=== PATIENT | male | born 1970 | race Caucasian/White ===

== ENCOUNTER 2016-08-31 10:37 | Inpatient (IN) | payer SELFPAY ==
[~2016-08-31] VITALS: Ht 174 cm; Wt 117.6 kg
[2016-08-31] VITALS (7 sets, daily range): BP systolic 111–120; BP diastolic 53–84; PULSE 84–90; RESP 18–30; TEMP 96.3–97.2; O2SAT 2–95
--- NOTE | 2016-08-31 11:09 | PD ---
HPI Chief Complaint: Wound/Suture/Staple Re-Check Time Seen by Provider: 10:46 Travel History International Travel<30 days: No Contact w/Intl Traveler<30days: No Traveled to known affect area: No History of Present Illness HPI 46-year-old male complains of shortness of breath, abdominal distention, lower extremity swelling. Patient has history of chronic pain and on methadone. Patient has history of hepatitis C and borderline diabetes. Patient states that he started having progressive lower extremity swelling for the past few months. Patient states that the swelling got worse for the past week. Patient started having redness lower extremity for the past week. Patient states the redness extends from the legs into the groin and to the lower abdomen area. Patient denies any fever chills. Patient denies any chest pain. Patient states that he has shortness of breath. Patient denies abdominal pain. Patient denies any nausea vomiting diarrhea. Patient denies any fever chills. Patient denies history of DVT or PE. Patient denies any history of alcohol abuse. PFSH Past Medical History Asthma: No Bipolar Disorder: Yes Anxiety: Yes Depression: No Cancer: No Cardiovascular Problems: Yes (hx of htn takes no meds at this time) Cerebrovascular Accident: No Diminished Hearing: No Endocrine: No Gastrointestinal Disorders: No Genitourinary: No Headaches: No Immune Disorder: No Implanted Vascular Access Dvce: Yes Musculoskeletal: Yes Neurologic: No Psychiatric: Yes Reproductive: No Respiratory: Yes Immunizations Current: Yes Migraines: No Seizures: No Sleep Apnea: No Past Surgical History AICD: No Arteriovenous Shunt: No Body Medical Devices: metal eusebia right leg Insulin Pump: No Joint Replacement: No Pacemaker: No Social History Alcohol Use: Yes (HX ETOH ABUSE, ABOUT A LITER A DAY) Tobacco Use: Yes (1 PPD) Substance Use: No (HX IV DILAUDID) Allergies-Medications (Allergen,Severity, Reaction): Coded Allergies: Geodon (Verified Allergy, Severe, Anaphylaxis, 08/31/16) Risperdal (Verified Allergy, Severe, Anaphylaxis, 08/31/16) Reported Meds & Prescriptions Reported Meds & Active Scripts Active Reported Methadone (Methadone HCl) 40 Mg Tab 40 Mg PO DAILY Review of Systems General / Constitutional: No: Fever Eyes: No: Visual changes HENT: No: Headaches Cardiovascular: No: Chest Pain or Discomfort Respiratory: Positive: Shortness of Breath Gastrointestinal: No: Abdominal Pain Genitourinary: No: Dysuria Musculoskeletal: Positive: Edema, No: Pain Skin: No Rash Neurologic: No: Weakness Psychiatric: No: Depression Endocrine: No: Polydipsia Hematologic/Lymphatic: No: Easy Bruising Physical Exam Narrative GENERAL: Well-nourished, well-developed patient. SKIN: Focused skin assessment warm/dry. Patient has redness extending from the toes to lower extremity to the groin to the lower abdomen. HEAD: Normocephalic. EYES: Bilateral scleral icterus. No injection or drainage. NECK: Supple, trachea midline. No JVD or lymphadenopathy. CARDIOVASCULAR: Regular rate and rhythm without murmurs, gallops, or rubs. RESPIRATORY: Breath sounds equal bilaterally. No accessory muscle use. GASTROINTESTINAL: Abdomen distended. Nontender on palpation. MUSCULOSKELETAL: Patient had +2 to +3 pitting edema lower extremity. Mild redness associated with lower extremity. No tenderness on palpation. Multiple ulcers lesions on the lower extremity. BACK: Nontender without obvious deformity. No CVA tenderness. Neurologic exam normal. Data Data Last Documented VS Vital Signs Date Time Temp Pulse Resp B/P Pulse Ox O2 Delivery O2 Flow Rate FiO2 08/31/16 10:50 27 93 Nasal Cannula 4 08/31/16 10:41 97.2 90 120/61 Orders Electrocardiogram (08/31/16 10:55) Complete Blood Count With Diff (08/31/16 10:55) Comprehensive Metabolic Panel (08/31/16 10:55) B-Type Natriuretic Peptide (08/31/16 10:55) Prothrombin Time / Inr (Pt) (08/31/16 10:55) Act Partial Throm Time (Ptt) (08/31/16 10:55) Lipase (08/31/16 10:55) Urinalysis - C+S If Indicated (08/31/16 10:55) Magnesium (Mg) (08/31/16 10:55) Ammonia (08/31/16 10:55) Thyroid Stimulating Hormone (08/31/16 10:55) Phosphorus (Po4) (08/31/16 10:55) Chest, Single Ap (08/31/16 10:55) Ct Abd/Pel W Iv Contrast(Rout) (08/31/16 10:55) Iv Access Insert/Monitor (08/31/16 10:55) Ecg Monitoring (08/31/16 10:55) Oximetry (08/31/16 10:55) Us Leg Venous Doppler Bilat (08/31/16 10:55) Urinary Catheter Insert/Apply (08/31/16 11:23) Iohexol 350 Inj (Omnipaque 350 Inj) (08/31/16 12:31) Labs Laboratory Tests Test 08/31/16 11:02 White Blood Count 9.9 TH/MM3 Red Blood Count 4.24 MIL/MM3 Hemoglobin 13.9 GM/DL Hematocrit 41.9 % Mean Corpuscular Volume 98.7 FL Mean Corpuscular Hemoglobin 32.9 PG Mean Corpuscular Hemoglobin 33.3 % Concent Red Cell Distribution Width 16.7 % Platelet Count 130 TH/MM3 Mean Platelet Volume 7.4 FL Neutrophils (%) (Auto) 73.7 % Lymphocytes (%) (Auto) 9.6 % Monocytes (%) (Auto) 15.2 % Eosinophils (%) (Auto) 1.1 % Basophils (%) (Auto) 0.4 % Neutrophils # (Auto) 7.3 TH/MM3 Lymphocytes # (Auto) 1.0 TH/MM3 Monocytes # (Auto) 1.5 TH/MM3 Eosinophils # (Auto) 0.1 TH/MM3 Basophils # (Auto) 0.0 TH/MM3 CBC Comment DIFF FINAL Differential Comment Prothrombin Time 17.6 SEC Prothromb Time International 1.6 RATIO Ratio Activated Partial 32.3 SEC Thromboplast Time Sodium Level 136 MEQ/L Potassium Level 4.7 MEQ/L Chloride Level 97 MEQ/L Carbon Dioxide Level 30.2 MEQ/L Anion Gap 9 MEQ/L Blood Urea Nitrogen 6 MG/DL Creatinine 0.93 MG/DL Estimat Glomerular Filtration 88 ML/MIN Rate Random Glucose 56 MG/DL Calcium Level 8.2 MG/DL Phosphorus Level 2.6 MG/DL Magnesium Level 2.1 MG/DL Total Bilirubin 6.1 MG/DL Aspartate Amino Transf 187 U/L (AST/SGOT) Alanine Aminotransferase 78 U/L (ALT/SGPT) Alkaline Phosphatase 174 U/L Ammonia 63 MCMOL/L B-Type Natriuretic Peptide 103 PG/ML Total Protein 7.8 GM/DL Albumin 2.2 GM/DL Lipase 179 U/L Thyroid Stimulating Hormone 4.970 uIU/ML 3rd Gen [facility] Medical Decision Making Medical Screen Exam Complete: Yes Emergency Medical Condition: Yes Interpretation(s) Last Impressions Lower Extremity Ultrasound 08/31/16 1055 Signed Impressions: Service Date/Time: Wednesday, August 31, 2016 11:21 - CONCLUSION: 1. Limited examination due to patient's body habitus and lower extremity edema. 2. No definitive sonographic evidence for lower extremity DVT. Jorge A Collazo MD Chest X-Ray 08/31/161054 Signed Impressions: Service Date/Time: Wednesday, August 31, 2016 11:05 - CONCLUSION: 1. Mild cardiomegaly with positive fluid balance. 2. Bilateral upper lobe patchy airspace disease, more confluent on the right. Differential considerations include developing pulmonary edema versus infection in the appropriate setting. Followup to resolution is recommended. Jorge A Collazo MD Abdomen/Pelvis CT 08/31/165 Signed Impressions: Service Date/Time: Wednesday, August 31, 2016 12:29 - CONCLUSION: Cirrhosis, slight splenomegaly and mild anasarca. Ashish Wood MD 1327 PM. CBC within normal limit. Calcium 8.2. Total bili 6.1. AST 187. Alkaline phosphatase 174. Ammonia 63. BNP 103. TSH 4.97. INR 1.6. Differential Diagnosis Differential diagnosis including liver cirrhosis, anasarca, dependent edema, ascites, cellulitis, DVT, CHF. Narrative Course 46-year-old male with shortness of breath, abdominal distention, lower extremity edema. History of hepatitis C. Patient is jaundiced. Diagnosis Primary Impression: Liver cirrhosis Qualified Code: K74.60 - Cirrhosis of liver without ascites, unspecified hepatic cirrhosis type Additional Impressions: Anasarca Cellulitis Qualified Code: L03.119 - Cellulitis of lower extremity, unspecified laterality Koko Simon MD Aug 31, 2016 11:09
[2016-08-31] MEDS ORDERED: METH40TA PO (11:15)
[2016-08-31 11:21] LABS: AUTOMATED NEUTROPHIL # 7.3 TH/MM3 (1.8-7.7); BASOPHIL % 0.4 % (0.0-2.0); EOSINOPHIL # 0.1 TH/MM3 (0-0.4); EOSINOPHIL % 1.1 % (0.0-4.0); HEMATOCRIT 41.9 % (39.0-51.0); HEMO FLAGS DIFF FINAL; LYMPH % 9.6 % (9.0-44.0); MEAN CELL VOLUME 98.7 FL (80.0-100.0); MEAN CORPUSCULAR HEMOGLOBIN 32.9 PG (27.0-34.0); MEAN CORPUSCULAR HGB CONC 33.3 % (32.0-36.0); MONO % 15.2 % (0.0-8.0); NEUT % 73.7 % (16.0-70.0); PLATELET COUNT 130 TH/MM3 (150-450); RED BLOOD COUNT 4.24 MIL/MM3 (4.50-5.90); RED CELL DISTRIBUTION WIDTH 16.7 % (11.6-17.2); WHITE BLOOD COUNT 9.9 TH/MM3 (4.0-11.0)
[2016-08-31 11:30] LABS: APTT (PATIENT) 32.3 SEC (24.3-30.1); INTERNATIONAL NORMALIZED RATIO 1.6 RATIO; PROTHROMBIN TIME - PATIENT 17.6 SEC (9.8-11.6)
--- NOTE | 2016-08-31 11:31 | RADRPT ---
EXAM DATE/TIME: 08/31/2016 11:05 [facility] COMPARISON: CHEST SINGLE AP, October 30, 2015, 15:06. INDICATIONS : Shortness of breath. MEDICAL HISTORY : Smoker. SURGICAL HISTORY : None. ENCOUNTER: Initial ACUITY: 3 days PAIN SCORE: 0/10 LOCATION: Bilateral chest FINDINGS: Cardiac silhouette is mildly enlarged. There are bilateral upper lobe patchy airspace disease which a ppears more confluent on the right. Pulmonary vascularity is slightly indistinct. Bony thorax is inta ct. CONCLUSION: 1. Mild cardiomegaly with positive fluid balance. 2. Bilateral upper lobe patchy airspace disease, more confluent on the right. Differential considerat ions include developing pulmonary edema versus infection in the appropriate setting. Followup to reso lution is recommended. Jorge A Collazo MD on August 31, 2016 at 11:27 Board Certified Radiologist. This report was verified electronically.
[2016-08-31 11:53] LABS: ALKALINE PHOSPHATASE 174 U/L (45-117); TOTAL BILIRUBIN ADULT 6.1 MG/DL (0.2-1.0)
[2016-08-31 12:02] LABS: ALT (GPT) 78 U/L (12-78); ANION GAP 9 MEQ/L (5-15); AST (GOT) 187 U/L (15-37); BICARBONATE 30.2 MEQ/L (21.0-32.0); BLOOD UREA NITROGEN 6 MG/DL (7-18); CHLORIDE 97 MEQ/L (98-107); GLOMERULAR FILTRATION RATE 88 ML/MIN (>89); MAGNESIUM 2.1 MG/DL (1.5-2.5); POTASSIUM 4.7 MEQ/L (3.5-5.1); SODIUM (NA) 136 MEQ/L (136-145)
--- NOTE | 2016-08-31 12:18 | RADRPT ---
EXAM DATE/TIME: 08/31/2016 11:21 [facility] COMPARISON: No previous studies available for comparison. INDICATIONS : Bilateral leg swelling. MEDICAL HISTORY : Hypertension. Bipolar disorder. Anxiety. SURGICAL HISTORY : Right femur fracture with eusebia. Fracture tail bone. ENCOUNTER: Initial ACUITY: 2 months PAIN SCORE: 5/10 LOCATION: Bilateral leg. TECHNIQUE: Venous ultrasound of the left and right leg was performed from the inguinal ligament to the proximal calf. Real-time, color Doppler and spectral tracing, compression and augmentation techniques were us ed. FINDINGS: Examination is limited due to patient's body habitus and lower extremity edema. RIGHT LEG: There is normal compressibility of the deep venous system from the inguinal region to the proximal ca lf. No significant echogenic clot is seen in the lumen of the common femoral, femoral, popliteal, an d posterior tibial veins. There is a normal response of the venous system to proximal and distal aug mentation and respiration. LEFT LEG: There is normal compressibility of the deep venous system from the inguinal region to the proximal ca lf. No significant echogenic clot is seen in the lumen of the common femoral, femoral, popliteal, an d posterior tibial veins. There is a normal response of the venous system to proximal and distal aug mentation and respiration. CONCLUSION: 1. Limited examination due to patient's body habitus and lower extremity edema. 2. No definitive sonographic evidence for lower extremity DVT. Jorge A Collazo MD on August 31, 2016 at 12:14 Board Certified Radiologist. This report was verified electronically.
[2016-08-31] MEDS ORDERED: IOHEXOL 350 MG/ML 10 ML VIAL (for RAD DIAG) IV ONE (12:31)
--- NOTE | 2016-08-31 13:01 | RADRPT ---
EXAM DATE/TIME: 08/31/2016 12:29 [facility] COMPARISON: No previous studies available for comparison. INDICATIONS : Jaundice, shortness of breath. IV CONTRAST: 100 cc Omnipaque 350 (iohexol) IV ORAL CONTRAST: No oral contrast ingested. RADIATION DOSE: 16.94 CTDIvol (mGy) MEDICAL HISTORY : Cardiovascular disease. Hepatitis C. SURGICAL HISTORY : None. ENCOUNTER: Initial ACUITY: 3 days PAIN SCALE: 0/10 LOCATION: Bilateral upper quadrant TECHNIQUE: Volumetric scanning of the abdomen and pelvis was performed. Using automated exposure control and ad justment of the mA and/or kV according to patient size, radiation dose was kept as low as reasonably achievable to obtain optimal diagnostic quality images. DICOM format image data is available electro nically for review and comparison. FINDINGS: CT Abdomen: The liver is fatty and cirrhotic and spleen measures 17 cm in craniocaudal dimension with out focal lesions. Recannalized paraumbilical vein is present with slight varices. The pancreas, kidn eys, adrenals are unremarkable. There is no evidence for any appreciable pathological adenopathy, luisa e fluid, or bowel obstruction. There is mild anasarca. CT pelvis: There is no evidence for mass, abscess formation, or any significant adenopathy within the pelvis. CONCLUSION: Cirrhosis, slight splenomegaly and mild anasarca. Ashish Wood MD on August 31, 2016 at 12:51 Board Certified Radiologist. This report was verified electronically.
[2016-08-31] MEDS ORDERED: VANCOMYCIN INJ 1,000 MG in SODIUM CHLOR 0.9% 250 ML INJ 250 ML IV ONE (13:45)
[2016-08-31] MEDS ORDERED: LIDOCAINE 2% JELLY 30 ML TUBE TOPICAL ONE (13:45)
[2016-08-31] MEDS ORDERED: FUROSEMIDE 40 MG/4 ML VIAL IV PUSH ONE (13:45)
[2016-08-31] MEDS ORDERED: NALOXONE HCL 0.4 MG/ML AMP IV PRN (14:15)
[2016-08-31] MEDS ORDERED: SODIUM CHLORIDE 0.9% FLUSH 10 ML FLUSH IV FLUSH PRN (14:15)
--- NOTE | 2016-08-31 14:16 | HHI.HP ---
[facility] Primary Care Physician Admission Diagnosis Anasarca Diagnoses: Travel History International Travel<30 Days: No Contact w/Intl Traveler <30 Da: No Traveled to Known Affected Are: No History of Present Illness 46yo male with med hx significant for hep C presents for worsening LE swelling. Patient states for months he has had worsening LE edema. Over the past month it has significantly worsened to the point were he has difficulty walking. Edema has progressed to include his entire LE, abdomen, arms, and face. He states he has noticed wounds develop in his LE because of the swelling. He also feels SOB. He has not seen a doctor in some time. Due to the increasing swelling, he has gained over 100lbs in a year. He has Hep C from IV drug abuse. He is unclear of any other medical problems. He states he no longer drinks alcohol, last drink 1 week ago. He was previously drinking 3 pints a day. This high consumption of alcohol has been over the past year. He states he was also abusing PO dilaudid he was getting from a pain clinic. He has been going to the methadone clinic. Review of Systems Constitutional: COMPLAINS OF: Fever, Weight gain, Chills Eyes: DENIES: Blurred vision, Diplopia Ears, nose, mouth, throat: COMPLAINS OF: Tinnitus, DENIES: Hearing loss Respiratory: COMPLAINS OF: Apneas, Cough, Snoring, Shortness of breath Cardiovascular: COMPLAINS OF: Dyspnea on Exertion, Lower Extremity Edema, DENIES: Chest pain, Palpitations Gastrointestinal: COMPLAINS OF: Abdominal pain, Constipation, Diarrhea, Vomiting, DENIES: Nausea Musculoskeletal: COMPLAINS OF: Joint pain, Muscle aches, Back pain Integumentary: COMPLAINS OF: Rash Hematologic/lymphatic: COMPLAINS OF: Bruising Neurologic: COMPLAINS OF: Abnormal gait, DENIES: Seizures Psychiatric: COMPLAINS OF: Anxiety, Depression, DENIES: Hallucinations Past Family Social History Past Medical History Hepatits C Borderline DM Past Surgical History Right femur surgery 1991 Reported Medications Methadone (Methadone HCl) 40 Mg Tab 40 Mg PO DAILY Allergies: Coded Allergies: Geodon (Verified Allergy, Severe, Anaphylaxis, 08/31/16) Risperdal (Verified Allergy, Severe, Anaphylaxis, 08/31/16) Family History adopted Social History lives with father currently dose not work alcohol abuse methadone use denies any other ilicit substances Physical Exam Vital Signs Vital Signs Date Time Temp Pulse Resp B/P Pulse Ox O2 Delivery O2 Flow Rate FiO2 08/31/16 10:50 27 93 Nasal Cannula 4 08/31/16 10:41 97.2 90 30 120/61 85 Physical Exam GENERAL: This is a morbidly obese male appears uncomfortable SKIN: Diffuse jaundice, diffuse edema from feet to mid chest, although face also appears swollen. HEAD: Atraumatic. Normocephalic. No temporal or scalp tenderness. EYES: Pupils equal round and reactive. Extraocular motions intact. + scleral icterus. No injection or drainage. ENT: Nose without bleeding, purulent drainage or septal hematoma. Throat without erythema, tonsillar hypertrophy or exudate. Uvula midline. Airway patent. NECK: Trachea midline. No JVD or lymphadenopathy. Supple, nontender, no meningeal signs. CARDIOVASCULAR: Distant heart sounds, S1 and S2 appreciated without significant murmur. RESPIRATORY: Lateral breath sounds are clear to auscultation. No wheezes, rales , or rhonchi. GASTROINTESTINAL: Abdomen is distended and is diffusely tender to palpation. : significant scrotal swelling, leos in place MUSCULOSKELETAL:+++LE swelling, pitting edema, multiple ulcerations of shins are present bilaterally from significant stress/stretching of the skin. Scant drainage is present. There is surrounding erythema. Local cellulitis is present. NEUROLOGICAL: Awake and alert. Cranial nerves II through XII intact. Motor and sensory grossly within normal limits. Five out of 5 muscle strength in all muscle groups. Normal speech. Mobility is limited due to habitus. Laboratory Laboratory Tests Test 08/31/16 11:02 White Blood Count 9.9 Red Blood Count 4.24 Hemoglobin 13.9 Hematocrit 41.9 Mean Corpuscular Volume 98.7 Mean Corpuscular Hemoglobin 32.9 Mean Corpuscular Hemoglobin 33.3 Concent Red Cell Distribution Width 16.7 Platelet Count 130 Mean Platelet Volume 7.4 Neutrophils (%) (Auto) 73.7 Lymphocytes (%) (Auto) 9.6 Monocytes (%) (Auto) 15.2 Eosinophils (%) (Auto) 1.1 Basophils (%) (Auto) 0.4 Neutrophils # (Auto) 7.3 Lymphocytes # (Auto) 1.0 Monocytes # (Auto) 1.5 Eosinophils # (Auto) 0.1 Basophils # (Auto) 0.0 CBC Comment DIFF FINAL Differential Comment Prothrombin Time 17.6 Prothromb Time International 1.6 Ratio Activated Partial 32.3 Thromboplast Time Sodium Level 136 Potassium Level 4.7 Chloride Level 97 Carbon Dioxide Level 30.2 Anion Gap 9 Blood Urea Nitrogen 6 Creatinine 0.93 Estimat Glomerular Filtration 88 Rate Random Glucose 56 Calcium Level 8.2 Phosphorus Level 2.6 Magnesium Level 2.1 Total Bilirubin 6.1 Aspartate Amino Transf 187 (AST/SGOT) Alanine Aminotransferase 78 (ALT/SGPT) Alkaline Phosphatase 174 Ammonia 63 B-Type Natriuretic Peptide 103 Total Protein 7.8 Albumin 2.2 Lipase 179 Thyroid Stimulating Hormone 4.970 3rd Gen Result Diagram: 08/31/16 1102 08/31/16 1102 Imaging Last Impressions Lower Extremity Ultrasound 08/31/161054 Signed Impressions: Service Date/Time: Wednesday, August 31, 2016 11:21 - CONCLUSION: 1. Limited examination due to patient's body habitus and lower extremity edema. 2. No definitive sonographic evidence for lower extremity DVT. Jorge A Collazo MD Chest X-Ray 08/31/161054 Signed Impressions: Service Date/Time: Wednesday, August 31, 2016 11:05 - CONCLUSION: 1. Mild cardiomegaly with positive fluid balance. 2. Bilateral upper lobe patchy airspace disease, more confluent on the right. Differential considerations include developing pulmonary edema versus infection in the appropriate setting. Followup to resolution is recommended. Jorge A Collazo MD Abdomen/Pelvis CT 08/31/161054 Signed Impressions: Service Date/Time: Wednesday, August 31, 2016 12:29 - CONCLUSION: Cirrhosis, slight splenomegaly and mild anasarca. Ashish Wood MD Assessment and Plan Problem List: (1) Hepatitis C ICD Code: B19.20 Status: Acute (2) HX IVDU Status: Acute (3) Anasarca ICD Code: R60.1 Status: Acute (4) Cellulitis ICD Code: L03.90 Status: Acute (5) Elevated TSH ICD Code: R94.6 Status: Acute (6) Hyperammonemia ICD Code: E72.20 Status: Acute Assessment and Plan 46 yo male with hx hepatitis and methadone use presents with diffuse edema Anasarca - likely related to liver disease; AST/ALT 187/78, alk phos 174, ammonia 63, albumin 2.2, PT and APTT elevated, he is diffusely jaundice and has urobilinogen. - discussed at length with patient his alcohol abuse and negative sequela - will check a hep pannel and also obtain an ECHO to evaluate for any heart failure - he received lasix 40 mg IV x1 in ED, will continue 40 mg IV BID and also add spironolactone 50 mg daily - strict I & Os, fluid and sodium restrict Cellulitis - superficial cellulitis is present on both extremities due to ulceration from significant LE swelling - currently ulcerations are dressed and LE in RICHARD bandage - s/p 1 dose of Vanc in the ED, he can be continued on IV abx while in hospital for max benefit and transition to PO Elevated TSH - add T4 to blood in lab and treat as indicated Hyperammonia - likely related to liver disease - lactulose 30 ml x1, repeat tomorrow Hx IVDU, on methadone - will continue patients home methadone DVT prophy - given immobility significant DVT risk, lovenox 40 meq daily case discussed with nurse and with ED doc Code Status Full Physician Certification 2 Midnight Certification Type: Admission for Inpatient Services Order for Inpatient Services The services are ordered in accordance with Medicare regulations or non- Medicare payer requirements, as applicable. In the case of services not specified as inpatient-only, they are appropriately provided as inpatient services in accordance with the 2-midnight benchmark. Estimated LOS (days): 3 days is the estimated time the patient will need to remain in the hospital, assuming treatment plan goals are met and no additional complications. Post-Hospital Plan: Not yet determined Problem Qualifiers (1) Cellulitis: Qualified Code: L03.119 - Cellulitis of lower extremity, unspecified laterality Ju Porras MD Aug 31, 2016 14:16
[2016-08-31 14:30] LABS: BLOOD, URINE NEG (NEG); GLUCOSE,URINE NEG (NEG); KETONE, URINE NEG (NEG); NITRITE,URINE NEG (NEG); PH, URINE 6.5 (5.0-8.5); SQUAMOUS EPITHELIAL CELL URINE 2 /hpf (0-5); URINE COLOR DARK-YELLOW (YELLW/STRAW)
[2016-08-31 14:35] LABS: COMMENT (UR) CULT NOT INDICATED; CULTURE IF INDICATED CULT NOT INDICATED
[2016-08-31] MEDS ORDERED: LACTULOSE SYRUP 20 GM/30 ML CUP PO ONE (17:00)
[2016-08-31] MEDS: ENOXAPARIN SODIUM 40 MG/0.4 ML SYRINGE SQ SCH (18:21)
[2016-08-31] MEDS: FUROSEMIDE 40 MG/4 ML VIAL IV PUSH SCH (18:21)
[2016-08-31] MEDS: DOCUSATE SODIUM 50 MG/SENNA 8.6 MG TAB PO SCH (21:00)
[2016-08-31] MEDS: SODIUM CHLORIDE 0.9% FLUSH 10 ML FLUSH IV FLUSH SCH (21:00)
[2016-09-01] VITALS (8 sets, daily range): BP systolic 105–129; BP diastolic 56–76; PULSE 78–92; RESP 18–20; TEMP 96.7–97.8; O2SAT 88–96
[2016-09-01] MEDS ORDERED: MORPHINE SULFATE 4 MG/ML INJ IV PUSH ONE (03:00)
[2016-09-01 06:42] LABS: AUTOMATED NEUTROPHIL # 6.3 TH/MM3 (1.8-7.7); BASOPHIL # 0.1 TH/MM3 (0-0.2); BASOPHIL % 0.8 % (0.0-2.0); EOSINOPHIL # 0.2 TH/MM3 (0-0.4); EOSINOPHIL % 2.1 % (0.0-4.0); HEMATOCRIT 41.6 % (39.0-51.0); HEMO FLAGS DIFF FINAL; LYMPH % 11.5 % (9.0-44.0); LYMPHOCYTE # 1.1 TH/MM3 (1.0-4.8); MEAN CELL VOLUME 99.8 FL (80.0-100.0); MEAN CORPUSCULAR HEMOGLOBIN 33.4 PG (27.0-34.0); MEAN CORPUSCULAR HGB CONC 33.5 % (32.0-36.0); MONO % 17.1 % (0.0-8.0); NEUT % 68.5 % (16.0-70.0); PLATELET COUNT 122 TH/MM3 (150-450); RED BLOOD COUNT 4.17 MIL/MM3 (4.50-5.90); RED CELL DISTRIBUTION WIDTH 16.6 % (11.6-17.2); WHITE BLOOD COUNT 9.2 TH/MM3 (4.0-11.0)
[2016-09-01 06:53] LABS: BICARBONATE 37.8 MEQ/L (21.0-32.0); POTASSIUM 3.2 MEQ/L (3.5-5.1)
--- NOTE | 2016-09-01 07:37 | HHI.PR ---
Subjective Remarks Patient seen and examined this am. States his legs feel smaller, but still feels like he has "too much fluid". Nurse verified methadone at his clinic. CIWA protocol initated, was at about a level 5. Otherwise he feels well and is without complaints. Would like to sit in a chair today. Objective Vital Signs Date Time Temp Pulse Resp B/P Pulse Ox O2 Delivery O2 Flow Rate FiO2 09/01/16 04:00 97.3 84 19 129/69 94 09/01/16 00:00 96.7 88 18 120/76 96 08/31/16 20:05 93 Nasal Cannula 4.00 08/31/16 20:00 96.3 86 19 116/68 95 08/31/16 16:40 96.7 85 18 113/56 92 08/31/16 15:36 90 28 120/84 92 Nasal Cannula 4 08/31/16 14:14 84 28 111/53 92 Nasal Cannula 4 08/31/16 10:50 27 93 Nasal Cannula 4 08/31/16 10:41 97.2 90 30 120/61 85 I/O 08/31/16 08/31/16 08/31/16 09/01/16 09/01/16 09/01/16 06:59 14:59 22:59 06:59 14:59 22:59 Intake Total 200 ml 300 ml 480 ml Output Total 3700 ml 2700 ml Balance 200 ml -3400 ml -2220 ml Intake Oral 200 ml 300 ml 480 ml Output Urine Total 3700 ml 2700 ml # Voids 0 # Bowel Movements 0 0 Result Diagram: 09/01/16 0602 09/01/16 0602 Imaging Last Impressions Lower Extremity Ultrasound 08/31/16 1055 Signed Impressions: Service Date/Time: Wednesday, August 31, 2016 11:21 - CONCLUSION: 1. Limited examination due to patient's body habitus and lower extremity edema. 2. No definitive sonographic evidence for lower extremity DVT. Jorge A Collazo MD Chest X-Ray 08/31/16 1055 Signed Impressions: Service Date/Time: Wednesday, August 31, 2016 11:05 - CONCLUSION: 1. Mild cardiomegaly with positive fluid balance. 2. Bilateral upper lobe patchy airspace disease, more confluent on the right. Differential considerations include developing pulmonary edema versus infection in the appropriate setting. Followup to resolution is recommended. Jorge A Collazo MD Abdomen/Pelvis CT 08/31/16 1055 Signed Impressions: Service Date/Time: Wednesday, August 31, 2016 12:29 - CONCLUSION: Cirrhosis, slight splenomegaly and mild anasarca. Ashish Wood MD Objective Remarks GENERAL: This is a morbidly obese male appears comfortable sitting up in bed. SKIN: Diffuse jaundice, diffuse edema from feet to mid chest, although face also appears swollen. HEAD: Atraumatic. Normocephalic. No temporal or scalp tenderness. EYES: Pupils equal round and reactive. Extraocular motions intact. + scleral icterus. No injection or drainage. ENT: Nose without bleeding, purulent drainage or septal hematoma. Throat without erythema, tonsillar hypertrophy or exudate. Uvula midline. Airway patent. NECK: Trachea midline. No JVD or lymphadenopathy. Supple, nontender, no meningeal signs. CARDIOVASCULAR: Distant heart sounds, S1 and S2 appreciated without significant murmur. RESPIRATORY: Lateral breath sounds are clear to auscultation. No wheezes, rales , or rhonchi. GASTROINTESTINAL: Abdomen is distended and is diffusely tender to palpation. : significant scrotal swelling, leos in place MUSCULOSKELETAL:+++LE swelling, pitting edema, multiple ulcerations of shins are present bilaterally from significant stress/stretching of the skin. Scant drainage is present. There is surrounding erythema. Local cellulitis is present. NEUROLOGICAL: Awake and alert. Cranial nerves II through XII intact. Motor and sensory grossly within normal limits. Five out of 5 muscle strength in all muscle groups. Normal speech. Mobility is limited due to habitus. A/P Problem List: (1) Liver cirrhosis ICD Code: K74.60 (2) Cellulitis ICD Code: L03.90 (3) Anasarca ICD Code: R60.1 (4) Hyperammonemia ICD Code: E72.20 (5) Elevated TSH ICD Code: R94.6 Assessment and Plan 46 yo male with hx hepatitis and methadone use presents with diffuse edema Anasarca - likely related to liver disease; AST/ALT 187/78, alk phos 174, ammonia 63, albumin 2.2, PT and APTT elevated, he is diffusely jaundice and has urobilinogen. - discussed at length with patient his alcohol abuse and negative sequela - hep panel pending - ECHO pending - Lasix 40 mg IV BID, spironolactone 50 mg daily, KCL 20 meq BID - strict I & Os, fluid and sodium restrict--> diuresing well Cellulitis - superficial cellulitis is present on both extremities due to ulceration from significant LE swelling - currently ulcerations are dressed and LE in RICHARD bandage - s/p 1 dose of Vanc in the ED, he can be continued on IV abx while in hospital for max benefit and transition to PO Elevated TSH - free T4 wnl - repeat as an outpatient Hyperammonia - likely related to liver disease - worse this am - lactulose 30 meq daily Hx IVDU, on methadone - will continue patients home methadone DVT prophy - given immobility significant DVT risk, lovenox 40 meq daily case discussed with nurse Discharge Planning D/C pending ECHO and further workup Likely 1-2 days Discussed case with nurse Problem Qualifiers (1) Liver cirrhosis: Qualified Code: K74.60 - Cirrhosis of liver without ascites, unspecified hepatic cirrhosis type (2) Cellulitis: Qualified Code: L03.119 - Cellulitis of lower extremity, unspecified laterality Ju Porras MD Sep 01, 2016 07:36
[2016-09-01] MEDS ORDERED: POTASSIUM CHLORIDE 10 MEQ CONTROLLED RELEASE TAB PO ONE (07:45)
[2016-09-01] MEDS ORDERED: METH10CO3 PO (07:54)
[2016-09-01] MEDS: LACTULOSE SYRUP 20 GM/30 ML CUP PO SCH (09:48)
[2016-09-01] MEDS: SODIUM CHLORIDE 0.9% FLUSH 10 ML FLUSH IV FLUSH SCH ×2 (09:49→21:20)
[2016-09-01] MEDS: DOCUSATE SODIUM 50 MG/SENNA 8.6 MG TAB PO SCH ×2 (09:49→21:19)
[2016-09-01] MEDS: POTASSIUM CHLORIDE 20 MEQ CONTROLLED RELEASE TAB PO SCH ×2 (09:49→21:19)
[2016-09-01] MEDS: FUROSEMIDE 40 MG/4 ML VIAL IV PUSH SCH ×2 (09:49→16:55)
[2016-09-01] MEDS: SPIRONOLACTONE 50 MG TAB PO SCH (09:49)
[2016-09-01] MEDS ORDERED: METHADONE HCL 10 MG/10 ML ORAL SOLUTION PO SCH (12:45)
[2016-09-01] MEDS: METHADONE HCL 10 MG TAB PO SCH (14:15)
[2016-09-01] MEDS ORDERED: FLUMAZENIL 0.5 MG/5 ML VIAL IV PUSH PRN (15:30)
[2016-09-01] MEDS ORDERED: LORazepam 2 MG/ML VIAL IV PUSH PRN ×4 (15:30)
[2016-09-01] MEDS ORDERED: LORazepam 2 MG TAB PO PRN (15:30)
[2016-09-01] MEDS: ENOXAPARIN SODIUM 40 MG/0.4 ML SYRINGE SQ SCH (15:46)
--- NOTE | 2016-09-01 16:48 | ECHRPT ---
Indication: SHORTNESS OF BREATH CONCLUSIONS very technically limited study, best estimate of lv ef @ 50-55%; av not imaged but mean gradient by Doppler is 13 mm hg suggestive of mild stenosis BP: 108 / 52 HR: 111 Rhythm: Sinus MEASUREMENTS (Male / Female) Normal Values Technical Quality:Very technically difficult study 2D ECHO LVOT Diameter 2.3 cm Aortic Root Diameter 3.0 cm DOPPLER LVOT Peak Velocity 277.0 cm/s LVOT Peak Gradient 30.7 mmHg LVOT Velocity Time Integral 42.6 cm LVOT Cardiac Index 7400.2 cm/minm MV Peak Velocity 84.1 cm/s MV Peak Gradient 2.8 mmHg MV Mean Velocity 58.3 cm/s MV Mean Gradient 2.0 mmHg PV Peak Velocity 49.6 cm/s PV Peak Gradient 1.0 mmHg Kenyon Brewer MD, FACC, [facility] (Electronically Signed) Final Date:01 September 2016 16:47
--- NOTE | 2016-09-01 18:30 | EKG ---
Date Performed: 08/31/2016 Time Performed: 11:11:49 PTAGE: 46 years EKG: Sinus rhythm LOW QRS VOLTAGE IN PRECORDIAL LEADS MODERATE INTRAVENTRICULAR CONDUCTION DELAY BORDERLINE ECG PREVIOUS TRACING 10/30/2015 @ 15.34.08 Compared to prior tracing no significant change DOCTOR: Kenyon Brewer Interpretating Date/Time 09/01/2016 18:28:51
[2016-09-02] VITALS (9 sets, daily range): BP systolic 105–136; BP diastolic 58–79; PULSE 80–97; RESP 18–22; TEMP 96.6–99; O2SAT 91–95
[2016-09-02] MEDS: LORazepam 1 MG TAB PO PRN (04:44)
--- NOTE | 2016-09-02 07:26 | HHI.PR ---
Subjective Remarks Patient seen and examined this am. Yesterday nurse reports he was visually hallucinating and had tremors. CIWA score of 14, medication protocol was initiated. Sat up in chair. Reports he feels okay. He is alert and orientated but is not as sharp a previously. Objective Vital Signs Date Time Temp Pulse Resp B/P Pulse Ox O2 Delivery O2 Flow Rate FiO2 09/02/16 04:00 97.1 92 18 120/63 93 09/02/16 00:00 98.7 93 18 127/73 93 09/01/16 20:00 97.8 92 18 127/76 94 09/01/16 17:20 95 Nasal Cannula 4.00 09/01/16 16:00 97.7 81 20 105/76 95 09/01/16 12:00 96.9 86 18 110/68 88 09/01/16 10:24 95 Nasal Cannula 4.00 09/01/16 08:00 96.7 78 18 111/56 94 I/O 09/01/16 09/01/16 09/01/16 09/02/16 09/02/16 09/02/16 07:00 15:00 23:00 07:00 15:00 23:00 Intake Total 480 ml 960 ml 360 ml 270 ml Output Total 1000 ml 1900 ml 1750 ml 400 ml Balance -520 ml -940 ml -1390 ml -130 ml Intake Oral 480 ml 960 ml 360 ml 270 ml Output Urine Total 1000 ml 1900 ml 1750 ml 400 ml # Bowel Movements 0 0 0 Result Diagram: 09/01/16 0602 09/01/16 0602 Imaging Last Impressions Lower Extremity Ultrasound 08/31/16 1055 Signed Impressions: Service Date/Time: Wednesday, August 31, 2016 11:21 - CONCLUSION: 1. Limited examination due to patient's body habitus and lower extremity edema. 2. No definitive sonographic evidence for lower extremity DVT. Jorge A Collazo MD Chest X-Ray 08/31/16 1055 Signed Impressions: Service Date/Time: Wednesday, August 31, 2016 11:05 - CONCLUSION: 1. Mild cardiomegaly with positive fluid balance. 2. Bilateral upper lobe patchy airspace disease, more confluent on the right. Differential considerations include developing pulmonary edema versus infection in the appropriate setting. Followup to resolution is recommended. Jorge A Collazo MD Abdomen/Pelvis CT 08/31/16 1055 Signed Impressions: Service Date/Time: Wednesday, August 31, 2016 12:29 - CONCLUSION: Cirrhosis, slight splenomegaly and mild anasarca. Ashish Wood MD Objective Remarks GENERAL: This is a morbidly obese male appears comfortable sitting up in bed. SKIN: Diffuse jaundice, diffuse edema from feet to mid chest that has improved from admission. HEAD: Atraumatic. Normocephalic. No temporal or scalp tenderness. EYES: Pupils equal round and reactive. Extraocular motions intact. + scleral icterus. No injection or drainage. ENT: Nose without bleeding, purulent drainage or septal hematoma. Throat without erythema, tonsillar hypertrophy or exudate. Uvula midline. Airway patent. NECK: Trachea midline. No JVD or lymphadenopathy. Supple, nontender, no meningeal signs. CARDIOVASCULAR: Distant heart sounds, S1 and S2 appreciated without significant murmur. RESPIRATORY: Lateral breath sounds are clear to auscultation. No wheezes, rales , or rhonchi. GASTROINTESTINAL: Abdomen is distended and is diffusely tender to palpation. : significant scrotal swelling, leos in place MUSCULOSKELETAL:+LE swelling, significant improved from previous, multiple ulcerations of shins are present bilaterally from significant stress/stretching of the skin, there is scant drainage is present. The skin is very dry. NEUROLOGICAL: Awake and alert. Cranial nerves II through XII intact. Motor and sensory grossly within normal limits. Speech. Mobility is limited due to habitus. A/P Problem List: (1) Liver cirrhosis ICD Code: K74.60 (2) Cellulitis ICD Code: L03.90 (3) Anasarca ICD Code: R60.1 (4) Hyperammonemia ICD Code: E72.20 (5) Elevated TSH ICD Code: R94.6 Assessment and Plan 46 yo male with hx hepatitis and methadone use presents with diffuse edema Anasarca - likely related to liver disease; AST/ALT 187/78, alk phos 174, ammonia 63, albumin 2.2, PT and APTT elevated, he is diffusely jaundice and has urobilinogen. - discussed at length with patient his alcohol abuse and negative sequela - hep panel pending - ECHO pending - Lasix 20 mg IV BID, spironolactone 50 mg daily, KCL 20 meq BID - strict I & Os, fluid and sodium restrict--> diuresing well Cellulitis - superficial cellulitis is present on both extremities due to ulceration from significant LE swelling - currently ulcerations are dressed and LE in RICHARD bandage - culture obtained and pending - currently on vancomycin 08/31-09/02 can de-escalate to PO keflex - wound care consulted for assistance, also with superficial wound on buttocks that patient was unaware of Elevated TSH - free T4 wnl - repeat as an outpatient Hyperammonia - likely related to liver disease - worse this am - lactulose 30 meq daily ETOH - rally pack - CIWA protocol Hx IVDU, on methadone - will continue patients home methadone DVT prophy - given immobility significant DVT risk, lovenox 40 meq daily case discussed with nurse Discharge Planning D/C pending stabilization of mental status. Discussed case with nurse Problem Qualifiers (1) Liver cirrhosis: Qualified Code: K74.60 - Cirrhosis of liver without ascites, unspecified hepatic cirrhosis type (2) Cellulitis: Qualified Code: L03.119 - Cellulitis of lower extremity, unspecified laterality Ju Porras MD Sep 02, 2016 07:25 Ju Porras MD Sep 02, 2016 07:25
[2016-09-02 08:27] LABS: BICARBONATE 40.2 MEQ/L (21.0-32.0); POTASSIUM 3.5 MEQ/L (3.5-5.1)
[2016-09-02] MEDS: LACTULOSE SYRUP 20 GM/30 ML CUP PO SCH (10:55)
[2016-09-02] MEDS: METHADONE HCL 10 MG TAB PO SCH (10:56)
[2016-09-02] MEDS: THIAMINE HCL 100 MG TAB PO SCH (10:56)
[2016-09-02] MEDS: SPIRONOLACTONE 50 MG TAB PO SCH (10:56)
[2016-09-02] MEDS: FOLIC ACID 1 MG TAB PO SCH (10:57)
[2016-09-02] MEDS: MULTIVITAMINS/MINERALS THERAPEUTIC TAB PO SCH (10:57)
[2016-09-02] MEDS: POTASSIUM CHLORIDE 20 MEQ CONTROLLED RELEASE TAB PO SCH ×2 (11:00→21:44)
[2016-09-02] MEDS: DOCUSATE SODIUM 50 MG/SENNA 8.6 MG TAB PO SCH ×2 (11:04→21:44)
[2016-09-02] MEDS: FUROSEMIDE 20 MG/2 ML VIAL IV PUSH SCH ×2 (11:08→17:38)
--- NOTE | 2016-09-02 12:09 | PD.CONS ---
HPI History of Present Illness This is a 46 year old med hx significant for hep C, alcohol abuse, IVDA ( Dilaudid) presents for generalized weakness, swelling in bilateral LE, but worse on the left. Reports, the swelling on going for the past 2 years but worsening in severity, with wounds in the LE, not able to walk and progressed to abd, arms and face. He has gained over a 100 ibs over the past year. He used to drink 3 pints a day for over a year, but last drink was a week ago. He reports a couple of bouts of rectal bleeding. Reports intermittent N/V aggravated by anxiety. Reports diffused abd pain. Reports shortness of breath. Denies GERD, hematemesis, or melena. He is adopted and not aware of family hx. Ct on August 31, 2016 Cirrhosis, slight splenomegaly and mild anasarca. Labs revealed AST 187, ALT 78, ALP 174, bili 6.1, albumin 2.2, ammonia 63, plt of 130. He hasn't been seen by a health provider for years. Denies previous hx of liver cirrhosis. He is some what poor historian, not able to stay awake during the interview. He had Echocardiogram and that revealed EF of 50-55% (Kaia Rodríguez) PFSH Past Medical History Hepatits C Borderline DM Past Surgical History Right femur surgery 1991 (Kaia Rodríguez) Coded Allergies: Geodon (Verified Allergy, Severe, Anaphylaxis, 08/31/16) Risperdal (Verified Allergy, Severe, Anaphylaxis, 08/31/16) Medications Current Medications Medications (Trade) Dose Ordered Sig/Mercy Route Start Time Stop Time Status Last Admin (NS Flush) 2 ml UNSCH PRN IV FLUSH 08/31/16 14:15 (NS Flush) 2 ml BID IV FLUSH 08/31/16 21:00 09/01/16 21:20 (Tylenol) 650 mg Q4H PRN PO 08/31/16 14:15 (Narcan Inj) 0.4 mg UNSCH PRN IV 08/31/16 14:15 (Dixie-Colace) 1 tab BID PO 08/31/16 21:00 09/02/16 11:04 (Aldactone) 50 mg DAILY PO 09/01/16 09:00 09/02/16 10:56 (Lovenox Inj) 40 mg Q24H SQ 08/31/16 17:00 09/01/16 15:46 (KCl) 20 meq Q12HR PO 09/01/16 09:00 09/02/16 11:00 (Lactulose Liq) 30 ml DAILY PO 09/01/16 09:00 09/02/16 10:55 (Dolophine) 140 mg DAILY PO 09/01/16 13:15 09/02/16 10:56 (Romazicon Inj) 0.2 mg Q1M PRN IV PUSH 09/01/16 15:30 (Ativan) 1 mg Q4H PRN PO 09/01/16 15:30 09/02/16 04:44 (Ativan Inj) 1 mg Q4H PRN IV PUSH 09/01/16 15:30 (Ativan) 2 mg Q2H PRN PO 09/01/16 15:30 09/01/16 15:46 (Ativan Inj) 2 mg Q2H PRN IV PUSH 09/01/16 15:30 (Ativan Inj) 2 mg Q1H PRN IV PUSH 09/01/16 15:30 (Ativan Inj) 2 mg Q15M PRN IV PUSH 09/01/16 15:30 (Folate) 1 mg DAILY PO 09/02/16 09:00 09/07/16 08:59 09/02/16 10:57 (Vitamin B1) 100 mg DAILY PO 09/02/16 09:00 09/02/16 10:56 (Theragran M Tab) 1 tab DAILY PO 09/02/16 09:00 09/07/16 08:59 09/02/16 10:57 (Lasix Inj) 20 mg BID@,18 IV PUSH 09/02/16 09:00 09/02/16 11:08 (Keflex) 500 mg Q8HR PO 09/02/16 14:00 Family History adopted Social History alcohol abuse, 3 pints daily for over a year, last drink was a week ago methadone use IVDA ( Dilaudid) (Kaia Rodríguez) Review of Systems Constitutional: COMPLAINS OF: Fatigue, Weight gain Endocrine: DENIES: Polyuria Eyes: DENIES: Double Vision Ears, nose, mouth, throat: DENIES: Hoarseness Respiratory: COMPLAINS OF: Shortness of breath Cardiovascular: COMPLAINS OF: Lower Extremity Edema Gastrointestinal: COMPLAINS OF: Abdominal pain, Bloody stools, Nausea, Vomiting , Swelling of Abdomen, DENIES: Black stools, Constipation, Diarrhea, Difficulty Swallowing, Anorexia, Odynophagia, Heartburn, Hematemesis Genitourinary: DENIES: Hematuria Musculoskeletal: COMPLAINS OF: Back pain Integumentary: COMPLAINS OF: Jaundice Hematologic/lymphatic: COMPLAINS OF: Bruising Neurologic: COMPLAINS OF: Abnormal gait Psychiatric: COMPLAINS OF: Anxiety (MarcosKaia CANE FEEDER) GI Exam Vitals I&O Vital Signs Date Time Temp Pulse Resp B/P Pulse Ox O2 Delivery O2 Flow Rate FiO2 09/02/16 08:00 97.3 88 20 119/79 92 09/02/16 04:00 97.1 92 18 120/63 93 09/02/16 00:00 98.7 93 18 127/73 93 09/01/16 20:00 97.8 92 18 127/76 94 09/01/16 17:20 95 Nasal Cannula 4.00 09/01/16 16:00 97.7 81 20 105/76 95 09/01/16 12:00 96.9 86 18 110/68 88 I/O 09/01/16 09/01/16 09/01/16 09/02/16 09/02/16 09/02/16 06:59 14:59 22:59 06:59 14:59 22:59 Intake Total 480 ml 960 ml 360 ml 270 ml Output Total 2700 ml 1900 ml 1750 ml 400 ml Balance -2220 ml -940 ml -1390 ml -130 ml Intake Oral 480 ml 960 ml 360 ml 270 ml Output Urine Total 2700 ml 1900 ml 1750 ml 400 ml # Bowel Movements 0 0 0 Imaging Last Impressions Lower Extremity Ultrasound 08/31/16 1055 Signed Impressions: Service Date/Time: Wednesday, August 31, 2016 11:21 - CONCLUSION: 1. Limited examination due to patient's body habitus and lower extremity edema. 2. No definitive sonographic evidence for lower extremity DVT. Jorge A Collazo MD Chest X-Ray 08/31/16 1055 Signed Impressions: Service Date/Time: Wednesday, August 31, 2016 11:05 - CONCLUSION: 1. Mild cardiomegaly with positive fluid balance. 2. Bilateral upper lobe patchy airspace disease, more confluent on the right. Differential considerations include developing pulmonary edema versus infection in the appropriate setting. Followup to resolution is recommended. Jorge A Collazo MD Abdomen/Pelvis CT 08/31/16 1055 Signed Impressions: Service Date/Time: Wednesday, August 31, 2016 12:29 - CONCLUSION: Cirrhosis, slight splenomegaly and mild anasarca. Ashish Wood MD Laboratory Test 09/02/16 07:18 Sodium Level 140 MEQ/L Potassium Level 3.5 MEQ/L Chloride Level 95 MEQ/L Carbon Dioxide Level 40.2 MEQ/L Anion Gap 5 MEQ/L Blood Urea Nitrogen 7 MG/DL Creatinine 0.81 MG/DL Estimat Glomerular Filtration 103 ML/MIN Rate Random Glucose 80 MG/DL Calcium Level 8.3 MG/DL Date/Time Procedure Status Source Growth 09/01/16 17:00 Gram Stain - Final Resulted Wound Leg 09/01/16 17:00 Wound Culture Resulted Wound Leg Pending Physical Examination HEENT: normocephalic; atraumatic; + jaundice. NECK: Neck is supple, no JVD, no lymphadenopathy. CHEST: Chest is clear to auscultation and percussion. CARDIAC: Regular rate and rhythm with no murmur gallop or rubs. ABDOMEN: Firm, nondistended,tender; hepatosplenomegaly; bowel sounds are present in all four quadrants. EXTREMITIES: 3+ edema in BLE SKIN: wounds covered by gauze on the left, redness to lower abd and BLE HALL SUPERVISOR: Lethargy (Amawi,Khawla CANE FEEDER) Assessment and Plan Plan - Cirrhosis- likely secondary to Etoh- ( new diagnosis) MELD score 18 This is a 46 year old med hx significant for hep C, alcohol abuse, IVDA ( Dilaudid) presents for generalized weakness, swelling in bilateral LE, but worse on the left. Reports, the swelling on going for the past 2 years but worsening in severity, with wounds in the LE, not able to walk and progressed to abd, arms and face. He has gained over a 100 ibs over the past year. He used to drink 3 pints a day for over a year, but last drink was a week ago. He reports a couple of bouts of rectal bleeding. Reports intermittent N/V aggravated by anxiety. Reports diffused abd pain. Reports shortness of breath. Denies GERD, hematemesis, or melena. He is adopted and not aware of family hx. Ct on August 31, 2016 Cirrhosis, slight splenomegaly and mild anasarca. Labs revealed AST 187, ALT 78, ALP 174, bili 6.1, albumin 2.2, ammonia 63, plt of 130. He hasn't been seen by a health provider for years. Denies previous hx of liver cirrhosis. He is some what poor historian, not able to stay awake during the interview. - Acute liver failure, Etoh induced, DF (32)- low plt, low albumin, coagulopathy, high bili - Jaundice- high bili gonsales of 6.1, likely hepatic dysfunction - Hepatic encephalopathy- high ammonia, on lactulose - Alcohol abuse- used to drink 3 pints daily for over a year, last time it was a week ago. - Anasarca- He had Echocardiogram and that revealed EF of 50-55%, weeping wounds , cx pending - IVDA- Dilaudid, counselled on cessation Plan: - Low salt diet - fluid restriction - SAHIL, AMA, ASMA, AFP, ceruloplasmin, celiac, iron and ferritin studies, alpha antitrypsin deficiency, - Hep-c PCR - Await hepatitis panel - Start Pentoxifylline - DTs precautions - Alcohol cessation - Monitor labs - Cont. lactulose - Supportive care - Patient seen and examined by Dr. Nunes and myself and this note is written on his behalf. (Kaia Rodríguez) Physician Comments Patient seen and examined Agree with above Continue with current supportive care Monitor labs Patient with acute alcoholic hepatitis Patient needs to stop alcohol The discriminant function here is over 32 we'll start on pentoxifylline and we' ll consider prednisolone (Miko Nunes MD) Kaia Rodríguez Sep 02, 2016 12:09 Miko Nunes MD Sep 02, 2016 22:59
[2016-09-02] MEDS ORDERED: CEPHALEXIN MONOHYDRATE 500 MG CAP PO SCH (14:00)
--- NOTE | 2016-09-02 14:21 | PD.WCN.NOT ---
Wound Consult Description: Wound management of BLE and buttock Communicated with: HEMANTH Dorman and Doctor Vern Recommendation: Please cleanse wound to L posterior leg with normal saline or wound cleanser and apply optifoam AG non adhesive dressing secured with rolled gauze and tape. Please change dressing every 3 days or PRN if saturated or dislodged. Please cleansed wounds to R lateral leg and R medial leg with normal saline or wound cleanser and apply Optilock dressings. Secure dressings with rolled gauze and tape. Change dressing every 3 days or PRN if saturated or dislodged. Cleanse buttock area gently with soap and water and pat dry. Apply Calazime barrier cream BID and PRN. Leave open to air Please elevate BLE Additional Information: Patient seen on for evaluation of bilateral lower extremity and buttock wounds. Removed rolled gauze dressing in place to L lower extremity to reveal open wound to L posterior lower leg with scant active sero-sanguinous drainage that has foul odor. Wound measures 4.2 cm x 2 cm x ~<0.1. Wound margins are irregular. Periwound is noted with dry scaly skin but otherwise unremarkable.Tissue in wound bed is clean and red non granulation tissue.Wound culture is positive for few gram positive cocci in pairs. Cleansed wound with normal saline and applied Optifoam AG non adhesive dressing over wound bed and secured with rolled gauze and tape. Removed rolled gauze and optilock dressings in place to R lower extremity to reveal Wound to R anterior lateral leg and R lower medial posterior leg. Wound to R anterior lateral leg measures 2 cm x 2.2 cm x~0.1 cm Wound has a round shape and is shallow with clean red non granulation tissue that is vascular with moderate active sanguinous drainage that is without odor. Wound to R posterior medial lower leg measures 10 cm x 5 cm x~<0.1 cm. Tissue in wound bed is clean and red non granulated. Wound margins are irregular. Periwound of both wounds are noted with dry scaly skin but otherwise unremarkable. Active drainage from wound bed is minimal and sero-sanguinous, without odor. Cleansed both wounds with normal saline and applied Optilock dressings over wounds. Secured dressings with rolled gauze and tape. Patient positioned to R side for wound assessment of buttock area with assistance of advertising copywriter to reveal small area of partial thickness skin loss to R perianal area with surrounding blanchable erythema. Applied thick layer of Calazime barrier cream to buttock area and left open to air. Helene Disla [facility] Sep 02, 2016 14:21
[2016-09-02] MEDS ORDERED: Vancomycin Consult Pharmacy 1 EA OTHER SCH (15:15)
[2016-09-02] MEDS ORDERED: VANCOMYCIN INJ 1,000 MG in SODIUM CHLOR 0.9% 250 ML INJ 250 ML IV SCH (15:15)
--- NOTE | 2016-09-02 15:16 | HHI.FPPN ---
Addendum to progress note ADDENDUM Reason for addendum: Additonal documentation Additional information One wound culture resulted growing stap aureus and gram neg eusebia. The other wound culture is pending. Will resume Vancomycin, follow cultures and sensitivity, and adjust abx accordingly. Ju Porras MD Sep 02, 2016 15:16
[2016-09-02] MEDS: ENOXAPARIN SODIUM 40 MG/0.4 ML SYRINGE SQ SCH (17:38)
[2016-09-02] MEDS: VANCOMYCIN INJ 2,000 MG in SODIUM CHLORID 0.9% 500 ML INJ 500 ML IV SCH (17:39)
[2016-09-02] MEDS: SODIUM CHLORIDE 0.9% FLUSH 10 ML FLUSH IV FLUSH SCH (21:00)
--- NOTE | 2016-09-02 21:29 | RADRPT ---
EXAM DATE/TIME: 09/02/2016 21:13 [place] COMPARISON: No previous studies available for comparison. INDICATIONS : Fell hitting right side of head. RADIATION DOSE: 53.21 CTDIvol (mGy) MEDICAL HISTORY : Cardiovascular disease. Hypertension. Cirrhosis.Hep C SURGICAL HISTORY : None. ENCOUNTER: Initial ACUITY: 1 day PAIN SCALE: 0/10 LOCATION: cranial TECHNIQUE: Multiple contiguous axial images were obtained of the head. Using automated exposure control and adj ustment of the mA and/or kV according to patient size, radiation dose was kept as low as reasonably a chievable to obtain optimal diagnostic quality images. DICOM format image data is available electro nically for review and comparison. FINDINGS: CEREBRUM: The ventricles are normal for age. No evidence of midline shift, mass lesion, hemorrhage or acute in farction. No extra-axial fluid collections are seen. POSTERIOR FOSSA: The cerebellum and brainstem are intact. The 4th ventricle is midline. The cerebellopontine angle i s unremarkable. EXTRACRANIAL: The visualized portion of the orbits is intact. SKULL: The calvaria is intact. No evidence of skull fracture. CONCLUSION: No acute disease. Omar Contreras MD on September 02, 2016 at 21:27 Board Certified Radiologist. This report was verified electronically.
[2016-09-03] VITALS (9 sets, daily range): BP systolic 105–129; BP diastolic 56–77; PULSE 76–117; RESP 17–24; TEMP 96.1–98.5; O2SAT 91–99
[2016-09-03] MEDS: PENTOXIFYLLINE 400 MG CONTROLLED RELEASE TAB PO SCH ×4 (07:13→23:02)
[2016-09-03] MEDS: VANCOMYCIN INJ 2,000 MG in SODIUM CHLORID 0.9% 500 ML INJ 500 ML IV SCH ×2 (07:13→18:48)
--- NOTE | 2016-09-03 08:28 | HHI.PR ---
Subjective Remarks Patient seen and examined this am. Vitals are stable and he is without fever. Saturating 99% on 3 L NC. Slept well. Per nurse, patient got up to use the bathroom and lost his balance is fell. Urinating on his own now. Denies CP. States he feels" yucky." Objective Vital Signs Date Time Temp Pulse Resp B/P Pulse Ox O2 Delivery O2 Flow Rate FiO2 09/03/16 04:00 97.9 76 18 107/69 99 09/03/16 00:00 97.3 84 17 129/69 92 09/02/16 21:30 97.4 81 18 136/64 93 09/02/16 20:15 97.0 97 22 136/66 95 09/02/16 20:00 99.0 82 20 105/58 91 09/02/16 19:43 93 Nasal Cannula 3.00 09/02/16 16:00 97.1 80 20 114/72 92 09/02/16 14:54 Nasal Cannula 3.00 09/02/16 14:00 96.6 83 20 112/74 92 I/O 09/02/16 09/02/16 09/02/16 09/03/16 09/03/16 09/03/16 07:00 15:00 23:00 07:00 15:00 23:00 Intake Total 270 ml 690 ml Output Total 400 ml 650 ml 300 ml Balance -130 ml 40 ml -300 ml Intake Oral 270 ml 690 ml Output Urine Total 400 ml 650 ml 300 ml # Voids 1 # Bowel Movements 0 Result Diagram: 09/01/16 0602 09/02/16 0718 Imaging Last Impressions Head CT 09/02/16 0000 Signed Impressions: Service Date/Time: Friday, September 02, 2016 21:13 - CONCLUSION: No acute disease. Omar Contreras MD Lower Extremity Ultrasound 08/31/16 1055 Signed Impressions: Service Date/Time: Wednesday, August 31, 2016 11:21 - CONCLUSION: 1. Limited examination due to patient's body habitus and lower extremity edema. 2. No definitive sonographic evidence for lower extremity DVT. Jorge A Collazo MD Chest X-Ray 08/31/16 1055 Signed Impressions: Service Date/Time: Wednesday, August 31, 2016 11:05 - CONCLUSION: 1. Mild cardiomegaly with positive fluid balance. 2. Bilateral upper lobe patchy airspace disease, more confluent on the right. Differential considerations include developing pulmonary edema versus infection in the appropriate setting. Followup to resolution is recommended. Jorge A Collazo MD Abdomen/Pelvis CT 08/31/16 1055 Signed Impressions: Service Date/Time: Friday, August 31, 2016 12:29 - CONCLUSION: Cirrhosis, slight splenomegaly and mild anasarca. Ashish Wood MD Objective Remarks GENERAL: This is a morbidly obese male appears comfortable sitting up in bed. SKIN: Diffuse jaundice, diffuse edema from feet to mid chest that has improved from admission. HEAD: Atraumatic. Normocephalic. No temporal or scalp tenderness. EYES: Pupils equal round and reactive. Extraocular motions intact. + scleral icterus. No injection or drainage. CARDIOVASCULAR: Distant heart sounds, S1 and S2 appreciated without significant murmur. RESPIRATORY: Lateral breath sounds are clear to auscultation. No wheezes, rales , or rhonchi. GASTROINTESTINAL: Abdomen is distended and is diffusely tender to palpation. : significant scrotal swelling, leos in place MUSCULOSKELETAL:+LE swelling, significant improved from previous, multiple ulcerations of shins are present bilaterally from significant stress/stretching of the skin, there is scant drainage is present. The skin is very dry. NEUROLOGICAL: Awake and alert. Cranial nerves II through XII intact. Motor and sensory grossly within normal limits. Speech. Mobility is limited due to habitus. A/P Problem List: (1) Liver cirrhosis ICD Code: K74.60 (2) Cellulitis ICD Code: L03.90 (3) Anasarca ICD Code: R60.1 (4) Hyperammonemia ICD Code: E72.20 (5) Elevated TSH ICD Code: R94.6 Assessment and Plan 46 yo male with hx hepatitis and methadone use presents with diffuse edema/ ansarca with alcoholic hepatitis. Patient has been aggressively diuresed. GI consulted for his liver disease. He has wounds on both LE, cultures obtained. Sensitivities pending. CIWA protocol initated on the second day of admission when patient was showing signs of withdrawal. Anasarca - likely related to liver disease. - discussed at length with patient his alcohol abuse and negative sequela - hep panel significant for reactive hep C abt - ECHO normal EF - Lasix 20 mg IV BID, spironolactone 50 mg daily, KCL 20 meq BID - strict I & Os, fluid and sodium restrict--> diuresing well Cellulitis - superficial cellulitis is present on both extremities due to ulceration from significant LE swelling - currently ulcerations are dressed and LE in RICHARD bandage - culture obtained and are growing: staph aureus, proteus, gram neg eusebia, will follow cultures - currently on vancomycin 08/31 - wound care consulted and have made their reccs Elevated TSH - free T4 wnl - repeat as an outpatient Alcoholic hepatitis - consulted GI reccs: low salt diet, fluid restrict, SAHIL, AMA, ASMA, AFP, ceruloplasm, celiac, iron, ferritin, alpha antitryipsin, hep C PCR, cont lactulose, started pentoxifylline - worse this am - lactulose 30 meq daily ETOH - rally pack - CIWA protocol - has not required ativan in 24 hrs Hx IVDU, on methadone - will continue patients home methadone DVT prophy - given immobility significant DVT risk, lovenox 40 meq daily case discussed with nurse Discharge Planning D/C pending: GI work up (can likely be continued as an outpatient) and culture sensitivities so we know what abx to send him home on. Discussed case with nurse Problem Qualifiers (1) Liver cirrhosis: Qualified Code: K74.60 - Cirrhosis of liver without ascites, unspecified hepatic cirrhosis type (2) Cellulitis: Qualified Code: L03.119 - Cellulitis of lower extremity, unspecified laterality Ju Porras MD Sep 03, 2016 08:28
[2016-09-03] MEDS: FUROSEMIDE 20 MG/2 ML VIAL IV PUSH SCH ×3 (09:00→18:48)
[2016-09-03] MEDS: SPIRONOLACTONE 50 MG TAB PO SCH (09:00)
[2016-09-03] MEDS: MULTIVITAMINS/MINERALS THERAPEUTIC TAB PO SCH (09:09)
[2016-09-03] MEDS: FOLIC ACID 1 MG TAB PO SCH (09:09)
[2016-09-03] MEDS: SODIUM CHLORIDE 0.9% FLUSH 10 ML FLUSH IV FLUSH SCH ×2 (09:09→21:00)
[2016-09-03] MEDS: POTASSIUM CHLORIDE 20 MEQ CONTROLLED RELEASE TAB PO SCH ×2 (09:09→23:02)
[2016-09-03] MEDS: LACTULOSE SYRUP 20 GM/30 ML CUP PO SCH (09:09)
[2016-09-03] MEDS: THIAMINE HCL 100 MG TAB PO SCH (09:09)
[2016-09-03] MEDS: METHADONE HCL 10 MG TAB PO SCH (09:09)
[2016-09-03] MEDS: DOCUSATE SODIUM 50 MG/SENNA 8.6 MG TAB PO SCH ×2 (09:09→23:02)
[2016-09-03 10:45] LABS: POTASSIUM 3.6 MEQ/L (3.5-5.1)
[2016-09-03 10:52] LABS: FERRITIN 96 NG/ML (26-388); TRANSFERRIN IRON PROFILE 136 MG/DL (200-360)
[2016-09-03 10:56] LABS: INDIRECT BILIRUBIN 1.4 MG/DL (0.0-0.8); TOTAL BILIRUBIN ADULT 4.1 MG/DL (0.2-1.0)
--- NOTE | 2016-09-03 13:05 | HHI.GIFU ---
Subjective Remarks Patient is resting in bed, states he has N/V this morning, still with mild abd pain. (Kaia Rodríguez VOCATIONAL REHABILITATION TECHNICIAN) Objective Vitals I&O Vital Signs Date Time Temp Pulse Resp B/P Pulse Ox O2 Delivery O2 Flow Rate FiO2 09/03/16 11:49 98.0 87 20 118/56 93 09/03/16 09:15 80 105/58 09/03/16 07:50 96.1 84 20 121/59 91 09/03/16 04:00 97.9 76 18 107/69 99 09/03/16 00:00 97.3 84 17 129/69 92 09/02/16 21:30 97.4 81 18 136/64 93 09/02/16 20:15 97.0 97 22 136/66 95 09/02/16 20:00 99.0 82 20 105/58 91 09/02/16 19:43 93 Nasal Cannula 3.00 09/02/16 16:00 97.1 80 20 114/72 92 09/02/16 14:54 Nasal Cannula 3.00 09/02/16 14:00 96.6 83 20 112/74 92 I/O 09/02/16 09/02/16 09/02/16 09/03/16 09/03/16 09/03/16 06:59 14:59 22:59 06:59 14:59 22:59 Intake Total 270 ml 690 ml 150 ml Output Total 400 ml 650 ml 300 ml Balance -130 ml 40 ml -300 ml 150 ml Intake Oral 270 ml 690 ml 150 ml Output Urine Total 400 ml 650 ml 300 ml # Voids 1 # Bowel Movements 0 Laboratory Laboratory Tests Test 09/03/16 09/03/16 06:16 09:16 Ammonia 82 Sodium Level 140 Potassium Level 3.6 Chloride Level 96 Carbon Dioxide Level 39.0 Anion Gap 5 Blood Urea Nitrogen 6 Creatinine 0.64 Estimat Glomerular Filtration 135 Rate Random Glucose 64 Calcium Level 8.2 Iron Level 52 Total Iron Binding Capacity 190 Percent Iron Saturation 27.3 Ferritin 96 Total Bilirubin 4.1 Direct Bilirubin 2.7 Indirect Bilirubin 1.4 Aspartate Amino Transf 137 (AST/SGOT) Alanine Aminotransferase 58 (ALT/SGPT) Alkaline Phosphatase 144 Total Protein 7.3 Albumin 2.0 Tumor Marker Alpha Fetoprotein 2.8 Date/Time Procedure Status Source Growth 09/01/16 17:00 Gram Stain - Final Resulted Wound Leg 09/01/16 17:00 Wound Culture - Preliminary Resulted Staphylococcus Aureus Pseudomonas Aeruginosa Gram Negative Darek Physical Exam HEENT: normocephalic; atraumatic; + jaundice. NECK: Neck is supple, no JVD, no lymphadenopathy. CHEST: Chest is clear to auscultation and percussion. CARDIAC: Regular rate and rhythm with no murmur gallop or rubs. ABDOMEN: Firm, obese, nondistended, tender; hepatosplenomegaly; bowel sounds are present in all four quadrants. EXTREMITIES: 3+ edema in BLE SKIN: wounds covered by gauze on the left, redness to lower abd and BLE COMMUNITY ORGANIZER: No focal deficits; alert and oriented times three. (Kaia Rodríguez) Assessment and Plan Plan - Cirrhosis- likely secondary to Etoh- ( new diagnosis) MELD score 18 with hx of alcohol abuse, LFTs trending down Hepatitis panel came back (+) for hep C, AFP 2.8 ,ferritin 96 iron % 27 hep-c PCR, SAHIL, AMA, ASMA, ceruloplasmin, celiac, and studies, and alpha antitrypsin deficiency pending - Acute alcoholic hepatitis- DF (32)- on Pentoxifylline - ?liver failure- low plt, low albumin, coagulopathy, high bili - Jaundice- high bili gonsales of 6.1, this is trending down, today is 4.1, likely hepatic dysfunction - Hepatic encephalopathy- high ammonia, worsening today, on lactulose, will increase dose to BID and add Xifaxan - Alcohol abuse- used to drink 3 pints daily for over a year, last time it was a week ago. - Anasarca- Lasix 20 mg IV BID, spironolactone 50 mg daily, He had Echocardiogram and that revealed EF of 50-55%, - Legs ulcers, weeping wounds, cx pending - IVDA- Dilaudid, counselled on cessation Plan: - Low salt diet - fluid restriction - Await SAHIL, AMA, ASMA, ceruloplasmin, celiac, alpha antitrypsin deficiency, - Await Hep-c PCR - Lactulose BID - Cont. Pentoxifylline - Add Xifaxan - cont. Lasix - Cont. Aldactone - DTs precautions - Alcohol cessation - LFTs, ammonia in am - Supportive care - Patient seen and examined by Dr. Nunes and myself and this note is written on his behalf. (Kaia Rodríguez) Physician Comments Patient seen and examined Agree with above Continue with current supportive care Monitor labs (Miko Nunes MD) Kaia Rodríguez Sep 03, 2016 13:05 Miko Nunes MD Sep 03, 2016 23:04
[2016-09-03] MEDS: RIFAXIMIN 200 MG TAB PO SCH ×2 (15:57→23:02)
[2016-09-03] MEDS: ENOXAPARIN SODIUM 40 MG/0.4 ML SYRINGE SQ SCH (18:47)
[2016-09-03] MEDS ORDERED: LACTULOSE SYRUP 20 GM/30 ML CUP PO SCH (21:00)
[2016-09-04] VITALS (12 sets, daily range): BP systolic 98–156; BP diastolic 52–96; PULSE 85–112; RESP 12–22; TEMP 97.3–99; O2SAT 88–97
[2016-09-04] MEDS: LORazepam 1 MG TAB PO PRN (04:20)
[2016-09-04] MEDS ORDERED: PHARMACY ORDERED LAB ONE (05:45)
[2016-09-04] MEDS: RIFAXIMIN 200 MG TAB PO SCH ×3 (06:23→22:00)
[2016-09-04] MEDS: PENTOXIFYLLINE 400 MG CONTROLLED RELEASE TAB PO SCH ×3 (06:23→22:00)
[2016-09-04] MEDS: VANCOMYCIN INJ 2,000 MG in SODIUM CHLORID 0.9% 500 ML INJ 500 ML IV SCH (07:11)
[2016-09-04 07:53] LABS: BICARBONATE 35.5 MEQ/L (21.0-32.0)
[2016-09-04 07:55] LABS: INDIRECT BILIRUBIN 1.4 MG/DL (0.0-0.8); TOTAL BILIRUBIN ADULT 4.4 MG/DL (0.2-1.0); VANCOMYCIN TROUGH 15.9 MCG/ML (5.0-10.0)
--- NOTE | 2016-09-04 08:30 | HHI.PR ---
Subjective Remarks Dessating at 87 % while on 2L NC. Patient is in visible distress with sob. Patient is also noted altered mental status. He is also sob. He did receive lorazepam 2 MG bobcat operator at 4AM. Patient is however noted with labor breathing, using his accessory muscle. Patient is with sob, he denies chest pain. He follows some commands, however he becomes lethargic and agitated at times. He did fell on 09/02, he had a normal head CT scan at that time. He did receive Lasix. Objective Vitals Vital Signs Date Time Temp Pulse Resp B/P Pulse Ox O2 Delivery O2 Flow Rate FiO2 09/04/16 04:00 97.8 85 20 156/92 92 09/04/16 00:00 97.6 93 20 120/75 94 09/03/16 20:00 98.5 117 24 117/77 98 09/03/16 18:45 82 20 110/56 94 09/03/16 17:31 93 Nasal Cannula 3.00 09/03/16 15:50 98.5 96 20 117/68 93 09/03/16 11:49 98.0 87 20 118/56 93 09/03/16 09:15 80 105/58 I/O 09/03/16 09/03/16 09/03/16 09/04/16 09/04/16 09/04/16 07:00 15:00 23:00 07:00 15:00 23:00 Intake Total 371 ml 250 ml 120 ml Output Total 300 ml 600 ml Balance -300 ml 371 ml -350 ml 120 ml Intake Oral 371 ml 250 ml 120 ml Output Urine Total 300 ml 600 ml # Voids 5 1 1 # Bowel Movements 0 2 0 Result Diagram: 09/01/16 0602 09/04/16 0657 Imaging Last Impressions Head CT 09/02/16 0000 Signed Impressions: Service Date/Time: Friday, September 02, 2016 21:13 - CONCLUSION: No acute disease. Omar Contreras MD Lower Extremity Ultrasound 08/31/16 1050 Signed Impressions: Service Date/Time: Wednesday, August 31, 2016 11:21 - CONCLUSION: 1. Limited examination due to patient's body habitus and lower extremity edema. 2. No definitive sonographic evidence for lower extremity DVT. Jorge A Collazo MD Chest X-Ray 08/31/16 1055 Signed Impressions: Service Date/Time: Wednesday, August 31, 2016 11:05 - CONCLUSION: 1. Mild cardiomegaly with positive fluid balance. 2. Bilateral upper lobe patchy airspace disease, more confluent on the right. Differential considerations include developing pulmonary edema versus infection in the appropriate setting. Followup to resolution is recommended. Jorge A Collazo MD Abdomen/Pelvis CT 08/31/16 1055 Signed Impressions: Service Date/Time: Wednesday, August 31, 2016 12:29 - CONCLUSION: Cirrhosis, slight splenomegaly and mild anasarca. Ashish Wodo MD Objective Remarks GENERAL: This is a morbidly obese male in bed, he appears in acute distress 2/2 sob. He is also disoriented. SKIN: Anasarca. Diffuse jaundice, LE edema from feet to mid chest, more scrotal edema noted. CARDIOVASCULAR: Distant heart sounds, S1 and S2 appreciated without significant murmur. RESPIRATORY: Lateral breath with rales and crackles. + faint diffuse wheezing. Decreased breath sounds bilaterally. Accessory muscle use. GASTROINTESTINAL: Abdomen is distended and is diffusely tender to palpation. : Significant scrotal swelling. MUSCULOSKELETAL:+LE swelling, multiple ulcerations of shins are present bilaterally from significant stress/stretching of the skin, there is scant drainage is present. The skin is very dry. NEUROLOGICAL: Awake however disoriented, agitated at times, lethargic at times. He is also crying at times. able to follow some commands. Moving arms and legs. A/P Problem List: (1) Hepatitis C ICD Code: B19.20 Status: Acute (2) HX IVDU Status: Acute (3) Anasarca ICD Code: R60.1 Status: Acute (4) Cellulitis ICD Code: L03.90 Status: Acute (5) Elevated TSH ICD Code: R94.6 Status: Acute (6) Hyperammonemia ICD Code: E72.20 Status: Acute Assessment and Plan 46 yo male with hx hepatitis and methadone use presents with diffuse edema/ ansarca with alcoholic hepatitis. Patient has been aggressively diuresed. GI consulted for his liver disease. He has wounds on both LE, cultures obtained. Sensitivities pending. CIWA protocol initated on the second day of admission when patient was showing signs of withdrawal. Acute respiratory failure dessating on 2 L NC, he is also with labored breathing likely 2/2 fluid overload 2/2 liver disease, patient with anasarca. Acute encephalopathy. Patient mary received lorazepam 2 mg at 4 am today. He also had a fall on 09/[address] at that time normal .Will repeat CT head stat Patient received lasix in the morning. Order chest x-ray stents reviewed appears patient is with fluid overload. Also ordered CBC, CMP, lactic acid, lactulose stat. ABG ordered stat, reviewed, also discussed with the belt builder Dr Connors findings. patient is with labored breathing using accessory muscle and decompensating. Received 1 dose of Solu-Medrol 125 mg IV, additional 40 mg IV of Lasix and DuoNeb treatments. Patient is still desaturating. patient is transferred to ICU, consult belt builder as patient is worsening. Place leos, continue to monitor UOP closely Place soft restraints as noted agitated on/off . Anasarca likely related to liver disease. discussed at length with patient his alcohol abuse and negative sequela hep panel significant for reactive hep C abt ECHO normal EF Lasix 20 mg IV BID, spironolactone 50 mg daily, KCL 20 meq BID. Give additional 40 MG IVP strict I & Os, fluid and sodium restrict--> diuresing well . Monitor UOP Cellulitis superficial cellulitis is present on both extremities due to ulceration from significant LE swelling currently ulcerations are dressed and LE in RICHARD bandage culture obtained and are growing: staph aureus, proteus, gram neg eusebia, will follow cultures currently on vancomycin 08/31 wound care consulted and have made their reccs Elevated TSH free T4 wnl repeat as an outpatient Alcoholic hepatitis consulted GI reccs: low salt diet, fluid restrict, SAHIL, AMA, ASMA, AFP, ceruloplasm, celiac, iron, ferritin, alpha antitryipsin, hep C PCR, cont lactulose, started pentoxifylline worse this am lactulose 30 meq daily ETOH - rally pack - CIWA protocol - has not required ativan in 24 hrs Hx IVDU, on methadone - will continue patients home methadone DVT prophy - given immobility significant DVT risk, lovenox 40 meq daily case discussed with nurse Discharge Planning D/C pending: GI work up (can likely be continued as an outpatient) and will DC him on Levaquin at [place]. However patient with acute respiratory failure noted on 09/04/16, transferred to ICU, belt builder [id number]. Will discharge when improved. Note: discussed code status with father.patient: FULL CODE Discussed case with the patient, nurse, Dr Connors belt builder, patient's father. Critical time spent 45 minutes. Problem Qualifiers (1) Cellulitis: Qualified Code: L03.119 - Cellulitis of lower extremity, unspecified laterality Cynthia Biggs MD Sep 04, 2016 08:30
[2016-09-04] MEDS ORDERED: LEVA750T9 PO (08:40)
[2016-09-04] MEDS ORDERED: GNP100TA3 PO (08:40)
[2016-09-04] MEDS ORDERED: FURO20TA PO (08:40)
[2016-09-04] MEDS ORDERED: XIFA200T4 PO (08:40)
[2016-09-04] MEDS ORDERED: SENN1TAB PO (08:40)
[2016-09-04] MEDS ORDERED: ALDA50TA2 PO (08:40)
[2016-09-04] MEDS ORDERED: PENT400T PO (08:40)
[2016-09-04] MEDS ORDERED: FOLI1TAB6 PO (08:40)
--- NOTE | 2016-09-04 08:40 | HHI.DS ---
Discharge Summary Admission Date Aug 31, 2016 at 14:11 Admitting Diagnosis Anasarca (1) Hepatitis C ICD Code: B19.20 (2) HX IVDU (3) Anasarca ICD Code: R60.1 (4) Cellulitis ICD Code: L03.90 (5) Elevated TSH ICD Code: R94.6 (6) Hyperammonemia ICD Code: E72.20 Brief History - From Admission 46yo male with med hx significant for hep C presents for worsening LE swelling. Patient states for months he has had worsening LE edema. Over the past month it has significantly worsened to the point were he has difficulty walking. Edema has progressed to include his entire LE, abdomen, arms, and face. He states he has noticed wounds develop in his LE because of the swelling. He also feels SOB. He has not seen a doctor in some time. Due to the increasing swelling, he has gained over 100lbs in a year. He has Hep C from IV drug abuse. He is unclear of any other medical problems. He states he no longer drinks alcohol, last drink 1 week ago. He was previously drinking 3 pints a day. This high consumption of alcohol has been over the past year. He states he was also abusing PO dilaudid he was getting from a pain clinic. He has been going to the methadone clinic. CBC/BMP: 09/01/16 0602 09/04/16 0657 Significant Findings Laboratory Tests Test 09/02/16 09/03/16 09/03/16 09/04/16 07:18 06:16 09:16 06:50 Chloride Level 95 MEQ/L 96 MEQ/L (98-107) (98-107) Carbon Dioxide Level 40.2 MEQ/L 39.0 MEQ/L (21.0-32.0) (21.0-32.0) Calcium Level 8.3 MG/DL 8.2 MG/DL (8.5-10.1) (8.5-10.1) Ammonia 82 MCMOL/L 49 MCMOL/L (11-32) (11-32) Blood Urea Nitrogen 6 MG/DL (7-18) Random Glucose 64 MG/DL (74-106) Iron Level 52 MCG/DL (65-175) Total Iron Binding Capacity 190 MCG/DL (250-450) Total Bilirubin 4.1 MG/DL (0.2-1.0) Direct Bilirubin 2.7 MG/DL (0.0-0.2) Indirect Bilirubin 1.4 MG/DL (0.0-0.8) Aspartate Amino Transf 137 U/L (15-37) (AST/SGOT) Alkaline Phosphatase 144 U/L (45-117) Albumin 2.0 GM/DL (3.4-5.0) Test 09/04/16 06:57 Carbon Dioxide Level 35.5 MEQ/L (21.0-32.0) Blood Urea Nitrogen 6 MG/DL (7-18) Random Glucose 62 MG/DL (74-106) Total Bilirubin 4.4 MG/DL (0.2-1.0) Direct Bilirubin 3.0 MG/DL (0.0-0.2) Indirect Bilirubin 1.4 MG/DL (0.0-0.8) Aspartate Amino Transf 140 U/L (15-37) (AST/SGOT) Alkaline Phosphatase 153 U/L (45-117) Albumin 2.2 GM/DL (3.4-5.0) Vancomycin Level Trough 15.9 MCG/ML (5.0-10.0) PE at Discharge GENERAL: This is a morbidly obese male appears comfortable sitting up in bed. SKIN: Diffuse jaundice, diffuse edema from feet to mid chest that has improved from admission. CARDIOVASCULAR: Distant heart sounds, S1 and S2 appreciated without significant murmur. RESPIRATORY: Lateral breath sounds are clear to auscultation. No wheezes, rales , or rhonchi. GASTROINTESTINAL: Abdomen is distended and is diffusely tender to palpation. : significant scrotal swelling, leos in place MUSCULOSKELETAL:+LE swelling, significant improved from previous, multiple ulcerations of shins are present bilaterally from significant stress/stretching of the skin, there is scant drainage is present. The skin is very dry. NEUROLOGICAL: Awake and alert. Cranial nerves II through XII intact. Motor and sensory grossly within normal limits. Speech. Mobility is limited due to habitus. Cynthia Biggs MD Sep 04, 2016 08:40
[2016-09-04] MEDS: FOLIC ACID 1 MG TAB PO SCH (09:00)
[2016-09-04] MEDS: POTASSIUM CHLORIDE 20 MEQ CONTROLLED RELEASE TAB PO SCH ×2 (09:00→21:00)
[2016-09-04] MEDS: SPIRONOLACTONE 50 MG TAB PO SCH (09:00)
[2016-09-04] MEDS: THIAMINE HCL 100 MG TAB PO SCH (09:00)
[2016-09-04] MEDS: DOCUSATE SODIUM 50 MG/SENNA 8.6 MG TAB PO SCH ×2 (09:00→21:00)
[2016-09-04] MEDS: MULTIVITAMINS/MINERALS THERAPEUTIC TAB PO SCH (09:00)
[2016-09-04] MEDS: SODIUM CHLORIDE 0.9% FLUSH 10 ML FLUSH IV FLUSH SCH ×2 (10:30→23:52)
[2016-09-04] MEDS ORDERED: LORA-373 PO (10:44)
[2016-09-04] MEDS: FUROSEMIDE 20 MG/2 ML VIAL IV PUSH SCH ×2 (11:01→18:48)
[2016-09-04 11:27] LABS: BLOOD GAS BASE EXCESS 9.4 mmol/L (-2-2); BLOOD GAS CARBOXYHEMOGLOBIN 2.4 % (0-4); BLOOD GAS HCO3 35 mmol/L (22-26); BLOOD GAS METHEMOGLOBIN 0.9 % (0-2); BLOOD GAS O2 HGB SATURATION 94 % (90-100); BLOOD GAS OXYGEN CONTENT 18.9 Vol % (12.0-20.0); BLOOD GAS PCO2 65 mmHg (38-42); BLOOD GAS PO2 94 mmHg (61-120); BLOOD GAS TOTAL HGB 14.3 G/DL (12.0-16.0); TEMP CORR TO 98.6
[2016-09-04 11:28] LABS: CRITICAL VALUE YES; DRAW SITE RT RADIAL; NUMBER OF ARTERIAL PUNCTURES 1; OXYGEN DEVICE MASK; STAT YES; ULNAR PULSE PRESENT
[2016-09-04] MEDS ORDERED: POTASSIUM CHLOR 40 MEQ PREMIX 100 ML IV PRN ×2 (11:45)
[2016-09-04] MEDS ORDERED: MAGNESIUM SULFATE INJ 4 GM in SODIUM CHLORIDE 0.9% INJ 92 ML IV PRN (11:45)
[2016-09-04] MEDS ORDERED: POTASSIUM CHLOR 20 MEQ PREMIX 100 ML IV PRN ×2 (11:45)
[2016-09-04] MEDS ORDERED: MAGNESIUM OXIDE 400 MG TAB PO PRN (11:45)
[2016-09-04] MEDS ORDERED: MAGNESIUM SULFATE INJ 2 GM in SODIUM CHLORIDE 0.9% INJ 96 ML IV PRN (11:45)
[2016-09-04] MEDS ORDERED: POTASSIUM PHOSPHATE MONOBASIC 500 MG TAB PO/TUBE PRN (11:45)
[2016-09-04] MEDS ORDERED: POTASSIUM PHOSPHATE MONOBASIC 500 MG TAB PO PRN (11:45)
[2016-09-04] MEDS ORDERED: POTASSIUM PHOSPHATE INJ 30 MMOL in SODIUM CHLOR 0.9% 250 ML INJ 250 ML IV PRN (11:45)
[2016-09-04] MEDS ORDERED: POTASSIUM CHLORIDE 25 MEQ EFFERVESCENT TAB PO PRN (11:45)
[2016-09-04] MEDS ORDERED: SODIUM PHOSPHATE INJ 30 MMOL in SODIUM CHLOR 0.9% 250 ML INJ 240 ML IV PRN (11:45)
[2016-09-04] MEDS ORDERED: methylPREDNISolone SOD SUCC 125 MG/2 ML VIAL IV PUSH ONE (12:00)
[2016-09-04] MEDS ORDERED: RESP: ALBUTEROL 2.5 MG/IPRATROPIUM 0.5 MG NEB (PRN) NEB (12:00)
[2016-09-04] MEDS ORDERED: FUROSEMIDE 40 MG/4 ML VIAL IV PUSH ONE (12:00)
--- NOTE | 2016-09-04 12:11 | PD.CONS ---
[facility] Critical Care Medicine Consult Requested By Dr. Biggs Reason for Consult hypoxia, altered mental status Primary Care Physician No Primary Care Physician History of Present Illness This is a 46yM with ESLD who presented on 08/31 with LE cellulitis and treated with abx. he also is going through alcohol withdraw delirium on CIWA. He presents today with worsening altered mental status, somnolence, and hypoxia, requiring rapidly increasing o2 by face mask. On my evaluation, the patient is tachypneic, on 6L face mask, spo2 96%, altered, RASS -2, CAM+, only oriented to person. unable to provide any additional history at all due to his condition. Review of Systems ROS Limitations: Clinical Condition, Altered Mental Status Past Family Social History Allergies: Coded Allergies: Geodon (Verified Allergy, Severe, Anaphylaxis, 08/31/16) Risperdal (Verified Allergy, Severe, Anaphylaxis, 08/31/16) Past Medical History Hepatits C Borderline DM Past Surgical History Right femur surgery 1991 Reported Medications Methadone (Methadone HCl) 40 Mg Tab 40 Mg PO DAILY Active Ordered Medications See MAR Family History unobtainable secondary to the clinical condition of the patient Social History lives with father currently dose not work alcohol abuse methadone use denies any other ilicit substances Physical Exam Vital Signs Vital Signs Date Time Temp Pulse Resp B/P Pulse Ox O2 Delivery O2 Flow Rate FiO2 09/04/16 11:19 97 Simple Mask 6.00 09/04/16 11:16 97.3 97 22 131/85 97 09/04/16 09:13 94 Nasal Cannula 2.00 09/04/16 07:50 98.0 90 20 140/96 92 09/04/16 04:00 97.8 85 20 156/92 92 09/04/16 00:00 97.6 93 20 120/75 94 09/03/16 20:00 98.5 117 24 117/77 98 09/03/16 18:45 82 20 110/56 94 09/03/16 17:31 93 Nasal Cannula 3.00 09/03/16 15:50 98.5 96 20 117/68 93 Physical Exam gen: morbidly obese middle aged male, in distress, critically ill, somnolent, arousable, delirious heent: perrl. mucous membranes moist. normocephalic. atraumatic. neck: jvd unable to discern secondary to large neck circumference. face mask in place. trachea midline. chest: tachypneic. decreased bs bilaterally. 6L face mask. spo2 96%. using accessory muscles. cv: tachycardic rate, regular rhythm. abd: obese, soft, nontender, nondistended. no guarding. extr: 1+ peripheral edema. distal pulses 2+ neuro: RASS -2. CAM +. oriented to person only. no gross focal deficits. Laboratory Laboratory Tests Test 09/04/16 09/04/16 09/04/16 06:50 06:57 11:20 Ammonia 49 Sodium Level 140 Potassium Level 4.0 Chloride Level 99 Carbon Dioxide Level 35.5 Anion Gap 6 Blood Urea Nitrogen 6 Creatinine 0.71 Estimat Glomerular Filtration 120 Rate Random Glucose 62 Calcium Level 8.6 Total Bilirubin 4.4 Direct Bilirubin 3.0 Indirect Bilirubin 1.4 Aspartate Amino Transf 140 (AST/SGOT) Alanine Aminotransferase 57 (ALT/SGPT) Alkaline Phosphatase 153 Total Protein 8.0 Albumin 2.2 Vancomycin Level Trough 15.9 Blood Gas Puncture Site RT RADIAL Blood Gas Patient Temperature 98.6 Blood Gas HCO3 35 Blood Gas Base Excess 9.4 Blood Gas Oxygen Saturation 94 Arterial Blood pH 7.35 Arterial Blood Partial 65 Pressure CO2 Arterial Blood Partial 94 Pressure O2 Arterial Blood Oxygen Content 18.9 Arterial Blood 2.4 Carboxyhemoglobin Arterial Blood Methemoglobin 0.9 Blood Gas Hemoglobin 14.3 Oxygen Delivery Device MASK Date/Time Procedure Status Source Growth 09/01/16 17:00 Gram Stain - Final Complete Wound Leg 09/01/16 17:00 Wound Culture - Final Complete Staphylococcus Aureus Pseudomonas Aeruginosa Escherichia Coli Result Diagram: 09/01/16 0602 09/04/16 0657 Imaging CXR today pending. Last Impressions Head CT 09/02/16 0000 Signed Impressions: Service Date/Time: Friday, September 02, 2016 21:13 - CONCLUSION: No acute disease. Omar Contreras MD Lower Extremity Ultrasound 08/31/16 1055 Signed Impressions: Service Date/Time: Wednesday, August 31, 2016 11:21 - CONCLUSION: 1. Limited examination due to patient's body habitus and lower extremity edema. 2. No definitive sonographic evidence for lower extremity DVT. Jorge A Collazo MD Chest X-Ray 08/31/16 1059 Signed Impressions: Service Date/Time: Wednesday, August 31, 2016 11:05 - CONCLUSION: 1. Mild cardiomegaly with positive fluid balance. 2. Bilateral upper lobe patchy airspace disease, more confluent on the right. Differential considerations include developing pulmonary edema versus infection in the appropriate setting. Followup to resolution is recommended. Jorge A Collazo MD Abdomen/Pelvis CT 08/31/16 1055 Signed Impressions: Service Date/Time: Wednesday, August 31, 2016 12:29 - CONCLUSION: Cirrhosis, slight splenomegaly and mild anasarca. KFernando Wood MD Assessment and Plan Assessment and Plan Assessment: 46yM with ESLD with cellulitis, etoh withdraw, and now acute hypoxic respiratory failure and acute encephalopathy likely hepatic encephalopathy with possible superimposed metabolic encephalopathy. critically ill with decompensating clinical course rapidly on rapidly escalating o2 requirement. Will admit to ICU. may require intubation. Active Problems: Acute delirium Hepatic Encephalopathy Possible superimposed metabolic encephalopathy Acute dysphagia Possible Aspiration Acute hypoxic and hypercarbic respiratory failure Cellulitis Plan: -- admit to ICU -- CXR -- CBC, CMP -- lasix 40mg iv x 1. -- NPO -- place DHT -- swallow eval. for withdraw: -- clonidine 0.3 mg TID -- stop CIWA -- start valium 10mg po q8h prn for encephalopathy: -- increase lactulose to QID -- continue Rifaximin -- daily ammonia levels will wean fio2 for spo2 > 90%. may require intubation could consider NIPPV, but only if patient can reliably take mask off. Critical care time: 40 minutes, exclusive of separately billable procedures. Aarno Haynes MD Sep 04, 2016 12:10
--- NOTE | 2016-09-04 12:12 | RADRPT ---
EXAM DATE/TIME: 09/04/2016 11:14 [facility] COMPARISON: CHEST SINGLE AP, August 31, 2016, 11:05. INDICATIONS : Patient is short of breath since this morning. MEDICAL HISTORY : Cardiovascular disease. Hepatitis C. SURGICAL HISTORY : None. ENCOUNTER: Subsequent ACUITY: 4 - 6 days PAIN SCORE: Non-responsive. LOCATION: Bilateral chest FINDINGS: Cardiac silhouette is markedly enlarged with diffuse patchy bilateral upper lobe predominant airspace disease and interstitial prominence. No significant pleural effusion. Remainder of the exam is uncha nged. CONCLUSION: 1. Cardiomegaly with pulmonary edema pattern. Jorge A Collazo MD on September 04, 2016 at 12:09 Board Certified Radiologist. This report was verified electronically.
--- NOTE | 2016-09-04 12:22 | HHI.GIFU ---
Subjective Remarks There is a decline in patient status, patient is desating while on 2L of NC, decline in mental status with diaphoresis. Currently NGT tube is being inserted , he is on c-pap. He will be transferred to the unit. Blood gas revealed Pco2 of 65, PH 7.35, HCo3 35. CT of the brain, and chest x-ray ordered but pending. Ammonia levels today with improvement 49, slight elevation in LFTs. (Kaia Rodríguez) Objective Vitals I&O Vital Signs Date Time Temp Pulse Resp B/P Pulse Ox O2 Delivery O2 Flow Rate FiO2 09/04/16 11:19 97 Simple Mask 6.00 09/04/16 11:16 97.3 97 22 131/85 97 09/04/16 09:13 94 Nasal Cannula 2.00 09/04/16 07:50 98.0 90 20 140/96 92 09/04/16 04:00 97.8 85 20 156/92 92 09/04/16 00:00 97.6 93 20 120/75 94 09/03/16 20:00 98.5 117 24 117/77 98 09/03/16 18:45 82 20 110/56 94 09/03/16 17:31 93 Nasal Cannula 3.00 09/03/16 15:50 98.5 96 20 117/68 93 I/O 09/03/16 09/03/16 09/03/16 09/04/16 09/04/16 09/04/16 07:00 15:00 23:00 07:00 15:00 23:00 Intake Total 371 ml 250 ml 120 ml Output Total 300 ml 600 ml Balance -300 ml 371 ml -350 ml 120 ml Intake Oral 371 ml 250 ml 120 ml Output Urine Total 300 ml 600 ml # Voids 5 1 1 # Bowel Movements 0 2 0 Laboratory Laboratory Tests Test 09/04/16 09/04/16 09/04/16 06:50 06:57 11:20 Ammonia 49 Sodium Level 140 Potassium Level 4.0 Chloride Level 99 Carbon Dioxide Level 35.5 Anion Gap 6 Blood Urea Nitrogen 6 Creatinine 0.71 Estimat Glomerular Filtration 120 Rate Random Glucose 62 Calcium Level 8.6 Total Bilirubin 4.4 Direct Bilirubin 3.0 Indirect Bilirubin 1.4 Aspartate Amino Transf 140 (AST/SGOT) Alanine Aminotransferase 57 (ALT/SGPT) Alkaline Phosphatase 153 Total Protein 8.0 Albumin 2.2 Vancomycin Level Trough 15.9 Blood Gas Puncture Site RT RADIAL Blood Gas Patient Temperature 98.6 Blood Gas HCO3 35 Blood Gas Base Excess 9.4 Blood Gas Oxygen Saturation 94 Arterial Blood pH 7.35 Arterial Blood Partial 65 Pressure CO2 Arterial Blood Partial 94 Pressure O2 Arterial Blood Oxygen Content 18.9 Arterial Blood 2.4 Carboxyhemoglobin Arterial Blood Methemoglobin 0.9 Blood Gas Hemoglobin 14.3 Oxygen Delivery Device MASK Date/Time Procedure Status Source Growth 09/01/16 17:00 Gram Stain - Final Complete Wound Leg 09/01/16 17:00 Wound Culture - Final Complete Staphylococcus Aureus Pseudomonas Aeruginosa Escherichia Coli Imaging Last Impressions Head CT 09/02/16 0000 Signed Impressions: Service Date/Time: Friday, September 02, 2016 21:13 - CONCLUSION: No acute disease. Omar Contreras MD Lower Extremity Ultrasound 08/31/16 1055 Signed Impressions: Service Date/Time: Wednesday, August 31, 2016 11:21 - CONCLUSION: 1. Limited examination due to patient's body habitus and lower extremity edema. 2. No definitive sonographic evidence for lower extremity DVT. Jorge A Collazo MD Chest X-Ray 08/31/16 105 Signed Impressions: Service Date/Time: Wednesday, August 31, 2016 11:05 - CONCLUSION: 1. Mild cardiomegaly with positive fluid balance. 2. Bilateral upper lobe patchy airspace disease, more confluent on the right. Differential considerations include developing pulmonary edema versus infection in the appropriate setting. Followup to resolution is recommended. Jorge A Collazo MD Abdomen/Pelvis CT 08/31/16 1055 Signed Impressions: Service Date/Time: Wednesday, August 31, 2016 12:29 - CONCLUSION: Cirrhosis, slight splenomegaly and mild anasarca. Ashish Wood MD Physical Exam HEENT: normocephalic; atraumatic; + jaundice. NECK: Neck is supple, no JVD, no lymphadenopathy. CHEST: Chest is clear to auscultation and percussion. CARDIAC: Regular rate and rhythm with no murmur gallop or rubs. ABDOMEN: Firm, obese, nondistended, tender; hepatosplenomegaly; bowel sounds are present in all four quadrants. EXTREMITIES: 3+ edema in BLE SKIN: wounds covered by gauze on the left, redness to lower abd and BLE WAX BLENDER: Lethargic, agitated (Kaia Rodríguez) Assessment and Plan Plan - Cirrhosis- likely secondary to Etoh- ( new diagnosis) MELD score 18 with hx of alcohol abuse, LFTs trending down Hepatitis panel came back (+) for hep C, AFP 2.8 ,ferritin 96 iron % 27 hep-c PCR, SAHIL, AMA, ASMA, ceruloplasmin, celiac, and studies, and alpha antitrypsin deficiency pending - Acute alcoholic hepatitis- DF (32)- on Pentoxifylline - ?liver failure- low plt, low albumin, coagulopathy, high bili - Jaundice- high bili gonsales of 6.1, this is trending down, today is 4.1, likely hepatic dysfunction - Hepatic encephalopathy- improving today 49 , on lactulose, BID, Xifaxan - Alcohol abuse- used to drink 3 pints daily for over a year, last time it was a week ago. - Anasarca- Lasix 20 mg IV BID, spironolactone 50 mg daily, He had Echocardiogram and that revealed EF of 50-55%, - Legs ulcers, weeping wounds, cx pending - IVDA- Dilaudid, counselled on cessation - Decline in status- AMS, lethargy, acute respiratory failure while on 2L NC, requiring C-pap, abnormal blood gases, he will be transferred to the unit Plan: - NPO for now, diet per CCM - fluid restriction - Await SAHIL, AMA, ASMA, ceruloplasmin, celiac, alpha antitrypsin deficiency, - Await Hep-c PCR - Lactulose BID - Cont. Pentoxifylline - Cont. Xifaxan - cont. Lasix - Cont. Aldactone - DTs precautions - Alcohol cessation - Monitor labs - Await CT of the brain - Supportive care - Patient seen and examined by Dr. Nunes and myself and this note is written on his behalf. (Kaia Rodríguez) Physician Comments Patient seen and examined Agree with above Continue with current supportive care Monitor labs (Miko Nunes MD) Kaia Rodríguez Sep 04, 2016 12:22 Miko Nunes MD Sep 04, 2016 21:30
[2016-09-04 12:48] LABS: AUTOMATED NEUTROPHIL # 6.7 TH/MM3 (1.8-7.7); BASOPHIL # 0.1 TH/MM3 (0-0.2); BASOPHIL % 0.9 % (0.0-2.0); EOSINOPHIL # 0.1 TH/MM3 (0-0.4); EOSINOPHIL % 0.8 % (0.0-4.0); HEMATOCRIT 44.9 % (39.0-51.0); HEMO FLAGS DIFF FINAL; LYMPH % 11.4 % (9.0-44.0); MEAN CELL VOLUME 99.2 FL (80.0-100.0); MEAN CORPUSCULAR HGB CONC 33.2 % (32.0-36.0); MONO % 11.3 % (0.0-8.0); NEUT % 75.6 % (16.0-70.0); PLATELET COUNT 127 TH/MM3 (150-450); RED BLOOD COUNT 4.53 MIL/MM3 (4.50-5.90); RED CELL DISTRIBUTION WIDTH 16.1 % (11.6-17.2); WHITE BLOOD COUNT 8.9 TH/MM3 (4.0-11.0)
[2016-09-04 13:06] LABS: ALT (GPT) 63 U/L (12-78); ANION GAP 6 MEQ/L (5-15); AST (GOT) 147 U/L (15-37); BICARBONATE 33.7 MEQ/L (21.0-32.0); BLOOD UREA NITROGEN 6 MG/DL (7-18); CHLORIDE 100 MEQ/L (98-107); GLOMERULAR FILTRATION RATE 108 ML/MIN (>89); POTASSIUM 4.2 MEQ/L (3.5-5.1); SODIUM (NA) 140 MEQ/L (136-145)
[2016-09-04 13:08] LABS: ALKALINE PHOSPHATASE 163 U/L (45-117); TOTAL BILIRUBIN ADULT 4.5 MG/DL (0.2-1.0)
[2016-09-04] MEDS: LACTULOSE SYRUP 20 GM/30 ML CUP PO SCH ×3 (13:22→21:00)
[2016-09-04] MEDS ORDERED: DIAZEPAM 5 MG TAB PO PRN (14:00)
[2016-09-04] MEDS: cloNIDine HCL 0.3 MG TAB PO SCH ×2 (15:21→22:00)
[2016-09-04] MEDS ORDERED: BISACODYL 10 MG SUPP RECTAL ONE (15:45)
[2016-09-04] MEDS ORDERED: MAGNESIUM CITRATE SOLN 300 ML BTL PO ONE (15:45)
[2016-09-04 15:50] LABS: BLOOD, URINE NEG (NEG); GLUCOSE,URINE NEG (NEG); KETONE, URINE NEG (NEG); MUCUS URINE FEW /lpf (OCC); NITRITE,URINE NEG (NEG); URINE COLOR LIGHT-YELLOW (YELLW/STRAW)
[2016-09-04] MEDS: ENOXAPARIN SODIUM 40 MG/0.4 ML SYRINGE SQ SCH (15:50)
[2016-09-04 15:55] LABS: COMMENT (UR) CATH-CULT NOT IND; CULTURE IF INDICATED CATH CULTURE NOT IND
--- NOTE | 2016-09-04 18:10 | RADRPT ---
EXAM DATE/TIME: 09/04/2016 17:16 [facility] COMPARISON: CT ABDOMEN & PELVIS W CONTRAST, August 31, 2016, 12:29. INDICATIONS : Distention. MEDICAL HISTORY : Cardiovascular disease. Hepatitis C. SURGICAL HISTORY : None. ENCOUNTER: Initial ACUITY: 1 day PAIN SCORE: Non-responsive. LOCATION: all quadrants. FINDINGS: Examination is limited due to patient's body habitus. There is an NGT in the stomach. Air is seen in the colon. Note definite dilated loop of small bowel is demonstrated. Visualized lung apices are christine sly clear. Cardiac silhouette is enlarged. Soft tissues are grossly unremarkable. Redemonstration of right femoral fixation hardware. CONCLUSION: 1. Very limited examination due to the patient's body habitus. 2. NGT in the stomach without evidence for significantly dilated loops of small bowel. Bowel air note d on the current exam appear to be colonic. Consider CT examination if there is continued clinical co ncern. Jorge A Collazo MD on September 04, 2016 at 18:05 Board Certified Radiologist. This report was verified electronically.
[2016-09-04] MEDS: LEVOFLOXACIN 750 MG PREMIX INJ 150 ML IV SCH (18:49)
[2016-09-04] MEDS ORDERED: CHLORHEXIDINE GLUCONATE 2 % 1 PACK (2 CLOTHS)(extra cloths) TOPICAL PRN (19:15)
[2016-09-04] MEDS: VANCOMYCIN INJ 1,750 MG in SODIUM CHLORID 0.9% 500 ML INJ 500 ML IV SCH (19:32)
[2016-09-04] MEDS: CHLORHEXIDINE GLUCONATE 2 % 1 PACK (2 CLOTHS)(taper/protocol) TOPICAL SCH (23:53)
[2016-09-05] VITALS (15 sets, daily range): BP systolic 95–115; BP diastolic 50–63; PULSE 74–86; RESP 8–17; TEMP 97.4–98.4; O2SAT 89–97
[2016-09-05 05:19] LABS: AUTOMATED NEUTROPHIL # 7.7 TH/MM3 (1.8-7.7); BASOPHIL % 0.1 % (0.0-2.0); HEMATOCRIT 40.9 % (39.0-51.0); HEMO FLAGS DIFF FINAL; LYMPH % 6.3 % (9.0-44.0); LYMPHOCYTE # 0.6 TH/MM3 (1.0-4.8); MEAN CELL VOLUME 101.6 FL (80.0-100.0); MEAN CORPUSCULAR HGB CONC 32.5 % (32.0-36.0); MONO % 8.6 % (0.0-8.0); PLATELET COUNT 108 TH/MM3 (150-450); RED BLOOD COUNT 4.03 MIL/MM3 (4.50-5.90); RED CELL DISTRIBUTION WIDTH 16.7 % (11.6-17.2); WHITE BLOOD COUNT 9.1 TH/MM3 (4.0-11.0)
[2016-09-05 05:39] LABS: BICARBONATE 40.8 MEQ/L (21.0-32.0); MAGNESIUM 2.7 MG/DL (1.5-2.5); POTASSIUM 4.2 MEQ/L (3.5-5.1)
[2016-09-05] MEDS: PENTOXIFYLLINE 400 MG CONTROLLED RELEASE TAB PO SCH ×3 (06:00→22:47)
[2016-09-05] MEDS: cloNIDine HCL 0.3 MG TAB PO SCH ×3 (07:44→22:47)
[2016-09-05] MEDS: RIFAXIMIN 200 MG TAB PO SCH ×3 (07:44→22:47)
[2016-09-05] MEDS: VANCOMYCIN INJ 1,750 MG in SODIUM CHLORID 0.9% 500 ML INJ 500 ML IV SCH ×2 (07:44→17:49)
[2016-09-05] MEDS: SODIUM CHLORIDE 0.9% FLUSH 10 ML FLUSH IV FLUSH SCH ×2 (07:52→21:00)
[2016-09-05] MEDS: LACTULOSE SYRUP 20 GM/30 ML CUP PO SCH ×4 (07:53→22:47)
[2016-09-05] MEDS: FUROSEMIDE 20 MG/2 ML VIAL IV PUSH SCH ×2 (07:53→17:51)
[2016-09-05] MEDS: DOCUSATE SODIUM 50 MG/SENNA 8.6 MG TAB PO SCH ×2 (07:54→21:00)
[2016-09-05] MEDS: METHADONE HCL 10 MG TAB PO SCH (07:54)
[2016-09-05] MEDS: POTASSIUM CHLORIDE 20 MEQ CONTROLLED RELEASE TAB PO SCH ×2 (07:54→22:47)
[2016-09-05] MEDS: MULTIVITAMINS/MINERALS THERAPEUTIC TAB PO SCH (07:54)
[2016-09-05] MEDS: FOLIC ACID 1 MG TAB PO SCH (07:54)
[2016-09-05] MEDS: THIAMINE HCL 100 MG TAB PO SCH (07:54)
[2016-09-05] MEDS: SPIRONOLACTONE 50 MG TAB PO SCH (07:55)
[2016-09-05 11:53] LABS: HCV RNA PCR IU/ML LESS THAN 15 IU/mL (()); HCV RNA PCR LOGIU/ML LESS THAN 1.18 (())
[2016-09-05] MEDS: LEVOFLOXACIN 750 MG PREMIX INJ 150 ML IV SCH (14:54)
--- NOTE | 2016-09-05 15:46 | HHI.GIFU ---
Subjective Remarks Patient is resting in bed doing better today, he is on Bi-pap. He is with complaints of legs and back pain. (Kaia Rodríguez) Objective Vitals I&O Vital Signs Date Time Temp Pulse Resp B/P Pulse Ox O2 Delivery O2 Flow Rate FiO2 09/05/16 14:09 97 65 09/05/16 09:09 96 70 09/05/16 09:09 96 BiPAP 70 09/05/16 04:47 94 70 09/05/16 04:00 98.0 76 16 95/50 93 09/05/16 02:25 96 80 09/05/16 00:00 98.1 82 8 110/63 94 09/04/16 23:52 96 80 09/04/16 20:32 97 100 09/04/16 20:00 98.3 99 12 98/52 95 09/04/16 19:00 Bi-Pap 100 09/04/16 18:00 112 09/04/16 17:50 96 Bi-Pap 100 09/04/16 17:00 97 100 09/04/16 16:00 93 09/04/16 16:00 99.0 93 21 154/89 88 I/O 09/04/16 09/04/16 09/04/16 09/05/16 09/05/16 09/05/16 07:00 15:00 23:00 07:00 15:00 23:00 Intake Total 120 ml 968 ml Output Total 1126 ml 1500 ml Balance 120 ml -1126 ml -532 ml Intake Oral 120 ml IV Total 698 ml Other 270 ml Output Urine Total 1126 ml 1500 ml # Voids 1 # Bowel Movements 0 4 Laboratory Laboratory Tests Test 09/05/16 04:48 White Blood Count 9.1 Red Blood Count 4.03 Hemoglobin 13.3 Hematocrit 40.9 Mean Corpuscular Volume 101.6 Mean Corpuscular Hemoglobin 33.0 Mean Corpuscular Hemoglobin 32.5 Concent Red Cell Distribution Width 16.7 Platelet Count 108 Mean Platelet Volume 7.7 Neutrophils (%) (Auto) 85.0 Lymphocytes (%) (Auto) 6.3 Monocytes (%) (Auto) 8.6 Eosinophils (%) (Auto) 0.0 Basophils (%) (Auto) 0.1 Neutrophils # (Auto) 7.7 Lymphocytes # (Auto) 0.6 Monocytes # (Auto) 0.8 Eosinophils # (Auto) 0.0 Basophils # (Auto) 0.0 CBC Comment DIFF FINAL Differential Comment Sodium Level 141 Potassium Level 4.2 Chloride Level 100 Carbon Dioxide Level 40.8 Anion Gap 0 Blood Urea Nitrogen 13 Creatinine 0.75 Estimat Glomerular Filtration 113 Rate Random Glucose 104 Calcium Level 7.9 Magnesium Level 2.7 Ammonia 51 Date/Time Procedure Status Source Growth 09/04/16 12:47 Aerobic Blood Culture - Preliminary Resulted Blood Peripheral NO GROWTH IN 1 DAY 09/04/16 12:47 Anaerobic Blood Culture - Preliminary Resulted Blood Peripheral NO GROWTH IN 1 DAY 09/01/16 17:00 Gram Stain - Final Complete Wound Leg 09/01/16 17:00 Wound Culture - Final Complete Staphylococcus Aureus Pseudomonas Aeruginosa Escherichia Coli Imaging Last Impressions Chest X-Ray 09/04/16 0000 Signed Impressions: Service Date/Time: Sunday, September 04, 2016 11:14 - CONCLUSION: 1. Cardiomegaly with pulmonary edema pattern. Jorge A Collazo MD Abdomen X-Ray 09/04/16 0000 Signed Impressions: Service Date/Time: Sunday, September 04, 2016 17:16 - CONCLUSION: 1. Very limited examination due to the patient's body habitus. 2. NGT in the stomach without evidence for significantly dilated loops of small bowel. Bowel air noted on the current exam appear to be colonic. Consider CT examination if there is continued clinical concern. Jorge A Collazo MD Head CT 09/02/16 0000 Signed Impressions: Service Date/Time: Friday, September 02, 2016 21:13 - CONCLUSION: No acute disease. Omar Contreras MD Lower Extremity Ultrasound 08/31/16 1055 Signed Impressions: Service Date/Time: Wednesday, August 31, 2016 11:21 - CONCLUSION: 1. Limited examination due to patient's body habitus and lower extremity edema. 2. No definitive sonographic evidence for lower extremity DVT. Jorge A Collazo MD Abdomen/Pelvis CT 08/31/16 1055 Signed Impressions: Service Date/Time: Wednesday, August 31, 2016 12:29 - CONCLUSION: Cirrhosis, slight splenomegaly and mild anasarca. Ashish Wood MD Physical Exam HEENT: normocephalic; atraumatic; + jaundice. NECK: Neck is supple, no JVD, no lymphadenopathy. CHEST: Chest is clear to auscultation and percussion. CARDIAC: Regular rate and rhythm with no murmur gallop or rubs. ABDOMEN: Firm, obese, nondistended, tender; hepatosplenomegaly; bowel sounds are present in all four quadrants. EXTREMITIES: 3+ edema in BLE SKIN: wounds covered by gauze on the left, redness to lower abd and BLE STUDIO ARTIST: Lethargic, agitated (Kaia Rodríguez) Assessment and Plan Plan - Cirrhosis- likely secondary to Etoh- ( new diagnosis) MELD score 18 with hx of alcohol abuse, LFTs trending down Hepatitis panel came back (+) for hep C, AFP 2.8 ,ferritin 96 iron % 27 hep-c PCR, SAHIL (-), AMA P, ASMA P, ceruloplasmin P, celiac (-) , and studies, and alpha antitrypsin 215 - Acute alcoholic hepatitis- DF (32)- on Pentoxifylline - ?liver failure- low plt, low albumin, coagulopathy, high bili - Jaundice- high bili gonsales of 6.1, this is trending down, today is 4.1, likely hepatic dysfunction - Hepatic encephalopathy- improving today 51, on lactulose, BID, Xifaxan - Alcohol abuse- used to drink 3 pints daily for over a year, last time it was a week ago. - Anasarca- Lasix 20 mg IV BID, spironolactone 50 mg daily, He had Echocardiogram and that revealed EF of 50-55%, - Legs ulcers, weeping wounds, cx pending - IVDA- Dilaudid, counselled on cessation - Hx of Hep-C- Viral load <15, GT pending, likely patient is negative for hep-C - AMS, lethargy- likely superimposed haptic on metabolic encephalopathy, better today on Bipap, CT of brain negative Plan: - NPO for now, diet per [facility] - fluid restriction - Await AMA, ASMA, ceruloplasmin, - Await Hep-c PCR - Lactulose QID - Cont. Pentoxifylline - Cont. Xifaxan - cont. Lasix - Cont. Aldactone - DTs precautions - Alcohol cessation - Monitor labs - LFTs, ammonia in the am - Supportive care - Patient seen and examined by Dr. Nunes and myself and this note is written on his behalf. (Kaia Rodríguez) Physician Comments Patient seen and examined Agree with above Continue with current supportive care Monitor labs (Miko Nunes MD) Kaia Rodríguez Sep 05, 2016 15:46 Miko Nunes MD Sep 05, 2016 19:25
[2016-09-05] MEDS: ENOXAPARIN SODIUM 40 MG/0.4 ML SYRINGE SQ SCH (17:49)
[2016-09-05 18:27] LABS: BLOOD GAS BASE EXCESS 12.7 mmol/L (-2-2); BLOOD GAS CARBOXYHEMOGLOBIN 1.6 % (0-4); BLOOD GAS HCO3 39 mmol/L (22-26); BLOOD GAS O2 HGB SATURATION 88 % (90-100); BLOOD GAS OXYGEN CONTENT 16.7 Vol % (12.0-20.0); BLOOD GAS PCO2 70 mmHg (38-42); BLOOD GAS PO2 60 mmHg (61-120); BLOOD GAS TOTAL HGB 13.5 G/DL (12.0-16.0); CRITICAL VALUE YES; DRAW SITE RT RADIAL; LITER FLOW 6 L/M; NUMBER OF ARTERIAL PUNCTURES 2; OXYGEN DEVICE NASAL CANNULA; STAT YES; TEMP CORR TO 98.6; ULNAR PULSE PRESENT
--- NOTE | 2016-09-05 19:52 | HHI.CCPN ---
Subjective Remarks/Hospital Course Hospital Course: This is a 46yM with ESLD who presented on 08/31 with LE cellulitis and treated with abx. he also is going through alcohol withdraw delirium on CIWA. He presents today with worsening altered mental status, somnolence, and hypoxia, requiring rapidly increasing o2 by face mask. On my evaluation, the patient is tachypneic, on 6L face mask, spo2 96%, altered, RASS -2, CAM+, only oriented to person. unable to provide any additional history at all due to his condition. Subjective: 09/05: improving clinically. mental status improved. multiple bowel movements overnight. hypoxia improving, BiPAP weaned down to 35% fio2. Objective Vital Signs Date Time Temp Pulse Resp B/P Pulse Ox O2 Delivery O2 Flow Rate FiO2 09/05/16 18:00 84 09/05/16 16:00 98.4 13 103/55 94 09/05/16 14:09 65 09/05/16 09:09 BiPAP 09/04/16 15:00 6.00 Intake and Output 09/04/16 09/04/16 09/04/16 07:59 15:59 23:59 Intake Total 120 ml Output Total 1126 ml Balance 120 ml -1126 ml Result Diagram: 09/05/16 0448 09/05/16 0448 Other Results Laboratory Tests Test 09/05/16 18:15 Blood Gas Puncture Site RT RADIAL Blood Gas Patient Temperature 98.6 Blood Gas HCO3 39 mmol/L (22-26) Blood Gas Base Excess 12.7 mmol/L (-2-2) Blood Gas Oxygen Saturation 88 % (90-100) Arterial Blood pH 7.36 (7.380-7.420) Arterial Blood Partial 70 mmHg (38-42) Pressure CO2 Arterial Blood Partial 60 mmHg Pressure O2 (61-120) Arterial Blood Oxygen Content 16.7 Vol % (12.0-20.0) Arterial Blood 1.6 % (0-4) Carboxyhemoglobin Arterial Blood Methemoglobin 1.0 % (0-2) Blood Gas Hemoglobin 13.5 G/DL (12.0-16.0) Oxygen Delivery Device NASAL CANNULA Blood Gas Liter Flow 6 L/M Imaging CXR today pending. Last Impressions Head CT 09/02/16 0000 Signed Impressions: Service Date/Time: Friday, September 02, 2016 21:13 - CONCLUSION: No acute disease. Omar F. Tocci, MD Lower Extremity Ultrasound [id number]/31/[id number] Signed Impressions: Service Date/Time: Wednesday, August 31, 2016 11:21 - CONCLUSION: 1. Limited examination due to patient's body habitus and lower extremity edema. 2. No definitive sonographic evidence for lower extremity DVT. Jorge A Collazo MD Chest X-Ray [id number]/31/[id number] Signed Impressions: Service Date/Time: Wednesday, August 31, 2016 11:05 - CONCLUSION: 1. Mild cardiomegaly with positive fluid balance. 2. Bilateral upper lobe patchy airspace disease, more confluent on the right. Differential considerations include developing pulmonary edema versus infection in the appropriate setting. Followup to resolution is recommended. Jorge A Collazo MD Abdomen/Pelvis CT [id number]/31/[id number] Signed Impressions: Service Date/Time: Wednesday, August 31, 2016 12:29 - CONCLUSION: Cirrhosis, slight splenomegaly and mild anasarca. K. Sunil Wood MD Objective Remarks gen: morbidly obese middle aged male, much more arousable today. no acute distress. heent: perrl. mucous membranes moist. normocephalic. atraumatic. neck: jvd unable to discern secondary to large neck circumference. face mask in place. trachea midline. chest: unlabored. decreased bs bilaterally. BiPAP 10/5/35%, spo2 91%. cv: tachycardic rate, regular rhythm. abd: obese, soft, nontender, nondistended. no guarding. extr: 1+ peripheral edema. distal pulses 2+ neuro: RASS -1. CAM -. oriented x 3 today. fc x 4. A/P Assessment and Plan Assessment: 46yM with ESLD with cellulitis, etoh withdraw, and now acute hypoxic respiratory failure and acute encephalopathy likely hepatic encephalopathy with possible superimposed metabolic encephalopathy. Encephalopathy and hypoxemia improving. Will continue current medical management. if he continues to improve, could transfer out of ICU tomorrow. Acute delirium Hepatic Encephalopathy Possible superimposed metabolic encephalopathy -- continue lactulose and rifaximin -- avoid long-acting sedating meds. -- daily ammonia levels Acute dysphagia -- swallow eval Acute hypoxic and hypercarbic respiratory failure -- wean bipap as needed. could transition to NC later -- diamox 500mg iv q8h for compensatory metabolic alkalosis. Cellulitis -- continue Levaquin and Vanc Alcohol withdraw clonidine 0.3 mg TID stop CIWA valium 10mg po q8h prn consult hospitalist group for ongoing medical management. Aaron Haynes MD Sep 05, 2016 19:51
[2016-09-06] VITALS (24 sets, daily range): BP systolic 81–108; BP diastolic 58–71; PULSE 62–86; RESP 12–24; TEMP 97.7–98.4; O2SAT 92–96
[2016-09-06] MEDS: CHLORHEXIDINE GLUCONATE 2 % 1 PACK (2 CLOTHS)(taper/protocol) TOPICAL SCH (04:00)
[2016-09-06] MEDS: cloNIDine HCL 0.3 MG TAB PO SCH ×3 (05:39→21:45)
[2016-09-06] MEDS: RIFAXIMIN 200 MG TAB PO SCH ×3 (05:40→21:42)
[2016-09-06] MEDS: PENTOXIFYLLINE 400 MG CONTROLLED RELEASE TAB PO SCH ×3 (05:40→21:42)
[2016-09-06] MEDS ORDERED: PHARMACY ORDERED LAB ONE (05:45)
[2016-09-06] MEDS: VANCOMYCIN INJ 1,750 MG in SODIUM CHLORID 0.9% 500 ML INJ 500 ML IV SCH (06:00)
[2016-09-06 06:11] LABS: HEMATOCRIT 40.8 % (39.0-51.0); MEAN CELL VOLUME 102.5 FL (80.0-100.0); MEAN CORPUSCULAR HEMOGLOBIN 33.6 PG (27.0-34.0); MEAN CORPUSCULAR HGB CONC 32.8 % (32.0-36.0); PLATELET COUNT 114 TH/MM3 (150-450); RED BLOOD COUNT 3.98 MIL/MM3 (4.50-5.90); RED CELL DISTRIBUTION WIDTH 16.9 % (11.6-17.2); REVIEW FLAG FINAL; WHITE BLOOD COUNT 10.4 TH/MM3 (4.0-11.0)
[2016-09-06 06:38] LABS: BICARBONATE 36.2 MEQ/L (21.0-32.0)
[2016-09-06] MEDS: MULTIVITAMINS/MINERALS THERAPEUTIC TAB PO SCH (09:08)
[2016-09-06] MEDS: THIAMINE HCL 100 MG TAB PO SCH (09:08)
[2016-09-06] MEDS: POTASSIUM CHLORIDE 20 MEQ CONTROLLED RELEASE TAB PO SCH ×2 (09:08→21:43)
[2016-09-06] MEDS: SODIUM CHLORIDE 0.9% FLUSH 10 ML FLUSH IV FLUSH SCH ×2 (09:08→21:44)
[2016-09-06] MEDS: FUROSEMIDE 20 MG/2 ML VIAL IV PUSH SCH ×2 (09:08→18:08)
[2016-09-06] MEDS: LACTULOSE SYRUP 20 GM/30 ML CUP PO SCH ×4 (09:08→21:43)
[2016-09-06] MEDS: DOCUSATE SODIUM 50 MG/SENNA 8.6 MG TAB PO SCH ×2 (09:09→21:00)
[2016-09-06] MEDS: SPIRONOLACTONE 50 MG TAB PO SCH (09:09)
[2016-09-06] MEDS: FOLIC ACID 1 MG TAB PO SCH (09:09)
[2016-09-06] MEDS: METHADONE HCL 10 MG TAB PO SCH (09:10)
--- NOTE | 2016-09-06 11:11 | HHI.PR ---
Subjective Remarks Follow-up hepatic encephalopathy, respiratory failure. Patient states that he feels a little better today. He is being transferred to [facility]. On nasal cannula currently. Denies chest pain. NG tube removed this morning. Objective Vitals Vital Signs Date Time Temp Pulse Resp B/P Pulse Ox O2 Delivery O2 Flow Rate FiO2 09/06/16 10:00 72 09/06/16 08:44 95 Simple Mask 8.00 09/06/16 08:00 81 09/06/16 08:00 98.1 81 12 106/60 94 09/06/16 07:00 96 Simple Mask 8.00 09/06/16 06:00 84 09/06/16 05:50 96 Simple Mask 8.00 09/06/16 04:00 80 09/06/16 04:00 98.0 80 14 105/61 93 09/06/16 03:56 95 40 09/06/16 02:00 82 09/06/16 00:16 95 40 09/06/16 00:00 98.4 86 24 81/60 93 09/06/16 00:00 86 09/05/16 22:00 85 09/05/16 21:50 95 Simple Mask 10.00 09/05/16 20:00 98.1 86 17 115/58 90 09/05/16 20:00 86 09/05/16 19:00 Partial Non-Rebreather 15.00 09/05/16 18:00 84 09/05/16 16:00 98.4 78 13 103/55 94 09/05/16 16:00 78 09/05/16 14:09 97 65 09/05/16 14:00 81 09/05/16 12:00 98.3 76 12 101/61 89 09/05/16 12:00 76 I/O 09/05/16 09/05/16 09/05/16 09/06/16 09/06/16 09/06/16 07:00 15:00 23:00 07:00 15:00 23:00 Intake Total 968 ml 200 ml 1668 ml 480 ml Output Total 1500 ml 450 ml 325 ml 75 ml Balance -532 ml -250 ml 1343 ml 405 ml Intake Oral 50 ml 1080 ml 480 ml IV Total 698 ml 150 ml 588 ml 0 ml Other 270 ml Output Urine Total 1500 ml 450 ml 325 ml 75 ml # Bowel Movements 4 0 1 Result Diagram: 7/28/17 0556 09/06/16 0556 Imaging Last Impressions Chest X-Ray 09/04/16 0000 Signed Impressions: Service Date/Time: Sunday, September 04, 2016 11:14 - CONCLUSION: 1. Cardiomegaly with pulmonary edema pattern. Jorge A Collazo MD Abdomen X-Ray 09/04/16 0000 Signed Impressions: Service Date/Time: Sunday, September 04, 2016 17:16 - CONCLUSION: 1. Very limited examination due to the patient's body habitus. 2. NGT in the stomach without evidence for significantly dilated loops of small bowel. Bowel air noted on the current exam appear to be colonic. Consider CT examination if there is continued clinical concern. Jorge A Collazo MD Head CT 09/02/16 0000 Signed Impressions: Service Date/Time: Friday, September 02, 2016 21:13 - CONCLUSION: No acute disease. Omar Contreras MD Lower Extremity Ultrasound 08/31/16 1055 Signed Impressions: Service Date/Time: Wednesday, August 31, 2016 11:21 - CONCLUSION: 1. Limited examination due to patient's body habitus and lower extremity edema. 2. No definitive sonographic evidence for lower extremity DVT. Jorge A Collazo MD Abdomen/Pelvis CT 08/31/16 1055 Signed Impressions: Service Date/Time: Wednesday, August 31, 2016 12:29 - CONCLUSION: Cirrhosis, slight splenomegaly and mild anasarca. Ashish Wood MD Objective Remarks General: Obese male in no acute distress. Heart: Regular rate and rhythm. No murmur. Lungs: Clear to auscultation bilaterally. No wheezes, rales, or rhonchi. Breathing is nonlabored. Abdomen: Soft, nontender, nondistended. Extremities: 1+ bilateral lower extremity edema. Lower extremity wounds are bandaged. Psych: Alert and oriented. Procedures None Urinary Catheter: Yes Assessment to: Continue Locke insert reason: Measure Accurate Output Vascular Central Line Catheter: No A/P Problem List: (1) Hepatitis C ICD Code: B19.20 Status: Chronic (2) HX IVDU Status: Chronic (3) Anasarca ICD Code: R60.1 Status: Acute (4) Cellulitis ICD Code: L03.90 Status: Acute (5) Elevated TSH ICD Code: R94.6 Status: Acute (6) Hyperammonemia ICD Code: E72.20 Status: Acute (7) Acute respiratory failure with hypoxia and hypercarbia ICD Code: J96.01 Status: Acute Assessment and Plan 1. Acute delirium secondary to hepatic encephalopathy: Possible superimposed metabolic encephalopathy. Continue lactulose, rifaximin. Monitor serum ammonia level. Continue Lasix, Aldactone. 2. Acute dysphagia: Improved. Appreciate speech therapy recommendations. 3. Acute hypoxic and hypercarbic respiratory failure: Continue supplemental oxygen, bronchodilators. BiPAP as needed. Currently on nasal cannula. Consult pulmonology. 4. Lower extremity cellulitis: Continue antibiotics (Levaquin, vancomycin). 5. Alcohol withdrawal: CIWA protocol discontinued. Symptoms are minimal. Valium available as needed. Stop clonidine. 6. History of IV drug abuse: Continue methadone. 7. Cirrhosis of the liver, acute alcoholic hepatitis: Appreciate GI recommendations. 8. DVT prophylaxis: Lovenox. Problem Qualifiers (1) Cellulitis: Qualified Code: L03.119 - Cellulitis of lower extremity, unspecified laterality Ken Foreman MD Sep 06, 2016 11:11
--- NOTE | 2016-09-06 14:08 | HHI.GIFU ---
Subjective Remarks Patient is sleeping when I walked in the room, awakes to me calling his name. Father by bed side. Patient is doing better today, reports improvement in abd pain, not having nausea or vomiting. (Kaia Rodríguez) Objective Vitals I&O Vital Signs Date Time Temp Pulse Resp B/P Pulse Ox O2 Delivery O2 Flow Rate FiO2 09/06/16 13:01 68 09/06/16 12:01 98.2 75 24 108/71 96 09/06/16 12:00 70 09/06/16 11:00 76 09/06/16 10:00 72 09/06/16 08:44 95 Simple Mask 8.00 09/06/16 08:00 81 09/06/16 08:00 98.1 81 12 106/60 94 09/06/16 07:00 96 Simple Mask 8.00 09/06/16 06:00 84 09/06/16 05:50 96 Simple Mask 8.00 09/06/16 04:00 80 09/06/16 04:00 98.0 80 14 105/61 93 09/06/16 03:56 95 40 09/06/16 02:00 82 09/06/16 00:16 95 40 09/06/16 00:00 98.4 86 24 81/60 93 09/06/16 00:00 86 09/05/16 22:00 85 09/05/16 21:50 95 Simple Mask 10.00 09/05/16 20:00 98.1 86 17 115/58 90 09/05/16 20:00 86 09/05/16 19:00 Partial Non-Rebreather 15.00 09/05/16 18:00 84 09/05/16 16:00 98.4 78 13 103/55 94 09/05/16 16:00 78 09/05/16 14:09 97 65 I/O 09/05/16 09/05/16 09/05/16 09/06/16 09/06/16 09/06/16 07:00 15:00 23:00 07:00 15:00 23:00 Intake Total 968 ml 200 ml 1668 ml 480 ml Output Total 1500 ml 450 ml 325 ml 75 ml Balance -532 ml -250 ml 1343 ml 405 ml Intake Oral 50 ml 1080 ml 480 ml IV Total 698 ml 150 ml 588 ml 0 ml Other 270 ml Output Urine Total 1500 ml 450 ml 325 ml 75 ml # Bowel Movements 4 0 1 Laboratory Laboratory Tests Test 09/05/16 09/06/16 18:15 05:56 Blood Gas Puncture Site RT RADIAL Blood Gas Patient Temperature 98.6 Blood Gas HCO3 39 Blood Gas Base Excess 12.7 Blood Gas Oxygen Saturation 88 Arterial Blood pH 7.36 Arterial Blood Partial 70 Pressure CO2 Arterial Blood Partial 60 Pressure O2 Arterial Blood Oxygen Content 16.7 Arterial Blood 1.6 Carboxyhemoglobin Arterial Blood Methemoglobin 1.0 Blood Gas Hemoglobin 13.5 Oxygen Delivery Device NASAL CANNULA Blood Gas Liter Flow 6 White Blood Count 10.4 Red Blood Count 3.98 Hemoglobin 13.4 Hematocrit 40.8 Mean Corpuscular Volume 102.5 Mean Corpuscular Hemoglobin 33.6 Mean Corpuscular Hemoglobin 32.8 Concent Red Cell Distribution Width 16.9 Platelet Count 114 Mean Platelet Volume 8.2 Sodium Level 139 Potassium Level 4.0 Chloride Level 99 Carbon Dioxide Level 36.2 Anion Gap 4 Blood Urea Nitrogen 21 Creatinine 1.09 Estimat Glomerular Filtration 73 Rate Random Glucose 93 Calcium Level 8.2 Ammonia 55 Vancomycin Level Trough 31.5 Date/Time Procedure Status Source Growth 09/04/16 12:47 Aerobic Blood Culture - Preliminary Resulted Blood Peripheral NO GROWTH IN 2 DAYS 09/04/16 12:47 Anaerobic Blood Culture - Preliminary Resulted Blood Peripheral NO GROWTH IN 2 DAYS 09/01/16 17:00 Gram Stain - Final Complete Wound Leg 09/01/16 17:00 Wound Culture - Final Complete Staphylococcus Aureus Pseudomonas Aeruginosa Escherichia Coli Imaging Last Impressions Chest X-Ray 09/04/16 0000 Signed Impressions: Service Date/Time: Sunday, September 04, 2016 11:14 - CONCLUSION: 1. Cardiomegaly with pulmonary edema pattern. Jorge A Collazo MD Abdomen X-Ray 09/04/16 0000 Signed Impressions: Service Date/Time: Sunday, September 04, 2016 17:16 - CONCLUSION: 1. Very limited examination due to the patient's body habitus. 2. NGT in the stomach without evidence for significantly dilated loops of small bowel. Bowel air noted on the current exam appear to be colonic. Consider CT examination if there is continued clinical concern. Jorge A Collazo MD Head CT 09/02/16 0000 Signed Impressions: Service Date/Time: Friday, September 02, 2016 21:13 - CONCLUSION: No acute disease. Omar Contreras MD Lower Extremity Ultrasound 08/31/16 1055 Signed Impressions: Service Date/Time: Wednesday, August 31, 2016 11:21 - CONCLUSION: 1. Limited examination due to patient's body habitus and lower extremity edema. 2. No definitive sonographic evidence for lower extremity DVT. Jorge A Collazo MD Abdomen/Pelvis CT 08/31/16 1055 Signed Impressions: Service Date/Time: Wednesday, August 31, 2016 12:29 - CONCLUSION: Cirrhosis, slight splenomegaly and mild anasarca. Ashish Wood MD Physical Exam HEENT: normocephalic; atraumatic; + jaundice. NECK: Neck is supple, no JVD, no lymphadenopathy. CHEST: Chest is clear to auscultation and percussion. CARDIAC: Regular rate and rhythm with no murmur gallop or rubs. ABDOMEN: Firm, obese, nondistended, tender; hepatosplenomegaly; bowel sounds are present in all four quadrants. EXTREMITIES: 3+ edema in BLE SKIN: wounds covered by gauze on the left, redness to lower abd and BLE HARBOR MASTER: Alert and oriented (Kaia Rodríguez) Assessment and Plan Plan - Cirrhosis- likely secondary to Etoh- ( new diagnosis) MELD score 18 with hx of alcohol abuse, LFTs trending down Hepatitis panel came back (+) for hep C, AFP 2.8 ,ferritin 96, iron % 27 hep- c PCR, SAHIL (-), AMA P, ASMA (-), ceruloplasmin 30, celiac (-) , and alpha antitrypsin 215 - Acute alcoholic hepatitis- DF (32)- on Pentoxifylline - ?liver failure- low plt, low albumin, coagulopathy, high bili - Jaundice- high bili gonsales trending down, no labs today likely hepatic dysfunction - Hepatic encephalopathy- slight elevation today 55, on lactulose, BID, Xifaxan - Alcohol abuse- used to drink 3 pints daily for over a year, last time it was a week ago. - Anasarca- Lasix 20 mg IV BID, spironolactone 50 mg daily, He had Echocardiogram and that revealed EF of 50-55%, - Legs ulcers, weeping wounds, cx pending - IVDA- Dilaudid, counselled on cessation - Hx of Hep-C- Viral load <15, GT pending, likely patient is negative for hep-C - AMS, lethargy- likely superimposed haptic on metabolic encephalopathy, better today on Bipap, CT of brain negative Plan: - low sodium diet - fluid restriction - Await AMA, - Await Hep-c PCR - Lactulose QID - Cont. Pentoxifylline - Cont. Xifaxan - cont. Lasix - Cont. Aldactone - DTs precautions - Alcohol cessation - Monitor labs - LFTs, ammonia in the am - Supportive care - Patient seen and examined by Dr. Nunes and myself and this note is written on his behalf. (Kaia Rodríguez) Physician Comments Patient seen and examined Agree with above Continue with current supportive care Monitor labs Alcohol cessation Not much to add from a GI perspective we will sign off at this point please reconsult as needed (Miko Nunes MD) Kaia Rodríguez Sep 06, 2016 14:08 Miko Nunes MD Sep 06, 2016 19:44
[2016-09-06] MEDS: LEVOFLOXACIN 750 MG PREMIX INJ 150 ML IV SCH (18:08)
[2016-09-06] MEDS: ENOXAPARIN SODIUM 40 MG/0.4 ML SYRINGE SQ SCH (18:08)
--- NOTE | 2016-09-06 18:35 | MB ---
cc: JULIANNA STROUD DATE OF CONSULTATION 09/06/[address] Ken Foreman. REASON FOR CONSULTATION Shortness of breath HISTORY OF PRESENT ILLNESS Ms. Wheeler is a 46-year-old male who has history of heavy alcohol use, history of heavy IV drug use in the past and hepatitis C. The patient has not seen any physician in a long period of time, other than he goes to the methadone clinic to get his methadone. He came to the hospital with at least one week history of worsening of his edema and ulceration on his legs. He has gained a lot of weight. He has mild shortness of breath, no fever or chills. No night sweats. No chest pain. Because of worsening of symptoms, he came to the hospital. He had a workup done. His WBC count is 10.4, hemoglobin 13.4, hematocrit 40.8, MCV 102, platelet count 114, sodium 136, potassium 4.7, chloride 97, CO2 13, BUN six, creatinine 0.93, BNP 103, AST 187, ALT 78. Blood gas - pH 7.36, pCO2 70, pO2 60. Wound culture shows staphylococcus aureus. PAST MEDICAL HISTORY 1. History of hepatitis C 2. IV drug abuse, 3. Hypertension 4. Anasarca. MEDICATIONS Currently taking 1. Methadone 100 mg a day. 2. Levaquin 750 mg a day, 3. Lactulose 30 mg subcu q.i.d. 4. Diazepam 5 mg p.r.n. 5. Albuterol/Atrovent nebulizer treatment. 6. Rifaxime 4 mg q. 8 hours 7. Pentoxyfylline 400 mg q.8 h. 8. Folic acid 1 mg a day 9. Thiamine 100 mg a day 10. Theragran-M 1 tablet daily 11. Lasix 20 mg twice a day. 12. Potassium 20 mEq twice a day. 13. Lovenox 40 mg a day. 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 A long history of smoking, continues to smoke one pack of cigarettes a day and drinks two pints of liquor every day. History of IVDA in the past. FAMILY HISTORY He is . He has one daughter who is in the army. Mother . REVIEW OF SYSTEMS He has gained a lot of weight because of the fluid retention. No seizure, stroke or epilepsy. No DVT or pulmonary embolus. PHYSICAL EXAMINATION GENERAL: Well-built, well-nourished obese male mildly short of breath not in acute distress. VITAL SIGNS: Blood pressure 108/71, heart 75, respirations 18 temperature 98.2 HEENT: Pupils are equal and reactive to light. Oral mucosa and nasal mucosa normal. JVP not raised. Chest: She has scattered rales. CARDIOVASCULAR: S1, S2 normal. ABDOMEN: Nontender. Bowel sounds are present. EXTREMITIES: 2-3+ edema with skin breakdown IMPRESSION 1. Shortness of breath with partially compressive respiratory acidosis. Likely patient has obesity hypoventilation syndrome. 2. Fluid overload 3. Anasarca 4. Hepatitis C. 5. Alcohol use and nicotine use. PLAN The patient is being diuresed. Monitor his electrolytes, supplement his oxygen. Keep saturations greater than 92%. He feels much better now. If he gets short of breath, will use CPAP. Further treatment will depend on the course in the hospital. Thank you, Dr. Foreman, for this consultation. MD PINO Flores/ /6:02 PM /6:12 PM MTDD
[2016-09-07] VITALS (27 sets, daily range): BP systolic 88–106; BP diastolic 54–80; PULSE 58–86; RESP 17–18; TEMP 97.6–98.5; O2SAT 92–96
[2016-09-07] MEDS: CHLORHEXIDINE GLUCONATE 2 % 1 PACK (2 CLOTHS)(taper/protocol) TOPICAL SCH (03:29)
[2016-09-07] MEDS: RIFAXIMIN 200 MG TAB PO SCH ×3 (05:24→22:29)
[2016-09-07] MEDS: cloNIDine HCL 0.3 MG TAB PO SCH (05:24)
[2016-09-07] MEDS: PENTOXIFYLLINE 400 MG CONTROLLED RELEASE TAB PO SCH ×3 (05:24→22:29)
[2016-09-07 07:32] LABS: AUTOMATED NEUTROPHIL # 5.6 TH/MM3 (1.8-7.7); BASOPHIL % 0.6 % (0.0-2.0); EOSINOPHIL # 0.1 TH/MM3 (0-0.4); HEMATOCRIT 38.3 % (39.0-51.0); LYMPH % 11.8 % (9.0-44.0); LYMPHOCYTE # 0.9 TH/MM3 (1.0-4.8); MEAN CELL VOLUME 98.9 FL (80.0-100.0); MEAN CORPUSCULAR HEMOGLOBIN 33.5 PG (27.0-34.0); MEAN CORPUSCULAR HGB CONC 33.8 % (32.0-36.0); MONO % 10.3 % (0.0-8.0); NEUT % 75.3 % (16.0-70.0); PLATELET COUNT 92 TH/MM3 (150-450); RED BLOOD COUNT 3.87 MIL/MM3 (4.50-5.90); RED CELL DISTRIBUTION WIDTH 15.9 % (11.6-17.2); WHITE BLOOD COUNT 7.4 TH/MM3 (4.0-11.0)
[2016-09-07 07:39] LABS: HEMO FLAGS AUTO DIFF
[2016-09-07 07:55] LABS: ANION GAP 5 MEQ/L (5-15); AST (GOT) 130 U/L (15-37); BICARBONATE 34.3 MEQ/L (21.0-32.0); BLOOD UREA NITROGEN 18 MG/DL (7-18); CHLORIDE 98 MEQ/L (98-107); GLOMERULAR FILTRATION RATE 84 ML/MIN (>89); POTASSIUM 3.5 MEQ/L (3.5-5.1); SODIUM (NA) 137 MEQ/L (136-145)
[2016-09-07 07:57] LABS: ALT (GPT) 50 U/L (12-78)
[2016-09-07 07:59] LABS: ALKALINE PHOSPHATASE 135 U/L (45-117)
[2016-09-07] MEDS: DOCUSATE SODIUM 50 MG/SENNA 8.6 MG TAB PO SCH ×2 (09:00→21:00)
[2016-09-07] MEDS: POTASSIUM CHLORIDE 20 MEQ CONTROLLED RELEASE TAB PO SCH ×2 (09:02→22:30)
[2016-09-07] MEDS: LACTULOSE SYRUP 20 GM/30 ML CUP PO SCH ×4 (09:02→22:29)
[2016-09-07] MEDS: THIAMINE HCL 100 MG TAB PO SCH (09:02)
[2016-09-07] MEDS: FUROSEMIDE 20 MG/2 ML VIAL IV PUSH SCH ×2 (09:03→17:08)
[2016-09-07] MEDS: SODIUM CHLORIDE 0.9% FLUSH 10 ML FLUSH IV FLUSH SCH ×2 (09:03→22:29)
[2016-09-07] MEDS: SPIRONOLACTONE 50 MG TAB PO SCH (09:03)
[2016-09-07] MEDS: METHADONE HCL 10 MG TAB PO SCH (09:04)
--- NOTE | 2016-09-07 09:17 | HHI.PR ---
Subjective Remarks Follow up edema, liver failure. Patient states "I'm very emotional today". Pain is well controlled at this time. Denies chest pain, dyspnea. Objective Vitals Vital Signs Date Time Temp Pulse Resp B/P Pulse Ox O2 Delivery O2 Flow Rate FiO2 09/07/16 08:12 95 Nasal Cannula 3.00 09/07/16 08:12 97.6 61 17 93/59 96 09/07/16 07:00 59 09/07/16 06:00 60 09/07/16 05:00 60 09/07/16 04:00 64 09/07/16 04:00 97.7 66 18 100/60 94 09/07/16 03:00 60 09/07/16 02:00 62 09/07/16 01:00 64 09/07/16 00:00 98.1 65 18 106/80 94 09/07/16 00:00 60 09/06/16 23:00 62 09/06/16 22:00 68 09/06/16 21:00 68 09/06/16 20:57 92 Nasal Cannula 3.00 09/06/16 20:00 67 09/06/16 20:00 98.2 67 18 93/58 94 09/06/16 20:00 94 Nasal Cannula 3.00 09/06/16 19:00 68 09/06/16 18:00 62 09/06/16 15:45 97.7 69 18 100/63 95 09/06/16 15:00 67 09/06/16 14:00 68 09/06/16 13:01 68 09/06/16 12:01 98.2 75 24 108/71 96 09/06/16 12:00 70 09/06/16 11:00 76 09/06/16 10:00 72 I/O 09/06/16 09/06/16 09/06/16 09/07/16 09/07/16 09/07/16 07:00 15:00 23:00 07:00 15:00 23:00 Intake Total 480 ml 720 ml 1880 ml Output Total 75 ml 1050 ml 925 ml Balance 405 ml -330 ml 955 ml Intake Oral 480 ml 720 ml IV Total 0 ml 1880 ml Output Urine Total 75 ml 1050 ml 925 ml # Bowel Movements 1 1 1 Result Diagram: 09/07/1670909/07/16 07 Imaging Last Impressions Chest X-Ray 09/04/16 0000 Signed Impressions: Service Date/Time: Sunday, September 04, 2016 11:14 - CONCLUSION: 1. Cardiomegaly with pulmonary edema pattern. Jorge A Collazo MD Abdomen X-Ray 09/04/16 0000 Signed Impressions: Service Date/Time: Sunday, September 04, 2016 17:16 - CONCLUSION: 1. Very limited examination due to the patient's body habitus. 2. NGT in the stomach without evidence for significantly dilated loops of small bowel. Bowel air noted on the current exam appear to be colonic. Consider CT examination if there is continued clinical concern. Jorge A Collazo MD Head CT 09/02/16 0000 Signed Impressions: Service Date/Time: Friday, September 02, 2016 21:13 - CONCLUSION: No acute disease. Omar Contreras MD Lower Extremity Ultrasound 08/31/16 1055 Signed Impressions: Service Date/Time: Wednesday, August 31, 2016 11:21 - CONCLUSION: 1. Limited examination due to patient's body habitus and lower extremity edema. 2. No definitive sonographic evidence for lower extremity DVT. Jorge A Collazo MD Abdomen/Pelvis CT 08/31/16 1055 Signed Impressions: Service Date/Time: Wednesday, August 31, 2016 12:29 - CONCLUSION: Cirrhosis, slight splenomegaly and mild anasarca. Ashish Wood MD Objective Remarks General: Obese male in no acute distress. Heart: Regular rate and rhythm. No murmur. Lungs: Clear to auscultation bilaterally. No wheezes, rales, or rhonchi. Breathing is nonlabored. Abdomen: Soft, nontender, nondistended. Extremities: 1+ bilateral lower extremity edema. Venous stasis changes bilaterally. Skin: Wounds examined on both lower legs. Left posterior leg wound improving. Right posterior leg wound still with drainage. Left buttock with small area of erythema, no apparent skin breakdown at this time. : Significant scrotal/penile edema. Psych: Alert and oriented. Procedures None Urinary Catheter: Yes Assessment to: Continue Locke insert reason: Measure Accurate Output Vascular Central Line Catheter: No A/P Problem List: (1) Hepatitis C ICD Code: B19.20 Status: Chronic (2) HX IVDU Status: Chronic (3) Anasarca ICD Code: R60.1 Status: Acute (4) Cellulitis ICD Code: L03.90 Status: Acute (5) Elevated TSH ICD Code: R94.6 Status: Acute (6) Hyperammonemia ICD Code: E72.20 Status: Acute (7) Acute respiratory failure with hypoxia and hypercarbia ICD Code: J96.01 Status: Acute Assessment and Plan 1. Acute delirium secondary to hepatic encephalopathy: Possible superimposed metabolic encephalopathy. Mental status improving. Continue lactulose, rifaximin. Monitor serum ammonia level. Continue Lasix, Aldactone. 2. Acute dysphagia: Improved. Appreciate speech therapy recommendations. 3. Acute hypoxic and hypercarbic respiratory failure: Continue supplemental oxygen, bronchodilators. BiPAP as needed. Currently on nasal cannula. Consult pulmonology. 4. Lower extremity cellulitis, wounds: Continue antibiotics (Levaquin, vancomycin). Continue wound care. 5. Alcohol withdrawal: CIWA protocol discontinued. Symptoms are minimal. Valium available as needed. Stop clonidine. 6. History of IV drug abuse: Continue methadone. 7. Cirrhosis of the liver, acute alcoholic hepatitis: Appreciate GI recommendations. 8. Anasarca: Continue diuresis. 9. DVT prophylaxis: Lovenox. Problem Qualifiers (1) Cellulitis: Qualified Code: L03.119 - Cellulitis of lower extremity, unspecified laterality Ken Foreman MD Sep 07, 2016 09:17
[2016-09-07 09:59] LABS: PLATELET ESTIMATE SMEAR LOW (NORMAL); PLATELET MORPHOLOGY NORMAL (NORMAL); SCAN/DIFF AUTO DIFF CONFIRMED
[2016-09-07] MEDS: VANCOMYCIN 1,500 MG/NS 500 ML IV SCH ×4 (12:03→22:30)
[2016-09-07 13:53] LABS: HEPATITIS C RNA GENOTYPE NOT DETECTED (())
--- NOTE | 2016-09-07 14:39 | HHI.PR ---
Subjective Remarks 46 YO morbidly obese male, Hep C Breathing better Denies sob On NC Objective Vital Signs Vital Signs Date Time Temp Pulse Resp B/P Pulse Ox O2 Delivery O2 Flow Rate FiO2 09/07/16 14:29 86 09/07/16 14:26 Nasal Cannula 3.00 09/07/16 13:07 65 09/07/16 12:56 61 09/07/16 11:08 98.5 62 17 88/55 95 09/07/16 11:02 61 09/07/16 10:22 61 09/07/16 09:24 62 09/07/16 08:12 95 Nasal Cannula 3.00 09/07/16 08:12 97.6 61 17 93/59 96 09/07/16 08:00 60 09/07/16 07:00 59 09/07/16 06:00 60 09/07/16 05:00 60 09/07/16 04:00 64 09/07/16 04:00 97.7 66 18 100/60 94 09/07/16 03:00 60 09/07/16 02:00 62 09/07/16 01:00 64 09/07/16 00:00 98.1 65 18 106/80 94 09/07/16 00:00 60 09/06/16 23:00 62 09/06/16 22:00 68 09/06/16 21:00 68 09/06/16 20:57 92 Nasal Cannula 3.00 09/06/16 20:00 67 09/06/16 20:00 98.2 67 18 93/58 94 09/06/16 20:00 94 Nasal Cannula 3.00 09/06/16 19:00 68 09/06/16 18:00 62 09/06/16 15:45 97.7 69 18 100/63 95 09/06/16 15:00 67 I/O 09/06/16 09/06/16 09/06/16 09/07/16 09/07/16 09/07/16 07:00 15:00 23:00 07:00 15:00 23:00 Intake Total 480 ml 720 ml 1880 ml Output Total 75 ml 1050 ml 925 ml Balance 405 ml -330 ml 955 ml Intake Oral 480 ml 720 ml IV Total 0 ml 1880 ml Output Urine Total 75 ml 1050 ml 925 ml # Bowel Movements 1 1 1 Result Diagram: 09/07/16 0710 09/07/16 0710 Objective Remarks GENERAL: Obese WM, NAD SKIN: Warm and dry. HEAD: Normocephalic. EYES: No scleral icterus. No injection or drainage. NECK: Supple, trachea midline. No JVD or lymphadenopathy. CARDIOVASCULAR: Regular rate and rhythm without murmurs, gallops, or rubs. RESPIRATORY: Breath sounds equal bilaterally. No accessory muscle use. GASTROINTESTINAL: Abdomen soft, non-tender, nondistended. MUSCULOSKELETAL: No cyanosis, ++ edema. BACK: Nontender without obvious deformity. No CVA tenderness. A/P Assessment and Plan Compensated Resp acidosis Obesity hypoventilation synd Fluid overload, anasarca Hepatitis C PLAN: Supplement 02 Keep sat >90% Aerosol nebs monitor Lytes cont Carlos Eduardo Rodriguez MD Sep 07, 2016 14:39
[2016-09-07] MEDS: LEVOFLOXACIN 750 MG PREMIX INJ 150 ML IV SCH (15:21)
[2016-09-07] MEDS: ENOXAPARIN SODIUM 40 MG/0.4 ML SYRINGE SQ SCH (15:22)
[2016-09-07 23:53] LABS: MITOCHONDRIAL ABS LESS THAN 20.0 U (())
[2016-09-08] VITALS (25 sets, daily range): BP systolic 96–112; BP diastolic 58–70; PULSE 62–76; RESP 18–20; TEMP 98–99; O2SAT 94–99
[2016-09-08] MEDS: CHLORHEXIDINE GLUCONATE 2 % 1 PACK (2 CLOTHS)(taper/protocol) TOPICAL SCH (04:00)
[2016-09-08] MEDS: PENTOXIFYLLINE 400 MG CONTROLLED RELEASE TAB PO SCH ×3 (06:34→22:23)
[2016-09-08] MEDS: RIFAXIMIN 200 MG TAB PO SCH ×3 (06:34→22:23)
[2016-09-08] MEDS: SPIRONOLACTONE 50 MG TAB PO SCH (08:05)
[2016-09-08] MEDS: THIAMINE HCL 100 MG TAB PO SCH (08:05)
[2016-09-08] MEDS: METHADONE HCL 10 MG TAB PO SCH (08:05)
[2016-09-08] MEDS: FUROSEMIDE 20 MG/2 ML VIAL IV PUSH SCH ×2 (08:06→17:36)
[2016-09-08] MEDS: SODIUM CHLORIDE 0.9% FLUSH 10 ML FLUSH IV FLUSH SCH ×2 (08:06→22:22)
[2016-09-08] MEDS: POTASSIUM CHLORIDE 20 MEQ CONTROLLED RELEASE TAB PO SCH ×2 (08:06→22:23)
[2016-09-08] MEDS: DOCUSATE SODIUM 50 MG/SENNA 8.6 MG TAB PO SCH ×2 (08:06→21:00)
[2016-09-08] MEDS: LACTULOSE SYRUP 20 GM/30 ML CUP PO SCH ×4 (08:06→22:22)
--- NOTE | 2016-09-08 09:56 | HHI.PR ---
Subjective Remarks Follow-up anasarca, liver failure. Patient reports feeling very anxious and depressed. The source of his depression is his deteriorating physical status and multiple medical problems. He states that he has been to [facility] in the past. Feels that his swelling is slightly better today. No chest pain or dyspnea at this time. Objective Vitals Vital Signs Date Time Temp Pulse Resp B/P Pulse Ox O2 Delivery O2 Flow Rate FiO2 09/08/16 07:00 98.0 69 18 111/62 96 09/08/16 07:00 96 Nasal Cannula 2.00 09/08/16 06:00 66 09/08/16 05:00 68 09/08/16 04:00 66 09/08/16 03:00 98.0 68 18 105/67 97 09/08/16 03:00 66 09/08/16 03:00 97 Nasal Cannula 2.00 09/08/16 02:00 66 09/08/16 01:00 62 09/08/16 00:00 62 09/07/16 23:00 98.0 62 18 93/68 96 09/07/16 23:00 70 09/07/16 23:00 96 Room Air 09/07/16 22:00 58 09/07/16 21:00 62 09/07/16 20:00 64 09/07/16 19:00 98.2 65 18 101/60 95 09/07/16 19:00 95 Nasal Cannula 2.00 09/07/16 19:00 68 09/07/16 18:20 64 09/07/16 17:09 60 09/07/16 16:35 60 09/07/16 15:29 97.9 65 18 89/54 92 09/07/16 15:05 61 09/07/16 14:29 86 09/07/16 14:26 Nasal Cannula 3.00 09/07/16 13:07 65 09/07/16 12:56 61 09/07/16 11:08 98.5 62 17 88/55 95 09/07/16 11:02 61 09/07/16 10:22 61 I/O 09/07/16 09/07/16 09/07/16 09/08/16 09/08/16 09/08/16 06:59 14:59 22:59 06:59 14:59 22:59 Intake Total 1880 ml 1220 ml 680 ml Output Total 925 ml 500 ml 850 ml Balance 955 ml 720 ml -170 ml Intake Oral 720 ml 480 ml IV Total 1880 ml 500 ml 200 ml Output Urine Total 925 ml 500 ml 850 ml # Bowel Movements 1 1 1 Result Diagram: 09/07/16 0710 09/07/16 0710 Imaging Last Impressions Chest X-Ray 09/04/16 0000 Signed Impressions: Service Date/Time: Sunday, September 04, 2016 11:14 - CONCLUSION: 1. Cardiomegaly with pulmonary edema pattern. Jorge A Collazo MD Abdomen X-Ray 09/04/16 0000 Signed Impressions: Service Date/Time: Sunday, September 04, 2016 17:16 - CONCLUSION: 1. Very limited examination due to the patient's body habitus. 2. NGT in the stomach without evidence for significantly dilated loops of small bowel. Bowel air noted on the current exam appear to be colonic. Consider CT examination if there is continued clinical concern. Jorge A Collazo MD Head CT 09/02/16 0000 Signed Impressions: Service Date/Time: Friday, September 02, 2016 21:13 - CONCLUSION: No acute disease. Omar Contreras MD Lower Extremity Ultrasound 08/31/16 1055 Signed Impressions: Service Date/Time: Wednesday, August 31, 2016 11:21 - CONCLUSION: 1. Limited examination due to patient's body habitus and lower extremity edema. 2. No definitive sonographic evidence for lower extremity DVT. Jorge A Collazo MD Abdomen/Pelvis CT 08/31/16 1055 Signed Impressions: Service Date/Time: Wednesday, August 31, 2016 12:29 - CONCLUSION: Cirrhosis, slight splenomegaly and mild anasarca. Ashish Wood MD Objective Remarks General: Obese male in no acute distress. Heart: Regular rate and rhythm. No murmur. Lungs: Clear to auscultation bilaterally. No wheezes, rales, or rhonchi. Breathing is nonlabored. Abdomen: Soft, nontender, nondistended. Extremities: 1+ bilateral lower extremity edema. Venous stasis changes bilaterally. Wounds bandaged. : Significant scrotal/penile edema. Psych: Alert and oriented. Depressed mood. Procedures None Urinary Catheter: Yes Assessment to: Continue Locke insert reason: Obstruction/Retention Vascular Central Line Catheter: No A/P Problem List: (1) Hepatitis C ICD Code: B19.20 Status: Chronic (2) HX IVDU Status: Chronic (3) Anasarca ICD Code: R60.1 Status: Acute (4) Cellulitis ICD Code: L03.90 Status: Acute (5) Elevated TSH ICD Code: R94.6 Status: Acute (6) Hyperammonemia ICD Code: E72.20 Status: Acute (7) Acute respiratory failure with hypoxia and hypercarbia ICD Code: J96.01 Status: Acute Assessment and Plan 1. Acute delirium secondary to hepatic encephalopathy: Possible superimposed metabolic encephalopathy. Mental status improving. Continue lactulose, rifaximin. Monitor serum ammonia level, which is trending down. Continue Lasix, Aldactone. 2. Acute dysphagia: Improved. Appreciate speech therapy recommendations. 3. Acute hypoxic and hypercarbic respiratory failure: Continue supplemental oxygen, bronchodilators. BiPAP as needed. Currently on nasal cannula. Consult pulmonology. 4. Lower extremity cellulitis, wounds: Continue antibiotics (Levaquin, vancomycin). Continue wound care. 5. Alcohol withdrawal: CIWA protocol discontinued. Symptoms resolved. 6. History of IV drug abuse: Continue methadone. 7. Cirrhosis of the liver, acute alcoholic hepatitis: Appreciate GI recommendations. 8. Anasarca: Continue diuresis. 9. Anxiety/depression: Patient having depressive symptoms secondary to medical illness. He is requesting psychiatric evaluation. Also requesting lorazepam for anxiety symptoms. We'll add lorazepam as needed. 10. DVT prophylaxis: Lovenox. Problem Qualifiers (1) Cellulitis: Qualified Code: L03.119 - Cellulitis of lower extremity, unspecified laterality Ken Foreman MD Sep 08, 2016 09:56
[2016-09-08] MEDS ORDERED: LORazepam 0.5 MG TAB PO PRN (10:00)
[2016-09-08] MEDS: VANCOMYCIN 1,500 MG/NS 500 ML IV SCH ×2 (11:15)
[2016-09-08] MEDS ORDERED: PILL SPLITTER OTHER PRN (13:15)
--- NOTE | 2016-09-08 13:24 | PD.PSY.CON ---
Provisional Diagnosis Admission Date Aug 31, 2016 at 14:11 [place]. Adjustment disorder with mixed anxiety and depression of 43.23 History of Present Illness Service Psychiatry Consult Requested By Attending MRoss. Reason for Consult Assessment Primary Care Physician No Primary Care Physician HPI Patient is a 46-year-old white male admitted to the medical service for multiple medical issues. Asked to see because of sad mood. Patient seen by me with RN present throughout session patient is a moderately obese white male laying calmly in his room of some mild shortness of breath. He is calm cooperative with fair eye contact. Stating he has understanding of his problems on his cooperating with his treatment team. Though the acknowledges a sad mood with this, he denies suicidality homicidality voices or visions. He does acknowledge past multiple drug abuse including alcohol benzodiazepines and opiates. 3 states his last drink was greater than a week prior to admission. Of interest patient was seen in psychiatric consultation by Dr. Acevedo 2015 that time for follow-up of his alcohol and substance use. Patient states he still has some depressive signs when reminiscing over next girlfriend of his was . In any event at the present time patient does show dysphoria and a sad mood. I feel he would benefit from an antidepressant. We'll recommend Zoloft 25 mg daily (patient states his biological mother was on that medication and did well ) with his past history of substance abuse or be cautious of the use of benzodiazepines and opiates. Thanks for the consult will be available when necessary, during the week please consult Dr. Mckay Review of Systems Constitutional: DENIES: Diaphoretic episodes, Fatigue, Fever, Weight gain, Weight loss, Chills, Dizziness, Change in appetite, Night Sweats Endocrine: DENIES: Heat/cold intolerance, Polydipsia, Polyuria, Polyphagia Eyes: DENIES: Blurred vision, Diplopia, Eye inflammation, Eye pain, Vision loss , Photosensitivity, Double Vision Ears, nose, mouth, throat: DENIES: Tinnitus, Hearing loss, Vertigo, Nasal discharge, Oral lesions, Throat pain, Hoarseness, Ear Pain, Running Nose, Epistaxis, Sinus Pain, Toothache, Odynophagia Respiratory: DENIES: Apneas, Cough, Snoring, Wheezing, Hemoptysis, Sputum production, Shortness of breath Cardiovascular: DENIES: Chest pain, Palpitations, Syncope, Dyspnea on Exertion , PND, Lower Extremity Edema, Orthopnea, Claudication Gastrointestinal: DENIES: Abdominal pain, Black stools, Bloody stools, Constipation, Diarrhea, Nausea, Vomiting, Difficulty Swallowing, Anorexia Genitourinary: DENIES: Sexual dysfunction, Urinary frequency, Urinary incontinence, Urgency, Hematuria, Dysuria, Nocturia, Penile Discharge, Testicular Pain, Testicular Swelling Musculoskeletal: DENIES: Joint pain, Muscle aches, Stiffness, Joint Swelling, Back pain, Neck pain Integumentary: DENIES: Abnormal pigmentation, Nail changes, Pruritus, Rash Hematologic/lymphatic: DENIES: Bruising, Lymphadenopathy Immunologic/allergic: DENIES: Eczema, Urticaria Neurologic: DENIES: Abnormal gait, Headache, Localized weakness, Paresthesias, Seizures, Speech Problems, Tremor, Poor Balance Psychiatric: COMPLAINS OF: Anxiety (mild), Depression (mild to moderate), Suicidal Ideation (denies) Past Family Social History Coded Allergies: Geodon (Verified Allergy, Severe, Anaphylaxis, 08/31/16) Risperdal (Verified Allergy, Severe, Anaphylaxis, 08/31/16) Past Medical History See med surge assessments Active Scripts Lorazepam 0.5 Mg Tab0.5 Mg PO Q8H PRN (ANXIETY) #10 TAB Ref 0 Prov:Cynthia Biggs MD 09/04/16 Furosemide 20 Mg Tab20 Mg PO BID #60 TAB Ref 0 Prov:Cynthia Biggs MD 09/04/16 Spironolactone (Aldactone)50 Mg Tab50 Mg PO DAILY #30 TAB Prov:Cynthia Biggs MD 09/04/16 Thiamine HCl (Gnp Vitamin B-1)100 Mg Wtk193 Mg PO DAILY #30 TAB Prov:Cynthia Biggs MD 09/04/16 Sennosides-Docusate Sodium (Senna Plus 8.6-50 mg)1 Tab Tab1 Tab PO BID #30 TAB Prov:Cynthia Biggs MD 09/04/16 Rifaximin (Xifaxan)200 Mg Exo547 Mg PO Q8HR #90 TAB Prov:Cynthia Biggs MD 09/04/16 Pentoxifylline ER 400 Mg Kdp315 Mg PO Q8HR #90 TAB Prov:Cynthia Biggs MD 09/04/16 Folic Acid 1 Mg Tablet1 Mg PO DAILY 30 Days Prov:Cynthia Biggs MD 09/04/16 Levofloxacin (Levaquin)750 Mg Pvtlcs384 Mg PO DAILY #10 TAB Prov:Cynthia Biggs MD 09/04/16 Reported Medications Methadone Intensol Liq 10 Mg/Ml Unmn348 Mg PO DAILY #30 ML Ref 0 09/01/16 Discontinued Reported Medications Methadone 40 Mg Tab40 Mg PO DAILY Ref 0 08/31/16 Current Medications Medications (Trade) Dose Ordered Sig/[facility] Route Start Time Stop Time Status Last Admin (NS Flush) 2 ml UNSCH PRN IV FLUSH 08/31/16 14:15 (NS Flush) 2 ml BID IV FLUSH 08/31/16 21:00 09/08/16 08:06 (Tylenol) 650 mg Q4H PRN PO 08/31/16 14:15 (Narcan Inj) 0.4 mg UNSCH PRN IV 08/31/16 14:15 (Dixie-Colace) 1 tab BID PO 08/31/16 21:00 09/06/16 09:09 (Aldactone) 50 mg DAILY PO 09/01/16 09:00 09/08/16 08:05 (Lovenox Inj) 40 mg Q24H SQ 08/31/16 17:00 09/07/16 15:22 (KCl) 20 meq Q12HR PO 09/01/16 09:00 09/08/16 08:06 (Romazicon Inj) 0.2 mg Q1M PRN IV PUSH 09/01/16 15:30 (Vitamin B1) 100 mg DAILY PO 09/02/16 09:00 09/08/16 08:05 Furosemide 20 mg 20 mg BID@09,18 IV PUSH 09/02/16 09:00 09/08/16 08:06 (Vancomycin Consult Pharmacy) 0 ml @ 0 mls/hr UNSCH OTHER 09/02/16 15:15 (TRENtal SR) 400 mg Q8HR PO 09/02/16 23:00 09/08/16 06:34 (Xifaxan) 400 mg Q8HR PO 09/03/16 14:00 09/08/16 06:34 (Lactulose Liq) 30 ml QID PO 09/04/16 14:00 09/08/16 08:06 Methadone HCl 100 mg 100 mg DAILY PO 09/05/16 09:00 09/08/16 08:05 (Levaquin 750 Mg Premix Inj) 150 ml @ 100 mls/hr Q24H IV 09/04/16 16:00 09/07/16 15:21 Miscellaneous Information Patient in critical care unit? Ass... Q361D .XX 09/04/16 19:15 (Chlorhexidine 2% Cloth) 3 pack DAILY@04 TOPICAL 09/05/16 04:00 09/09/16 04:01 09/07/16 03:29 Chlorhexidine Gluconate 3 pack 3 pack UNSCH PRN TOPICAL 09/04/16 19:15 09/09/16 19:01 (Vancomycin Inj/ NS 500 ml Inj) 515 ml @ 257.5 mls/ hr Q12H IV 09/07/16 10:00 09/08/16 11:15 Miscellaneous Information SPECIFIC LAB TO BE SAPNA... ONCE ONCE .XX 09/08/16 21:45 09/08/16 21:46 (Ativan) 0.5 mg Q6H PRN PO 09/08/16 10:00 09/08/16 11:14 Family History Patient states by left mother has history of depression as does his adoptive mother Social History Patient lives with family history of alcohol or drug abuse Patient's Strengths (min. 2) Patient verbal irritable [facility] is cooperative Physical Exam Please see med [facility] assessments Vital Signs Vital Signs Date Time Temp Pulse Resp B/P Pulse Ox O2 Delivery O2 Flow Rate FiO2 09/08/16 12:34 67 09/08/16 11:43 98.7 18 109/70 94 09/08/16 11:00 Nasal Cannula 2.00 09/06/16 03:56 40 I/O 09/07/16 09/07/16 09/08/16 08:00 16:00 00:00 Intake Total 1880 ml 1220 ml Output Total 925 ml 500 ml Balance 955 ml 720 ml Mental Status Examination Alert oriented obese white male laying calmly in his bed is cooperative is somewhat guarded with fair eye contact Appearance Clean the Speech: Unremarkable, Hesitant (mildly) Orientation: x3 Memory: Unremarkable Thought Process: Logical Thought Content: Unremarkable Language Poor to fair Fund of Knowledge Poor to fair Hallucination Type: None (denies) Attention and Concentration: Other (fair) Suicidal Ideation: No (denies) Previous Suicide Attempts: No Homicidal Ideation: No (denies) Previous Homicide Attempts: No Insight: Fair Judgment: WNL (there) Affect: Other (decreased range and intensity) Mood: Euthymic (to moderately dysphoric) Motor Activity: Abnormal gait-specify (patient in bed available to assess) Assessment & Plan Problem List: (1) Adjustment disorder with mixed anxiety and depressed mood ICD Code: F43.23 Assessment & Plan Estimated LOS: days patient remains somewhat depressed will offer Zoloft 25 mg daily, considering his addictive history would be quite judicious with any benzodiazepines or opiates. Patient does not meet criteria for inpatient psychiatric care It is okay by psych for discharge of an appropriate placement can be found Discharge Planning See above Request HC Surrog/Guard Advoc?: No Jose David MD Sep 08, 2016 13:24
[2016-09-08] MEDS: LEVOFLOXACIN 750 MG PREMIX INJ 150 ML IV SCH (14:34)
[2016-09-08] MEDS: SERTRALINE HCL 50 MG TAB PO SCH (14:34)
--- NOTE | 2016-09-08 15:14 | HHI.PR ---
Subjective Remarks 46 YO morbidly obese male, Hep C Breathing better Denies sob On NC No new complaint Objective Vital Signs Vital Signs Date Time Temp Pulse Resp B/P Pulse Ox O2 Delivery O2 Flow Rate FiO2 09/08/16 13:24 68 09/08/16 12:34 67 09/08/16 11:44 66 09/08/16 11:43 98.7 68 18 109/70 94 09/08/16 11:00 94 Nasal Cannula 2.00 09/08/16 10:01 Nasal Cannula 2.00 09/08/16 10:00 70 09/08/16 09:00 68 09/08/16 08:00 76 09/08/16 07:00 98.0 69 18 111/62 96 09/08/16 07:00 66 09/08/16 07:00 96 Nasal Cannula 2.00 09/08/16 06:00 66 09/08/16 05:00 68 09/08/16 04:00 66 09/08/16 03:00 98.0 68 18 105/67 97 09/08/16 03:00 66 09/08/16 03:00 97 Nasal Cannula 2.00 09/08/16 02:00 66 09/08/16 01:00 62 09/08/16 00:00 62 09/07/16 23:00 98.0 62 18 93/68 96 09/07/16 23:00 70 09/07/16 23:00 96 Room Air 09/07/16 22:00 58 09/07/16 21:00 62 09/07/16 20:00 64 09/07/16 19:00 98.2 65 18 101/60 95 09/07/16 19:00 95 Nasal Cannula 2.00 09/07/16 19:00 68 09/07/16 18:20 64 09/07/16 17:09 60 09/07/16 16:35 60 09/07/16 15:29 97.9 65 18 89/54 92 I/O 09/07/16 09/07/16 09/07/16 09/08/16 09/08/16 09/08/16 07:00 15:00 23:00 07:00 15:00 23:00 Intake Total 1880 ml 1220 ml 680 ml Output Total 925 ml 500 ml 850 ml Balance 955 ml 720 ml -170 ml Intake Oral 720 ml 480 ml IV Total 1880 ml 500 ml 200 ml Output Urine Total 925 ml 500 ml 850 ml # Bowel Movements 1 1 1 Result Diagram: 09/07/16 0710 09/07/16 07 Objective Remarks GENERAL: Obese WM, NAD SKIN: Warm and dry. HEAD: Normocephalic. EYES: No scleral icterus. No injection or drainage. NECK: Supple, trachea midline. No JVD or lymphadenopathy. CARDIOVASCULAR: Regular rate and rhythm without murmurs, gallops, or rubs. RESPIRATORY: Breath sounds equal bilaterally. No accessory muscle use. GASTROINTESTINAL: Abdomen soft, non-tender, nondistended. MUSCULOSKELETAL: No cyanosis, ++ edema. BACK: Nontender without obvious deformity. No CVA tenderness. A/P Assessment and Plan Compensated Resp acidosis Obesity hypoventilation synd Fluid overload, anasarca Hepatitis C PLAN: Supplement 02 Keep sat >90% Aerosol nebs monitor Lytes cont Abx. PFT in AM Carlos Eduardo Mckinnon MD Sep 08, 2016 15:14
[2016-09-08] MEDS: ENOXAPARIN SODIUM 40 MG/0.4 ML SYRINGE SQ SCH (17:37)
[2016-09-08] MEDS ORDERED: PHARMACY ORDERED LAB ONE (21:45)
[2016-09-08] MEDS: ACETAMINOPHEN 325 MG TAB PO PRN (22:23)
[2016-09-09] VITALS (24 sets, daily range): BP systolic 97–116; BP diastolic 59–72; PULSE 62–84; RESP 16–18; TEMP 97.5–98.8; O2SAT 94–96
[2016-09-09] MEDS: VANCOMYCIN 1,500 MG/NS 500 ML IV SCH ×2 (00:02)
[2016-09-09] MEDS: CHLORHEXIDINE GLUCONATE 2 % 1 PACK (2 CLOTHS)(taper/protocol) TOPICAL SCH (04:00)
[2016-09-09 05:34] LABS: AUTOMATED NEUTROPHIL # 5.2 TH/MM3 (1.8-7.7); BASOPHIL # 0.1 TH/MM3 (0-0.2); BASOPHIL % 0.9 % (0.0-2.0); EOSINOPHIL # 0.2 TH/MM3 (0-0.4); EOSINOPHIL % 2.6 % (0.0-4.0); HEMATOCRIT 42.1 % (39.0-51.0); HEMO FLAGS DIFF FINAL; LYMPH % 14.5 % (9.0-44.0); MEAN CELL VOLUME 99.4 FL (80.0-100.0); MEAN CORPUSCULAR HGB CONC 33.2 % (32.0-36.0); MONO % 8.2 % (0.0-8.0); NEUT % 73.8 % (16.0-70.0); PLATELET COUNT 109 TH/MM3 (150-450); RED BLOOD COUNT 4.24 MIL/MM3 (4.50-5.90); RED CELL DISTRIBUTION WIDTH 15.8 % (11.6-17.2)
[2016-09-09 06:00] LABS: ANION GAP 8 MEQ/L (5-15); AST (GOT) 162 U/L (15-37); BICARBONATE 30.2 MEQ/L (21.0-32.0); BLOOD UREA NITROGEN 11 MG/DL (7-18); CHLORIDE 102 MEQ/L (98-107); GLOMERULAR FILTRATION RATE 100 ML/MIN (>89); MAGNESIUM 2.2 MG/DL (1.5-2.5); POTASSIUM 3.9 MEQ/L (3.5-5.1); SODIUM (NA) 140 MEQ/L (136-145)
[2016-09-09 06:02] LABS: ALT (GPT) 66 U/L (12-78)
[2016-09-09 06:03] LABS: ALKALINE PHOSPHATASE 170 U/L (45-117); TOTAL BILIRUBIN ADULT 3.5 MG/DL (0.2-1.0)
[2016-09-09] MEDS: ACETAMINOPHEN 325 MG TAB PO PRN (06:08)
[2016-09-09] MEDS: PENTOXIFYLLINE 400 MG CONTROLLED RELEASE TAB PO SCH ×3 (06:08→21:29)
[2016-09-09] MEDS: RIFAXIMIN 200 MG TAB PO SCH ×3 (06:08→22:00)
[2016-09-09] MEDS: LACTULOSE SYRUP 20 GM/30 ML CUP PO SCH ×4 (08:56→21:28)
[2016-09-09] MEDS: THIAMINE HCL 100 MG TAB PO SCH (08:57)
[2016-09-09] MEDS: SERTRALINE HCL 50 MG TAB PO SCH (08:57)
[2016-09-09] MEDS: POTASSIUM CHLORIDE 20 MEQ CONTROLLED RELEASE TAB PO SCH ×2 (08:57→21:28)
[2016-09-09] MEDS: SPIRONOLACTONE 50 MG TAB PO SCH (08:57)
[2016-09-09] MEDS: METHADONE HCL 10 MG TAB PO SCH (08:58)
[2016-09-09] MEDS: SODIUM CHLORIDE 0.9% FLUSH 10 ML FLUSH IV FLUSH SCH ×2 (08:59→21:29)
[2016-09-09] MEDS: FUROSEMIDE 20 MG/2 ML VIAL IV PUSH SCH ×2 (08:59→17:18)
[2016-09-09] MEDS: DOCUSATE SODIUM 50 MG/SENNA 8.6 MG TAB PO SCH ×2 (08:59→21:00)
--- NOTE | 2016-09-09 10:52 | HHI.PR ---
Subjective Remarks Follow up anasarca, anxiety. Patient states that he is feeling better today. Ambulated with PT. Denies chest pain, dyspnea. Still with swelling of the abdomen, upper legs, and scrotum. Objective Vitals Vital Signs Date Time Temp Pulse Resp B/P Pulse Ox O2 Delivery O2 Flow Rate FiO2 09/09/16 06:00 64 09/09/16 05:00 66 09/09/16 04:00 66 09/09/16 03:00 94 Room Air 09/09/16 03:00 97.5 68 18 97/65 94 09/09/16 03:00 70 09/09/16 02:00 62 09/09/16 01:00 66 09/09/16 00:01 20 09/09/16 00:00 66 09/08/16 23:00 72 09/08/16 23:00 98.3 66 20 96/58 97 09/08/16 23:00 Room Air 09/08/16 22:00 64 09/08/16 21:00 68 09/08/16 20:00 70 09/08/16 19:00 98.0 72 18 112/64 99 09/08/16 19:00 68 09/08/16 19:00 99 Nasal Cannula 2.00 09/08/16 18:16 70 09/08/16 17:20 72 09/08/16 16:00 64 09/08/16 15:22 99.0 65 18 103/62 98 09/08/16 15:22 65 09/08/16 15:21 96 Nasal Cannula 2.00 09/08/16 14:00 63 09/08/16 13:24 68 09/08/16 12:34 67 09/08/16 11:44 66 09/08/16 11:43 98.7 68 18 109/70 94 09/08/16 11:00 94 Nasal Cannula 2.00 I/O 09/08/16 09/08/16 09/08/16 09/09/16 09/09/16 09/09/16 07:00 15:00 23:00 07:00 15:00 23:00 Intake Total 680 ml 1120 ml 860 ml Output Total 850 ml 2200 ml 550 ml Balance -170 ml -1080 ml 310 ml Intake Oral 480 ml 720 ml 360 ml IV Total 200 ml 400 ml 500 ml Output Urine Total 850 ml 2200 ml 550 ml # Bowel Movements 1 1 Result Diagram: 09/09/16 0522 09/09/16 0521 Imaging Last Impressions Chest X-Ray 09/04/16 0000 Signed Impressions: Service Date/Time: Sunday, September 04, 2016 11:14 - CONCLUSION: 1. Cardiomegaly with pulmonary edema pattern. Jorge A Collazo MD Abdomen X-Ray 09/04/16 0000 Signed Impressions: Service Date/Time: Sunday, September 04, 2016 17:16 - CONCLUSION: 1. Very limited examination due to the patient's body habitus. 2. NGT in the stomach without evidence for significantly dilated loops of small bowel. Bowel air noted on the current exam appear to be colonic. Consider CT examination if there is continued clinical concern. Jorge A Collazo MD Head CT 09/02/16 0000 Signed Impressions: Service Date/Time: Friday, September 02, 2016 21:13 - CONCLUSION: No acute disease. Omar Contreras MD Lower Extremity Ultrasound 08/31/16 1055 Signed Impressions: Service Date/Time: Wednesday, August 31, 2016 11:21 - CONCLUSION: 1. Limited examination due to patient's body habitus and lower extremity edema. 2. No definitive sonographic evidence for lower extremity DVT. Jorge A Collazo MD Abdomen/Pelvis CT 08/31/16 1055 Signed Impressions: Service Date/Time: Wednesday, August 31, 2016 12:29 - CONCLUSION: Cirrhosis, slight splenomegaly and mild anasarca. Ashish Wood MD Objective Remarks General: Obese male in no acute distress. Heart: Regular rate and rhythm. No murmur. Lungs: Clear to auscultation bilaterally. No wheezes, rales, or rhonchi. Breathing is nonlabored. Abdomen: Soft, nontender, nondistended. Anasarca noted. Extremities: 1+ bilateral lower extremity edema. Venous stasis changes bilaterally. Wounds bandaged. : Significant scrotal/penile edema. Locke catheter in place. Psych: Alert and oriented. Depressed mood. Procedures None Urinary Catheter: Yes Assessment to: Continue Locke insert reason: Measure Accurate Output Vascular Central Line Catheter: No A/P Problem List: (1) Hepatitis C ICD Code: B19.20 Status: Chronic (2) HX IVDU Status: Chronic (3) Anasarca ICD Code: R60.1 Status: Acute (4) Cellulitis ICD Code: L03.90 Status: Acute (5) Elevated TSH ICD Code: R94.6 Status: Acute (6) Hyperammonemia ICD Code: E72.20 Status: Acute (7) Acute respiratory failure with hypoxia and hypercarbia ICD Code: J96.01 Status: Acute Assessment and Plan 1. Acute delirium secondary to hepatic encephalopathy: Possible superimposed metabolic encephalopathy. Mental status improving. Continue lactulose, rifaximin. Monitor serum ammonia level, which is trending down. Continue Lasix, Aldactone. 2. Acute dysphagia: Improved. Appreciate speech therapy recommendations. 3. Acute hypoxic and hypercarbic respiratory failure: Continue supplemental oxygen, bronchodilators. BiPAP as needed. Currently on nasal cannula. Consult pulmonology. 4. Lower extremity cellulitis, wounds: Continue antibiotics (Levaquin, vancomycin). Continue wound care. 5. Alcohol withdrawal: CIWA protocol discontinued. Symptoms resolved. 6. History of IV drug abuse: Continue methadone. 7. Cirrhosis of the liver, acute alcoholic hepatitis: Appreciate GI recommendations. 8. Anasarca: Continue diuresis. Leg edema has improved. 9. Anxiety/depression: Patient having depressive symptoms secondary to medical illness. Appreciate psychiatry recommendations. Caution with benzodiazepines. Ativan is helping. 10. DVT prophylaxis: Lovenox. Problem Qualifiers (1) Cellulitis: Qualified Code: L03.119 - Cellulitis of lower extremity, unspecified laterality Ken Foreman MD Sep 09, 2016 10:52
[2016-09-09] MEDS: VANCOMYCIN INJ 1,250 MG in SODIUM CHLOR 0.9% 250 ML INJ 250 ML IV SCH (12:13)
[2016-09-09] MEDS: LEVOFLOXACIN 750 MG TAB PO SCH (15:13)
--- NOTE | 2016-09-09 17:11 | HHI.PR ---
Subjective Remarks 46 YO morbidly obese male, Hep C Breathing better Denies sob No new complaint Alert, awake follows commands PFT restrictive lung disease Objective Vital Signs Vital Signs Date Time Temp Pulse Resp B/P Pulse Ox O2 Delivery O2 Flow Rate FiO2 09/09/16 06:00 64 09/09/16 05:00 66 09/09/16 04:00 66 09/09/16 03:00 94 Room Air 09/09/16 03:00 97.5 68 18 97/65 94 09/09/16 03:00 70 09/09/16 02:00 62 09/09/16 01:00 66 09/09/16 00:01 20 09/09/16 00:00 66 09/08/16 23:00 72 09/08/16 23:00 98.3 66 20 96/58 97 09/08/16 23:00 Room Air 09/08/16 22:00 64 09/08/16 21:00 68 09/08/16 20:00 70 09/08/16 19:00 98.0 72 18 112/64 99 09/08/16 19:00 68 09/08/16 19:00 99 Nasal Cannula 2.00 09/08/16 18:16 70 09/08/16 17:20 72 I/O 09/08/16 09/08/16 09/08/16 09/09/16 09/09/16 09/09/16 07:00 15:00 23:00 07:00 15:00 23:00 Intake Total 680 ml 1120 ml 860 ml Output Total 850 ml 2200 ml 550 ml Balance -170 ml -1080 ml 310 ml Intake Oral 480 ml 720 ml 360 ml IV Total 200 ml 400 ml 500 ml Output Urine Total 850 ml 2200 ml 550 ml # Bowel Movements 1 1 Result Diagram: 09/09/1652109/09/16 0521 Objective Remarks GENERAL: Obese WM, NAD SKIN: Warm and dry. HEAD: Normocephalic. EYES: No scleral icterus. No injection or drainage. NECK: Supple, trachea midline. No JVD or lymphadenopathy. CARDIOVASCULAR: Regular rate and rhythm without murmurs, gallops, or rubs. RESPIRATORY: Breath sounds equal bilaterally. No accessory muscle use. GASTROINTESTINAL: Abdomen soft, non-tender, nondistended. MUSCULOSKELETAL: No cyanosis, ++ edema. BACK: Nontender without obvious deformity. No CVA tenderness. A/P Assessment and Plan Compensated Resp acidosis Obesity hypoventilation synd Fluid overload, anasarca Hepatitis C PLAN: Wean 02 Keep sat >90% Aerosol nebs monitor Lytes cont Abx. Carlos Eduardo Mckinnon MD Sep 09, 2016 17:11
[2016-09-09] MEDS: ENOXAPARIN SODIUM 40 MG/0.4 ML SYRINGE SQ SCH (17:18)
[2016-09-09] MEDS: LORazepam 0.5 MG TAB PO PRN (21:28)
[2016-09-10] VITALS (21 sets, daily range): BP systolic 90–107; BP diastolic 54–93; PULSE 66–88; RESP 16–20; TEMP 97.8–98.5; O2SAT 93–95
[2016-09-10] MEDS: VANCOMYCIN INJ 1,250 MG in SODIUM CHLOR 0.9% 250 ML INJ 250 ML IV SCH ×2 (01:25→12:40)
[2016-09-10] MEDS: METHADONE HCL 10 MG TAB PO SCH (08:02)
[2016-09-10] MEDS: FUROSEMIDE 20 MG/2 ML VIAL IV PUSH SCH ×2 (08:03→17:30)
[2016-09-10] MEDS: PENTOXIFYLLINE 400 MG CONTROLLED RELEASE TAB PO SCH ×3 (08:04→22:01)
[2016-09-10] MEDS: LACTULOSE SYRUP 20 GM/30 ML CUP PO SCH ×4 (08:04→20:36)
[2016-09-10] MEDS: POTASSIUM CHLORIDE 20 MEQ CONTROLLED RELEASE TAB PO SCH ×2 (08:04→20:36)
[2016-09-10] MEDS: SPIRONOLACTONE 50 MG TAB PO SCH (08:04)
[2016-09-10] MEDS: SERTRALINE HCL 50 MG TAB PO SCH (08:04)
[2016-09-10] MEDS: DOCUSATE SODIUM 50 MG/SENNA 8.6 MG TAB PO SCH ×2 (08:05→20:35)
[2016-09-10] MEDS: THIAMINE HCL 100 MG TAB PO SCH (08:05)
[2016-09-10] MEDS: SODIUM CHLORIDE 0.9% FLUSH 10 ML FLUSH IV FLUSH SCH ×2 (08:05→20:36)
[2016-09-10] MEDS: RIFAXIMIN 200 MG TAB PO SCH ×3 (09:39→22:02)
--- NOTE | 2016-09-10 09:57 | HHI.PR ---
Subjective Remarks Follow up anasarca, weakness. Patient states that he is feeling a little better this morning. Denies chest pain, dyspnea. Swelling in abdomen has decreased. He continues to report anxiety. Objective Vitals Vital Signs Date Time Temp Pulse Resp B/P Pulse Ox O2 Delivery O2 Flow Rate FiO2 09/10/16 07:40 97.8 74 16 104/65 95 09/10/16 04:02 94 Room Air 09/10/16 04:00 98.1 73 16 90/54 94 09/10/16 02:00 68 09/10/16 01:00 70 09/10/16 00:00 97.9 69 16 90/57 94 09/10/16 00:00 68 09/09/16 23:00 68 09/09/16 20:48 95 09/09/16 20:00 95 Room Air 09/09/16 20:00 98.7 77 18 113/71 95 09/09/16 18:00 70 09/09/16 17:00 72 09/09/16 16:00 66 09/09/16 15:05 98.8 75 16 101/72 95 09/09/16 15:05 95 Room Air 09/09/16 15:00 71 09/09/16 14:00 70 09/09/16 13:00 64 09/09/16 12:00 72 09/09/16 11:10 95 Room Air 09/09/16 11:10 98.6 84 16 116/59 95 09/09/16 11:00 73 09/09/16 10:00 74 I/O 09/09/16 09/09/16 09/09/16 09/10/16 09/10/16 09/10/16 07:00 15:00 23:00 07:00 15:00 23:00 Intake Total 860 ml 960 ml 490 ml Output Total 550 ml 4200 ml 2300 ml Balance 310 ml -3240 ml -1810 ml Intake Oral 360 ml 960 ml 240 ml IV Total 500 ml 250 ml Output Urine Total 550 ml 4200 ml 2300 ml # Bowel Movements 0 0 Result Diagram: 09/09/16 0522 09/09/16 0521 Imaging Last Impressions Chest X-Ray 09/04/16 0000 Signed Impressions: Service Date/Time: Sunday, September 04, 2016 11:14 - CONCLUSION: 1. Cardiomegaly with pulmonary edema pattern. Jorge A Collazo MD Abdomen X-Ray 09/04/16 0000 Signed Impressions: Service Date/Time: Sunday, September 04, 2016 17:16 - CONCLUSION: 1. Very limited examination due to the patient's body habitus. 2. NGT in the stomach without evidence for significantly dilated loops of small bowel. Bowel air noted on the current exam appear to be colonic. Consider CT examination if there is continued clinical concern. Jorge A Collazo MD Head CT 09/02/16 0000 Signed Impressions: Service Date/Time: Friday, September 02, 2016 21:13 - CONCLUSION: No acute disease. Omar Contreras MD Lower Extremity Ultrasound 08/31/16 1055 Signed Impressions: Service Date/Time: Wednesday, August 31, 2016 11:21 - CONCLUSION: 1. Limited examination due to patient's body habitus and lower extremity edema. 2. No definitive sonographic evidence for lower extremity DVT. Jorge A Collazo MD Abdomen/Pelvis CT 08/31/16 1055 Signed Impressions: Service Date/Time: Wednesday, August 31, 2016 12:29 - CONCLUSION: Cirrhosis, slight splenomegaly and mild anasarca. Ashish Wood MD Objective Remarks General: Obese male in no acute distress. Heart: Regular rate and rhythm. No murmur. Lungs: Clear to auscultation bilaterally. No wheezes, rales, or rhonchi. Breathing is nonlabored. Abdomen: Soft, nontender, nondistended. Decreased abdominal swelling. Extremities: 1+ bilateral lower extremity edema. Venous stasis changes bilaterally. Wounds bandaged. : Still with scrotal/penile edema, but improving. Locke catheter in place. Psych: Alert and oriented. Procedures None Urinary Catheter: Yes Assessment to: Remove Vascular Central Line Catheter: No A/P Problem List: (1) Hepatitis C ICD Code: B19.20 Status: Chronic (2) HX IVDU Status: Chronic (3) Anasarca ICD Code: R60.1 Status: Acute (4) Cellulitis ICD Code: L03.90 Status: Acute (5) Elevated TSH ICD Code: R94.6 Status: Acute (6) Hyperammonemia ICD Code: E72.20 Status: Acute (7) Acute respiratory failure with hypoxia and hypercarbia ICD Code: J96.01 Status: Acute Assessment and Plan 1. Acute delirium secondary to hepatic encephalopathy: Possible superimposed metabolic encephalopathy. Mental status improving. Continue lactulose, rifaximin. Serum ammonia level is now WNL. Continue Lasix, Aldactone. 2. Acute dysphagia: Improved. Appreciate speech therapy recommendations. 3. Acute hypoxic and hypercarbic respiratory failure: Continue supplemental oxygen, bronchodilators. BiPAP as needed. Currently on room air. Appreciate pulmonology recommendations. 4. Lower extremity cellulitis, wounds: Continue antibiotics (Levaquin, vancomycin). Continue wound care. 5. Alcohol withdrawal: CIWA protocol discontinued. Symptoms resolved. 6. History of IV drug abuse: Continue methadone. 7. Cirrhosis of the liver, acute alcoholic hepatitis: Appreciate GI recommendations. 8. Anasarca: Improving. Continue diuresis. Leg edema has improved. 9. Anxiety/depression: Patient having depressive symptoms secondary to medical illness. Appreciate psychiatry recommendations. Caution with benzodiazepines. Continue sertraline. Ativan is helping. 10. DVT prophylaxis: Lovenox. Discharge Planning Transfer to med/surg floor with telemetry. Possible discharge home tomorrow. Problem Qualifiers (1) Cellulitis: Qualified Code: L03.119 - Cellulitis of lower extremity, unspecified laterality Ken Foreman MD Sep 10, 2016 09:57
[2016-09-10] MEDS: LORazepam 0.5 MG TAB PO PRN (12:39)
[2016-09-10] MEDS: LEVOFLOXACIN 750 MG TAB PO SCH (14:28)
[2016-09-10] MEDS: ENOXAPARIN SODIUM 40 MG/0.4 ML SYRINGE SQ SCH (17:30)
[2016-09-10] MEDS: ACETAMINOPHEN 325 MG TAB PO PRN (17:45)
--- NOTE | 2016-09-10 19:40 | HHI.PR ---
Subjective Remarks 46 YO morbidly obese male, Hep C Denies sob No new complaint Alert, awake follows commands PFT restrictive lung disease Up in chair, ambulates Objective Vital Signs Vital Signs Date Time Temp Pulse Resp B/P Pulse Ox O2 Delivery O2 Flow Rate FiO2 09/10/16 17:34 98.2 75 20 101/55 95 09/10/16 16:56 95 09/10/16 16:05 88 09/10/16 15:00 94 Room Air 09/10/16 15:00 74 09/10/16 15:00 97.9 73 16 107/65 94 09/10/16 14:00 68 09/10/16 13:00 84 09/10/16 12:00 74 09/10/16 11:41 95 Room Air 09/10/16 11:00 66 09/10/16 11:00 97.8 76 16 100/63 95 09/10/16 10:00 68 09/10/16 09:00 70 09/10/16 08:00 74 09/10/16 07:40 97.8 74 16 104/65 95 09/10/16 07:35 95 Room Air 09/10/16 07:15 73 09/10/16 04:02 94 Room Air 09/10/16 04:00 98.1 73 16 90/54 94 09/10/16 02:00 68 09/10/16 01:00 70 09/10/16 00:00 97.9 69 16 90/57 94 09/10/16 00:00 68 09/09/16 23:00 68 09/09/16 20:48 95 09/09/16 20:00 95 Room Air 09/09/16 20:00 98.7 77 18 113/71 95 I/O 09/09/16 09/09/16 09/09/16 09/10/16 09/10/16 09/10/16 07:00 15:00 23:00 07:00 15:00 23:00 Intake Total 860 ml 960 ml 490 ml 970 ml Output Total 550 ml 4200 ml 2300 ml 2125 ml Balance 310 ml -3240 ml -1810 ml -1155 ml Intake Oral 360 ml 960 ml 240 ml 720 ml IV Total 500 ml 250 ml 250 ml Output Urine Total 550 ml 4200 ml 2300 ml 2125 ml # Bowel Movements 0 0 1 Result Diagram: 09/09/16 0522 09/09/16 0521 Objective Remarks GENERAL: Obese WM, NAD SKIN: Warm and dry. HEAD: Normocephalic. EYES: No scleral icterus. No injection or drainage. NECK: Supple, trachea midline. No JVD or lymphadenopathy. CARDIOVASCULAR: Regular rate and rhythm without murmurs, gallops, or rubs. RESPIRATORY: Breath sounds equal bilaterally. No accessory muscle use. GASTROINTESTINAL: Abdomen soft, non-tender, nondistended. MUSCULOSKELETAL: No cyanosis, ++ edema. BACK: Nontender without obvious deformity. No CVA tenderness. A/P Assessment and Plan Compensated Resp acidosis Obesity hypoventilation synd Fluid overload, anasarca Hepatitis C PLAN: Wean 02 Keep sat >90% Aerosol nebs monitor Lytes cont Abx. DC plans underway Carlos Eduardo Mckinnon MD Sep 10, 2016 19:40
[2016-09-10] MEDS ORDERED: PHARMACY ORDERED LAB ONE (23:45)
[2016-09-11] MEDS: VANCOMYCIN INJ 1,250 MG in SODIUM CHLOR 0.9% 250 ML INJ 250 ML IV SCH (00:07)
[2016-09-11 04:43] VITALS: BP 114/57; PULSE 62; RESP 18; TEMP 98.3; O2SAT 92
[2016-09-11] MEDS: RIFAXIMIN 200 MG TAB PO SCH (05:15)
[2016-09-11] MEDS: PENTOXIFYLLINE 400 MG CONTROLLED RELEASE TAB PO SCH (05:15)
[2016-09-11 08:06] VITALS: BP 115/53; PULSE 74; RESP 18; TEMP 97.1; O2SAT 93
[2016-09-11] MEDS: METHADONE HCL 10 MG TAB PO SCH (08:12)
[2016-09-11] MEDS: THIAMINE HCL 100 MG TAB PO SCH (08:12)
[2016-09-11] MEDS: POTASSIUM CHLORIDE 20 MEQ CONTROLLED RELEASE TAB PO SCH (08:12)
[2016-09-11] MEDS: SPIRONOLACTONE 50 MG TAB PO SCH (08:12)
[2016-09-11] MEDS: SERTRALINE HCL 50 MG TAB PO SCH (08:12)
[2016-09-11] MEDS: LACTULOSE SYRUP 20 GM/30 ML CUP PO SCH (08:14)
[2016-09-11] MEDS: SODIUM CHLORIDE 0.9% FLUSH 10 ML FLUSH IV FLUSH SCH (08:15)
[2016-09-11] MEDS: DOCUSATE SODIUM 50 MG/SENNA 8.6 MG TAB PO SCH (08:17)
[2016-09-11] MEDS: FUROSEMIDE 20 MG/2 ML VIAL IV PUSH SCH (08:22)
[2016-09-11] MEDS ORDERED: ZOLO50TA PO (11:49)
[2016-09-11] MEDS ORDERED: POTA20TA5 PO (11:49)
--- NOTE | 2016-09-11 11:50 | HHI.DCPOC ---
Discharge Care Plan Diagnosis: (1) Adjustment disorder with mixed anxiety and depressed mood (2) Acute respiratory failure with hypoxia and hypercarbia (3) Hepatitis C (4) Cellulitis (5) Anasarca (6) Transaminasemia (7) Polysubstance abuse (8) Liver cirrhosis (9) Elevated TSH (10) Hyperammonemia Goals to Promote Your Health * To prevent worsening of your condition and complications * To maintain your health at the optimal level Directions to Meet Your Goals Take your medications as prescribed Follow your dietary instruction Follow activity as directed Keep your appointments as scheduled Take your immunizations and boosters as scheduled If your symptoms worsen call your PCP, if no PCP go to Urgent Care Center or Emergency Room Smoking is Dangerous to Your Health. Avoid second hand smoke Call the 24-hour hour crisis hotline for domestic abuse at Ken Foreman MD Sep 11, 2016 11:50
--- NOTE | 2016-09-11 11:53 | HHI.DS ---
Discharge Summary Admission Date Aug 31, 2016 at 14:11 Discharge Date: Sep 11, 2016 Admitting Diagnosis Anasarca (1) Hepatitis C ICD Code: B19.20 (2) HX IVDU (3) Anasarca ICD Code: R60.1 (4) Cellulitis ICD Code: L03.90 (5) Elevated TSH ICD Code: R94.6 (6) Hyperammonemia ICD Code: E72.20 (7) Acute respiratory failure with hypoxia and hypercarbia ICD Code: J96.01 Procedures None Brief History - From Admission 46yo male with med hx significant for hep C presents for worsening LE swelling. Patient states for months he has had worsening LE edema. Over the past month it has significantly worsened to the point were he has difficulty walking. Edema has progressed to include his entire LE, abdomen, arms, and face. He states he has noticed wounds develop in his LE because of the swelling. He also feels SOB. He has not seen a doctor in some time. Due to the increasing swelling, he has gained over 100lbs in a year. He has Hep C from IV drug abuse. He is unclear of any other medical problems. He states he no longer drinks alcohol, last drink 1 week ago. He was previously drinking 3 pints a day. This high consumption of alcohol has been over the past year. He states he was also abusing PO dilaudid he was getting from a pain clinic. He has been going to the methadone clinic. CBC/BMP: 09/09/16 0522 09/11/16 0801 Significant Findings Laboratory Tests Test 09/08/16 09/09/16 09/09/16 09/10/16 23:28 05:21 05:22 23:40 Vancomycin Level Trough 18.6 MCG/ML 16.8 MCG/ML (5.0-10.0) (5.0-10.0) Random Glucose 71 MG/DL (74-106) Total Bilirubin 3.5 MG/DL (0.2-1.0) Aspartate Amino Transf 162 U/L (15-37) (AST/SGOT) Alkaline Phosphatase 170 U/L (45-117) Albumin 1.9 GM/DL (3.4-5.0) Red Blood Count 4.24 MIL/MM3 (4.50-5.90) Platelet Count 109 TH/MM3 (150-450) Neutrophils (%) (Auto) 73.8 % (16.0-70.0) Monocytes (%) (Auto) 8.2 % (0.0-8.0) Imaging Last Impressions Chest X-Ray 09/04/16 0000 Signed Impressions: Service Date/Time: Sunday, September 04, 2016 11:14 - CONCLUSION: 1. Cardiomegaly with pulmonary edema pattern. Jorge A Collazo MD Abdomen X-Ray 09/04/16 0000 Signed Impressions: Service Date/Time: Sunday, September 04, 2016 17:16 - CONCLUSION: 1. Very limited examination due to the patient's body habitus. 2. NGT in the stomach without evidence for significantly dilated loops of small bowel. Bowel air noted on the current exam appear to be colonic. Consider CT examination if there is continued clinical concern. Jorge A Collazo MD Head CT 09/02/16 Signed Impressions: Service Date/Time: Friday, September 02, 2016 21:13 - CONCLUSION: No acute disease. Omar Contreras MD Lower Extremity Ultrasound 08/31/16 1055 Signed Impressions: Service Date/Time: Wednesday, August 31, 2016 11:21 - CONCLUSION: 1. Limited examination due to patient's body habitus and lower extremity edema. 2. No definitive sonographic evidence for lower extremity DVT. Jorge A Collazo MD Abdomen/Pelvis CT 08/31/16 1055 Signed Impressions: Service Date/Time: Wednesday, August 31, 2016 12:29 - CONCLUSION: Cirrhosis, slight splenomegaly and mild anasarca. Ashish Wood MD PE at Discharge General: Obese male in no acute distress. Heart: Regular rate and rhythm. No murmur. Lungs: Clear to auscultation bilaterally. No wheezes, rales, or rhonchi. Breathing is nonlabored. Abdomen: Soft, nontender, nondistended. Decreased abdominal swelling. Extremities: 1+ bilateral lower extremity edema. Venous stasis changes bilaterally. Wounds bandaged. : Scrotal/penile edema much improved. Psych: Alert and oriented. Pt update on day of discharge The patient states that he feels much better and wants to go home. Swelling has decreased. Denies chest pain, dyspnea. Has been ambulating on his own. States that he will be staying with his father, who is present at bedside. Hospital Course The patient was admitted for management of anasarca, cellulitis. He was counseled extensively regarding alcohol abuse. He was started on diuretics. Gastroenterology was consulted regarding chronic liver disease, cirrhosis, hepatitis. He was treated with antibiotics for cellulitis. Wound care was consulted regarding his lower extremity wounds. He developed alcohol withdrawal symptoms and was started on CIWA protocol. He had worsening altered mental status and hypoxia. He was transferred to the intensive care unit and critical care medicine was consulted. He improved clinically and was transferred back to the hospitalist service. As he continued to show improvement in his mental status and oxygen requirements, he was transferred out of the intensive care unit. Pulmonology was consulted and felt that the patient's respiratory symptoms were secondary to obesity hypoventilation syndrome. He was continued on diuretics and showed significant improvement in anasarca. He was weaned off oxygen. He was felt to be stable for discharge home. Pt Condition on Discharge: Stable Discharge Disposition: Discharge Home Discharge Time: > 30 minutes Discharge Instructions DIET: Follow Instructions for: Diabetic Diet Activities you can perform: Regular-No Restrictions Follow up Referrals: Gastroenterology - 1 Week with Miko Nunes MD PCP Follow-up - 3-5 Days with [facility] New Medications: Furosemide (Furosemide) 20 Mg Tab 20 MG PO BID ascites #60 Ref 0 TAB Lorazepam (Lorazepam) 0.5 Mg Tab 0.5 MG PO Q8H PRN ANXIETY #10 Ref 0 TAB Folic Acid (Folic Acid) 1 Mg Tablet 1 MG PO DAILY mvt Days 30 TAB Pentoxifylline ER (Pentoxifylline ER) 400 Mg Tab 400 MG PO Q8HR Shortness of Breath #90 TAB Potassium Chloride Microencaps (Potassium Chloride Microencaps) 20 Meq Tab 20 MEQ PO DAILY Nutritional Supplement #30 Ref 0 TAB Rifaximin (Xifaxan) 200 Mg Tab 400 MG PO Q8HR etoh #90 TAB Sennosides-Docusate Sodium (Senna Plus 8.6-50 mg) 1 Tab Tab 1 TAB PO BID Constipation #30 TAB Sertraline (Zoloft) 50 Mg Tab 25 MG PO DAILY Anxiety #30 Ref 0 TAB Spironolactone (Aldactone) 50 Mg Tab 50 MG PO DAILY ascites #30 TAB Thiamine HCl (Gnp Vitamin B-1) 100 Mg Tab 100 MG PO DAILY mvt #30 TAB Continued Medications: Methadone Intensol Liq (Methadone Intensol Liq) 10 Mg/Ml Conc 140 MG PO DAILY #30 Ref 0 ML Ken Foreman MD Sep 11, 2016 11:53
[2016-09-11] MEDS ORDERED: VANCOMYCIN 1,000 MG/NS 250 ML IV SCH ×2 (12:00)
[2016-09-11 12:06] VITALS: BP 114/52; PULSE 72; RESP 18; TEMP 97.2; O2SAT 94
[2016-09-11] MEDS ORDERED: WALKER WHEELS/F1 MIS (13:08)
[2016-09-13] MEDS ORDERED: PHARMACY ORDERED LAB ONE (11:45)
== END 2016-09-11 14:05 | disposition home or self-care (01) | DRG 432 ==
LOC: NEPE 10:37 → NEDA 14:11 → HOCB 16:22 → HIMN 09-04 14:30 → HCIS 09-06 10:39 → N04A 09-10 17:15
PROVIDERS: ADMIT Family Medicine; ATTEND Family Medicine
PROC: 5A09357 Assistance with Respiratory Ventilation, Less than 24 Consecutive Hours, Continuous Positive Airway Pressure (ICD-10-PCS; principal; 2016-08-31)
DX: K70.10 Alcoholic hepatitis without ascites (principal); K72.00 Acute and subacute hepatic failure without coma; K70.30 Alcoholic cirrhosis of liver without ascites; J96.01 Acute respiratory failure with hypoxia; G93.41 Metabolic encephalopathy; J96.02 Acute respiratory failure with hypercapnia; F10.231 Alcohol dependence with withdrawal delirium; R13.10 Dysphagia, unspecified; L03.115 Cellulitis of right lower limb; E66.2 Morbid (severe) obesity with alveolar hypoventilation; L03.116 Cellulitis of left lower limb; L97.819 Non-pressure chronic ulcer of other part of right lower leg with unspecified severity; L97.829 Non-pressure chronic ulcer of other part of left lower leg with unspecified severity; D68.4 Acquired coagulation factor deficiency; E87.2 Acidosis; R16.1 Splenomegaly, not elsewhere classified; I10 Essential (primary) hypertension; B19.20 Unspecified viral hepatitis C without hepatic coma; F17.210 Nicotine dependence, cigarettes, uncomplicated; F31.9 Bipolar disorder, unspecified; F10.10 Alcohol abuse, uncomplicated; R73.03 Prediabetes; F11.90 Opioid use, unspecified, uncomplicated; M54.9 Dorsalgia, unspecified; E87.70 Fluid overload, unspecified; W01.0XXA Fall on same level from slipping, tripping and stumbling without subsequent striking against object, initial encounter; F43.23 Adjustment disorder with mixed anxiety and depressed mood; Z79.891 Long term (current) use of opiate analgesic
CPT/HCPCS: 36600; 70450; 71010; 74000; 74177; 80048; 80053; 80074; 80076; 80202; 81001; 82103; 82105; 82140; 82390; 82565; 82728; 82805; 83516; 83520; 83540; 83550; 83605; 83690; 83735; 83880; 84100; 84439; 84443; 85025; 85027; 85610; 85730; 86038; 86255; 86403; 87040; 87070; 87077; 87147; 87186; 87205; 87522; 87641; 87902; 93005; 93306; 93970; 94002; 94003; 94060; J1120; J1650; J1940; J1956; J2060; J2270; J2930; J3370; J7040; J7050; Q9967

== ENCOUNTER 2017-01-06 14:11 | Inpatient (IN) | payer SELFPAY ==
[~2017-01-06] VITALS: Ht 172.7 cm; Wt 124.3 kg
[~2017-01-06 14:11] MED LIST: ALDA50TA2 PO; FOLI1TAB6 PO; FURO20TA PO; LORA0.5T PO; METH10CO3 PO; PENT400T PO; POTA20TA5 PO; SENN1TAB PO; THIA100 PO; WALKER WHEELS/F1 MIS; XIFA200T4 PO; ZOLO50TA PO
[2017-01-06 14:15] VITALS: BP 110/58; PULSE 122; RESP 24; TEMP 98.1; O2SAT 90
[2017-01-06 14:47] LABS: AUTOMATED NEUTROPHIL # 4.5 TH/MM3 (1.8-7.7); BASOPHIL # 0.1 TH/MM3 (0-0.2); BASOPHIL % 1.2 % (0.0-2.0); EOSINOPHIL % 0.6 % (0.0-4.0); HEMATOCRIT 37.8 % (39.0-51.0); HEMO FLAGS DIFF FINAL; LYMPH % 17.2 % (9.0-44.0); LYMPHOCYTE # 1.1 TH/MM3 (1.0-4.8); MEAN CELL VOLUME 97.7 FL (80.0-100.0); MEAN CORPUSCULAR HEMOGLOBIN 32.7 PG (27.0-34.0); MEAN CORPUSCULAR HGB CONC 33.5 % (32.0-36.0); MONO % 12.3 % (0.0-8.0); NEUT % 68.7 % (16.0-70.0); PLATELET COUNT 128 TH/MM3 (150-450); RED BLOOD COUNT 3.87 MIL/MM3 (4.50-5.90); RED CELL DISTRIBUTION WIDTH 14.9 % (11.6-17.2); WHITE BLOOD COUNT 6.5 TH/MM3 (4.0-11.0)
[2017-01-06 15:07] LABS: BICARBONATE 28.4 MEQ/L (21.0-32.0); MAGNESIUM 2.1 MG/DL (1.5-2.5); TOTAL BILIRUBIN ADULT 2.1 MG/DL (0.2-1.0)
[2017-01-06 15:10] VITALS: BP 132/79; PULSE 108; RESP 20; O2SAT 95
[2017-01-06 15:10] LABS: CALCIUM-PROTEIN CORRECTED 7.1 MG/DL (8.5-10.1)
--- NOTE | 2017-01-06 15:11 | RADRPT ---
EXAM DATE/TIME: 01/06/2017 14:34 [facility] COMPARISON: CHEST PA & LAT, April 19, 2014, 0:19. INDICATIONS : Chest pain since yesterday. MEDICAL HISTORY : Cardiovascular disease. Hepatitis C. SURGICAL HISTORY : None. ENCOUNTER: Initial ACUITY: 1 day PAIN SCORE: 10/10 LOCATION: Bilateral chest FINDINGS: PA and lateral views of the chest show a top normal heart size. Pulmonary vascular engorgement noted. No infiltrate or effusion. Bony structures are unremarkable. CONCLUSION: Cardiomegaly with pulmonary vascular engorgement. No infiltrate or effusion. Rosendo Connors Jr., MD on January 06, 2017 at 15:08 Board Certified Radiologist. This report was verified electronically.
[2017-01-06 15:12] LABS: APTT (PATIENT) 30.6 SEC (24.3-30.1); INTERNATIONAL NORMALIZED RATIO 1.3 RATIO; PROTHROMBIN TIME - PATIENT 14.3 SEC (9.8-11.6)
[2017-01-06] MEDS ORDERED: SODIUM CHLORIDE 0.9% FLUSH 10 ML FLUSH IVF PRN (15:15)
[2017-01-06 15:25] LABS: CKMB 2.6 NG/ML (0.5-3.6)
[2017-01-06] MEDS: NITROGLYCERIN 0.4 MG SL 25 TABS/BTL SL SCH ×3 (15:44→15:56)
[2017-01-06] MEDS ORDERED: FUROSEMIDE 40 MG/4 ML VIAL IV PUSH ONE (15:45)
[2017-01-06] MEDS ORDERED: ASPIRIN 81 MG CHEW TAB CHEW ONE (15:45)
--- NOTE | 2017-01-06 16:05 | PD ---
HPI Chief Complaint: Edema Time Seen by Provider: 14:56 Travel History International Travel<30 days: No Contact w/Intl Traveler<30days: No Traveled to known affect area: No History of Present Illness HPI Patient is a 46-year-old male presenting to the emergency department for evaluation of edema, shortness of breath, chest pain. Patient states she started swelling in his lower extremities and testicles 2 weeks ago, since gotten progressively worse to the point where he can't ambulate or urinate without difficulty. Patient states the pain is a 10 out of 10, he reports that the chest pain started today. He states it's substernal, denies any radiation. Patient admits to drinking alcohol on a daily basis, he states he drinks at least a 1/5th of vodka daily. Father is present and states he was out of town for a few days and when he returned there were numerous empty liquor bottles around the house. Patient states that he feels like he may be in withdrawal because he has been unable to go to the methadone clinic for 3 days because of all the swelling in his legs and testicles. He denies any nausea, vomiting, fever, chills. He denies any illicit drug use, he continues to smoke cigarettes. He is on methadone due to a previous opiate addiction. Additionally patient states that he would've come to the hospital if it weren't for his father coming back from vacation. He states he is depressed and feels suicidal. PFSH Past Medical History Bipolar Disorder: Yes Anxiety: Yes Hypertension: Yes Musculoskeletal: Yes Psychiatric: Yes Respiratory: Yes Immunizations Current: Yes Past Surgical History Body Medical Devices: metal eusebia right leg Social History Alcohol Use: Yes (HX ETOH ABUSE, ABOUT A LITER A DAY) Tobacco Use: Yes (1 PPD) Substance Use: No (HX IV/PO DILAUDID) Allergies-Medications (Allergen,Severity, Reaction): Coded Allergies: risperidone (Unverified Allergy, Severe, Anaphylaxis, 09/24/16) ziprasidone (Unverified Allergy, Severe, Anaphylaxis, 09/24/16) Reported Meds & Prescriptions Reported Meds & Active Scripts Active Zoloft (Sertraline HCl) 50 Mg Tab 25 Mg PO DAILY Potassium Chloride Microencaps 20 Meq Tab 20 Meq PO DAILY Furosemide 20 Mg Tab 20 Mg PO BID Aldactone (Spironolactone) 50 Mg Tab 50 Mg PO DAILY Gnp Vitamin B-1 (Thiamine HCl) 100 Mg Tab 100 Mg PO DAILY Folic Acid 1 Mg Tablet 1 Mg PO DAILY Walker with Front Wheels (Device) 1 Mis Mis 1 Ea .ROUTE DIRECTED Lorazepam 0.5 Mg Tab 0.5 Mg PO Q8H PRN Senna Plus 8.6-50 mg (Sennosides-Docusate Sodium) 1 Tab Tab 1 Tab PO BID Xifaxan (Rifaximin) 200 Mg Tab 400 Mg PO Q8HR Pentoxifylline ER (Pentoxifylline) 400 Mg Tab 400 Mg PO Q8HR Reported Methadone Intensol Liq (Methadone HCl) 10 Mg/Ml Conc 140 Mg PO DAILY Review of Systems Except as stated in HPI: all other systems reviewed are Neg Cardiovascular: Positive: Chest Pain or Discomfort, Dyspnea on exertion, Edema Respiratory: Positive: Shortness of Breath Gastrointestinal: Positive: Abdominal Pain, No: Nausea, Vomiting Genitourinary: Positive: Hesitancy Musculoskeletal: Positive: Edema Skin: Positive Dryness, Positive Change in Pigmentation, Positive Lesions Neurologic: No: Focal Abnormalities Physical Exam Narrative GENERAL: Obese, alert male. Resting in no acute distress. SKIN: Warm and dry. Dry, cracked skin to bilateral lower extremities, weeping wounds to bilateral calves. HEAD: Atraumatic. Normocephalic. EYES: Pupils equal and round. No scleral icterus. No injection or drainage. ENT: No nasal bleeding or discharge. Mucous membranes pink and moist. NECK: Trachea midline. No JVD. CARDIOVASCULAR: Regular rate and rhythm. RESPIRATORY: No accessory muscle use. Diminished in bases GASTROINTESTINAL: Abdomen obese, distended, non-tender. Hepatic and splenic margins not palpable. Positive bowel sounds, no rebound, no guarding MUSCULOSKELETAL: Extremities without clubbing, cyanosis. No obvious deformities. 2+ edema to bilateral lower extremities. 2+ dorsalis pedal pulses bilaterally. GENITOURINARY: Penis and testicles are markedly edematous. NEUROLOGICAL: Awake and alert. No obvious cranial nerve deficits. Motor grossly within normal limits. Five out of 5 muscle strength in the arms and legs. Normal speech. PSYCHIATRIC: Appropriate mood and affect; insight and judgment normal. Data Data Last Documented VS Vital Signs Date Time Temp Pulse Resp B/P (MAP) Pulse Ox O2 Delivery O2 Flow Rate FiO2 01/06/17 15:40 Nasal Cannula 2.00 01/06/17 15:10 108 20 132/79 (96) 95 01/06/17 14:15 98.1 Orders Orders Electrocardiogram (01/06/17 14:17) B-Type Natriuretic Peptide (01/06/17 14:17) Ckmb (Isoenzyme) Profile (01/06/17 14:17) Complete Blood Count With Diff (01/06/17 14:17) Comprehensive Metabolic Panel (01/06/17 14:17) Magnesium (Mg) (01/06/17 14:17) Prothrombin Time / Inr (Pt) (01/06/17 14:17) Act Partial Throm Time (Ptt) (01/06/17 14:17) Troponin I (01/06/17 14:17) Chest, Pa & Lat (01/06/17 14:17) Ammonia (01/06/17 15:00) CKMB (01/06/17 14:26) CKMB% (01/06/17 14:26) Ecg Monitoring (01/06/17 15:14) Iv Access Insert/Monitor (01/06/17 15:14) Oximetry (01/06/17 15:14) Oxygen Administration (01/06/17 15:14) Sodium Chloride 0.9% Flush (Ns Flush) (01/06/17 15:15) Nitroglycerin Sl (Nitrostat Sl) (01/06/17 15:15) Aspirin Chew (Aspirin Chew) (01/06/17 15:45) Furosemide Inj (Lasix Inj) (01/06/17 15:45) Consult Cardiology (01/06/17 ) Admit Order (Ed Use Only) (01/06/17 15:48) Wound Culture And Gram Stain (01/06/17 15:48) Labs Laboratory Tests Test 01/06/17 14:26 01/06/17 15:20 White Blood Count 6.5 TH/MM3 Red Blood Count 3.87 MIL/MM3 Hemoglobin 12.7 GM/DL Hematocrit 37.8 % Mean Corpuscular Volume 97.7 FL Mean Corpuscular Hemoglobin 32.7 PG Mean Corpuscular Hemoglobin Concent 33.5 % Red Cell Distribution Width 14.9 % Platelet Count 128 TH/MM3 Mean Platelet Volume 6.5 FL Neutrophils (%) (Auto) 68.7 % Lymphocytes (%) (Auto) 17.2 % Monocytes (%) (Auto) 12.3 % Eosinophils (%) (Auto) 0.6 % Basophils (%) (Auto) 1.2 % Neutrophils # (Auto) 4.5 TH/MM3 Lymphocytes # (Auto) 1.1 TH/MM3 Monocytes # (Auto) 0.8 TH/MM3 Eosinophils # (Auto) 0.0 TH/MM3 Basophils # (Auto) 0.1 TH/MM3 CBC Comment DIFF FINAL Differential Comment Prothrombin Time 14.3 SEC Prothromb Time International Ratio 1.3 RATIO Activated Partial Thromboplast Time 30.6 SEC Blood Urea Nitrogen 8 MG/DL Creatinine 0.79 MG/DL Random Glucose 111 MG/DL Total Protein 7.9 GM/DL Albumin 2.6 GM/DL Calcium Level 7.4 MG/DL Magnesium Level 2.1 MG/DL Alkaline Phosphatase 200 U/L Aspartate Amino Transf (AST/SGOT) 589 U/L Alanine Aminotransferase (ALT/SGPT) 161 U/L Total Bilirubin 2.1 MG/DL Sodium Level 138 MEQ/L Potassium Level 4.0 MEQ/L Chloride Level 102 MEQ/L Carbon Dioxide Level 28.4 MEQ/L Anion Gap 8 MEQ/L Estimat Glomerular Filtration Rate 106 ML/MIN Protein Corrected Calcium 7.1 MG/DL Total Creatine Kinase 405 U/L Creatine Kinase MB 2.6 NG/ML Creatine Kinase MB % 0.6 % Troponin I 0.27 NG/ML B-Type Natriuretic Peptide 181 PG/ML Ammonia 58 MCMOL/L [facility] Medical Decision Making Medical Screen Exam Complete: Yes Emergency Medical Condition: Yes Medical Record Reviewed: Yes Interpretation(s) Laboratory Tests Test 01/06/17 14:26 01/06/17 15:20 White Blood Count 6.5 TH/MM3 Red Blood Count 3.87 MIL/MM3 Hemoglobin 12.7 GM/DL Hematocrit 37.8 % Mean Corpuscular Volume 97.7 FL Mean Corpuscular Hemoglobin 32.7 PG Mean Corpuscular Hemoglobin Concent 33.5 % Red Cell Distribution Width 14.9 % Platelet Count 128 TH/MM3 Mean Platelet Volume 6.5 FL Neutrophils (%) (Auto) 68.7 % Lymphocytes (%) (Auto) 17.2 % Monocytes (%) (Auto) 12.3 % Eosinophils (%) (Auto) 0.6 % Basophils (%) (Auto) 1.2 % Neutrophils # (Auto) 4.5 TH/MM3 Lymphocytes # (Auto) 1.1 TH/MM3 Monocytes # (Auto) 0.8 TH/MM3 Eosinophils # (Auto) 0.0 TH/MM3 Basophils # (Auto) 0.1 TH/MM3 CBC Comment DIFF FINAL Differential Comment Prothrombin Time 14.3 SEC Prothromb Time International Ratio 1.3 RATIO Activated Partial Thromboplast Time 30.6 SEC Blood Urea Nitrogen 8 MG/DL Creatinine 0.79 MG/DL Random Glucose 111 MG/DL Total Protein 7.9 GM/DL Albumin 2.6 GM/DL Calcium Level 7.4 MG/DL Magnesium Level 2.1 MG/DL Alkaline Phosphatase 200 U/L Aspartate Amino Transf (AST/SGOT) 589 U/L Alanine Aminotransferase (ALT/SGPT) 161 U/L Total Bilirubin 2.1 MG/DL Sodium Level 138 MEQ/L Potassium Level 4.0 MEQ/L Chloride Level 102 MEQ/L Carbon Dioxide Level 28.4 MEQ/L Anion Gap 8 MEQ/L Estimat Glomerular Filtration Rate 106 ML/MIN Protein Corrected Calcium 7.1 MG/DL Total Creatine Kinase 405 U/L Creatine Kinase MB 2.6 NG/ML Creatine Kinase MB % 0.6 % Troponin I 0.27 NG/ML B-Type Natriuretic Peptide 181 PG/ML Ammonia 58 MCMOL/L Vital Signs Date Time Temp Pulse Resp B/P (MAP) Pulse Ox O2 Delivery O2 Flow Rate FiO2 01/06/17 15:40 Nasal Cannula 2.00 01/06/17 15:10 108 20 132/79 (96) 95 Room Air 01/06/17 14:15 98.1 122 24 110/58 (75) 90 Differential Diagnosis Cirrhosis versus anasarca versus cellulitis versus ACS versus nstemi versus metabolic abnormality versus other Narrative Course Patient is a 46-year-old male that presented to the emergency department for evaluation of 2 weeks of bilateral lower extremity swelling. He has a history of cirrhosis, he reports drinking excessively on a daily basis because he is anxious and that's how he is treating it. Patient was protocoled while waiting in triage. EKG shows sinus tachycardia with a rate of 105. This was reviewed by my attending physician. CBC with no acute abnormality Patient is a positive troponin at 0.27. Nitroglycerin ordered. Chemistry with a potassium of 7.1, AST 589, ALT 161, ammonia 58, BNP 181 Lasix 40 mg IV 1 dose ordered. Chest x-ray shows cardiomegaly with pulmonary vascular engorgement. No infiltrate or effusion. This was read by the radiologist. Findings were discussed with my attending physician. Patient will be admitted, discussed findings with Dr. Clark who accepted admission. Admit orders placed. He requested cardiology be consulted, and patient be given aspirin, order placed. Psych screening placed due to patient's statement of suicidal ideations. Patient's vital signs are stable. We'll continue to monitor. Diagnosis Primary Impression: Anasarca Additional Impressions: Transaminitis Hypocalcemia NSTEMI (non-ST elevated myocardial infarction) Hyperammonemia Admitting Information Admitting Physician Requests: Admit Condition: Stable Ana Woodruff Jan 06, 2017 16:04
--- NOTE | 2017-01-06 16:41 | HHI.HP ---
HPI Service [facility] Primary Care Physician No Primary Care Physician Admission Diagnosis EDEMA, transaminitis, elevated troponin Diagnoses: Chief Complaint: EDEMA Travel History International Travel<30 Days: No Contact w/Intl Traveler <30 Da: No Traveled to Known Affected Are: No History of Present Illness This is a pleasant 46 y/o male who came to ER for evaluation of Edema, Shortness of breath, Chest pain, who started with swelling in his lower extremities and testicles 2 weeks before coming to ER, progressively worsening to the point where he cant ambulate or urinate without difficulty, pain is 10/10 in intensity, Chest pain started yesterday as a substernal pain, Patient admits to drinking alcohol on a daily basis, he states he drinks at least a 1/5th of vodka daily. Father is present and states he was out of town for a few days and when he returned there were numerous empty liquor bottles around the house. Patient states that he feels like he may be in withdrawal because he has been unable to go to the methadone clinic for 3 days because of all the swelling in his legs and testicles. He denies any nausea, vomiting, fever, chills. He denies any illicit drug use, he continues to smoke cigarettes. He is on methadone due to a previous opiate addiction. Additionally patient states that he would've come to the hospital if it weren't for his father coming back from vacation. He states he is depressed and feels suicidal. As we know he has also Hepatitis C, complaint of not been able to leave his home due to that is not able to walk and could not go to the Methadone clinic and did not receive Methadone for the last three days, He continue drinking Vodka on daily basis for the last one month and a half, Review of Systems Constitutional: DENIES: Fever, Chills, Change in appetite Endocrine: DENIES: Heat/cold intolerance Eyes: DENIES: Blurred vision, Eye pain Except as stated in HPI: all other systems reviewed are Neg Past Family Social History Past Medical History Bipolar disorder Anxiety Disorder Hypertension Past Surgical History metal eusebia in right leg Reported Medications Reported Meds & Active Scripts Active Zoloft (Sertraline HCl) 50 Mg Tab 25 Mg PO DAILY Potassium Chloride Microencaps 20 Meq Tab 20 Meq PO DAILY Furosemide 20 Mg Tab 20 Mg PO BID Aldactone (Spironolactone) 50 Mg Tab 50 Mg PO DAILY Gnp Vitamin B-1 (Thiamine HCl) 100 Mg Tab 100 Mg PO DAILY Folic Acid 1 Mg Tablet 1 Mg PO DAILY Walker with Front Wheels (Device) 1 Mis Mis 1 Ea .ROUTE DIRECTED Lorazepam 0.5 Mg Tab 0.5 Mg PO Q8H PRN Senna Plus 8.6-50 mg (Sennosides-Docusate Sodium) 1 Tab Tab 1 Tab PO BID Xifaxan (Rifaximin) 200 Mg Tab 400 Mg PO Q8HR Pentoxifylline ER (Pentoxifylline) 400 Mg Tab 400 Mg PO Q8HR Reported Methadone Intensol Liq (Methadone HCl) 10 Mg/Ml Conc 140 Mg PO DAILY Allergies: Coded Allergies: risperidone (Unverified Allergy, Severe, Anaphylaxis, 09/24/16) ziprasidone (Unverified Allergy, Severe, Anaphylaxis, 09/24/16) Family History Adopted Social History alcohol abuse about one liter daily states uses Vodka tobacco dependence 1 PPD History IDU and by mouth Dilaudid Physical Exam Vital Signs Vital Signs Date Time Temp Pulse Resp B/P (MAP) Pulse Ox O2 Delivery O2 Flow Rate FiO2 01/06/17 15:40 Nasal Cannula 2.00 01/06/17 15:10 108 20 132/79 (96) 95 Room Air 01/06/17 14:15 98.1 122 24 110/58 (75) 90 Physical Exam GENERAL: Obese, alert male. Resting in no acute distress. SKIN: Warm and dry. Dry, cracked skin to bilateral lower extremities, weeping wounds to bilateral calves. HEAD: Atraumatic. Normocephalic. EYES: Pupils equal and round. No scleral icterus. No injection or drainage. ENT: No nasal bleeding or discharge. Mucous membranes pink and moist. NECK: Trachea midline. No JVD. CARDIOVASCULAR: Regular rate and rhythm. RESPIRATORY: No accessory muscle use. Diminished in bases GASTROINTESTINAL: Abdomen obese, distended, non-tender. Hepatic and splenic margins not palpable. Positive bowel sounds, no rebound, no guarding MUSCULOSKELETAL: Extremities without clubbing, cyanosis. No obvious deformities. 2+ edema to bilateral lower extremities. 2+ dorsalis pedal pulses bilaterally. GENITOURINARY: Penis and testicles are markedly edematous. NEUROLOGICAL: Awake and alert. No obvious cranial nerve deficits. Motor grossly within normal limits. Five out of 5 muscle strength in the arms and legs. Normal speech. PSYCHIATRIC: Appropriate mood and affect; insight and judgment normal. Laboratory Laboratory Tests Test 01/06/17 14:26 01/06/17 15:20 White Blood Count 6.5 Red Blood Count 3.87 Hemoglobin 12.7 Hematocrit 37.8 Mean Corpuscular Volume 97.7 Mean Corpuscular Hemoglobin 32.7 Mean Corpuscular Hemoglobin Concent 33.5 Red Cell Distribution Width 14.9 Platelet Count 128 Mean Platelet Volume 6.5 Neutrophils (%) (Auto) 68.7 Lymphocytes (%) (Auto) 17.2 Monocytes (%) (Auto) 12.3 Eosinophils (%) (Auto) 0.6 Basophils (%) (Auto) 1.2 Neutrophils # (Auto) 4.5 Lymphocytes # (Auto) 1.1 Monocytes # (Auto) 0.8 Eosinophils # (Auto) 0.0 Basophils # (Auto) 0.1 CBC Comment DIFF FINAL Differential Comment Prothrombin Time 14.3 Prothromb Time International Ratio 1.3 Activated Partial Thromboplast Time 30.6 Blood Urea Nitrogen 8 Creatinine 0.79 Random Glucose 111 Total Protein 7.9 Albumin 2.6 Calcium Level 7.4 Magnesium Level 2.1 Alkaline Phosphatase 200 Aspartate Amino Transf (AST/SGOT) 589 Alanine Aminotransferase (ALT/SGPT) 161 Total Bilirubin 2.1 Sodium Level 138 Potassium Level 4.0 Chloride Level 102 Carbon Dioxide Level 28.4 Anion Gap 8 Estimat Glomerular Filtration Rate 106 Protein Corrected Calcium 7.1 Total Creatine Kinase 405 Creatine Kinase MB 2.6 Creatine Kinase MB % 0.6 Troponin I 0.27 B-Type Natriuretic Peptide 181 Ammonia 58 Date/Time Source Procedure Growth Status 01/06/17 15:53 Wound Leg Gram Stain Pending Received 01/06/17 15:53 Wound Leg Wound Culture Pending Received Result Diagram: 01/06/17 1426 01/06/171425 Caprini VTE Risk Assessment Caprini VTE Risk Assessment: Mod/High Risk (score >= 2) Caprini Risk Assessment Model Point Value = 1 Point Value = 2 Point Value = 3 Point Value = 5 Age 41-60 Minor surgery BMI > 25 kg/m2 Swollen legs Varicose veins or History of unexplained or recurrent spontaneous Oral contraceptives or hormone replacement Sepsis (< 1 month) Serious lung disease, including pneumonia (< 1 month) Abnormal pulmonary function Acute myocardial infarction Congestive heart failure (< 1 month) History of inflammatory bowel disease Medical patient at bed rest Age 61-74 Arthroscopic surgery Major open surgery (> 45 min) Laparoscopic surgery (> 45 min) Malignancy Confined to bed (> 72 hours) Immobilizing plaster cast Central venous access Age >= 75 History of VTE Family history of VTE Factor V Leiden Prothrombin 44027L Lupus anticoagulant Anticardiolipin antibodies Elevated serum homocysteine Heparin-induced thrombocytopenia Other congenital or acquired thrombophilia Stroke (< 1 month) Elective arthroplasty Hip, pelvis, or leg fracture Acute spinal cord injury (< 1 month) Prophylaxis Regimen Total Risk Factor Score Risk Level Prophylaxis Regimen 0-1 Low Early ambulation 2 Moderate Order ONE of the following: *Sequential Compression Device (SCD) *Heparin 5000 units SQ BID 3-4 Higher Order ONE of the following medications: *Heparin 5000 units SQ TID *Enoxaparin/Lovenox 40 mg SQ daily (WT < 150 kg, CrCl > 30 mL/min) *Enoxaparin/Lovenox 30 mg SQ daily (WT < 150 kg, CrCl > 10-29 mL/min) *Enoxaparin/Lovenox 30 mg SQ BID (WT < 150 kg, CrCl > 30 mL/min) AND/OR *Sequential Compression Device (SCD) 5 or more Highest Order ONE of the following medications: *Heparin 5000 units SQ TID (Preferred with Epidurals) *Enoxaparin/Lovenox 40 mg SQ daily (WT < 150 kg, CrCl > 30 mL/min) *Enoxaparin/Lovenox 30 mg SQ daily (WT < 150 kg, CrCl > 10-29 mL/min) *Enoxaparin/Lovenox 30 mg SQ BID (WT < 150 kg, CrCl > 30 mL/min) AND *Sequential Compression Device (SCD) Assessment and Plan Assessment and Plan 1. Cirrhosis/Anasarca probable related to his alcoholism Alcoholic Hepatitis, started on Lasix and Spironolactone, initially received Lasix 40 mg IV and then as per medical affairs specialist to continue Lasix 80 mg BID and Spironolactone 50 mg daily. given Famotidine for gastric protection and Albumin every 12 hours to try to improve fast. 2. Atypical chest pain mild elevation in his Troponin level as Equivocal Troponin level, I do not think he has an acute Coronary syndrome, medical affairs specialist following Appreciated. 3. Hepatitis C by history 4. Hyperammonemia to continue Lactulose. 5. Alcohol abuse and dependency will strongly recommended to stop drinking behavior prepare for probable withdrawal with CIWA protocol 6. electrolyte derangement for replacement and following 7. Substance Abuse/Tobacco dependence strongly recommended to stop smoking, stop substance abuse, will continue Methadone from home dose 8. Suicidal ideation asked for Psychiatry specialist consult. 9. right Leg Cellulitis on Vancomycin and Zosyn, Blood culture, asked for instructional systems specialist 10. Obesity strongly recommended diet and exercise as outpatient. DVT prophylaxis with Lovenox. hardware engineering manager follow laboratory Code Status Full code. Discussed Condition With Patient. Physician Certification 2 Midnight Certification Type: Admission for Inpatient Services Order for Inpatient Services The services are ordered in accordance with Medicare regulations or non- Medicare payer requirements, as applicable. In the case of services not specified as inpatient-only, they are appropriately provided as inpatient services in accordance with the 2-midnight benchmark. Estimated LOS (days): 3 days is the estimated time the patient will need to remain in the hospital, assuming treatment plan goals are met and no additional complications. Post-Hospital Plan: Not yet determined Alfredo Thomas MD Jan 06, 2017 16:41
[2017-01-06] MEDS ORDERED: NALOXONE HCL 0.4 MG/ML AMP IV PUSH PRN (16:45)
[2017-01-06] MEDS ORDERED: ONDANSETRON HCL 4 MG/2 ML VIAL IVP PRN (16:45)
[2017-01-06] MEDS ORDERED: BISACODYL 10 MG SUPP RECTAL PRN (16:45)
[2017-01-06] MEDS ORDERED: SENNOSIDES 8.6 MG TAB PO PRN (16:45)
[2017-01-06] MEDS ORDERED: LACTULOSE SYRUP 20 GM/30 ML CUP PO PRN (16:45)
[2017-01-06] MEDS ORDERED: MAGNESIUM HYDROXIDE SUSP 30 ML CUP PO PRN (16:45)
[2017-01-06] MEDS ORDERED: SODIUM CHLOR 0.9% 1000 ML INJ 1,000 ML IV SCH (17:00)
--- NOTE | 2017-01-06 17:14 | MB ---
cc: ISSAC GROVER M.D. DATE OF CONSULTATION 01/06/2017 REASON FIR CONSULTATION Evaluation of shortness of breath and edema. HISTORY OF THE PRESENT ILLNESS Poli Wheeler is a 46-year-old man with a history of substance abuse and alcoholism and cirrhosis of liver. He has never been diagnosed with cardiac disease, however, he has been drinking a fifth of vodka daily. He comes in now with just massive swelling of his legs, scrotum, abdomen, shortness of breath, feeling like his stomach is pushing up on his chest. He also has chest discomfort and a troponin of 0.27. He smokes a pack per day. He is adopted so his family history is unknown. His previous CT scan in August showing cirrhosis of the liver with mild splenomegaly. Of note he is thrombocytopenic as well with a platelet count of 128,000. The patient is extremely uncomfortable and in pain due to the massive amount of swelling. He has had previous eusebia placed his right leg. He has had previous Dilaudid use. ALLERGIES INCLUDE GEODON, RISPERDAL. FAMILY HISTORY He is adopted. SOCIAL HISTORY Notable for alcohol and smoking. MEDICATIONS Charted. PHYSICAL EXAMINATION GENERAL: Shows a well-developed, alert man with generalized anasarca. VITAL SIGNS: Charted. HEENT: Exam unremarkable. NECK: The neck veins are hard to assess. CHEST: Clear in the upper mid lobes and diminished at the bases. CARDIOVASCULAR: Cardiac exam shows distant S1-S2, regular rate and rhythm. I could not appreciate a gallop at this time. No murmur. ABDOMEN: Shows tense ascites. There is 4+ edema to the abdomen and also massive scrotal edema. LABORATORY DATA I have not located his EKG. Labs showed troponin 0.27. BNP 181. Albumin 2.6. Platelet count of 128,000. IMPRESSION A 46-year-old man with anasarca probably due to cirrhosis of the liver, cannot rule out a CHF component in view of the cardiomegaly on the chest x-ray. A 2-D echo Doppler is ordered. I went ahead and ordered Lasix, potassium, Aldactone with follow-up labs tomorrow. Further therapy to be determined. MD EMILY Reid/KK /4:45 PM /4:52 PM
[2017-01-06 17:20] VITALS: BP 134/79; PULSE 107; RESP 22; TEMP 98.2; O2SAT 93
[2017-01-06] MEDS ORDERED: INSU1INJ18 SQ (17:27)
[2017-01-06] MEDS ORDERED: NOVOINJ3 SQ (17:27)
[2017-01-06] MEDS: POTASSIUM CHLORIDE 20 MEQ CONTROLLED RELEASE TAB PO SCH (17:43)
[2017-01-06] MEDS ORDERED: LORazepam 2 MG/ML VIAL IV PUSH PRN ×4 (17:45)
[2017-01-06] MEDS ORDERED: LORazepam 2 MG TAB PO PRN (17:45)
[2017-01-06] MEDS ORDERED: FLUMAZENIL 0.5 MG/5 ML VIAL IV PUSH PRN (17:45)
[2017-01-06] MEDS: FUROSEMIDE 40 MG/4 ML VIAL IV PUSH SCH (17:48)
[2017-01-06] MEDS ORDERED: VANCOMYCIN INJ 1,250 MG in SODIUM CHLOR 0.9% 250 ML INJ 250 ML IV ONE (18:00)
[2017-01-06] MEDS ORDERED: Vancomycin Consult Pharmacy 1 EA OTHER SCH (18:00)
[2017-01-06] MEDS: METHADONE HCL 10 MG TAB PO SCH (18:35)
[2017-01-06] MEDS: ENOXAPARIN SODIUM 40 MG/0.4 ML SYRINGE SQ SCH (18:37)
[2017-01-06] MEDS: ALBUMIN 25% INJ 50 ML IV SCH (18:37)
[2017-01-06 19:55] VITALS: PULSE 110
[2017-01-06 20:00] VITALS: BP 124/60; PULSE 108; RESP 18; TEMP 98.5; O2SAT 95
[2017-01-06 20:53] LABS: BACTERIA, URINE RARE /hpf; BLOOD, URINE NEG (NEG); COMMENT (UR) CULT NOT INDICATED; CULTURE IF INDICATED CULT NOT INDICATED; GLUCOSE,URINE NEG (NEG); KETONE, URINE NEG (NEG); NITRITE,URINE NEG (NEG); SQUAMOUS EPITHELIAL CELL URINE <1 /hpf (0-5); URINE COLOR LIGHT-YELLOW (YELLW/STRAW)
[2017-01-06] MEDS ORDERED: CALCIUM GLUCONATE INJ 1 GM in SODIUM CHLORIDE 0.9% INJ 100 ML IV ONE (21:00)
[2017-01-06] MEDS: DOCUSATE SODIUM 50 MG/SENNA 8.6 MG TAB PO SCH (21:00)
[2017-01-06] MEDS: MULTIVITAMIN INJ 10 ML, FOLIC ACID INJ 1 MG in SODIUM CHLORID 0.9% 500 ML INJ 500 ML IV SCH (21:18)
[2017-01-06] MEDS: PIPERACIL-TAZO 3.375 GM PREMIX 50 ML IV SCH (21:19)
[2017-01-06] MEDS: THIAMINE INJ 100 MG in SODIUM CHLORIDE 0.9% INJ 100 ML IV SCH (21:19)
[2017-01-06] MEDS: FAMOTIDINE 20 MG TAB PO SCH (21:40)
[2017-01-06] MEDS: LORazepam 1 MG TAB PO PRN (21:40)
[2017-01-06] MEDS: SODIUM CHLORIDE 0.9% FLUSH 10 ML FLUSH IV FLUSH SCH (21:40)
[2017-01-06] MEDS ORDERED: VANCOMYCIN INJ 2,500 MG in SODIUM CHLORID 0.9% 500 ML INJ 500 ML IV SCH (22:00)
[2017-01-06 22:23] LABS: LACTIC ACID GHOST NOT REPORTABLE
[2017-01-06 22:52] LABS: CKMB 1.8 NG/ML (0.5-3.6)
[2017-01-07] VITALS (12 sets, daily range): BP systolic 121–155; BP diastolic 61–82; PULSE 84–104; RESP 20–24; TEMP 98–98.8; O2SAT 91–96
[2017-01-07] MEDS: RIFAXIMIN 200 MG TAB PO SCH ×4 (00:37→21:26)
[2017-01-07] MEDS: LORazepam 1 MG TAB PO PRN ×3 (02:17→18:07)
[2017-01-07] MEDS: PIPERACIL-TAZO 3.375 GM PREMIX 50 ML IV SCH ×4 (02:17→19:56)
[2017-01-07 05:12] LABS: AUTOMATED NEUTROPHIL # 3.7 TH/MM3 (1.8-7.7); BASOPHIL # 0.1 TH/MM3 (0-0.2); BASOPHIL % 1.4 % (0.0-2.0); EOSINOPHIL # 0.1 TH/MM3 (0-0.4); EOSINOPHIL % 1.7 % (0.0-4.0); HEMATOCRIT 35.1 % (39.0-51.0); LYMPH % 18.4 % (9.0-44.0); MEAN CELL VOLUME 97.2 FL (80.0-100.0); MEAN CORPUSCULAR HEMOGLOBIN 32.8 PG (27.0-34.0); MEAN CORPUSCULAR HGB CONC 33.8 % (32.0-36.0); MONO % 13.9 % (0.0-8.0); NEUT % 64.6 % (16.0-70.0); PLATELET COUNT 82 TH/MM3 (150-450); RED BLOOD COUNT 3.61 MIL/MM3 (4.50-5.90); RED CELL DISTRIBUTION WIDTH 14.9 % (11.6-17.2); WHITE BLOOD COUNT 5.7 TH/MM3 (4.0-11.0)
[2017-01-07 05:19] LABS: HEMO FLAGS AUTO DIFF
[2017-01-07] MEDS: ALBUMIN 25% INJ 50 ML IV SCH ×2 (05:33→18:21)
[2017-01-07 05:36] LABS: MAGNESIUM 1.6 MG/DL (1.5-2.5)
[2017-01-07 05:42] LABS: ANION GAP 10 MEQ/L (5-15); AST (GOT) 474 U/L (15-37); BICARBONATE 34.5 MEQ/L (21.0-32.0); BLOOD UREA NITROGEN 7 MG/DL (7-18); CHLORIDE 98 MEQ/L (98-107); GLOMERULAR FILTRATION RATE 124 ML/MIN (>89); SODIUM (NA) 142 MEQ/L (136-145)
[2017-01-07 05:45] LABS: ALKALINE PHOSPHATASE 176 U/L (45-117); ALT (GPT) 130 U/L (12-78); CREATINE KINASE 304 U/L (39-308); FREE T4 1.48 NG/DL (0.76-1.46); HDL CHOLESTEROL 37.3 MG/DL (40.0-60.0); LDL CHOLESTEROL 72 MG/DL (0-99); TOTAL BILIRUBIN ADULT 2.3 MG/DL (0.2-1.0)
[2017-01-07 05:49] LABS: POTASSIUM 2.8 MEQ/L (3.5-5.1)
[2017-01-07] MEDS ORDERED: CALCIUM GLUCONATE INJ 1 GM in SODIUM CHLORIDE 0.9% INJ 90 ML IV ONE (06:30)
[2017-01-07] MEDS ORDERED: POTASSIUM CHLORIDE 25 MEQ EFFERVESCENT TAB PO ONE (06:30)
[2017-01-07] MEDS: POTASSIUM CHLOR 20 MEQ PREMIX 100 ML IV SCH ×2 (06:34→10:58)
[2017-01-07 06:51] LABS: PLATELET ESTIMATE SMEAR LOW (NORMAL); PLATELET MORPHOLOGY NORMAL (NORMAL); SCAN/DIFF AUTO DIFF CONFIRMED
[2017-01-07] MEDS ORDERED: MAGNESIUM SULFATE 1 GM PREMIX 100 ML IV ONE ×2 (07:30→18:00)
[2017-01-07] MEDS ORDERED: GLUCAGON 1 MG/ML VIAL OTHER PRN (08:15)
[2017-01-07] MEDS ORDERED: DEXTROSE 50% IN WATER 50 ML VIAL(D50) IV PUSH PRN (08:15)
[2017-01-07] MEDS ORDERED: SERTRALINE HCL 50 MG TAB PO SCH (09:00)
[2017-01-07] MEDS: METHADONE HCL 10 MG TAB PO SCH (09:16)
[2017-01-07] MEDS: FAMOTIDINE 20 MG TAB PO SCH ×2 (09:17→21:26)
[2017-01-07] MEDS: DOCUSATE SODIUM 50 MG/SENNA 8.6 MG TAB PO SCH ×2 (09:17→21:00)
[2017-01-07] MEDS: CALCIUM CARBONATE 1.25 GM (CA 500 MG) TAB PO SCH ×2 (09:17→21:26)
[2017-01-07] MEDS: POTASSIUM CHLORIDE 20 MEQ CONTROLLED RELEASE TAB PO SCH ×3 (09:17→18:22)
[2017-01-07] MEDS: SPIRONOLACTONE 50 MG TAB PO SCH (09:17)
[2017-01-07] MEDS: FUROSEMIDE 40 MG/4 ML VIAL IV PUSH SCH ×2 (09:17→18:20)
[2017-01-07] MEDS: SODIUM CHLORIDE 0.9% FLUSH 10 ML FLUSH IV FLUSH SCH ×2 (09:18→21:27)
[2017-01-07] MEDS: LACTULOSE SYRUP 20 GM/30 ML CUP PO SCH ×3 (09:18→18:22)
--- NOTE | 2017-01-07 09:47 | PD.CARD.PN ---
Subjective Subjective Remarks multiple noncardiac complaints Objective Medications Current Medications Medications (Trade) Dose Ordered Sig/[facility] Route Start Time Stop Time Status Last Admin (Aldactone) 50 mg DAILY PO 01/07/17 09:00 01/07/17 09:17 (Lasix Inj) 80 mg BID@09,18 IV PUSH 01/06/17 18:00 01/07/17 09:17 (KCl) 20 meq TID PO 01/06/17 18:00 01/07/17 09:17 (NS Flush) 2 ml UNSCH PRN IV FLUSH 01/06/17 16:45 (NS Flush) 2 ml BID IV FLUSH 01/06/17 21:00 01/07/17 09:18 (Zofran Inj) 4 mg Q6H PRN IVP 01/06/17 16:45 (Narcan Inj) 0.4 mg UNSCH PRN IV PUSH 01/06/17 16:45 (Dixie-Colace) 1 tab BID PO 01/06/17 21:00 01/07/17 09:17 (Milk Of Magnesia Liq) 30 ml Q12H PRN PO 01/06/17 16:45 (Senokot) 17.2 mg Q12H PRN PO 01/06/17 16:45 (Dulcolax Supp) 10 mg DAILY PRN RECTAL 01/06/17 16:45 (Lactulose Liq) 30 ml DAILY PRN PO 01/06/17 16:45 Multivitamins 10 ml/Folic Acid 1 mg/Sodium Chloride 510.2 ml @ 125 mls/hr Q24H IV 01/06/17 20:00 01/11/17 19:59 01/06/17 21:18 Thiamine HCl 100 mg/Sodium Chloride 101 ml @ 100 mls/hr Q24H IV 01/06/17 20:00 01/09/17 19:59 01/06/17 21:19 (Vitamin B1) 100 mg DAILY PO 01/10/17 09:00 (Pepcid) 20 mg BID PO 01/06/17 21:00 01/07/17 09:17 (Romazicon Inj) 0.2 mg Q1M PRN IV PUSH 01/06/17 17:45 (Ativan) 1 mg Q4H PRN PO 01/06/17 17:45 01/07/17 07:07 (Ativan Inj) 1 mg Q4H PRN IV PUSH 01/06/17 17:45 (Ativan) 2 mg Q2H PRN PO 01/06/17 17:45 (Ativan Inj) 2 mg Q2H PRN IV PUSH 01/06/17 17:45 (Ativan Inj) 2 mg Q1H PRN IV PUSH 01/06/17 17:45 (Ativan Inj) 2 mg Q15M PRN IV PUSH 01/06/17 17:45 (Lovenox Inj) 40 mg Q24H SQ 01/06/17 18:00 01/06/17 18:37 Albumin Human 50 ml @ 60 mls/hr Q12H IV 01/06/17 18:00 01/07/17 05:33 Pharmacy Profile Note 0 ml @ 0 mls/hr UNSCH OTHER 01/06/17 18:00 Piperacillin Sod/ Tazobactam Sod 50 ml @ 100 mls/hr Q6H IV 01/06/17 20:00 01/07/17 09:25 (Lactulose Liq) 30 ml TID PO 01/07/17 09:00 01/07/17 09:18 (Xifaxan) 400 mg Q8HR PO 01/06/17 22:00 01/07/17 05:33 (Zoloft) 25 mg DAILY PO 01/07/17 09:00 01/07/17 09:17 (Dolophine) 140 mg DAILY PO 01/06/17 18:15 01/07/17 09:16 (Oscal) 1,000 mg BID PO 01/07/17 09:00 01/07/17 09:17 Potassium Chloride 100 ml @ 50 mls/hr Q2H IV 01/07/17 06:30 01/07/17 10:29 01/07/17 06:34 (D50w (Vial) Inj) 50 ml UNSCH PRN IV PUSH 01/07/17 08:15 (Glucagon Inj) 1 mg UNSCH PRN OTHER 01/07/17 08:15 (NovoLOG SUPPLEMENTAL SCALE) 1 ACHS SLIDING SCALE SQ 01/07/17 12:00 Vancomycin HCl 1250 mg/Sodium Chloride 262.5 ml @ 250 mls/hr Q12H IV 01/07/17 21:00 Miscellaneous Information SPECIFIC LAB TO BE DRAWN:VANCOMYCIN TROUGH DATE TO... ONCE ONCE .XX 01/09/17 08:45 01/09/17 08:46 Vital Signs / I&O Vital Signs Date Time Temp Pulse Resp B/P (MAP) Pulse Ox O2 Delivery O2 Flow Rate FiO2 01/07/17 04:00 98.0 92 20 155/67 (96) 94 01/07/17 04:00 Nasal Cannula 2.00 01/07/17 00:00 98.1 96 20 121/61 (81) 92 01/07/17 00:00 Nasal Cannula 2.00 01/06/17 21:00 Nasal Cannula 2.00 01/06/17 20:00 98.5 108 18 124/60 (81) 95 01/06/17 19:55 110 01/06/17 17:20 98.2 107 22 134/79 (97) 93 01/06/17 15:40 Nasal Cannula 2.00 01/06/17 15:10 108 20 132/79 (96) 95 Room Air 01/06/17 14:15 98.1 122 24 110/58 (75) 90 I/O 01/06/17 01/06/17 01/06/17 01/07/17 01/07/17 01/07/17 07:00 15:00 23:00 07:00 15:00 23:00 Intake Total 265 ml 2277 ml 100 ml Output Total 2650 ml Balance 265 ml -373 ml 100 ml Intake Oral 818 ml IV Total 265 ml 1459 ml 100 ml Output Urine Total 2650 ml Physical Exam GENERAL: No acute distress. HEENT: Jugular venous pressure is HARD TO ASSESS CHEST: Lungs diminished at bases. Unlabored respiratory effort. CARDIAC: Regular rate and rhythm. Tele SR ABDOMEN: Tense ascites. EXTREMITIES: 4+ edema. Anasarca Laboratory Laboratory Tests Test 01/06/17 14:26 01/06/17 15:20 01/06/17 20:00 01/06/17 21:30 White Blood Count 6.5 TH/MM3 Red Blood Count 3.87 MIL/MM3 Hemoglobin 12.7 GM/DL Hematocrit 37.8 % Mean Corpuscular Volume 97.7 FL Mean Corpuscular Hemoglobin 32.7 PG Mean Corpuscular Hemoglobin Concent 33.5 % Red Cell Distribution Width 14.9 % Platelet Count 128 TH/MM3 Mean Platelet Volume 6.5 FL Neutrophils (%) (Auto) 68.7 % Lymphocytes (%) (Auto) 17.2 % Monocytes (%) (Auto) 12.3 % Eosinophils (%) (Auto) 0.6 % Basophils (%) (Auto) 1.2 % Neutrophils # (Auto) 4.5 TH/MM3 Lymphocytes # (Auto) 1.1 TH/MM3 Monocytes # (Auto) 0.8 TH/MM3 Eosinophils # (Auto) 0.0 TH/MM3 Basophils # (Auto) 0.1 TH/MM3 CBC Comment DIFF FINAL Differential Comment Prothrombin Time 14.3 SEC Prothromb Time International Ratio 1.3 RATIO Activated Partial Thromboplast Time 30.6 SEC Blood Urea Nitrogen 8 MG/DL Creatinine 0.79 MG/DL Random Glucose 111 MG/DL Total Protein 7.9 GM/DL Albumin 2.6 GM/DL Calcium Level 7.4 MG/DL Magnesium Level 2.1 MG/DL Alkaline Phosphatase 200 U/L Aspartate Amino Transf (AST/SGOT) 589 U/L Alanine Aminotransferase (ALT/SGPT) 161 U/L Total Bilirubin 2.1 MG/DL Sodium Level 138 MEQ/L Potassium Level 4.0 MEQ/L Chloride Level 102 MEQ/L Carbon Dioxide Level 28.4 MEQ/L Anion Gap 8 MEQ/L Estimat Glomerular Filtration Rate 106 ML/MIN Protein Corrected Calcium 7.1 MG/DL Total Creatine Kinase 405 U/L 386 U/L Creatine Kinase MB 2.6 NG/ML 1.8 NG/ML Creatine Kinase MB % 0.6 % 0.5 % Troponin I 0.27 NG/ML 0.26 NG/ML B-Type Natriuretic Peptide 181 PG/ML Ammonia 58 MCMOL/L Urine Color LIGHT-YELLOW Urine Turbidity CLEAR Urine pH 6.0 Urine Specific Ira 1.005 Urine Protein NEG mg/dL Urine Glucose (UA) NEG mg/dL Urine Ketones NEG mg/dL Urine Occult Blood NEG Urine Nitrite NEG Urine Bilirubin NEG Urine Urobilinogen LESS THAN 2.0 MG/DL Urine Leukocyte Esterase NEG Urine RBC LESS THAN 1 /hpf Urine WBC 3 /hpf Urine Squamous Epithelial Cells <1 /hpf Urine Bacteria RARE /hpf Microscopic Urinalysis Comment CULT NOT INDICATED Lactic Acid Level 2.8 mmol/L Urine Opiates Screen NEG Urine Barbiturates Screen NEG Urine Amphetamines Screen NEG Urine Benzodiazepines Screen NEG Urine Cocaine Screen NEG Urine Cannabinoids Screen NEG Test 01/07/17 00:05 01/07/17 04:36 Lactic Acid Level 2.6 mmol/L White Blood Count 5.7 TH/MM3 Red Blood Count 3.61 MIL/MM3 Hemoglobin 11.9 GM/DL Hematocrit 35.1 % Mean Corpuscular Volume 97.2 FL Mean Corpuscular Hemoglobin 32.8 PG Mean Corpuscular Hemoglobin Concent 33.8 % Red Cell Distribution Width 14.9 % Platelet Count 82 TH/MM3 Mean Platelet Volume 6.6 FL Neutrophils (%) (Auto) 64.6 % Lymphocytes (%) (Auto) 18.4 % Monocytes (%) (Auto) 13.9 % Eosinophils (%) (Auto) 1.7 % Basophils (%) (Auto) 1.4 % Neutrophils # (Auto) 3.7 TH/MM3 Lymphocytes # (Auto) 1.0 TH/MM3 Monocytes # (Auto) 0.8 TH/MM3 Eosinophils # (Auto) 0.1 TH/MM3 Basophils # (Auto) 0.1 TH/MM3 CBC Comment AUTO DIFF Differential Comment AUTO DIFF CONFIRMED Platelet Estimate LOW Platelet Morphology Comment NORMAL Blood Urea Nitrogen 7 MG/DL Creatinine 0.69 MG/DL Random Glucose 67 MG/DL Total Protein 7.4 GM/DL Albumin 2.5 GM/DL Calcium Level 7.1 MG/DL Alkaline Phosphatase 176 U/L Aspartate Amino Transf (AST/SGOT) 474 U/L Alanine Aminotransferase (ALT/SGPT) 130 U/L Total Bilirubin 2.3 MG/DL Sodium Level 142 MEQ/L Potassium Level 2.8 MEQ/L Chloride Level 98 MEQ/L Carbon Dioxide Level 34.5 MEQ/L Anion Gap 10 MEQ/L Estimat Glomerular Filtration Rate 124 ML/MIN Protein Corrected Calcium 7.0 MG/DL Magnesium Level 1.6 MG/DL Total Creatine Kinase 304 U/L Troponin I 0.28 NG/ML Triglycerides Level 96 MG/DL Cholesterol Level 128 MG/DL LDL Cholesterol 72 MG/DL HDL Cholesterol 37.3 MG/DL Cholesterol/HDL Ratio 3.43 RATIO Free Thyroxine 1.48 NG/DL Thyroid Stimulating Hormone 3rd Gen 6.410 uIU/ML Imaging Last 24 hours Impressions Chest X-Ray 01/06/17 1417 Signed Impressions: Service Date/Time: Friday, January 06, 2017 14:34 - CONCLUSION: Cardiomegaly with pulmonary vascular engorgement. No infiltrate or effusion. Rosendo Connors Jr., MD Assessment and Plan Problem List: (1) Elevated troponin ICD Codes: R74.8 - Abnormal levels of other serum enzymes (2) Anasarca ICD Codes: R60.1 - Generalized edema Status: Acute (3) Liver cirrhosis ICD Codes: K74.60 - Unspecified cirrhosis of liver Status: Acute Assessment and Plan Replete K+ by PCP. Cont. diuresis. Await echo. Suspect cirrhosis more than CHF Jose Mathur MD Jan 07, 2017 09:47
--- NOTE | 2017-01-07 10:18 | HHI.PR ---
Objective Vitals Vital Signs Date Time Temp Pulse Resp B/P (MAP) Pulse Ox O2 Delivery O2 Flow Rate FiO2 01/07/17 04:00 98.0 92 20 155/67 (96) 94 01/07/17 04:00 Nasal Cannula 2.00 01/07/17 00:00 98.1 96 20 121/61 (81) 92 01/07/17 00:00 Nasal Cannula 2.00 01/06/17 21:00 Nasal Cannula 2.00 01/06/17 20:00 98.5 108 18 124/60 (81) 95 01/06/17 19:55 110 01/06/17 17:20 98.2 107 22 134/79 (97) 93 01/06/17 15:40 Nasal Cannula 2.00 01/06/17 15:10 108 20 132/79 (96) 95 Room Air 01/06/17 14:15 98.1 122 24 110/58 (75) 90 I/O 01/06/17 01/06/17 01/06/17 01/07/17 01/07/17 01/07/17 07:00 15:00 23:00 07:00 15:00 23:00 Intake Total 265 ml 2277 ml 100 ml Output Total 2650 ml Balance 265 ml -373 ml 100 ml Intake Oral 818 ml IV Total 265 ml 1459 ml 100 ml Output Urine Total 2650 ml Result Diagram: 01/07/17 0436 01/07/17 0436 Imaging Last Impressions Chest X-Ray 01/06/17 1417 Signed Impressions: Service Date/Time: Friday, January 06, 2017 14:34 - CONCLUSION: Cardiomegaly with pulmonary vascular engorgement. No infiltrate or effusion. MD Cosmo Flores Jr., Jose R MD Jan 07, 2017 10:18
--- NOTE | 2017-01-07 10:50 | PD.PSY.CON ---
Provisional Diagnosis Admission Date Jan 06, 2017 at 15:50 [place] I. Adjustment disorder with depression, alcohol induced mood disorder, alcohol use disorder, opiate use disorder, in early sustained remission, in methadone 140 mg daily, history of depression [place] II. Deferred [place] III. Anasarca, hepatic cirrhosis [place] IV. History of sustained alcohol use disorder [place] V. 55 History of Present Illness Service Psychiatry Consult Requested By Medical team Reason for Consult Suicidal ideation Primary Care Physician No Primary Care Physician HPI The patient is a 46-year-old man, domiciled with his father in [facility], single , unemployed, with psychiatric history of depression, alcohol use disorder, opiate use disorder in methadone 140 mg daily, no previous psychiatric hospitalizations, no previous suicidal attempts, who came to ER for evaluation of Edema, Shortness of breath, Chest pain, who started with swelling in his lower extremities and testicles for two weeks before coming to ER, progressively worsening to the point where he cant ambulate or urinate without difficulty, pain is 10/10 in intensity, Chest pain started 2 days ago a substernal pain, Patient admits to drinking alcohol on a daily basis, he states he drinks at least a 1/5th of vodka daily. Father is present and states he was out of town for a few days and when he returned there were numerous empty liquor bottles around the house. Patient states that he feels like he may be in withdrawal because he has been unable to go to the methadone clinic for 3 days because of all the swelling in his legs and testicles. on his arrival to the evaluation in the context of acute pain, opiate and alcohol withdrawal, patient expressed suicidal ideation and depression. However, today on psychiatric evaluation patient is calm, cooperative and pleasant. She explains that he feels much better today. He says that when he came to the hospital that he was dying, he was in a lot of pain, not walk was very desperate. At this moment the patient reports that he is hopeful, he feels happy that he is getting the help that he needs, he says that he is committed to be detox off alcohol and is started going to meetings in . He says that he has been on methadone 140 mg " and this safe my life" his also committed to continue titrating down to 0 his methadone. At this moment the patient denies hopelessness, helplessness, anhedonia, worthlessness, he denies suicidal and homicidal ideation, he denies visual and auditory hallucinations. Patient is oriented 3, no agitation, no aggressive behavior, no restlessness, no tremors or withdrawal are present. Review of Systems Genitourinary: COMPLAINS OF: Testicular Pain, Testicular Swelling Musculoskeletal: DENIES: Joint pain, Muscle aches, Stiffness, Joint Swelling, Back pain, Neck pain Integumentary: DENIES: Abnormal pigmentation, Nail changes, Pruritus, Rash Hematologic/lymphatic: DENIES: Bruising, Lymphadenopathy Immunologic/allergic: DENIES: Eczema, Urticaria Neurologic: DENIES: Abnormal gait, Headache, Localized weakness, Paresthesias, Seizures, Speech Problems, Tremor, Poor Balance Psychiatric: DENIES: Anxiety, Confusion, Mood changes, Depression, Hallucinations, Agitation, Suicidal Ideation, Homicidal Ideation, Delusions Past Family Social History Coded Allergies: risperidone (Unverified Allergy, Severe, Anaphylaxis, 09/24/16) ziprasidone (Unverified Allergy, Severe, Anaphylaxis, 09/24/16) Active Scripts Sertraline (Zoloft) 50 Mg Tab, 25 MG PO DAILY for Anxiety, #30 TAB 3 Refills Prov:Mae Jimenez 09/24/16 Potassium Chloride Microencaps (Potassium Chloride Microencaps) 20 Meq Tab, 20 MEQ PO DAILY for Nutritional Supplement, #30 TAB 3 Refills Prov:Mae Jimenez 09/24/16 Furosemide (Furosemide) 20 Mg Tab, 20 MG PO BID for ascites, #60 TAB 3 Refills Prov:Mae Jimenez 09/24/16 Spironolactone (Aldactone) 50 Mg Tab, 50 MG PO DAILY for ascites, #30 TAB 3 Refills Prov:Mae Jimenez 09/24/16 Thiamine HCl (Gnp Vitamin B-1) 100 Mg Tab, 100 MG PO DAILY for mvt, #30 TAB 3 Refills Prov:Mae Jimenez 09/24/16 Folic Acid (Folic Acid) 1 Mg Tablet, 1 MG PO DAILY for mvt, #30 TAB 3 Refills Prov:TonyAlbertaannette ELDER 09/24/16 Walker with Front Wheels (Walker with Front Wheels) 1 Mis Mis, 1 EA .ROUTE DIRECTED, #1 EA 0 Refills Prov:Ken Foreman MD 09/11/16 Lorazepam (Lorazepam) 0.5 Mg Tab, 0.5 MG PO Q8H Y for ANXIETY, #10 TAB 0 Refills Prov:Cynthia Biggs MD 09/04/16 Sennosides-Docusate Sodium (Senna Plus 8.6-50 mg) 1 Tab Tab, 1 TAB PO BID for Constipation, #30 TAB Prov:Cynthia Biggs MD 09/04/16 Rifaximin (Xifaxan) 200 Mg Tab, 400 MG PO Q8HR for etoh , #90 TAB Prov:Cynthia Biggs MD 09/04/16 Pentoxifylline ER (Pentoxifylline ER) 400 Mg Tab, 400 MG PO Q8HR for Shortness of Breath, #90 TAB Prov:Cynthia Biggs MD 09/04/16 Reported Medications Insulin Glargine (Basaglar Kwikpen) 100 Unit/Ml Pen, 1 UNITS SQ DAILY for Blood Sugar Management, #5 PEN 0 Refills 01/06/17 Insulin Aspart Inj (Novolog Flexpen Inj) 300 Unit/3 Ml Pen, 1 UNITS SQ for Blood Sugar Management, #1 PEN 0 Refills 01/06/17 Methadone Intensol Liq (Methadone Intensol Liq) 10 Mg/Ml Conc, 140 MG PO DAILY, #30 ML 0 Refills 09/01/16 Current Medications Medications (Trade) Dose Ordered Sig/[facility] Route Start Time Stop Time Status Last Admin (Aldactone) 50 mg DAILY PO 01/07/17 09:00 01/07/17 09:17 (Lasix Inj) 80 mg BID@09,18 IV PUSH 01/06/17 18:00 01/07/17 09:17 (KCl) 20 meq TID PO 01/06/17 18:00 01/07/17 09:17 (NS Flush) 2 ml UNSCH PRN IV FLUSH 01/06/17 16:45 (NS Flush) 2 ml BID IV FLUSH 01/06/17 21:00 01/07/17 09:18 (Zofran Inj) 4 mg Q6H PRN IVP 01/06/17 16:45 (Narcan Inj) 0.4 mg UNSCH PRN IV PUSH 01/06/17 16:45 (Dixie-Colace) 1 tab BID PO 01/06/17 21:00 01/07/17 09:17 (Milk Of Magnesia Liq) 30 ml Q12H PRN PO 01/06/17 16:45 (Senokot) 17.2 mg Q12H PRN PO 01/06/17 16:45 (Dulcolax Supp) 10 mg DAILY PRN RECTAL 01/06/17 16:45 (Lactulose Liq) 30 ml DAILY PRN PO 01/06/17 16:45 Multivitamins 10 ml/Folic Acid 1 mg/Sodium Chloride 510.2 ml @ 125 mls/hr Q24H IV 01/06/17 20:00 01/11/17 19:59 01/06/17 21:18 Thiamine HCl 100 mg/Sodium Chloride 101 ml @ 100 mls/hr Q24H IV 01/06/17 20:00 01/09/17 19:59 01/06/17 21:19 (Vitamin B1) 100 mg DAILY PO 01/10/17 09:00 (Pepcid) 20 mg BID PO 01/06/17 21:00 01/07/17 09:17 (Romazicon Inj) 0.2 mg Q1M PRN IV PUSH 01/06/17 17:45 (Ativan) 1 mg Q4H PRN PO 01/06/17 17:45 01/07/17 07:07 (Ativan Inj) 1 mg Q4H PRN IV PUSH 01/06/17 17:45 (Ativan) 2 mg Q2H PRN PO 01/06/17 17:45 (Ativan Inj) 2 mg Q2H PRN IV PUSH 01/06/17 17:45 (Ativan Inj) 2 mg Q1H PRN IV PUSH 01/06/17 17:45 (Ativan Inj) 2 mg Q15M PRN IV PUSH 01/06/17 17:45 (Lovenox Inj) 40 mg Q24H SQ 01/06/17 18:00 01/06/17 18:37 Albumin Human 50 ml @ 60 mls/hr Q12H IV 01/06/17 18:00 01/07/17 05:33 Pharmacy Profile Note 0 ml @ 0 mls/hr UNSCH OTHER 01/06/17 18:00 Piperacillin Sod/ Tazobactam Sod 50 ml @ 100 mls/hr Q6H IV 01/06/17 20:00 01/07/17 09:25 (Lactulose Liq) 30 ml TID PO 01/07/17 09:00 01/07/17 09:18 (Xifaxan) 400 mg Q8HR PO 01/06/17 22:00 01/07/17 05:33 (Zoloft) 25 mg DAILY PO 01/07/17 09:00 01/07/17 09:17 (Dolophine) 140 mg DAILY PO 01/06/17 18:15 01/07/17 09:16 (Oscal) 1,000 mg BID PO 01/07/17 09:00 01/07/17 09:17 (D50w (Vial) Inj) 50 ml UNSCH PRN IV PUSH 01/07/17 08:15 (Glucagon Inj) 1 mg UNSCH PRN OTHER 01/07/17 08:15 (NovoLOG SUPPLEMENTAL SCALE) 1 ACHS SLIDING SCALE SQ 01/07/17 12:00 Vancomycin HCl 1250 mg/Sodium Chloride 262.5 ml @ 250 mls/hr Q12H IV 01/07/17 21:00 Miscellaneous Information SPECIFIC LAB TO BE DRAWN:VANCOMYCIN TROUGH DATE TO... ONCE ONCE .XX 01/09/17 08:45 01/09/17 08:46 Family Psych History He denies family psychiatric history Social History Patient was born and raised in [facility], he lives in [place] with his father, his single, unemployed, supported by his father, his highest level of education is college degree Patient's Strengths (min. 2) Insight of his alcoholism, on treatment of opiates dependence Physical Exam Patient has bilateral lower extremity edema, but no tremors, no EPS, no stiffness, no psychomotor agitation present Vital Signs Vital Signs Date Time Temp Pulse Resp B/P (MAP) Pulse Ox O2 Delivery O2 Flow Rate FiO2 01/07/17 04:00 98.0 92 20 155/67 (96) 94 01/07/17 04:00 Nasal Cannula 2.00 I/O 01/07/17 01/07/17 01/08/17 08:00 16:00 00:00 Intake Total 2477 ml 100 ml Output Total 2650 ml Balance -173 ml 100 ml Lab Results Test 01/06/17 14:26 01/06/17 15:20 01/06/17 20:00 01/06/17 21:30 White Blood Count 6.5 TH/MM3 Red Blood Count 3.87 MIL/MM3 Hemoglobin 12.7 GM/DL Hematocrit 37.8 % Mean Corpuscular Volume 97.7 FL Mean Corpuscular Hemoglobin 32.7 PG Mean Corpuscular Hemoglobin Concent 33.5 % Red Cell Distribution Width 14.9 % Platelet Count 128 TH/MM3 Mean Platelet Volume 6.5 FL Neutrophils (%) (Auto) 68.7 % Lymphocytes (%) (Auto) 17.2 % Monocytes (%) (Auto) 12.3 % Eosinophils (%) (Auto) 0.6 % Basophils (%) (Auto) 1.2 % Neutrophils # (Auto) 4.5 TH/MM3 Lymphocytes # (Auto) 1.1 TH/MM3 Monocytes # (Auto) 0.8 TH/MM3 Eosinophils # (Auto) 0.0 TH/MM3 Basophils # (Auto) 0.1 TH/MM3 CBC Comment DIFF FINAL Differential Comment Prothrombin Time 14.3 SEC Prothromb Time International Ratio 1.3 RATIO Activated Partial Thromboplast Time 30.6 SEC Blood Urea Nitrogen 8 MG/DL Creatinine 0.79 MG/DL Random Glucose 111 MG/DL Total Protein 7.9 GM/DL Albumin 2.6 GM/DL Calcium Level 7.4 MG/DL Magnesium Level 2.1 MG/DL Alkaline Phosphatase 200 U/L Aspartate Amino Transf (AST/SGOT) 589 U/L Alanine Aminotransferase (ALT/SGPT) 161 U/L Total Bilirubin 2.1 MG/DL Sodium Level 138 MEQ/L Potassium Level 4.0 MEQ/L Chloride Level 102 MEQ/L Carbon Dioxide Level 28.4 MEQ/L Anion Gap 8 MEQ/L Estimat Glomerular Filtration Rate 106 ML/MIN Protein Corrected Calcium 7.1 MG/DL Total Creatine Kinase 405 U/L 386 U/L Creatine Kinase MB 2.6 NG/ML 1.8 NG/ML Creatine Kinase MB % 0.6 % 0.5 % Troponin I 0.27 NG/ML 0.26 NG/ML B-Type Natriuretic Peptide 181 PG/ML Ammonia 58 MCMOL/L Urine Color LIGHT-YELLOW Urine Turbidity CLEAR Urine pH 6.0 Urine Specific [place] 1.005 Urine Protein NEG mg/dL Urine Glucose (UA) NEG mg/dL Urine Ketones NEG mg/dL Urine Occult Blood NEG Urine Nitrite NEG Urine Bilirubin NEG Urine Urobilinogen LESS THAN 2.0 MG/DL Urine Leukocyte Esterase NEG Urine RBC LESS THAN 1 /hpf Urine WBC 3 /hpf Urine Squamous Epithelial Cells <1 /hpf Urine Bacteria RARE /hpf Microscopic Urinalysis Comment CULT NOT INDICATED Lactic Acid Level 2.8 mmol/L Urine Opiates Screen NEG Urine Barbiturates Screen NEG Urine Amphetamines Screen NEG Urine Benzodiazepines Screen NEG Urine Cocaine Screen NEG Urine Cannabinoids Screen NEG Test 01/07/17 00:05 01/07/17 04:36 Lactic Acid Level 2.6 mmol/L White Blood Count 5.7 TH/MM3 Red Blood Count 3.61 MIL/MM3 Hemoglobin 11.9 GM/DL Hematocrit 35.1 % Mean Corpuscular Volume 97.2 FL Mean Corpuscular Hemoglobin 32.8 PG Mean Corpuscular Hemoglobin Concent 33.8 % Red Cell Distribution Width 14.9 % Platelet Count 82 TH/MM3 Mean Platelet Volume 6.6 FL Neutrophils (%) (Auto) 64.6 % Lymphocytes (%) (Auto) 18.4 % Monocytes (%) (Auto) 13.9 % Eosinophils (%) (Auto) 1.7 % Basophils (%) (Auto) 1.4 % Neutrophils # (Auto) 3.7 TH/MM3 Lymphocytes # (Auto) 1.0 TH/MM3 Monocytes # (Auto) 0.8 TH/MM3 Eosinophils # (Auto) 0.1 TH/MM3 Basophils # (Auto) 0.1 TH/MM3 CBC Comment AUTO DIFF Differential Comment AUTO DIFF CONFIRMED Platelet Estimate LOW Platelet Morphology Comment NORMAL Blood Urea Nitrogen 7 MG/DL Creatinine 0.69 MG/DL Random Glucose 67 MG/DL Total Protein 7.4 GM/DL Albumin 2.5 GM/DL Calcium Level 7.1 MG/DL Alkaline Phosphatase 176 U/L Aspartate Amino Transf (AST/SGOT) 474 U/L Alanine Aminotransferase (ALT/SGPT) 130 U/L Total Bilirubin 2.3 MG/DL Sodium Level 142 MEQ/L Potassium Level 2.8 MEQ/L Chloride Level 98 MEQ/L Carbon Dioxide Level 34.5 MEQ/L Anion Gap 10 MEQ/L Estimat Glomerular Filtration Rate 124 ML/MIN Protein Corrected Calcium 7.0 MG/DL Magnesium Level 1.6 MG/DL Total Creatine Kinase 304 U/L Troponin I 0.28 NG/ML Triglycerides Level 96 MG/DL Cholesterol Level 128 MG/DL LDL Cholesterol 72 MG/DL HDL Cholesterol 37.3 MG/DL Cholesterol/HDL Ratio 3.43 RATIO Free Thyroxine 1.48 NG/DL Thyroid Stimulating Hormone 3rd Gen 6.410 uIU/ML Date/Time Source Procedure Growth Status 01/06/17 21:26 Blood Peripheral Aerobic Blood Culture Pending Received 01/06/17 21:26 Blood Peripheral Anaerobic Blood Culture Pending Received 01/06/17 15:53 Wound Leg Gram Stain - Final Resulted 01/06/17 15:53 Wound Leg Wound Culture Pending Resulted Mental Status Examination Appearance: Appropriate Consciousness: Alert Orientation: x4 Motor Activity: Normal gait Speech: Unremarkable Language: Adequate Fund of Knowledge: Adequate Attention and Concentration: Adequate Memory: Unremarkable Mood: Appropriate Affect: Appropriate Thought Process & Associations: Intact Thought Content: Appropriate Hallucination Type: None Delusion Type: None Suicidal Ideation: No Suicidal Plan: No Suicidal Intention: No Homicidal Ideation: No Homicidal Plan: No Homicidal Intention: No Insight: Adequate Judgment: Adequate Assessment & Plan Problem List: (1) Adjustment disorder with depressed mood ICD Codes: F43.21 - Adjustment disorder with depressed mood Assessment & Plan: On psychiatric evaluation today the patient is calm, cooperative, in a good spirit, pleasant. The patient denies symptomatology of depression, such as anhedonia, helplessness, hopelessness, decreased concentration, lack of motivation, suicidal or homicidal ideation. He denies visual and auditory hallucinations. She does report problems sleeping at night , lack of energy, good appetite that could be related with sadness secondary to adjustment, but also due to his underlying medical conditions. We'll start trazodone 100 mg at bedtime to help with sleep and with depressive symptoms. Patient is oriented 3, no agitation, no aggressive behavior reported. During my evaluation there is not objective or subjective symptomatology of alcohol withdrawal. Agree with continuing CIWA. agree with methadone 140 mg daily. Extensive psychoeducation, brief supportive psychotherapy and motivation provided. patient does not meet criteria for involuntary psychiatric admission. Olmedo act would be lifted. I will follow-up. Assessment & Plan Estimated LOS: Damir Riojas MD Jan 07, 2017 10:50
[2017-01-07] MEDS: INSULIN ASPART SUPPLEMENTAL SCALE SQ SCH ×3 (12:00→21:00)
--- NOTE | 2017-01-07 14:17 | HHI.PR ---
Subjective Remarks Follow-up anasarca and withdrawal symptoms. Reports of improving withdrawal symptoms since he has been started on methadone. Denies suicidal ideations Olmedo act has been lifted. Admits to shortness of breath but denies having chest pain. Discussed with RN Objective Vitals Vital Signs Date Time Temp Pulse Resp B/P (MAP) Pulse Ox O2 Delivery O2 Flow Rate FiO2 01/07/17 12:00 98.8 98 24 131/74 (93) 95 01/07/17 08:45 96 Nasal Cannula 2.00 01/07/17 08:00 98.7 93 22 129/73 (91) 95 01/07/17 04:00 98.0 92 20 155/67 (96) 94 01/07/17 04:00 Nasal Cannula 2.00 01/07/17 00:00 98.1 96 20 121/61 (81) 92 01/07/17 00:00 Nasal Cannula 2.00 01/06/17 21:00 Nasal Cannula 2.00 01/06/17 20:00 98.5 108 18 124/60 (81) 95 01/06/17 19:55 110 01/06/17 17:20 98.2 107 22 134/79 (97) 93 01/06/17 15:40 Nasal Cannula 2.00 01/06/17 15:10 108 20 132/79 (96) 95 Room Air I/O 01/06/17 01/06/17 01/06/17 01/07/17 01/07/17 01/07/17 07:00 15:00 23:00 07:00 15:00 23:00 Intake Total 265 ml 2277 ml 750 ml Output Total 2650 ml Balance 265 ml -373 ml 750 ml Intake Oral 818 ml IV Total 265 ml 1459 ml 750 ml Output Urine Total 2650 ml Result Diagram: 01/07/17 0436 01/07/17 0436 Imaging Last Impressions Chest X-Ray 01/06/17 1417 Signed Impressions: Service Date/Time: Friday, January 06, 2017 14:34 - CONCLUSION: Cardiomegaly with pulmonary vascular engorgement. No infiltrate or effusion. Rosendo Connors Jr., MD Objective Remarks GENERAL: Obese, alert male. Resting in no acute distress. SKIN: Warm and dry. Dry, cracked skin to bilateral lower extremities, weeping wounds to bilateral calves. CARDIOVASCULAR: Regular rate and rhythm. RESPIRATORY: No accessory muscle use. Diminished in bases GASTROINTESTINAL: Abdomen obese, distended, non-tender. Positive bowel sounds, no rebound, no guarding MUSCULOSKELETAL: Extremities without clubbing, cyanosis. No obvious deformities. 2+ edema to bilateral lower extremities. 2+ dorsalis pedal pulses bilaterally. GENITOURINARY: Penis and testicles are markedly edematous. NEUROLOGICAL: Awake and alert. No obvious cranial nerve deficits. Motor grossly within normal limits. Five out of 5 muscle strength in the arms and legs. Normal speech. PSYCHIATRIC: Appropriate mood and affect; insight and judgment normal. Procedures none A/P Problem List: (1) Anasarca ICD Code: R60.1 - Generalized edema Status: Acute Assessment and Plan Anasarca with history of liver cirrhosis, hepatitis C, alcohol abuse hyperammonemia, splenomegaly and thrombocytopenia. Continue diuresis with IV Lasix and monitor renal function and electrolytes . Follow-up echocardiogram Mild elevation in his Troponin level likely secondary to above. Doubt ACS. Denies chest pain. Patient received aspirin. Monitor . Reports of negative stress tests but in August 2016 Alcohol abuse and dependency strongly recommended to stop drinking behavior prepare for probable withdrawal with CIWA protocol Hypokalemia and hypocalcemia. Continue aggressive replacement. Repeat BMP in the morning Substance Abuse/Tobacco dependence strongly recommended to stop smoking, stop substance abuse, will continue Methadone from home dose Assessment disorder. Shara riggins has been evaluated by psychiatry. Zoloft has been discontinued and started on trazodone Right Leg Cellulitis on Vancomycin and Zosyn. Follow-up wound care and culture Obesity strongly recommended diet and exercise as outpatient. DVT prophylaxis with Lovenox. Discharge Planning Not ready for discharge Marito Wilburn MD Jan 07, 2017 14:17
[2017-01-07 16:01] LABS: HEMOGLOBIN A1a 0.9 %; HEMOGLOBIN A1b 1.2 %; HEMOGLOBIN Ao 88.1 %; HEMOGLOBIN LA1C 1.7 %; HEMOGLOBIN P3 3.1 %
--- NOTE | 2017-01-07 16:11 | EKG ---
Date Performed: 01/06/2017 Time Performed: 15:15:04 PTAGE: 46 years EKG: SINUS TACHYCARDIA MODERATE INTRAVENTRICULAR CONDUCTION DELAY When compare to previous antonio ng, the patient is now Tachycardic. ABNORMAL RHYTHM ECG PREVIOUS TRACING : 08/31/2016 11.11 DOCTOR: Keli Domínguez Interpretating Date/Time 01/07/2017 16:11:04
--- NOTE | 2017-01-07 16:48 | ECHRPT ---
Indication: HEART FAILURE CONCLUSIONS Normal left ventricular size and wall thickness. The left ventricular systolic function is normal wi th an estimated ejection fraction 60%. No definite wall motion abnormalities. Trace tricuspid valve regurgitation. BP: 155 / 67 HR: 92 Rhythm: MEASUREMENTS (Male / Female) Normal Values Technical Quality: 2D ECHO LV Diastolic Diameter PLAX 6.0 cm 4.2 - 5.9 / 3.9 - 5.3 cm LV Systolic Diameter PLAX 4.8 cm IVS Diastolic Thickness 1.6 cm 0.6 - 1.0 / 0.6 - 0.9 cm LVPW Diastolic Thickness 0.7 cm 0.6 - 1.0 / 0.6 - 0.9 cm LV Relative Wall Thickness 0.4 LA Systolic Diameter LX 3.7 cm 3.0 - 4.0 / 2.7 - 3.8 cm DOPPLER TR Peak Velocity 288.0 cm/s TR Peak Gradient 33.2 mmHg Right Atrial Pressure 10.0 mmHg Pulmonary Artery Systolic Pressu 43.2 mmHg Right Ventricular Systolic Press 43.2 mmHg FINDINGS LEFT VENTRICLE Normal left ventricular size and wall thickness. The left ventricular systolic function is normal wi th an estimated ejection fraction 60%. No definite wall motion abnormalities. RIGHT VENTRICLE The right ventricle was not well visualized. LEFT ATRIUM The left atrial size is normal. RIGHT ATRIUM The right atrial size is normal. ATRIAL SEPTUM Normal atrial septal thickness without atrial level shunting by limited color doppler interrogation. AORTA The aortic root and proximal ascending aorta are normal in size on limited imaging. MITRAL VALVE Structurally normal mitral valve. No mitral valve stenosis or regurgitation. AORTIC VALVE Trileaflet aortic valve. No aortic valve stenosis or regurgitation. TRICUSPID VALVE Structurally normal tricuspid valve. Trace tricuspid valve regurgitation. PULMONARY VALVE The pulmonary valve is not well visualized. VESSELS The inferior vena cava is normal in size. PERICARDIUM No pericardial effusion. Catarino Pena MD (Electronically Signed) Final Date:07 January 2017 16:47
--- NOTE | 2017-01-07 16:56 | PD.WCN.NOT ---
Wound Consult Description: Received consult from Doctor Jordan Hdez for wound management of R leg Communicated with: HEMANTH Martinez [address] [place] [id number] and Doctor Wilburn for orders Recommendation: Please cleanse wounds to BLE with wound cleanser and apply Optifoam gentle AG over wounds and secure with rolled gauze and tape. Change dressing every 3 days or PRN if saturated or dislodged. Patient will need to be managed out patient by wound care center for follow up. Elevate BLE with pillows to reduce edema. Additional Information: Patient seen on [address] [place] [address] around 1415 for wound management of R leg. Removed dressings in place to BLE to reveal ulcerations. R lower leg ulcer presents with 100% pink tissue and minimal active serous drainage with mild odor. Moderate serous drainage is noted to removed dressing. Cleansed wound with wound cleanser and pat dry. Wound measures ~10cm x ~7cm x ~<0.1cm and is located on posterior medial calf. Wound margins are jagged and poorly defined. Entire R lower leg presents with edema that is hard and non pitting, erythema and dry scaly skin. Applied optifoam basic dressing that was on hand over wound bed and secured with rolled gauze and tape. RN to apply dressing as recommended above when supplies obtained. L lower leg wound presents with 100% pink tissue and minimal active drainage that has mild odor. Moderate serous drainage is noted to old dressing.Wound measures ~10cm x ~5cm x~<0.1cm wound is located L lower leg. Wound margins are jagged and poorly defined. Cleansed wound with wound cleanser. Entire L leg presents with hard non pitting edema, erythema, and dry scaly skin. Applied optifoam basic on hand over wound bed and secured with rolled gauze and tape. RN to apply dressings as recommended when supplies are obtained. BLE wounds present like venous stasis ulcers.Wound culture is noted with preliminary results of heavy growth of Staphylococcus Aureus for wound on L leg.Recommend out patient treatment with wound care center for followup. Please elevate BLE on pillows to reduce edema [facility] Jan 07, 2017 16:56
[2017-01-07 18:19] LABS: BICARBONATE 37.8 MEQ/L (21.0-32.0); MAGNESIUM 1.5 MG/DL (1.5-2.5)
[2017-01-07] MEDS: SODIUM CHLORIDE 0.9% FLUSH 10 ML FLUSH IV FLUSH PRN (18:21)
[2017-01-07] MEDS: ENOXAPARIN SODIUM 40 MG/0.4 ML SYRINGE SQ SCH (18:22)
[2017-01-07] MEDS ORDERED: POTASSIUM CHLOR 10 MEQ PREMIX 100 ML IV ONE (19:45)
[2017-01-07] MEDS: THIAMINE INJ 100 MG in SODIUM CHLORIDE 0.9% INJ 100 ML IV SCH (20:04)
[2017-01-07] MEDS: traZODone HCL 100 MG TAB PO SCH (21:26)
[2017-01-07] MEDS: MULTIVITAMIN INJ 10 ML, FOLIC ACID INJ 1 MG in SODIUM CHLORID 0.9% 500 ML INJ 500 ML IV SCH (21:27)
[2017-01-07] MEDS: VANCOMYCIN INJ 1,250 MG in SODIUM CHLOR 0.9% 250 ML INJ 250 ML IV SCH (21:27)
[2017-01-07] MEDS ORDERED: POTASSIUM CHLORIDE 10 MEQ CONTROLLED RELEASE TAB PO ONE (22:15)
[2017-01-07] MEDS: SOTALOL HCL 80 MG TAB PO SCH (22:35)
[2017-01-07 23:28] LABS: BICARBONATE 38.7 MEQ/L (21.0-32.0)
[2017-01-07 23:37] LABS: POTASSIUM 2.8 MEQ/L (3.5-5.1)
[2017-01-07] MEDS ORDERED: EPINEPHrine HCL (1:10,000) 1 MG/10 ML SYRINGE ONE (23:50)
[2017-01-07] MEDS ORDERED: ROCURONIUM INJ 50 MG/5 ML VIAL ONE (23:55)
[2017-01-07] MEDS ORDERED: SUCCINYLCHOLINE CHLORIDE 200 MG/10 ML VIAL ONE (23:56)
[2017-01-08] VITALS (14 sets, daily range): BP systolic 101–167; BP diastolic 52–94; PULSE 53–102; RESP 16–24; TEMP 98.3–98.7; O2SAT 93–100
[2017-01-08] MEDS ORDERED: methylPREDNISolone SOD SUCC 125 MG/2 ML VIAL ONE (00:04)
[2017-01-08] MEDS ORDERED: PROPOFOL 500 MG/50 ML INJ 50 ML ONE (00:23)
--- NOTE | 2017-01-08 00:34 | RADRPT ---
EXAM DATE/TIME: 01/08/2017 00:12 [facility] COMPARISON: CHEST PA & LAT, January 06, 2017, 14:34. CHEST SINGLE AP, September 04, 2016, 11:14. INDICATIONS : Shortness of breath. MEDICAL HISTORY : Cardiovascular disease. Hepatitis C. SURGICAL HISTORY : None. ENCOUNTER: Subsequent ACUITY: 1 day PAIN SCORE: Non-responsive. LOCATION: Bilateral chest FINDINGS: The ET tube tip is 6.2 cm from the cele. The NG tube is directed into the stomach. The heart size i s enlarged. There is mild prominence of the interstitium. There is some prominence of the hilar regio ns especially on the right. A significant effusion is not seen. When compared to the prior exam, the aeration of the lungs has improved. CONCLUSION: Suspected mild edema or pulmonary venous hypertension which appears to be improving. There is some pr ominence of the hilar regions especially on the right which may be secondary to vascular congestion a lthough this is nonspecific. This can be followed. Jose De Jesus MD on January 08, 2017 at 0:30 Board Certified Radiologist. This report was verified electronically.
[2017-01-08] MEDS ORDERED: AMIODARONE HCL 150 MG/3 ML VIAL ONE (01:09)
[2017-01-08] MEDS ORDERED: AMIODARONE INJ 150 MG in DEXTROSE 5% IN WATER 100ML INJ 100 ML IV ONE ×2 (01:11)
[2017-01-08] MEDS ORDERED: AMIODARONE INJ 450 MG in DEXTROSE 5% IN WATE(EXCEL) INJ 241 ML IV PRN ×2 (01:21)
--- NOTE | 2017-01-08 01:21 | PD.CONS ---
HPI Service Critical Care Medicine Consult Requested By Primary Care Physician No Primary Care Physician History of Present Illness 46-year-old morbidly obese gentleman admitted for evaluation of Edema, Shortness of breath, Chest pain, who started with swelling in his lower extremities and testicles 2 weeks prior to admission, progressively worsening to the point where he cant ambulate or urinate without difficulty, pain is 10/10 in intensity, Chest pain started the day prior to admission as a substernal pain. Per chart review he has been drinking alcohol on a daily basis, at least a 1/5th of vodka daily. He was considered to be in withdrawal because he has been unable to go to the methadone clinic for 3 days because of all the swelling in his legs and testicles. He has also Hepatitis C. 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 Shortly after the transfer patient suffered from V. tach/ V. fib cardiac arrest, he was defibrillated 1 during the CPR and after 1 cycle of CPR and intubation he regained spontaneous circulation. Cardiology workday financials consultant was informed about the V. fib cardiac arrest with recommendation to correct underlying electrolyte disbalance. 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 Reported Medications Reported Meds & Active Scripts Active Zoloft (Sertraline HCl) 50 Mg Tab 25 Mg PO DAILY Potassium Chloride Microencaps 20 Meq Tab 20 Meq PO DAILY Furosemide 20 Mg Tab 20 Mg PO BID Aldactone (Spironolactone) 50 Mg Tab 50 Mg PO DAILY Gnp Vitamin B-1 (Thiamine HCl) 100 Mg Tab 100 Mg PO DAILY Folic Acid 1 Mg Tablet 1 Mg PO DAILY Walker with Front Wheels (Device) 1 Mis Mis 1 Ea .ROUTE DIRECTED Lorazepam 0.5 Mg Tab 0.5 Mg PO Q8H PRN Senna Plus 8.6-50 mg (Sennosides-Docusate Sodium) 1 Tab Tab 1 Tab PO BID Xifaxan (Rifaximin) 200 Mg Tab 400 Mg PO Q8HR Pentoxifylline ER (Pentoxifylline) 400 Mg Tab 400 Mg PO Q8HR Reported Basaglar Kwikpen (Insulin Glargine) 100 Unit/Ml Pen 1 Units SQ DAILY Novolog Flexpen Inj (Insulin Aspart) 300 Unit/3 Ml Pen 1 Units SQ Methadone Intensol Liq (Methadone HCl) 10 Mg/Ml Conc 140 Mg PO DAILY Active Ordered Medications Current Medications Medications (Trade) Dose Ordered Sig/[place] Route PRN Reason Start Time Stop Time Status Last Admin Dose Admin Spironolactone (Aldactone) 50 mg DAILY PO 01/07/17 09:00 01/07/17 09:17 Furosemide (Lasix Inj) 80 mg BID@18 IV PUSH 01/06/17 18:00 01/07/17 18:20 Potassium Chloride (KCl) 20 meq TID PO 01/06/17 18:00 01/07/17 18:22 Sodium Chloride (NS Flush) 2 ml UNSCH PRN IV FLUSH FLUSH AFTER USING IV ACCESS 01/06/17 16:45 01/07/17 18:21 Sodium Chloride (NS Flush) 2 ml BID IV FLUSH 01/06/17 21:00 01/07/17 21:27 Ondansetron HCl (Zofran Inj) 4 mg Q6H PRN IVP NAUSEA OR VOMITING 01/06/17 16:45 Naloxone HCl (Narcan Inj) 0.4 mg UNSCH PRN IV PUSH SEE LABEL COMMENTS 01/06/17 16:45 Senna/Docusate Sodium (Dixie-Colace) 1 tab BID PO 01/06/17 21:00 01/07/17 09:17 Magnesium Hydroxide (Milk Of Magnesia Liq) 30 ml Q12H PRN PO Mild constipation 01/06/17 16:45 Sennosides (Senokot) 17.2 mg Q12H PRN PO Moderate constipation 01/06/17 16:45 Bisacodyl (Dulcolax Supp) 10 mg DAILY PRN RECTAL SEVERE CONSITIPATION 01/06/17 16:45 Lactulose (Lactulose Liq) 30 ml DAILY PRN PO SEVERE CONSITIPATION 01/06/17 16:45 Multivitamins 10 ml/Folic Acid 1 mg/Sodium Chloride 510.2 ml @ 125 mls/hr Q24H IV 01/06/17 20:00 01/11/17 19:59 01/07/17 21:27 Thiamine HCl 100 mg/Sodium Chloride 101 ml @ 100 mls/hr Q24H IV 01/06/17 20:00 01/09/17 19:59 01/07/17 20:04 Thiamine HCl (Vitamin B1) 100 mg DAILY PO 01/10/17 09:00 Famotidine (Pepcid) 20 mg BID PO 01/06/17 21:00 01/07/17 21:26 Flumazenil (Romazicon Inj) 0.2 mg Q1M PRN IV PUSH SEE LABEL COMMENTS 01/06/17 17:45 Lorazepam (Ativan) 1 mg Q4H PRN PO CIWA 8 - 10 01/06/17 17:45 01/07/17 18:07 Lorazepam (Ativan Inj) 1 mg Q4H PRN IV PUSH CIWA 8 - 10 01/06/17 17:45 Lorazepam (Ativan) 2 mg Q2H PRN PO CIWA 11-14 01/06/17 17:45 Lorazepam (Ativan Inj) 2 mg Q2H PRN IV PUSH CIWA 11-14 01/06/17 17:45 Lorazepam (Ativan Inj) 2 mg Q1H PRN IV PUSH CIWA 15-20 01/06/17 17:45 Lorazepam (Ativan Inj) 2 mg Q15M PRN IV PUSH CIWA > 20 01/06/17 17:45 Enoxaparin Sodium (Lovenox Inj) 40 mg Q24H SQ 01/06/17 18:00 01/07/17 18:22 Albumin Human 50 ml @ 60 mls/hr Q12H IV 01/06/17 18:00 01/07/17 18:21 Pharmacy Profile Note 0 ml @ 0 mls/hr UNSCH OTHER 01/06/17 18:00 Piperacillin Sod/ Tazobactam Sod 50 ml @ 100 mls/hr Q6H IV 01/06/17 20:00 01/08/17 03:10 Lactulose (Lactulose Liq) 30 ml TID PO 01/07/17 09:00 01/07/17 18:22 Rifaximin (Xifaxan) 400 mg Q8HR PO 01/06/17 22:00 01/07/17 21:26 Methadone HCl (Dolophine) 140 mg DAILY PO 01/06/17 18:15 01/07/17 09:16 Calcium Carbonate (Oscal) 1,000 mg BID PO 01/07/17 09:00 01/07/17 21:26 Dextrose (D50w (Vial) Inj) 50 ml UNSCH PRN IV PUSH HYPOGLYCEMIA-SEE COMMENTS 01/07/17 08:15 Glucagon (Glucagon Inj) 1 mg UNSCH PRN OTHER HYPOGLYCEMIA-SEE COMMENTS 01/07/17 08:15 Insulin Aspart (NovoLOG SUPPLEMENTAL SCALE) 1 ACHS SLIDING SCALE SQ 01/07/17 12:00 Vancomycin HCl 1250 mg/Sodium Chloride 262.5 ml @ 250 mls/hr Q12H IV 01/07/17 21:00 01/07/17 21:27 Miscellaneous Information SPECIFIC LAB TO BE DRAWN:VANCOMYCIN TROUGH DATE TO... ONCE ONCE .XX 01/09/17 08:45 01/09/17 08:46 Trazodone HCl (Desyrel) 100 mg HS PO 01/07/17 21:00 01/07/17 21:26 Sotalol HCl (Betapace) 80 mg Q12HR PO 01/07/17 22:15 01/07/17 22:35 Amiodarone HCl 450 mg/Dextrose 250 ml @ 33.33 mls/ hr Q7H31M PRN IV Per Protocol 01/08/17 01:21 01/08/17 01:46 Potassium Chloride 100 ml @ 50 mls/hr Q2H PRN IV For Potassium 2.8 - 3.2 mEq/L 01/08/17 01:30 01/08/17 01:44 Potassium Chloride 100 ml @ 50 mls/hr Q2H PRN IV For Potassium 2.8 - 3.2 mEq/L 01/08/17 01:30 Potassium Bicarb/ Potassium Chloride (K-Lyte Cl Eff) 50 meq UNSCH PRN PO For Potassium 3.3 - 3.5 mEq/L 01/08/17 01:30 Potassium Chloride 100 ml @ 25 mls/hr UNSCH PRN IV For Potassium 3.3 - 3.5 mEq/L 01/08/17 01:30 Potassium Chloride 100 ml @ 50 mls/hr Q2H PRN IV For Potassium 3.3 - 3.5 mEq/L 01/08/17 01:30 Magnesium Sulfate 4 gm/Sodium Chloride 100 ml @ 50 mls/hr UNSCH PRN IV For Magnesium 0.9 - 1.1 mg/dL 01/08/17 01:30 Magnesium Oxide (Mag-Ox) 800 mg UNSCH PRN PO For Magnesium 1.2 - 1.6 mg/dL 01/08/17 01:30 Magnesium Sulfate 2 gm/Sodium Chloride 100 ml @ 50 mls/hr UNSCH PRN IV For Magnesium 1.2 - 1.6 mg/dL 01/08/17 01:30 Potassium Phosphate (K-Phos) 2,000 mg Q4H PRN PO For Phosphorus < 2.5 mg/dL 01/08/17 01:30 Sodium Phosphate 30 mmol/Sodium Chloride 250 ml @ 42 mls/hr UNSCH PRN IV For Phosphorus < 2.5 mg/dL 01/08/17 01:30 Potassium Phosphate (K-Phos) 2,000 mg UNSCH PRN PO/TUBE SEE LABEL COMMENTS 01/08/17 01:30 Potassium Phosphate 30 mmol/ Sodium Chloride 260 ml @ 42 mls/hr UNSCH PRN IV SEE LABEL COMMENTS 01/08/17 01:30 Lidocaine HCl/ Dextrose 500 ml @ 30 mls/hr [id number] IV 01/08/17 03:15 01/08/17 03:15 Propofol 100 ml @ 3.999 mls/ hr TITRATE PRN IV Sedation 01/08/17 05:00 Family History Adopted Social History alcohol abuse about one liter daily states uses Vodka tobacco dependence 1 PPD History IDU and by mouth Dilaudid Physical Exam Vital Signs Vital Signs Date Time Temp Pulse Resp B/P (MAP) Pulse Ox O2 Delivery O2 Flow Rate FiO2 01/07/17 22:47 Nasal Cannula 2.00 01/07/17 22:47 84 20 136/72 (93) 95 01/07/17 21:30 88 136/79 (98) 96 01/07/17 21:30 Nasal Cannula 2.00 01/07/17 20:00 Nasal Cannula 2.00 01/07/17 20:00 98.0 89 20 139/77 (97) 95 01/07/17 19:49 104 01/07/17 16:10 98.1 85 20 142/65 (90) 91 01/07/17 16:00 98.8 92 22 141/75 (97) 94 01/07/17 12:00 98.8 98 24 131/74 (93) 95 01/07/17 08:45 96 Nasal Cannula 2.00 01/07/17 08:00 98.7 93 22 129/73 (91) 95 01/07/17 04:00 98.0 92 20 155/67 (96) 94 01/07/17 04:00 Nasal Cannula 2.00 Physical Exam GENERAL: Morbidly obese male endotracheally intubated SKIN: Warm and dry. HEAD: Normocephalic. EYES: No scleral icterus. No injection or drainage. NECK: Supple, trachea midline. No JVD or lymphadenopathy. CARDIOVASCULAR: Regular rate and rhythm without murmurs, gallops, or rubs. RESPIRATORY: Breath sounds equal bilaterally. No accessory muscle use. GASTROINTESTINAL: Abdomen soft, non-tender, nondistended. MUSCULOSKELETAL: No cyanosis, or edema. BACK: Nontender without obvious deformity. NEURO EXAM: GCS: M5 Vt E2 Mental Status: The patient is intubated, response to painful stimuli and with brisk localization and opening eyes. Cranial Nerves: Pupils are round, reactive to light. Reflexes: Biceps, patellar, and Achilles are 2/4 bilaterally. No clonus Laboratory Laboratory Tests Test 01/07/17 04:36 01/07/17 17:30 01/07/17 22:54 White Blood Count 5.7 Red Blood Count 3.61 Hemoglobin 11.9 Hematocrit 35.1 Mean Corpuscular Volume 97.2 Mean Corpuscular Hemoglobin 32.8 Mean Corpuscular Hemoglobin Concent 33.8 Red Cell Distribution Width 14.9 Platelet Count 82 Mean Platelet Volume 6.6 Neutrophils (%) (Auto) 64.6 Lymphocytes (%) (Auto) 18.4 Monocytes (%) (Auto) 13.9 Eosinophils (%) (Auto) 1.7 Basophils (%) (Auto) 1.4 Neutrophils # (Auto) 3.7 Lymphocytes # (Auto) 1.0 Monocytes # (Auto) 0.8 Eosinophils # (Auto) 0.1 Basophils # (Auto) 0.1 CBC Comment AUTO DIFF Differential Comment AUTO DIFF CONFIRMED Platelet Estimate LOW Platelet Morphology Comment NORMAL Blood Urea Nitrogen 7 7 8 Creatinine 0.69 0.84 0.88 Random Glucose 67 86 80 Total Protein 7.4 Albumin 2.5 Calcium Level 7.1 8.0 8.0 Alkaline Phosphatase 176 Aspartate Amino Transf (AST/SGOT) 474 Alanine Aminotransferase (ALT/SGPT) 130 Total Bilirubin 2.3 Sodium Level 142 138 140 Potassium Level 2.8 3.0 2.8 Chloride Level 98 95 96 Carbon Dioxide Level 34.5 37.8 38.7 Anion Gap 10 5 5 Estimat Glomerular Filtration Rate 124 99 94 Hemoglobin A1c 4.6 Protein Corrected Calcium 7.0 Magnesium Level 1.6 1.5 1.6 Total Creatine Kinase 304 Troponin I 0.28 Triglycerides Level 96 Cholesterol Level 128 LDL Cholesterol 72 HDL Cholesterol 37.3 Cholesterol/HDL Ratio 3.43 Free Thyroxine 1.48 Thyroid Stimulating Hormone 3rd Gen 6.410 Date/Time Source Procedure Growth Status 01/06/17 21:26 Blood Peripheral Aerobic Blood Culture - Preliminary NO GROWTH IN 1 DAY Resulted 01/06/17 21:26 Blood Peripheral Anaerobic Blood Culture - Preliminary NO GROWTH IN 1 DAY Resulted 01/06/17 15:53 Wound Leg Gram Stain - Final Resulted 01/06/17 15:53 Wound Culture - Preliminary Staphylococcus Aureus Resulted Result Diagram: 01/07/17 0436 01/07/17 2254 Imaging Last [address] 01/08/17 0400 Signed Impressions: Service Date/Time: Sunday, January 08, 2017 03:55 - CONCLUSION: 1. No intracranial abnormalities seen. 2. Sinus disease. Jose De Jessu MD Chest X-Ray 01/08/17 0000 Signed Impressions: Service Date/Time: Sunday, January 08, 2017 01:24 - CONCLUSION: 1. New left internal jugular central line in good position. No pneumothorax is seen. 2. Cardiomegaly. 3. Proximal hilar regions and interstitial markings likely from pulmonary venous hypertension or edema. If the hilar enlargement persists, it could be further evaluated with CT examination the chest with contrast. Jose De Jesus MD Chest X-Ray 01/08/17 0000 Signed Impressions: Service Date/Time: Sunday, January 08, 2017 00:12 - CONCLUSION: Suspected mild edema or pulmonary venous hypertension which appears to be improving. There is some prominence of the hilar regions especially on the right which may be secondary to vascular congestion although this is nonspecific. This can be followed. Jose De Jesus MD CT Angiography 01/08/17 0000 Signed Impressions: Service Date/Time: Sunday, January 08, 2017 04:03 - CONCLUSION: 1. No pulmonary embolus. 2. Increased density at the posterior aspects of the lungs bilaterally likely related to atelectasis or consolidation. Jose De Jesus MD Abdomen/Pelvis CT 01/08/17 0000 Signed Impressions: Service Date/Time: Sunday, January 08, 2017 04:03 - CONCLUSION: 1. Hepatic steatosis with suspected portal hypertension and cirrhosis. There are prominent veins seen throughout the superficial anterior abdominal wall. 2. Splenomegaly. This may be secondary to portal hypertension. 3. Significant ascites is not seen. Jose De Jesus MD Assessment and Plan Assessment and Plan Respiratory failure - Intubated for an airway protection - No weaning until neurologically improved - Vent bundle - Tobacco use disorder - DuoNeb scheduled and when necessary Cardiac arrest - V. fib/V. tach - Hypomagnesemia, hypokalemia - Electrolyte replacement - Cardiology following and informed about the event at night - CT PE stat - CT abdomen - Bolused with amiodarone, further per cardiology - GCS 8 and improving, will not initiate hypothermia protocol Alcohol dependence - Thiamine folate and multivitamins - Versed when necessary for symptoms of withdrawal Hypokalemia - Replacement per ICU protocol Hypomagnesemia - Replace Opiate dependence - Monitor withdrawal - Fentanyl when necessary DVT GI prophylaxis - Teds SCDs - Subcutaneous heparin - IV Protonix Critical Care: The total critical care time was 35] minutes. Time to perform other separately billable procedures was not included in the critical care time. Stefan Simon MD Jan 08, 2017 1:21 am
[2017-01-08] MEDS ORDERED: POTASSIUM PHOSPHATE MONOBASIC 500 MG TAB PO/TUBE PRN (01:30)
[2017-01-08] MEDS ORDERED: POTASSIUM PHOSPHATE INJ 30 MMOL in SODIUM CHLOR 0.9% 250 ML INJ 250 ML IV PRN (01:30)
[2017-01-08] MEDS ORDERED: MAGNESIUM OXIDE 400 MG TAB PO PRN (01:30)
[2017-01-08] MEDS ORDERED: POTASSIUM PHOSPHATE MONOBASIC 500 MG TAB PO PRN (01:30)
[2017-01-08] MEDS ORDERED: POTASSIUM CHLOR 20 MEQ PREMIX 100 ML IV PRN ×2 (01:30)
[2017-01-08] MEDS ORDERED: SODIUM PHOSPHATE INJ 30 MMOL in SODIUM CHLOR 0.9% 250 ML INJ 240 ML IV PRN (01:30)
[2017-01-08] MEDS ORDERED: POTASSIUM CHLOR 40 MEQ PREMIX 100 ML IV PRN ×2 (01:30)
[2017-01-08] MEDS ORDERED: POTASSIUM CHLORIDE 25 MEQ EFFERVESCENT TAB PO PRN (01:30)
[2017-01-08] MEDS ORDERED: MAGNESIUM SULFATE INJ 4 GM in SODIUM CHLORIDE 0.9% INJ 92 ML IV PRN (01:30)
[2017-01-08] MEDS ORDERED: MAGNESIUM SULFATE INJ 2 GM in SODIUM CHLORIDE 0.9% INJ 96 ML IV PRN (01:30)
--- NOTE | 2017-01-08 01:40 | RADRPT ---
EXAM DATE/TIME: 01/08/2017 01:24 [facility] COMPARISON: CHEST SINGLE AP, January 08, 2017, 0:12. INDICATIONS : Post central line placement. MEDICAL HISTORY : Cardiovascular disease. Hepatitis C SURGICAL HISTORY : None. ENCOUNTER: Subsequent ACUITY: 1 day PAIN SCORE: Non-responsive. LOCATION: Bilateral chest FINDINGS: The ET tube tip is 4.3 cm from the cele. The NG tube is directed into the stomach. There is a left internal jugular central line in place with the tip overlying the SVC. The heart size is enlarged. Th ere is mild prominence of the interstitium. There is prominence of the hilar regions especially on th e right. A pneumothorax is not seen. CONCLUSION: 1. New left internal jugular central line in good position. No pneumothorax is seen. 2. Cardiomegaly. 3. Proximal hilar regions and interstitial markings likely from pulmonary venous hypertension or sonia a. If the hilar enlargement persists, it could be further evaluated with CT examination the chest wit h contrast. Jose De Jesus MD on January 08, 2017 at 1:36 Board Certified Radiologist. This report was verified electronically.
[2017-01-08 01:54] LABS: HEMATOCRIT 39.6 % (39.0-51.0); MEAN CORPUSCULAR HEMOGLOBIN 32.1 PG (27.0-34.0); MEAN CORPUSCULAR HGB CONC 32.8 % (32.0-36.0); PLATELET COUNT 96 TH/MM3 (150-450); RED BLOOD COUNT 4.04 MIL/MM3 (4.50-5.90); WHITE BLOOD COUNT 8.7 TH/MM3 (4.0-11.0)
[2017-01-08 02:05] LABS: ANION GAP 9 MEQ/L (5-15); AST (GOT) 337 U/L (15-37); BICARBONATE 34.5 MEQ/L (21.0-32.0); BLOOD UREA NITROGEN 9 MG/DL (7-18); CHLORIDE 98 MEQ/L (98-107); POTASSIUM 3.5 MEQ/L (3.5-5.1); SODIUM (NA) 141 MEQ/L (136-145)
[2017-01-08 02:08] LABS: ALKALINE PHOSPHATASE 174 U/L (45-117); ALT (GPT) 111 U/L (12-78); GLOMERULAR FILTRATION RATE 71 ML/MIN (>89); TOTAL BILIRUBIN ADULT 3.5 MG/DL (0.2-1.0)
[2017-01-08 03:06] LABS: REVIEW FLAG FINAL
[2017-01-08 03:09] LABS: APTT (PATIENT) 30.2 SEC (24.3-30.1); INTERNATIONAL NORMALIZED RATIO 1.4 RATIO; PROTHROMBIN TIME - PATIENT 15.4 SEC (9.8-11.6)
[2017-01-08] MEDS: PIPERACIL-TAZO 3.375 GM PREMIX 50 ML IV SCH (03:10)
[2017-01-08] MEDS ORDERED: LIDOCAINE/D5W 2000 MG/500 ML 500 ML IV SCH ×2 (03:15→23:45)
[2017-01-08 03:40] LABS: BLOOD GAS BASE EXCESS 8.9 mmol/L (-2-2); BLOOD GAS CARBOXYHEMOGLOBIN 1.7 % (0-4); BLOOD GAS HCO3 34 mmol/L (22-26); BLOOD GAS METHEMOGLOBIN 0.7 % (0-2); BLOOD GAS O2 HGB SATURATION 97 % (90-100); BLOOD GAS OXYGEN CONTENT 18.4 Vol % (12.0-20.0); BLOOD GAS PCO2 53 mmHg (38-42); BLOOD GAS PO2 130 mmHg (61-120); BLOOD GAS TOTAL HGB 13.4 G/DL (12.0-16.0); CRITICAL VALUE YES; DRAW SITE ALINE; FIO2 100 %; OXYGEN DEVICE VENTILATOR; STAT YES; TEMP CORR TO 98.6; ULNAR PULSE PRESENT; VENT SETTINGS PRVC18/550/1.2/+8
--- NOTE | 2017-01-08 04:05 | RADRPT ---
EXAM DATE/TIME: 01/08/2017 03:55 [facility] COMPARISON: CT BRAIN W/O CONTRAST, September 02, 2016, 21:13. INDICATIONS : Altered mental status. RADIATION DOSE: 63.11 CTDIvol (mGy) ; Tabletop CT Head MEDICAL HISTORY : Hypertension. Cardiovascular disease Hepatitis C. SURGICAL HISTORY : None. ENCOUNTER: Initial ACUITY: 1 day PAIN SCALE: Non-responsive LOCATION: cranial TECHNIQUE: Multiple contiguous axial images were obtained of the head. Using automated exposure control and adj ustment of the mA and/or kV according to patient size, radiation dose was kept as low as reasonably a chievable to obtain optimal diagnostic quality images. DICOM format image data is available electro nically for review and comparison. FINDINGS: CEREBRUM: The ventricles are normal for age. No evidence of midline shift, mass lesion, hemorrhage or acute in farction. No extra-axial fluid collections are seen. POSTERIOR FOSSA: The cerebellum and brainstem are intact. The 4th ventricle is midline. The cerebellopontine angle i s unremarkable. EXTRACRANIAL: The visualized portion of the orbits is intact. There is mucosal disease throughout the sinuses. SKULL: The calvaria is intact. No evidence of skull fracture. CONCLUSION: 1. No intracranial abnormalities seen. 2. Sinus disease. Jose De Jesus MD on January 08, 2017 at 4:02 Board Certified Radiologist. This report was verified electronically.
[2017-01-08] MEDS ORDERED: IOHEXOL 350 MG/ML 10 ML VIAL (for RAD DIAG) IVCONTRAST ONE (04:07)
--- NOTE | 2017-01-08 04:19 | RADRPT ---
EXAM DATE/TIME: 01/08/2017 04:03 [facility] COMPARISON: No previous studies available for comparison. INDICATIONS : Shortness of breath. IV CONTRAST: 100 cc Omnipaque 350 (iohexol) IV ; Cumulative dose for multiple exams. RADIATION DOSE: 23.34 CTDIvol (mGy) MEDICAL HISTORY : Cardiovascular disease. Hypertension. Hepatitis C. SURGICAL HISTORY : None. ENCOUNTER: Initial ACUITY: 1 day PAIN SCALE: Non-responsive LOCATION: chest TECHNIQUE: Volumetric scanning of the chest was performed using a pulmonary embolism protocol MIP images were re constructed. Using automated exposure control and adjustment of the mA and/or kV according to patien t size, radiation dose was kept as low as reasonably achievable to obtain optimal diagnostic quality images. DICOM format image data is available electronically for review and comparison. Follow-up recommendations for detected pulmonary nodules are based at a minimum on nodule size and pa tient risk factors according to Fleischner Society Guidelines. FINDINGS: PULMONARY ARTERIES: No filling defects are seen in the pulmonary arteries through the segmental level. LUNGS: There is increased density at the posterior lower lobes bilaterally. PLEURAE: There is no pleural thickening or pleural effusion. MEDIASTINUM: There mild prominent lymph nodes in the left paratracheal, AP window and subcarinal regions. MUSCULOSKELETAL: Within normal limits for patient age. MISCELLANEOUS: The visualized upper abdominal organs demonstrate no acute abnormality. CONCLUSION: 1. No pulmonary embolus. 2. Increased density at the posterior aspects of the lungs bilaterally likely related to atelectasis or consolidation. Jose De Jesus MD on January 08, 2017 at 4:15 Board Certified Radiologist. This report was verified electronically.
--- NOTE | 2017-01-08 04:24 | RADRPT ---
EXAM DATE/TIME: 01/08/2017 04:03 [facility] COMPARISON: CT ABDOMEN & PELVIS W CONTRAST, August 31, 2016, 12:29. INDICATIONS : Abdominal distention. Evaluate for ascites. IV CONTRAST: 100 cc Omnipaque 350 (iohexol) IV ; Cumulative dose for multiple exams. ORAL CONTRAST: No oral contrast ingested. RADIATION DOSE: 26.42 CTDIvol (mGy) MEDICAL HISTORY : Hypertension. Cardiovascular disease Hepatitis C. SURGICAL HISTORY : None. ENCOUNTER: Initial ACUITY: 1 day PAIN SCALE: Non-responsive LOCATION: Abdomen. TECHNIQUE: Volumetric scanning of the abdomen and pelvis was performed. Using automated exposure control and ad justment of the mA and/or kV according to patient size, radiation dose was kept as low as reasonably achievable to obtain optimal diagnostic quality images. DICOM format image data is available electro nically for review and comparison. FINDINGS: LOWER LUNGS: There is atelectasis or consolidation at the posterior lung bases bilaterally. LIVER: There is diffuse decreased attenuation of the liver. There is a recannulized paraumbilical vein. Ther e are prominent veins seen throughout the superficial abdominal wall. SPLEEN: There is diffuse splenomegaly with spleen measuring 16 cm in length. No focal splenic lesions are see n. PANCREAS: Within normal limits. KIDNEYS: Normal in size and shape. There is no mass, stone or hydronephrosis. ADRENAL GLANDS: Within normal limits. VASCULAR: There is no aortic aneurysm. BOWEL/MESENTERY: The stomach, small bowel, and colon demonstrate no acute abnormality. There is no free intraperitone al air or fluid. There is an NG tube in place with the tip in the stomach. ABDOMINAL WALL: Within normal limits. RETROPERITONEUM: Small lymph nodes are seen in the periaortic region. BLADDER: There is a Locke catheter in place. REPRODUCTIVE: Within normal limits. INGUINAL: There is no lymphadenopathy or hernia. MUSCULOSKELETAL: Surgical hardware is seen at the right femur. CONCLUSION: 1. Hepatic steatosis with suspected portal hypertension and cirrhosis. There are prominent veins seen throughout the superficial anterior abdominal wall. 2. Splenomegaly. This may be secondary to portal hypertension. 3. Significant ascites is not seen. Jose De Jesus MD on January 08, 2017 at 4:18 Board Certified Radiologist. This report was verified electronically.
--- NOTE | 2017-01-08 04:54 | EKG ---
Date Performed: 01/07/2017 Time Performed: 22:33:13 PTAGE: 46 years EKG: Sinus rhythm INDETERMINATE AXIS INCOMPLETE RIGHT BUNDLE BRANCH BLOCK BORDERLINE ECG No significant change from pr ior electrocardiogram. PREVIOUS TRACING : 01/06/2017 15.15 DOCTOR: Mark Workman Interpretating Date/Time 01/08/2017 04:53:07
[2017-01-08] MEDS ORDERED: SODIUM BICARBONATE 8.4% INJ 50 MEQ/50 ML SYR IV ONE (05:00)
[2017-01-08] MEDS ORDERED: EPINEPHrine HCL (1:10,000) 1 MG/10 ML SYRINGE IV ONE (05:00)
--- NOTE | 2017-01-08 05:50 | PD.PROCEDR ---
Procedure Note Procedure Arterial line placement A time-out was completed verifying correct patient, procedure, site, positioning , and special equipment if applicable. Allens test was performed to ensure adequate perfusion. The patients right wrist was prepped and draped in sterile fashion. 1% Lidocaine was used to anesthetize the area. A 18G Arrow arterial line was introduced into the radial artery. The catheter was threaded over the guide wire and the needle was removed with appropriate pulsatile blood return. The catheter was then sutured in place to the skin and a sterile dressing applied. Perfusion to the extremity distal to the point of catheter insertion was checked and found to be adequate. Estimated Blood Loss: 1ml The patient tolerated the procedure well and there were no complications. Stefan Simon MD Jan 08, 2017 5:50 am
--- NOTE | 2017-01-08 05:50 | PD.PROCEDR ---
Procedure Note Procedure Centerline placement A time-out was completed verifying correct patient, procedure, site, positioning , and special equipment if applicable. The patient was placed in a dependent position appropriate for central line placement based on the vein to be cannulated. The patients left neck was prepped and draped in sterile fashion. 1 % Lidocaine was used to anesthetize the surrounding skin area. A triple lumen 9 Tamazight Cordis catheter was introduced into the the internal jugular vein using the Seldinger technique and under ultrasound guidance. The catheter was threaded smoothly over the guide wire and appropriate blood return was obtained. Each lumen of the catheter was evacuated of air and flushed with sterile saline. The catheter was then sutured in place to the skin and a sterile dressing applied. Perfusion to the extremity distal to the point of catheter insertion was checked and found to be adequate. Estimated Blood Loss: 1ml The patient tolerated the procedure well and there were no complications. Stefan Simon MD Jan 08, 2017 5:50 am
--- NOTE | 2017-01-08 05:51 | PD.PROCEDR ---
Procedure Note Procedure Endotracheal Intubation A time-out was completed verifying correct patient, procedure, site, positioning , and special equipment if applicable. The patient was placed in a flat position. Sedation was obtained using Etomidate 20mg. The patient was easily ventilated using an ambu bag. The [employer]/ MAC 4 BLADE was used and inserted into the oropharynx at which time there was a Grade 1 view of the vocal cords. A 8-hebrew endotracheal tube was inserted and visualized going through the vocal cords. The stylette was removed. Colorimetric change was visualized on the CO2 meter. Breath sounds were heard in both lung buitrago equally. The endotracheal tube was placed at 23 cm, measured at the teeth. A chest x-ray was ordered to assess for pneumothorax and verify endotrachealtube placement. Estimated Blood Loss: 0 The patient tolerated the procedure well and there were no complications. Stefan Simon MD Jan 08, 2017 5:51 am
[2017-01-08] MEDS: RIFAXIMIN 200 MG TAB PO SCH ×3 (06:00→21:57)
[2017-01-08] MEDS: ALBUMIN 25% INJ 50 ML IV SCH ×2 (06:01→17:21)
[2017-01-08] MEDS: PROPOFOL 1000 MG/100 ML IV PRN ×4 (06:05→21:57)
[2017-01-08] MEDS ORDERED: POTASSIUM CHLOR 40 MEQ PREMIX 100 ML IV ONE (08:30)
[2017-01-08] MEDS ORDERED: DEXMEDETOMIDINE INJ 200 MCG in SODIUM CHLORIDE 0.9% INJ 50 ML IV PRN (08:30)
[2017-01-08] MEDS ORDERED: MIDAZOLAM 100 MG/100 ML INJ 100 ML IV PRN (08:30)
[2017-01-08] MEDS ORDERED: RESP: ALBUTEROL 2.5 MG/3 ML NEB (PRN) NEB (08:30)
[2017-01-08] MEDS ORDERED: MIDAZOLAM HCL 5 MG/5 ML VIAL IV PUSH ONE (08:45)
[2017-01-08] MEDS ORDERED: ROCURONIUM INJ 50 MG/5 ML VIAL IV ONE (08:45)
--- NOTE | 2017-01-08 08:55 | HHI.CCPN ---
Subjective Remarks/Hospital Course 46-year-old morbidly obese gentleman admitted for evaluation of Edema, Shortness of breath, Chest pain, who started with swelling in his lower extremities and testicles 2 weeks prior to admission, progressively worsening to the point where he cant ambulate or urinate without difficulty, pain is 10/ 10 in intensity, Chest pain started the day prior to admission as a substernal pain. Per chart review he has been drinking alcohol on a daily basis, at least a 1/5th of vodka daily. He was considered to be in withdrawal because he has been unable to go to the methadone clinic for 3 days because of all the swelling in his legs and testicles. He has also Hepatitis C. 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 tach on the telecom analyst and was transferred to ICU. Shortly after the transfer patient suffered from V. tach/ V. fib cardiac arrest, he was defibrillated 1 during the CPR and after 1 cycle of CPR and intubation he regained spontaneous circulation. Cardiology information technology teacher was informed about the V. fib cardiac arrest with recommendation to correct underlying electrolyte dissonance. Subjective 01/08: Currently sedated on propofol drip at 30 micrograms per kilo per minute. Arousable. With hemoptysis per 7.5 ET tube. Will need bronchoscopy. Family attempted to notify per RN however currently unavailable/unreachable. No further runs of dysrhythmia noted. Objective Vital Signs Date Time Temp Pulse Resp B/P (MAP) Pulse Ox O2 Delivery O2 Flow Rate FiO2 01/08/17 08:13 96 90 01/08/17 04:00 98.6 66 20 126/94 (105) 01/07/17 22:47 Nasal Cannula 2.00 Intake and Output 01/08/17 01/08/17 01/09/17 08:00 16:00 00:00 Intake Total 698 ml Balance 698 ml Result Diagram: 01/08/17 0140 01/08/17 0140 Other Results Microbiology Date/Time Source Procedure Growth Status 01/06/17 21:26 Blood Peripheral Aerobic Blood Culture - Preliminary NO GROWTH IN 1 DAY Resulted 01/06/17 21:26 Blood Peripheral Anaerobic Blood Culture - Preliminary NO GROWTH IN 1 DAY Resulted 01/06/17 15:53 Wound Leg Gram Stain - Final Resulted 01/06/17 15:53 Wound Culture - Preliminary Staphylococcus Aureus Resulted Imaging Last Impressions Head CT 01/08/17 0400 Signed Impressions: Service Date/Time: Sunday, January 08, 2017 03:55 - CONCLUSION: 1. No intracranial abnormalities seen. 2. Sinus disease. Jose De Jesus MD Chest X-Ray 01/08/17 0000 Signed Impressions: Service Date/Time: Sunday, January 08, 2017 01:24 - CONCLUSION: 1. New left internal jugular central line in good position. No pneumothorax is seen. 2. Cardiomegaly. 3. Proximal hilar regions and interstitial markings likely from pulmonary venous hypertension or edema. If the hilar enlargement persists, it could be further evaluated with CT examination the chest with contrast. Jose De Jesus MD CT Angiography 01/08/17 0000 Signed Impressions: Service Date/Time: Sunday, January 08, 2017 04:03 - CONCLUSION: 1. No pulmonary embolus. 2. Increased density at the posterior aspects of the lungs bilaterally likely related to atelectasis or consolidation. Jose De Jesus MD Abdomen/Pelvis CT 01/08/17 0000 Signed Impressions: Service Date/Time: Sunday, January 08, 2017 04:03 - CONCLUSION: 1. Hepatic steatosis with suspected portal hypertension and cirrhosis. There are prominent veins seen throughout the superficial anterior abdominal wall. 2. Splenomegaly. This may be secondary to portal hypertension. 3. Significant ascites is not seen. Jose De Jesus MD Objective Remarks GENERAL: This is a 46-year-old male, critically ill currently orotracheally intubated SKIN: Warm and dry. Open wound left lower extremity/lateral currently covered with Kerlix HEAD: Normocephalic. EYES: + scleral icterus. No injection or drainage. NECK: Supple, trachea midline. No JVD or lymphadenopathy. Left IJ is clean dry and intact CARDIOVASCULAR: Bradycardic, RR. S1, S2 no S4. Without murmurs, gallops, or rubs. RESPIRATORY: Ms. breath sounds at daily. Few coarse crackles patient bases bilaterally. GASTROINTESTINAL: Abdomen is protuberant. Nontender. Hypoactive bowel sounds are appreciated MUSCULOSKELETAL: 1+ peripheral edema. Bilateral upper and lower extremities. : Positive scrotal edema. Locke catheter in place. NEURO EXAM: Cranial nerves II through XII grossly intact. Moves all 4 extremities spontaneous. Withdraws to pain/noxious stimuli Procedures none Urinary Catheter: Yes Assessment to: Continue Locke insert reason: Prolonged Immobilization Vascular Central Line Catheter: Yes Date of Insertion: Jan 08, 2017 Line: Central Venous Catheter Side: Left Location: Internal, Jugular A/P Assessment and Plan Neuro/Psych: Adjustment disorder with depressed mood EtOH abuse Hepatic encephalopathy History of polysubstance abuse including intravenous, oral hydromorphone Patient is currently on propofol drip at 30 mg/kg per minute for sedation intubated Goal of RASS -2 Daily sedation vacation Currently on methadone 140 mg daily for history of narcotic abuse CT brain 01/08 revealed no acute intracranial findings. Sinus disease only Currently on thiamine 100 mg daily, folate 1 mg daily multivitamin 10cc injection daily Sertraline 25 mg discontinued. Currently on trazodone 100 mg at night Evaluated by Dr. Mckay/psychiatry this hospitalization On as needed lorazepam at home 0.5 mg every 6 hours CIWA protocol discontinued while intubated CV: VFib/flutter cardiac arrest History of hypertension Shocked with unknown amount of joules via unknown defibrillator O 1. Received 250 mg amiodarone bolus 1 and was initially placed on a lidocaine drip which is been discontinued Currently on sotalol 80 mg twice a day 2-D echocardiogram 12/30 revealed EF 60%. Trace TR. Dr. Mathur/cardiology is following Follow-up postcode EKG Currently normal saline at 42 cc Currently on furosemide 80 mg IV twice a day and spironolactone 50 milligrams daily Resp: Acute hypoxemic respiratory failure Ongoing tobaccoism PRVC 16/600/1.3/ Ventilator bundle Albuterol/ipratropium aerosols every 4 hours with albuterol aerosols every 2 hours. Dyspnea Spontaneous breathing trials when clinically indicated Currently with hemoptysis. Enoxaparin is been held. Will likely need bronchoscopy at this point electively until family notified CT pulmonary arteriogram 01/08 revealed no central pulmonary embolism. Bilateral lower lobe atelectasis versus infiltrate Tobacco sensation will be provided when appropriate GI: Elevated transaminases Hepatic steatosis - possible alcoholic cirrhosis Elevated total bilirubin Splenomegaly History of hepatitis C? Elevated ammonia level Meld score 16 CT abdomen/pelvis this admission revealed hepatic steatosis. Likely signs of portal hypertension NGT to LIWS Pantoprazole 40 mg IV twice a day for GI prophylaxis Docusate sodium 100 mg liquid twice a day, senna 8.6 mg daily bowel regimen Patient is currently on Xifaxan 400 mg 3 times a day and lactulose 30 cc 3 times daily for elevated ammonia level. Resume pentoxifylline 400 mg 3 times a day scheduled albumin 25 g every 12 hours per : Locke catheter has been placed for accurate I's and O's in a critically ill patient with severe scrotal edema and urinary retention Endo: Diabetes mellitus Elevated TSH Holding insulin glargine in-home sliding-scale insulin Currently on Novulog /low regimen with Accu-Cheks every 4 hours to maintain euglycemia TSH on admission 6.4. T4 normal at 1.4. Recommend recheck in 4-6 weeks Renal: Creatinine currently within normal limits Monitor urine output Accurate I's and O's Repeat BMP in a.m. Heme: Thrombocytopenia Elevated INR Monitor CBC daily. Follow trends ID: Staph aureus left lower leg infection Continue vancomycin with dressing changes every 3 days. Currently dressed with Optifoam Continue piperacillin/tazobactam/likely significant aspiration during resuscitation Pertinent cultures 01/06 - left leg wound culture - staph aureus 01/06 - blood cultures 2 - no growth FEN: Scheduled potassium placement with 20 mEq potassium 3 times a day Recheck electrolytes afternoon. Electrolyte protocol initiated MSK: Bilateral lower extremity open wounds Right lower extremity 10 x 7 x 0.1 cm. Left lower extremity wound 10 x 5 x 0.1 cm. Wound care evaluate and treat. Currently in IV antibiotics. Access - Left IJ CVL placed 01/08 Prophylaxis - GI - pantoprazole - DVT - SCD/holding pharmacological prophylaxis in light of gross hemoptysis Additional 35 minutes critical care time Venkat Rebolledo MD Jan 08, 2017 08:55
[2017-01-08] MEDS: POTASSIUM CHLORIDE 20 MEQ CONTROLLED RELEASE TAB PO SCH ×3 (09:00→17:21)
[2017-01-08] MEDS: FUROSEMIDE 40 MG/4 ML VIAL IV PUSH SCH ×2 (09:00→17:21)
[2017-01-08] MEDS: LACTULOSE SYRUP 20 GM/30 ML CUP PO SCH ×3 (09:02→17:25)
[2017-01-08] MEDS: CALCIUM CARBONATE 1.25 GM (CA 500 MG) TAB PO SCH ×2 (09:02→21:57)
[2017-01-08] MEDS: SODIUM CHLORIDE 0.9% FLUSH 10 ML FLUSH IV FLUSH SCH ×2 (09:03→21:00)
[2017-01-08] MEDS: METHADONE HCL 10 MG TAB PO SCH (09:04)
--- NOTE | 2017-01-08 09:17 | EKG ---
Date Performed: 01/08/2017 Time Performed: 07:08:39 PTAGE: 46 years EKG: Sinus rhythm INDETERMINATE AXIS MODERATE INTRAVENTRICULAR CONDUCTION DELAY NONSPECIFIC T-WAVE ABNORMALITY Prolong ed QT interval BORDERLINE ECG No significant change from prior electrocardiogram. PREVIOUS TRACING : 01/07/2017 22.33 DOCTOR: Mark Workman Interpretating Date/Time 01/08/2017 09:16:28
--- NOTE | 2017-01-08 09:26 | EKG ---
Date Performed: 01/08/2017 Time Performed: 02:16:04 PTAGE: 46 years EKG: Marked baseline artifact presentSinus rhythm Prolonged QT interval Indeterminate axis Possible anteroseptal infarct - age undetermined Abnormal E CG I see no definite changes although artifact obscures interpretation. NO PREVIOUS TRACING DOCTOR: Mark Workman Interpretating Date/Time 01/08/2017 09:25:35
[2017-01-08] MEDS ORDERED: SODIUM CHLOR 0.9% 1000 ML INJ 1,000 ML IV SCH (09:30)
[2017-01-08] MEDS ORDERED: PHARMACY ORDERED LAB ONE (09:45)
--- NOTE | 2017-01-08 09:57 | PD.CARD.PN ---
Subjective Subjective Remarks Intubated Objective Medications Current Medications Medications (Trade) Dose Ordered Sig/[facility] Route Start Time Stop Time Status Last Admin (Aldactone) 50 mg DAILY PO 01/07/17 09:00 01/07/17 09:17 (Lasix Inj) 80 mg BID@09,18 IV PUSH 01/06/17 18:00 01/07/17 18:20 (KCl) 20 meq TID PO 01/06/17 18:00 01/07/17 18:22 (NS Flush) 2 ml UNSCH PRN IV FLUSH 01/06/17 16:45 01/07/17 18:21 (NS Flush) 2 ml BID IV FLUSH 01/06/17 21:00 01/08/17 09:03 (Zofran Inj) 4 mg Q6H PRN IVP 01/06/17 16:45 (Narcan Inj) 0.4 mg UNSCH PRN IV PUSH 01/06/17 16:45 (Milk Of Magnesia Liq) 30 ml Q12H PRN PO 01/06/17 16:45 (Senokot) 17.2 mg Q12H PRN PO 01/06/17 16:45 (Dulcolax Supp) 10 mg DAILY PRN RECTAL 01/06/17 16:45 (Lactulose Liq) 30 ml DAILY PRN PO 01/06/17 16:45 Multivitamins 10 ml/Folic Acid 1 mg/Sodium Chloride 510.2 ml @ 125 mls/hr Q24H IV 01/06/17 20:00 01/11/17 19:59 01/07/17 21:27 Thiamine HCl 100 mg/Sodium Chloride 101 ml @ 100 mls/hr Q24H IV 01/06/17 20:00 01/09/17 19:59 01/07/17 20:04 (Vitamin B1) 100 mg DAILY PO 01/10/17 09:00 (Romazicon Inj) 0.2 mg Q1M PRN IV PUSH 01/06/17 17:45 (Lovenox Inj) 40 mg Q24H SQ 01/06/17 18:00 Future Hold 01/07/17 18:22 Albumin Human 50 ml @ 60 mls/hr Q12H IV 01/06/17 18:00 01/08/17 06:01 Pharmacy Profile Note 0 ml @ 0 mls/hr UNSCH OTHER 01/06/17 18:00 (Lactulose Liq) 30 ml TID PO 01/07/17 09:00 01/08/17 09:02 (Xifaxan) 400 mg Q8HR PO 01/06/17 22:00 01/07/17 21:26 (Dolophine) 140 mg DAILY PO 01/06/17 18:15 01/08/17 09:04 (Oscal) 1,000 mg BID PO 01/07/17 09:00 01/08/17 09:02 (D50w (Vial) Inj) 50 ml UNSCH PRN IV PUSH 01/07/17 08:15 (Glucagon Inj) 1 mg UNSCH PRN OTHER 01/07/17 08:15 Vancomycin HCl 1250 mg/Sodium Chloride 262.5 ml @ 250 mls/hr Q12H IV 01/07/17 21:00 01/07/17 21:27 Miscellaneous Information SPECIFIC LAB TO BE DRAWN:VANCOMYCIN TROUGH DATE TO... ONCE ONCE .XX 01/09/17 08:45 01/09/17 08:46 (Desyrel) 100 mg HS PO 01/07/17 21:00 01/07/17 21:26 (Betapace) 80 mg Q12HR PO 01/07/17 22:15 01/07/17 22:35 Amiodarone HCl 450 mg/Dextrose 250 ml @ 33.33 mls/ hr Q7H31M PRN IV 01/08/17 01:21 01/08/17 01:46 Potassium Chloride 100 ml @ 50 mls/hr Q2H PRN IV 01/08/17 01:30 01/08/17 01:44 Potassium Chloride 100 ml @ 50 mls/hr Q2H PRN IV 01/08/17 01:30 (K-Lyte Cl Eff) 50 meq UNSCH PRN PO 01/08/17 01:30 Potassium Chloride 100 ml @ 25 mls/hr UNSCH PRN IV 01/08/17 01:30 01/08/17 09:12 Potassium Chloride 100 ml @ 50 mls/hr Q2H PRN IV 01/08/17 01:30 Magnesium Sulfate 4 gm/Sodium Chloride 100 ml @ 50 mls/hr UNSCH PRN IV 01/08/17 01:30 (Mag-Ox) 800 mg UNSCH PRN PO 01/08/17 01:30 Magnesium Sulfate 2 gm/Sodium Chloride 100 ml @ 50 mls/hr UNSCH PRN IV 01/08/17 01:30 (K-Phos) 2,000 mg Q4H PRN PO 01/08/17 01:30 Sodium Phosphate 30 mmol/Sodium Chloride 250 ml @ 42 mls/hr UNSCH PRN IV 01/08/17 01:30 (K-Phos) 2,000 mg UNSCH PRN PO/TUBE 01/08/17 01:30 Potassium Phosphate 30 mmol/ Sodium Chloride 260 ml @ 42 mls/hr UNSCH PRN IV 01/08/17 01:30 Propofol 100 ml @ 3.999 mls/ hr TITRATE PRN IV 01/08/17 05:00 01/08/17 06:05 (Duoneb Neb) 1 ampule Q6HR NEB NEB 01/08/17 10:00 (Albuterol Neb) 2.5 mg Q2HR NEB PRN NEB 01/08/17 08:30 (Tears Naturale Opth Soln) 1 drop Q8HR EACH EYE 01/08/17 14:00 Magnesium Sulfate/ Dextrose 100 ml @ 100 mls/hr Q1H IV 01/08/17 10:00 01/08/17 11:59 (TRENtal SR) 400 mg Q8HR PO 01/08/17 14:00 Future Hold (NovoLOG SUPPLEMENTAL SCALE) 1 Q4HR SQ 01/08/17 12:00 (Peridex 0.12% Liq) 15 ml BID@08,20 MT 01/08/17 20:00 Midazolam HCl 100 ml @ 2 mls/hr TITRATE PRN IV 01/08/17 08:30 Fentanyl Citrate 250 ml @ 5 mls/hr TITRATE PRN IV 01/08/17 08:30 Dexmedetomidine HCl 200 mcg/ Sodium Chloride 52 ml @ 6.93 mls/hr TITRATE PRN IV 01/08/17 08:30 Piperacillin Sod/ Tazobactam Sod 100 ml @ 200 mls/hr Q6H IV 01/08/17 10:00 (Folate) 1 mg DAILY PO 01/09/17 09:00 Future hold (Protonix Inj) 40 mg Q12HR IV PUSH 01/08/17 09:30 (Colace Liq) 100 mg Q12HR PO 01/08/17 09:00 (Senna Liq) 8.8 mg BID NG 01/08/17 09:00 Sodium Chloride 1,000 ml @ 42 mls/hr [id number] IV 01/08/17 09:30 Vital Signs / I&O Vital Signs Date Time Temp Pulse Resp B/P (MAP) Pulse Ox O2 Delivery O2 Flow Rate FiO2 01/08/17 08:13 96 90 01/08/17 04:00 100 01/08/17 04:00 98.6 66 20 98 126/94 (105) 01/08/17 04:00 100 100 01/08/17 03:21 95 100 01/08/17 03:15 74 01/08/17 01:46 103/69 01/08/17 01:09 155 01/08/17 00:00 98.6 102 24 167/91 (116) 99 01/08/17 00:00 100 01/07/17 23:30 88 01/07/17 23:30 88 22 142/82 (102) 92 01/07/17 22:47 Nasal Cannula 2.00 01/07/17 22:47 84 20 136/72 (93) 95 01/07/17 21:30 88 136/79 (98) 96 01/07/17 21:30 Nasal Cannula 2.00 01/07/17 20:00 Nasal Cannula 2.00 01/07/17 20:00 98.0 89 20 139/77 (97) 95 01/07/17 19:49 104 01/07/17 16:10 98.1 85 20 142/65 (90) 91 01/07/17 16:01 87 01/07/17 16:00 98.8 92 22 141/75 (97) 94 01/07/17 12:00 98.8 98 24 131/74 (93) 95 I/O 01/07/17 01/07/17 01/07/17 01/08/17 01/08/17 01/08/17 07:00 15:00 23:00 07:00 15:00 23:00 Intake Total 2277 ml 850 ml 1600 ml 1683 ml Output Total 2650 ml 1200 ml 2400 ml 2550 ml Balance -373 ml -350 ml -800 ml -867 ml Intake Oral 818 ml 1200 ml 710 ml IV Total 1459 ml 850 ml 400 ml 973 ml Output Urine Total 2650 ml 1200 ml 2400 ml 2550 ml # Bowel Movements 0 2 Physical Exam GENERAL: Obese, restless on vent. HEENT: Jugular venous pressure is hard to asses CHEST: Lungs diminished at bases. Clear anteriorly CARDIAC: Regular rate and rhythm. Tele SR ABDOMEN: obese/ firm EXTREMITIES: 4+ edema. Anasarca Laboratory Laboratory Tests Test 01/07/17 17:30 01/07/17 22:54 01/07/17 23:35 01/08/17 01:40 Blood Urea Nitrogen 7 MG/DL 8 MG/DL 9 MG/DL Creatinine 0.84 MG/DL 0.88 MG/DL 1.12 MG/DL Random Glucose 86 MG/DL 80 MG/DL 128 MG/DL Calcium Level 8.0 MG/DL 8.0 MG/DL 7.5 MG/DL Magnesium Level 1.5 MG/DL 1.6 MG/DL 2.0 MG/DL Sodium Level 138 MEQ/L 140 MEQ/L 141 MEQ/L Potassium Level 3.0 MEQ/L 2.8 MEQ/L 3.5 MEQ/L Chloride Level 95 MEQ/L 96 MEQ/L 98 MEQ/L Carbon Dioxide Level 37.8 MEQ/L 38.7 MEQ/L 34.5 MEQ/L Anion Gap 5 MEQ/L 5 MEQ/L 9 MEQ/L Estimat Glomerular Filtration Rate 99 ML/MIN 94 ML/MIN 71 ML/MIN Troponin I 0.15 NG/ML 0.19 NG/ML Nasal Screen MRSA (PCR) MRSA NOT DETECTED White Blood Count 8.7 TH/MM3 Red Blood Count 4.04 MIL/MM3 Hemoglobin 13.0 GM/DL Hematocrit 39.6 % Mean Corpuscular Volume 98.0 FL Mean Corpuscular Hemoglobin 32.1 PG Mean Corpuscular Hemoglobin Concent 32.8 % Red Cell Distribution Width 15.0 % Platelet Count 96 TH/MM3 Mean Platelet Volume 7.6 FL Prothrombin Time 15.4 SEC Prothromb Time International Ratio 1.4 RATIO Activated Partial Thromboplast Time 30.2 SEC Total Protein 7.8 GM/DL Albumin 2.8 GM/DL Phosphorus Level 4.5 MG/DL Alkaline Phosphatase 174 U/L Aspartate Amino Transf (AST/SGOT) 337 U/L Alanine Aminotransferase (ALT/SGPT) 111 U/L Total Bilirubin 3.5 MG/DL Test 01/08/17 03:05 01/08/17 07:58 Blood Gas Puncture Site SHORTY Blood Gas Patient Temperature 98.6 Blood Gas HCO3 34 mmol/L Blood Gas Base Excess 8.9 mmol/L Blood Gas Oxygen Saturation 97 % Arterial Blood pH 7.42 Arterial Blood Partial Pressure CO2 53 mmHg Arterial Blood Partial Pressure O2 130 mmHg Arterial Blood Oxygen Content 18.4 Vol % Arterial Blood Carboxyhemoglobin 1.7 % Arterial Blood Methemoglobin 0.7 % Blood Gas Hemoglobin 13.4 G/DL Oxygen Delivery Device VENTILATOR Blood Gas Ventilator Setting PRVC18/550/1.2/+8 Blood Gas Inspired Oxygen 100 % Lactic Acid Level 1.4 mmol/L Imaging Last [address] 01/08/17 0400 Signed Impressions: Service Date/Time: Sunday, January 08, 2017 03:55 - CONCLUSION: 1. No intracranial abnormalities seen. 2. Sinus disease. Jose De Jesus MD Chest X-Ray 01/08/17 0000 Signed Impressions: Service Date/Time: Sunday, January 08, 2017 01:24 - CONCLUSION: 1. New left internal jugular central line in good position. No pneumothorax is seen. 2. Cardiomegaly. 3. Proximal hilar regions and interstitial markings likely from pulmonary venous hypertension or edema. If the hilar enlargement persists, it could be further evaluated with CT examination the chest with contrast. Jose De Jesus MD Chest X-Ray 01/08/17 0000 Signed Impressions: Service Date/Time: Sunday, January 08, 2017 00:12 - CONCLUSION: Suspected mild edema or pulmonary venous hypertension which appears to be improving. There is some prominence of the hilar regions especially on the right which may be secondary to vascular congestion although this is nonspecific. This can be followed. Jose De Jesus MD CT Angiography 01/08/17 0000 Signed Impressions: Service Date/Time: Sunday, January 08, 2017 04:03 - CONCLUSION: 1. No pulmonary embolus. 2. Increased density at the posterior aspects of the lungs bilaterally likely related to atelectasis or consolidation. Jose De Jesus MD Abdomen/Pelvis CT 01/08/17 0000 Signed Impressions: Service Date/Time: Sunday, January 08, 2017 04:03 - CONCLUSION: 1. Hepatic steatosis with suspected portal hypertension and cirrhosis. There are prominent veins seen throughout the superficial anterior abdominal wall. 2. Splenomegaly. This may be secondary to portal hypertension. 3. Significant ascites is not seen. Jose De Jesus MD Assessment and Plan Problem List: (1) Elevated troponin ICD Codes: R74.8 - Abnormal levels of other serum enzymes (2) Anasarca ICD Codes: R60.1 - Generalized edema Status: Acute (3) Liver cirrhosis ICD Codes: K74.60 - Unspecified cirrhosis of liver Status: Acute (4) Hypokalemia ICD Codes: E87.6 - Hypokalemia (5) Ventricular fibrillation ICD Codes: I49.01 - Ventricular fibrillation Assessment and Plan Potassium low prior to arrest. Prior LVEF nl. Massive fluid overload Jose Mathur MD Jan 08, 2017 09:57
[2017-01-08] MEDS: RESP: ALBUTEROL 2.5 MG/IPRATROPIUM 0.5 MG NEB (SCH) NEB ×3 (10:08→20:38)
[2017-01-08] MEDS: PIPERACIL-TAZO 4.5 GM PREMIX 100 ML IV SCH ×3 (10:10→21:16)
[2017-01-08] MEDS: VANCOMYCIN INJ 1,250 MG in SODIUM CHLOR 0.9% 250 ML INJ 250 ML IV SCH ×2 (10:11→22:05)
[2017-01-08] MEDS: MAGNESIUM SULFATE 1 GM PREMIX 100 ML IV SCH ×2 (10:11→11:14)
[2017-01-08] MEDS: SENNOSIDES SYRUP 8.8 MG/5 ML CUP NG SCH ×2 (10:12→21:58)
[2017-01-08] MEDS: PANTOPRAZOLE SODIUM 40 MG VIAL IV PUSH SCH ×2 (11:14→21:58)
[2017-01-08] MEDS: DOCUSATE SODIUM 100 MG/10 ML UDC PO SCH ×2 (11:14→21:57)
[2017-01-08] MEDS: SPIRONOLACTONE 50 MG TAB PO SCH (11:27)
[2017-01-08] MEDS: SOTALOL HCL 80 MG TAB PO SCH ×2 (11:27→21:57)
[2017-01-08] MEDS: INSULIN ASPART SUPPLEMENTAL SCALE SQ SCH ×3 (11:48→20:00)
--- NOTE | 2017-01-08 13:07 | RADRPT ---
EXAM DATE/TIME: 01/08/2017 12:14 [facility] COMPARISON: No previous studies available for comparison. INDICATIONS : Bilateral arm swelling. MEDICAL HISTORY : Hypertension. Sleep apnea. Liver disease. Bipolar disorder. ETOH abuse. Substance abuse. SURGICAL HISTORY : Right femur fracture repair. ENCOUNTER: Initial ACUITY: 2 day PAIN SCORE: Non-responsive LOCATION: Bilateral arms. FINDINGS: RIGHT UPPER EXTREMITY: There is spontaneous flow documented in the brachial, basilic, cephalic, axillary, and subclavian vei ns. The vessels are compressible and augmentation response is documented. No filling defects are se en. The flow is phasic with respiration. Direction of flow in the jugular vein is caudal. LEFT UPPER EXTREMITY: There is spontaneous flow documented in the brachial, basilic, cephalic, axillary, and subclavian vei ns. The vessels are compressible and augmentation response is documented. No filling defects are se en. The flow is phasic with respiration. Direction of flow in the jugular vein is caudal. CONCLUSION: Normal examination. Rosendo Connors Jr., MD on January 08, 2017 at 13:02 Board Certified Radiologist. This report was verified electronically.
--- NOTE | 2017-01-08 13:10 | RADRPT ---
EXAM DATE/TIME: 01/08/2017 11:39 [facility] COMPARISON: CT ABDOMEN & PELVIS W CONTRAST, January 08, 2017, 4:03. INDICATIONS : Abnormal labs. MEDICAL HISTORY : Hypertension. Sleep apnea. Liver disease. Bipolar disorder. ETOH abuse. Substance abuse. SURGICAL HISTORY : Right femur fracture repair. ENCOUNTER: Initial ACUITY: 2 days PAIN SCORE: Nonresponsive. LOCATION: Abdomen. MEASUREMENTS: LIVER: 22.2 cm length COMMON DUCT: 4 mm RIGHT KIDNEY: 13.1 x 4.9 x 5.9 cm SPLEEN: 15.3 cm length FINDINGS: LIVER: Heterogeneous diffusely increased in echogenicity, likely steatosis. Enlarged without focal mass or b iliary ductal dilatation. COMMON DUCT: No intraluminal mass or stone visualized. GALLBLADDER: Mildly distended with moderate dependent sludge. Mild wall thickening. Minimal adjacent fluid PANCREAS: Poorly seen RIGHT KIDNEY: No hydronephrosis, stone or mass. SPLEEN: Mildly enlarged. No focal mass AORTA: Poorly seen IVC: Poorly seen CONCLUSION: Hepatosplenomegaly. Hepatic steatosis. Distended gallbladder with nonspecific wall thickening and gal lbladder sludge. Minimal pericholecystic fluid Jose Machado MD on January 08, 2017 at 13:03 Board Certified Radiologist. This report was verified electronically.
[2017-01-08 13:31] LABS: BICARBONATE 33.1 MEQ/L (21.0-32.0); MAGNESIUM 2.8 MG/DL (1.5-2.5); POTASSIUM 3.9 MEQ/L (3.5-5.1)
[2017-01-08 13:41] LABS: CALCIUM-PROTEIN CORRECTED 7.2 MG/DL (8.5-10.1)
[2017-01-08] MEDS: ARTIFICIAL TEARS OPTH SOLN 15 ML BTL EACH EYE SCH ×2 (14:00→21:19)
[2017-01-08] MEDS ORDERED: PENTOXIFYLLINE 400 MG CONTROLLED RELEASE TAB PO SCH (14:00)
[2017-01-08] MEDS ORDERED: CALCIUM CHLORIDE INJ 1 GM in SODIUM CHLORIDE 0.9% INJ 100 ML IV ONE (14:30)
[2017-01-08] MEDS ORDERED: POTASSIUM CHLOR 20 MEQ PREMIX 100 ML IV ONE (14:30)
[2017-01-08] MEDS ORDERED: TERBUTALINE INJ 1 MG/ML AMP SQ PRN (18:00)
[2017-01-08 18:54] LABS: BLOOD GAS BASE EXCESS 8.3 mmol/L (-2-2); BLOOD GAS CARBOXYHEMOGLOBIN 1.3 % (0-4); BLOOD GAS HCO3 33 mmol/L (22-26); BLOOD GAS METHEMOGLOBIN 0.9 % (0-2); BLOOD GAS O2 HGB SATURATION 96 % (90-100); BLOOD GAS OXYGEN CONTENT 17.1 Vol % (12.0-20.0); BLOOD GAS PCO2 49 mmHg (38-42); BLOOD GAS PO2 96 mmHg (61-120); BLOOD GAS TOTAL HGB 12.6 G/DL (12.0-16.0); CRITICAL VALUE NO; OXYGEN DEVICE VENTILATOR; TEMP CORR TO 98.6
[2017-01-08 18:55] LABS: DRAW SITE ART LINE; FIO2 80 %; NUMBER OF ARTERIAL PUNCTURES 0; STAT NO; ULNAR PULSE PRESENT; VENT SETTINGS PRVC/16/600/1.3/+10
[2017-01-08] MEDS ORDERED: NOREPINEPHRINE-DEXTROSE DRIP 250 ML IV ONE (18:55)
[2017-01-08] MEDS: fentaNYL DRIP 250 ML IV PRN (18:58)
[2017-01-08] MEDS: NOREPINEPHRINE INJ 4 MG in SODIUM CHLOR 0.9% 250 ML INJ 246 ML IV PRN (19:00)
[2017-01-08] MEDS: CHLORHEXIDINE 0.12% (ORAL KIT) 15 ML CUP MT SCH (20:00)
[2017-01-08] MEDS: THIAMINE INJ 100 MG in SODIUM CHLORIDE 0.9% INJ 100 ML IV SCH (20:00)
[2017-01-08] MEDS: RESP: BUDESONIDE 0.5 MG/2 ML NEB NEB SCH (20:38)
[2017-01-08] MEDS: traZODone HCL 100 MG TAB PO SCH (21:00)
[2017-01-08] MEDS: methylPREDNISolone SOD SUCC 40 MG/1 ML VIAL IV PUSH SCH (21:58)
[2017-01-08 21:59] LABS: BICARBONATE 33.4 MEQ/L (21.0-32.0); MAGNESIUM 2.7 MG/DL (1.5-2.5); POTASSIUM 3.7 MEQ/L (3.5-5.1)
[2017-01-08] MEDS: MULTIVITAMIN INJ 10 ML, FOLIC ACID INJ 1 MG in SODIUM CHLORID 0.9% 500 ML INJ 500 ML IV SCH (22:05)
[2017-01-09] VITALS (15 sets, daily range): BP systolic 85–126; BP diastolic 59–84; PULSE 54–68; RESP 16–38; TEMP 97.8–98.8; O2SAT 91–98
[2017-01-09] MEDS: PROPOFOL 1000 MG/100 ML IV PRN ×5 (02:53→20:38)
[2017-01-09] MEDS: RESP: ALBUTEROL 2.5 MG/IPRATROPIUM 0.5 MG NEB (SCH) NEB ×4 (02:57→20:00)
[2017-01-09 03:46] LABS: BLOOD GAS BASE EXCESS 4.6 mmol/L (-2-2); BLOOD GAS CARBOXYHEMOGLOBIN 1.2 % (0-4); BLOOD GAS HCO3 29 mmol/L (22-26); BLOOD GAS METHEMOGLOBIN 0.7 % (0-2); BLOOD GAS O2 HGB SATURATION 98 % (90-100); BLOOD GAS OXYGEN CONTENT 19.4 Vol % (12.0-20.0); BLOOD GAS PCO2 46 mmHg (38-42); BLOOD GAS PO2 238 mmHg (61-120); BLOOD GAS TOTAL HGB 13.8 G/DL (12.0-16.0); CRITICAL VALUE NO; OXYGEN DEVICE VENTILATOR; TEMP CORR TO 98.6
[2017-01-09 03:47] LABS: DRAW SITE ART LINE; STAT NO
[2017-01-09] MEDS: INSULIN ASPART SUPPLEMENTAL SCALE SQ SCH ×6 (04:00→20:00)
[2017-01-09] MEDS: PIPERACIL-TAZO 4.5 GM PREMIX 100 ML IV SCH (04:06)
[2017-01-09 04:22] LABS: AUTOMATED NEUTROPHIL # 11.2 TH/MM3 (1.8-7.7); BASOPHIL % 0.3 % (0.0-2.0); HEMO FLAGS DIFF FINAL; LYMPH % 5.1 % (9.0-44.0); LYMPHOCYTE # 0.7 TH/MM3 (1.0-4.8); MEAN CELL VOLUME 98.2 FL (80.0-100.0); MEAN CORPUSCULAR HEMOGLOBIN 32.8 PG (27.0-34.0); MEAN CORPUSCULAR HGB CONC 33.4 % (32.0-36.0); NEUT % 87.6 % (16.0-70.0); PLATELET COUNT 125 TH/MM3 (150-450); RED BLOOD COUNT 3.97 MIL/MM3 (4.50-5.90); RED CELL DISTRIBUTION WIDTH 15.3 % (11.6-17.2); WHITE BLOOD COUNT 12.8 TH/MM3 (4.0-11.0)
[2017-01-09 04:46] LABS: APTT (PATIENT) 29.4 SEC (24.3-30.1); INTERNATIONAL NORMALIZED RATIO 1.4 RATIO
[2017-01-09 04:48] LABS: ALT (GPT) 88 U/L (12-78); AMYLASE 58 U/L (25-115); ANION GAP 10 MEQ/L (5-15); AST (GOT) 208 U/L (15-37); BICARBONATE 31.6 MEQ/L (21.0-32.0); BLOOD UREA NITROGEN 31 MG/DL (7-18); CHLORIDE 98 MEQ/L (98-107); GLOMERULAR FILTRATION RATE 28 ML/MIN (>89); MAGNESIUM 2.8 MG/DL (1.5-2.5); POTASSIUM 3.9 MEQ/L (3.5-5.1); SODIUM (NA) 140 MEQ/L (136-145)
[2017-01-09 04:51] LABS: ALKALINE PHOSPHATASE 144 U/L (45-117); TOTAL BILIRUBIN ADULT 3.2 MG/DL (0.2-1.0)
[2017-01-09] MEDS: RIFAXIMIN 200 MG TAB PO SCH ×3 (06:14→23:55)
[2017-01-09] MEDS: SODIUM CHLORIDE 0.9% FLUSH 10 ML FLUSH IV FLUSH PRN (06:14)
[2017-01-09] MEDS: ALBUMIN 25% INJ 50 ML IV SCH ×2 (06:14→17:11)
[2017-01-09] MEDS: methylPREDNISolone SOD SUCC 40 MG/1 ML VIAL IV PUSH SCH ×3 (06:14→22:50)
[2017-01-09] MEDS: ARTIFICIAL TEARS OPTH SOLN 15 ML BTL EACH EYE SCH ×3 (06:15→22:00)
[2017-01-09] MEDS ORDERED: POTASSIUM CHLOR 40 MEQ PREMIX 100 ML IV ONE (06:30)
[2017-01-09] MEDS ORDERED: CALCIUM CHLORIDE INJ 1 GM in SODIUM CHLORIDE 0.9% INJ 100 ML IV ONE (07:00)
--- NOTE | 2017-01-09 07:08 | HHI.CCPN ---
Subjective Remarks/Hospital Course 46-year-old morbidly obese gentleman admitted for evaluation of Edema, Shortness of breath, Chest pain, who started with swelling in his lower extremities and testicles 2 weeks prior to admission, progressively worsening to the point where he cant ambulate or urinate without difficulty, pain is 10/ 10 in intensity, Chest pain started the day prior to admission as a substernal pain. Per chart review he has been drinking alcohol on a daily basis, at least a 1/5th of vodka daily. He was considered to be in withdrawal because he has been unable to go to the methadone clinic for 3 days because of all the swelling in his legs and testicles. He has also Hepatitis C. January 08 manager channel he had a few runs of V. tach on the patient monitor and was transferred to ICU. Shortly after the transfer patient suffered from V. tach/ V. fib cardiac arrest, he was defibrillated 1 during the CPR and after 1 cycle of CPR and intubation he regained spontaneous circulation. Cardiology workers compensation analyst was informed about the V. fib cardiac arrest with recommendation to correct underlying electrolyte dissonance. 01/08: Currently sedated on propofol drip at 30 micrograms per kilo per minute. Arousable. With hemoptysis per 7.5 ET tube. Will need bronchoscopy. Family attempted to notify per RN however currently unavailable/unreachable. No further runs of dysrhythmia noted. Subjective 01/09: At approximately 2345, another episode of V. fib/pulseless V. tach. Episode lasted approximately 5 minutes. Patient received 300 mg IV amiodarone and shocked with 200 J. Patient is arousable on the ventilator currently on propofol and fentanyl drips.. High ox requirements persist. Creatinine has increased to 2.5. Objective Vital Signs Date Time Temp Pulse Resp B/P (MAP) Pulse Ox O2 Delivery O2 Flow Rate FiO2 01/09/17 04:20 93 100 01/09/17 00:09 60 01/08/17 19:00 99/57 01/08/17 16:00 98.7 16 01/07/17 22:47 Nasal Cannula 2.00 Result Diagram: 01/09/17 0400 01/09/17 0400 Other Results Microbiology Date/Time Source Procedure Growth Status 01/06/17 21:26 Blood Peripheral Aerobic Blood Culture - Preliminary NO GROWTH IN 2 DAYS Resulted 01/06/17 21:26 Blood Peripheral Anaerobic Blood Culture - Preliminary NO GROWTH IN 2 DAYS Resulted 01/08/17 18:29 Sputum Endotracheal Gram Stain Pending Received 01/08/17 18:29 Sputum Endotracheal Sputum Culture Pending Received 01/06/17 15:53 Wound Leg Gram Stain - Final Complete 01/06/17 15:53 Wound Culture - Final Staphylococcus Aureus Complete Imaging Last Impressions Head CT 01/08/17 0400 Signed Impressions: Service Date/Time: Sunday, January 08, 2017 03:55 - CONCLUSION: 1. No intracranial abnormalities seen. 2. Sinus disease. Jose De Jesus MD Upper Extremity Ultrasound 01/08/17 0000 Signed Impressions: Service Date/Time: Sunday, January 08, 2017 12:14 - CONCLUSION: Normal examination. Rosendo Connors Jr., MD Liver Ultrasound 01/08/17 0000 Signed Impressions: Service Date/Time: Sunday, January 08, 2017 11:39 - CONCLUSION: Hepatosplenomegaly. Hepatic steatosis. Distended gallbladder with nonspecific wall thickening and gallbladder sludge. Minimal pericholecystic fluid Jose Machado MD Chest X-Ray 01/08/17 0000 Signed Impressions: Service Date/Time: Sunday, January 08, 2017 01:24 - CONCLUSION: 1. New left internal jugular central line in good position. No pneumothorax is seen. 2. Cardiomegaly. 3. Proximal hilar regions and interstitial markings likely from pulmonary venous hypertension or edema. If the hilar enlargement persists, it could be further evaluated with CT examination the chest with contrast. Jose De Jesus MD CT Angiography 01/08/17 0000 Signed Impressions: Service Date/Time: Sunday, January 08, 2017 04:03 - CONCLUSION: 1. No pulmonary embolus. 2. Increased density at the posterior aspects of the lungs bilaterally likely related to atelectasis or consolidation. Jose De Jesus MD Abdomen/Pelvis CT 01/08/17 0000 Signed Impressions: Service Date/Time: Sunday, January 08, 2017 04:03 - CONCLUSION: 1. Hepatic steatosis with suspected portal hypertension and cirrhosis. There are prominent veins seen throughout the superficial anterior abdominal wall. 2. Splenomegaly. This may be secondary to portal hypertension. 3. Significant ascites is not seen. Jose De Jesus MD Objective Remarks GENERAL: This is a 46-year-old male, critically ill currently orotracheally intubated SKIN: Warm and dry. Open wound left lower extremity/lateral currently covered with Kerlix HEAD: Normocephalic. EYES: + scleral icterus. No injection or drainage. NECK: Supple, trachea midline. No JVD or lymphadenopathy. Left IJ is clean dry and intact CARDIOVASCULAR: Bradycardic, RR. S1, S2 no S4. Without murmurs, gallops, or rubs. RESPIRATORY: Ms. breath sounds at daily. Few coarse crackles patient bases bilaterally. GASTROINTESTINAL: Abdomen is protuberant. Nontender. Hypoactive bowel sounds are appreciated MUSCULOSKELETAL: 1+ peripheral edema. Bilateral upper and lower extremities. : Positive scrotal edema. Locke catheter in place. NEURO EXAM: Cranial nerves II through XII grossly intact. Moves all 4 extremities spontaneous. Withdraws to pain/noxious stimuli Procedures none Date of Insertion: Jan 08, 2017 Line: Central Venous Catheter Side: Left Location: Internal, Jugular A/P Assessment and Plan Neuro/Psych: Adjustment disorder with depressed mood EtOH abuse Hepatic encephalopathy History of polysubstance abuse including intravenous, oral hydromorphone Patient is currently on propofol drip at 25 mg/kg per minute and fentanyl drip at 50 mics grams an hour for sedation/analgesia while intubated Goal of RASS -2 Daily sedation vacation Currently on methadone 140 mg daily for history of narcotic abuse. This will be held in light of prolonged QT and recent V. fib/pulses V. tach 2 CT brain 01/08 revealed no acute intracranial findings. Sinus disease only Currently on thiamine 100 mg daily, folate 1 mg daily multivitamin 10cc injection daily Sertraline 25 mg discontinued. Currently on trazodone 100 mg at night. This will be discontinued in light of prolonged QT Evaluated by Dr. Mckay/psychiatry this hospitalization On as needed lorazepam at home 0.5 mg every 6 hours CIWA protocol discontinued while intubated CV: VFib/flutter cardiac arrest History of hypertension Shocked with unknown amount of joules via unknown defibrillator 12/30//01/08 1. Received 150 mg amiodarone bolus 1 01/07 and 3 mg and was initially placed on a lidocaine drip which is currently at 0.5 mg per minute Currently on sotalol 80 mg twice a day per Dr. Pena/cardiology as of 01/07 2-D echocardiogram 01/07 revealed EF 60%. Trace TR. Dr. Mathur/cardiology is following Follow-up postcode EKG Currently normal saline at 42 cc previously discontinued Currently on furosemide 80 mg IV twice a day and spironolactone 50 milligrams daily. This was discontinued today secondary to acute kidney injury Resp: Acute hypoxemic respiratory failure Ongoing tobaccoism PRVC 16/600/1.3/09/19 Ventilator bundle Albuterol/ipratropium aerosols every 4 hours with albuterol aerosols every 2 hours as needed for Dyspnea Budesonide 0.5/2 1 inhalation twice a day Methylprednisolone 40 mg IV twice a day Spontaneous breathing trials when clinically indicated Currently with hemoptysis. Enoxaparin has been held. We'll restart heparin today for percutaneous CT pulmonary arteriogram 01/08 revealed no central pulmonary embolism. Bilateral lower lobe atelectasis versus infiltrate Tobacco sensation will be provided when appropriate GI: Elevated transaminases Hepatic steatosis - possible alcoholic cirrhosis Elevated total bilirubin Splenomegaly History of hepatitis C antibody + 2016. Genotype not detectable. No viral load detected Elevated ammonia level Meld score 16 CT abdomen/pelvis this admission revealed hepatic steatosis. Likely signs of portal hypertension Pantoprazole 40 mg IV twice a day for GI prophylaxis Start on Nepro goal 50 cc an hour with beneprotein one packet 3 times a day Docusate sodium 100 mg liquid twice a day, senna 8.6 mg daily bowel regimen Patient is currently on Xifaxan 400 mg 3 times a day and lactulose 30 cc 3 times daily for elevated ammonia level. Resume pentoxifylline 400 mg 3 times a day scheduled albumin 25 g every 12 hours per fm. Discontinued in a.m 01/10 Negative extensive pedal workup in 2017 by GI. Negative AMA/ASMA, ceruloplasmin etc. : Locke catheter has been placed for accurate I's and O's in a critically ill patient with severe scrotal edema and urinary retention Endo: Diabetes mellitus Elevated TSH Holding insulin glargine in-home sliding-scale insulin Currently on Novulog /low regimen with Accu-Cheks every 4 hours to maintain euglycemia TSH on admission 6.4. T4 normal at 1.4. Check free T3 in a.m. Recommend recheck in 4-6 weeks Renal: Acute kidney injury Current currently 2.1 Avoid nephrotoxic drugs Discontinue vancomycin Check urine eosinophils and electrolytes Check renal ultrasound Nephrology consult. Monitor urine output Accurate I's and O's Repeat BMP in a.m. Heme: Thrombocytopenia Elevated INR Monitor CBC daily. Follow trends ID: Staph aureus left lower leg infection Discontinue vancomycin again due to acute kidney injury. With dressing changes every 3 days. Currently dressed with Optifoam Continue piperacillin/tazobactam/likely significant aspiration during resuscitation Pertinent cultures 01/06 - left leg wound culture - staph aureus - MSSA 01/06 - blood cultures 2 - no growth FEN: Scheduled potassium placement with 20 mEq potassium 3 times a day Recheck electrolytes afternoon. Electrolyte protocol initiated MSK: Bilateral lower extremity open wounds Right lower extremity 10 x 7 x 0.1 cm. Left lower extremity wound 10 x 5 x 0.1 cm. Wound care evaluate and treat. Currently in IV antibiotics. Access - Left IJ CVL placed 01/08 Prophylaxis - GI - pantoprazole - DVT - SCD/heparin subcutaneous Critical Care: The total critical care time was 35 minutes. Time to perform other separately billable procedures was not included in the critical care time. Sotalol discontinued secondary to acute kidney injury, prolonged QTC. As this might be a drug-induced prolonged QTC which should not be treated with as such antiarrhythmics Started on epinephrine drip instead of norepinephrine Discussed with Dr. Mathur. Discussed with Venkat Torres MD Jan 09, 2017 07:08
--- NOTE | 2017-01-09 08:28 | RADRPT ---
EXAM DATE/TIME: 01/09/2017 07:55 [facility] COMPARISON: CHEST SINGLE AP, January 08, 2017, 1:24. INDICATIONS : Status post CODE. MEDICAL HISTORY : Chronic obstructive pulmonary disease. Cardiovascular disease. Hypertension. Hepatitis C. SURGICAL HISTORY : None. ENCOUNTER: Subsequent ACUITY: 3 days PAIN SCORE: Non-responsive. LOCATION: Bilateral chest FINDINGS: A single portable frontal view of the chest shows an endotracheal tube with the tip 5 cm proximal to cele. Nasogastric tube courses off the inferior margin of the film. Left internal jugular vein cent ral venous line. Mild cardiac way. Left lower lobe parenchymal consolidation with air bronchograms. R ight lung is clear. No effusions or pneumothorax. CONCLUSION: Left lower lobe consolidation with cardiomegaly. Rosendo Connors Jr., MD on January 09, 2017 at 8:26 Board Certified Radiologist. This report was verified electronically.
[2017-01-09] MEDS ORDERED: PHARMACY ORDERED LAB ONE (08:45)
[2017-01-09] MEDS: POTASSIUM CHLORIDE 20 MEQ CONTROLLED RELEASE TAB PO SCH ×3 (09:00→17:16)
[2017-01-09] MEDS: DOCUSATE SODIUM 100 MG/10 ML UDC PO SCH ×2 (09:06→21:00)
[2017-01-09] MEDS: PANTOPRAZOLE SODIUM 40 MG VIAL IV PUSH SCH ×2 (09:07→22:50)
[2017-01-09] MEDS: SENNOSIDES SYRUP 8.8 MG/5 ML CUP NG SCH ×2 (09:07→21:00)
[2017-01-09] MEDS: LACTULOSE SYRUP 20 GM/30 ML CUP PO SCH ×3 (09:07→17:11)
[2017-01-09] MEDS: CALCIUM CARBONATE 1.25 GM (CA 500 MG) TAB PO SCH ×2 (09:07→22:51)
[2017-01-09] MEDS: SODIUM CHLORIDE 0.9% FLUSH 10 ML FLUSH IV FLUSH SCH ×2 (09:08→22:49)
[2017-01-09] MEDS: BENEPROTEIN POWDER 1 PACK G-TUBE SCH ×3 (09:14→17:11)
[2017-01-09] MEDS: RESP: BUDESONIDE 0.5 MG/2 ML NEB NEB SCH ×2 (09:18→19:59)
[2017-01-09] MEDS: CHLORHEXIDINE 0.12% (ORAL KIT) 15 ML CUP MT SCH ×2 (09:21→20:00)
[2017-01-09] MEDS: PIPERACIL-TAZO 3.375 GM PREMIX 50 ML IV SCH ×3 (09:44→22:51)
[2017-01-09] MEDS: NOREPINEPHRINE INJ 4 MG in SODIUM CHLOR 0.9% 250 ML INJ 246 ML IV PRN (09:50)
--- NOTE | 2017-01-09 10:55 | RADRPT ---
EXAM DATE/TIME: 01/09/2017 09:36 [facility] COMPARISON: No previous studies available for comparison. INDICATIONS : Increased Bun and Creatinine. MEDICAL HISTORY : Hypertension. Sleep apnea. Liver disease. Bipolar disorder. ETOH abuse. Substance abuse. SURGICAL HISTORY : Right femur fracture repair. ENCOUNTER: Initial ACUITY: 1 day PAIN SCORE: Nonresponsive. LOCATION: Bilateral flank MEASUREMENTS: RIGHT KIDNEY: 12.6 x 6.9 x 6.9 cm LEFT KIDNEY: 13.3 x 6.2 x 6.2 cm FINDINGS: RIGHT KIDNEY: Renal cortex is normal in thickness and echotexture. No hydronephrosis, stone, or mass. LEFT KIDNEY: Renal cortex is normal in thickness and echotexture. No hydronephrosis, stone, or mass. BLADDER: Decompressed with Locke catheter CONCLUSION: No evidence of hydronephrosis Jose Machado MD on January 09, 2017 at 10:52 Board Certified Radiologist. This report was verified electronically.
--- NOTE | 2017-01-09 10:56 | RADRPT ---
EXAM DATE/TIME: 01/09/2017 09:46 [facility] COMPARISON: No previous studies available for comparison. INDICATIONS : Leg swelling. MEDICAL HISTORY : Hypertension. Sleep apnea. Liver disease. Bipolar disorder. ETOH abuse. Substance abuse. SURGICAL HISTORY : Right femur fracture repair. ENCOUNTER: Initial ACUITY: 1 day PAIN SCORE: Non-responsive LOCATION: Bilateral leg. TECHNIQUE: Venous ultrasound of the left and right leg was performed from the inguinal ligament to the proximal calf. Real-time, color Doppler and spectral tracing, compression and augmentation techniques were us ed. FINDINGS: RIGHT LEG: There is normal compressibility of the deep venous system from the inguinal region to the proximal ca lf. No echogenic clot is seen in the lumen of the common femoral, femoral, popliteal, and posterior tibial veins. There is a normal response of the venous system to proximal and distal augmentation an d respiration. LEFT LEG: There is normal compressibility of the deep venous system from the inguinal region to the proximal ca lf. No echogenic clot is seen in the lumen of the common femoral, femoral, popliteal, and posterior tibial veins. There is a normal response of the venous system to proximal and distal augmentation an d respiration. CONCLUSION: Normal examination. Jose Machado MD on January 09, 2017 at 10:53 Board Certified Radiologist. This report was verified electronically.
[2017-01-09] MEDS: EPINEPHrine (1:1000) INJ 2 MG in DEXTROSE 5% IN WATER INJ 250 ML IV PRN ×4 (11:02→17:14)
[2017-01-09 12:23] LABS: BACTERIA, URINE RARE /hpf; BLOOD, URINE MOD (NEG); GLUCOSE,URINE NEG (NEG); KETONE, URINE NEG (NEG); MUCUS URINE FEW /lpf (OCC); NITRITE,URINE NEG (NEG); PH, URINE 5.5 (5.0-8.5); SQUAMOUS EPITHELIAL CELL URINE 1 /hpf (0-5); URINE COLOR YELLOW (YELLW/STRAW)
[2017-01-09 12:24] LABS: COMMENT (UR) CATH-CULTURE IND; CULTURE IF INDICATED CATH CULTURE IND
[2017-01-09] MEDS ORDERED: FUROSEMIDE 40 MG/4 ML VIAL IV PUSH ONE (15:00)
[2017-01-09] MEDS ORDERED: POTASSIUM CHLOR 20 MEQ PREMIX 100 ML IV ONE (15:00)
[2017-01-09] MEDS: HEPARIN SODIUM - SQ 10,000 UNITS/ML VIAL SQ SCH ×2 (15:06→22:52)
--- NOTE | 2017-01-09 15:09 | PD.CONS ---
HPI Service Nephrology Consult Requested By Dr. Rebolledo Reason for Consult Acute renal failure Primary Care Physician No Primary Care Physician History of Present Illness Patient is a 46-year-old obese male with history of alcoholism, he was brought in with weakness and suffered a cardiac arrest with ventricular fibrillation, he required shock, resuscitation and intubation and patient is in ICU he has morbid obesity and peripheral edema urine output does declining and his creatinine is 2.5 on baseline of 0.69, patient has been having increasing edema to his history of alcoholism. 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 Reported Medications Reported Basaglar Kwikpen (Insulin Glargine) 100 Unit/Ml Pen 1 Units SQ DAILY Novolog Flexpen Inj (Insulin Aspart) 300 Unit/3 Ml Pen 1 Units SQ Methadone Intensol Liq (Methadone HCl) 10 Mg/Ml Conc 140 Mg PO DAILY Active Ordered Medications Current Medications Medications (Trade) Dose Ordered Sig/[facility] Route Start Time Stop Time Status Last Admin (KCl) 20 meq TID PO 01/06/17 18:00 01/07/17 18:22 (NS Flush) 2 ml UNSCH PRN IV FLUSH 01/06/17 16:45 01/09/17 06:14 (NS Flush) 2 ml BID IV FLUSH 01/06/17 21:00 01/09/17 09:08 (Zofran Inj) 4 mg Q6H PRN IVP 01/06/17 16:45 (Narcan Inj) 0.4 mg UNSCH PRN IV PUSH 01/06/17 16:45 (Milk Of Magnesia Liq) 30 ml Q12H PRN PO 01/06/17 16:45 (Senokot) 17.2 mg Q12H PRN PO 01/06/17 16:45 (Dulcolax Supp) 10 mg DAILY PRN RECTAL 01/06/17 16:45 (Lactulose Liq) 30 ml DAILY PRN PO 01/06/17 16:45 Multivitamins 10 ml/Folic Acid 1 mg/Sodium Chloride 510.2 ml @ 125 mls/hr Q24H IV 01/06/17 20:00 12/2/17 19:59 01/08/17 22:05 Thiamine HCl 100 mg/Sodium Chloride 101 ml @ 100 mls/hr Q24H IV 01/06/17 20:00 01/09/17 19:59 01/08/17 20:00 (Vitamin B1) 100 mg DAILY PO 01/10/17 09:00 (Romazicon Inj) 0.2 mg Q1M PRN IV PUSH 01/06/17 17:45 (Lovenox Inj) 40 mg Q24H SQ 01/06/17 18:00 Future Hold 01/07/17 18:22 Albumin Human 50 ml @ 60 mls/hr Q12H IV 01/06/17 18:00 01/10/17 06:00 01/09/17 06:14 (Lactulose Liq) 30 ml TID PO 01/07/17 09:00 01/09/17 09:07 (Xifaxan) 400 mg Q8HR PO 01/06/17 22:00 01/09/17 06:14 (Oscal) 1,000 mg BID PO 01/07/17 09:00 01/09/17 09:07 (D50w (Vial) Inj) 50 ml UNSCH PRN IV PUSH 01/07/17 08:15 (Glucagon Inj) 1 mg UNSCH PRN OTHER 01/07/17 08:15 (Betapace) 80 mg Q12HR PO 01/07/17 22:15 Future Hold 01/08/17 21:57 Amiodarone HCl 450 mg/Dextrose 250 ml @ 33.33 mls/ hr Q7H31M PRN IV 01/08/17 01:21 01/08/17 01:46 Propofol 100 ml @ 3.999 mls/ hr TITRATE PRN IV 01/08/17 05:00 01/09/17 11:48 (Duoneb Neb) 1 ampule Q6HR NEB NEB 01/08/17 10:00 01/09/17 09:18 (Albuterol Neb) 2.5 mg Q2HR NEB PRN NEB 01/08/17 08:30 (Tears Naturale Opth Soln) 1 drop Q8HR EACH EYE 01/08/17 14:00 01/09/17 06:15 (TRENtal SR) 400 mg Q8HR PO 01/08/17 14:00 Future Hold (NovoLOG SUPPLEMENTAL SCALE) 1 Q4HR SQ 01/08/17 12:00 (Peridex 0.12% Liq) 15 ml BID@08,20 MT 01/08/17 20:00 01/09/17 09:21 Midazolam HCl 100 ml @ 2 mls/hr TITRATE PRN IV 01/08/17 08:30 Fentanyl Citrate 250 ml @ 5 mls/hr TITRATE PRN IV 01/08/17 08:30 01/08/17 18:58 (Folate) 1 mg DAILY PO 01/09/17 09:00 Future hold (Protonix Inj) 40 mg Q12HR IV PUSH 01/08/17 09:30 01/09/17 09:07 (Colace Liq) 100 mg Q12HR PO 01/08/17 09:00 01/09/17 09:06 (Senna Liq) 8.8 mg BID NG 01/08/17 09:00 01/09/17 09:07 (SoluMEDROL INJ) 40 mg Q8HR IV PUSH 01/08/17 22:00 01/09/17 06:14 (Pulmicort Respule Neb) 0.5 mg Q12HR NEB NEB 01/08/17 20:00 01/09/17 09:18 Norepinephrine Bitartrate 4 mg/ Sodium Chloride 250 ml @ 7.5 mls/hr TITRATE PRN IV 01/08/17 18:00 Future Hold 01/09/17 09:50 (Brethine Inj) 1 mg UNSCH PRN SQ 01/08/17 18:00 Piperacillin Sod/ Tazobactam Sod 50 ml @ 100 mls/hr Q6H IV 01/09/17 10:00 01/09/17 09:44 (Heparin Inj) 5,000 units Q8HR SQ 01/09/17 14:00 (Beneprotein Powder) 1 pack TID G-TUBE 01/09/17 09:00 01/09/17 09:14 Epinephrine HCl 2 mg/Dextrose 252 ml @ 22.68 mls/ hr TITRATE PRN IV 01/09/17 10:45 01/09/17 11:02 Social History History of smoking and alcohol abuse Physical Exam Vital Signs Vital Signs Date Time Temp Pulse Resp B/P (MAP) Pulse Ox O2 Delivery O2 Flow Rate FiO2 01/09/17 12:14 97 75 01/09/17 12:00 90 01/09/17 12:00 98.6 65 16 97 117/83 (94) 01/09/17 11:02 57 104/73 01/09/17 09:50 64 104/71 01/09/17 09:18 98 85 01/09/17 08:00 90 01/09/17 08:00 97.8 64 38 95 106/76 (86) 01/09/17 07:00 60 01/09/17 04:20 93 100 01/09/17 04:00 90 01/09/17 04:00 98.5 54 16 91 85/59 (68) 01/09/17 00:20 93 100 01/09/17 00:09 60 01/09/17 00:00 80 01/09/17 00:00 98.8 60 19 91 91/70 (77) 01/08/17 23:00 53 01/08/17 20:00 98.3 56 16 97 105/67 (80) 01/08/17 20:00 80 01/08/17 19:57 100 75 01/08/17 19:00 55 99/57 01/08/17 16:09 93 80 01/08/17 16:00 100 01/08/17 16:00 98.7 56 16 96 101/55 (70) 01/08/17 15:00 59 Physical Exam GENERAL: These, well-developed patient. SKIN: Warm and dry. HEAD: Normocephalic. EYES: No scleral icterus. No injection or drainage. NECK: Supple, trachea midline. No JVD or lymphadenopathy. CARDIOVASCULAR: Tachycardic RESPIRATORY: Breath sounds equal bilaterally. No accessory muscle use. GASTROINTESTINAL: Abdomen soft, non-tender,distended. EXTREMITIES: No cyanosis, 3-4+ edema. NEUROLOGICAL: Obtunded on ventilator Laboratory Laboratory Tests Test 01/08/17 18:46 01/08/17 20:43 01/09/17 03:30 01/09/17 04:00 Blood Gas Puncture Site ART LINE ART LINE Blood Gas Patient Temperature 98.6 98.6 Blood Gas HCO3 33 29 Blood Gas Base Excess 8.3 4.6 Blood Gas Oxygen Saturation 96 98 Arterial Blood pH 7.44 7.42 Arterial Blood Partial Pressure CO2 49 46 Arterial Blood Partial Pressure O2 96 238 Arterial Blood Oxygen Content 17.1 19.4 Arterial Blood Carboxyhemoglobin 1.3 1.2 Arterial Blood Methemoglobin 0.9 0.7 Blood Gas Hemoglobin 12.6 13.8 Oxygen Delivery Device VENTILATOR VENTILATOR Blood Gas Ventilator Setting [facility]/16/600/1.3/+10 COMMENT Blood Gas Inspired Oxygen 80 Blood Urea Nitrogen 25 31 Creatinine 2.11 2.51 Random Glucose 93 113 Calcium Level 8.0 7.7 Phosphorus Level 4.7 Magnesium Level 2.7 2.8 Sodium Level 141 140 Potassium Level 3.7 3.9 Chloride Level 98 98 Carbon Dioxide Level 33.4 31.6 Anion Gap 10 10 Estimat Glomerular Filtration Rate 34 28 White Blood Count 12.8 Red Blood Count 3.97 Hemoglobin 13.0 Hematocrit 39.0 Mean Corpuscular Volume 98.2 Mean Corpuscular Hemoglobin 32.8 Mean Corpuscular Hemoglobin Concent 33.4 Red Cell Distribution Width 15.3 Platelet Count 125 Mean Platelet Volume 8.1 Neutrophils (%) (Auto) 87.6 Lymphocytes (%) (Auto) 5.1 Monocytes (%) (Auto) 7.0 Eosinophils (%) (Auto) 0.0 Basophils (%) (Auto) 0.3 Neutrophils # (Auto) 11.2 Lymphocytes # (Auto) 0.7 Monocytes # (Auto) 0.9 Eosinophils # (Auto) 0.0 Basophils # (Auto) 0.0 CBC Comment DIFF FINAL Differential Comment Prothrombin Time 16.0 Prothromb Time International Ratio 1.4 Activated Partial Thromboplast Time 29.4 Fibrinogen 261 Total Protein 7.9 Albumin 2.8 Alkaline Phosphatase 144 Aspartate Amino Transf (AST/SGOT) 208 Alanine Aminotransferase (ALT/SGPT) 88 Total Bilirubin 3.2 Direct Bilirubin 2.2 Lactic Acid Level 1.8 Indirect Bilirubin 1.0 Ammonia 62 Troponin I 0.11 Amylase Level 58 Lipase 305 Test 01/09/17 11:45 01/09/17 11:56 Urine Color YELLOW Urine Turbidity HAZY Urine pH 5.5 Urine Specific [place] 1.030 Urine Protein 30 Urine Glucose (UA) NEG Urine Ketones NEG Urine Occult Blood MOD Urine Nitrite NEG Urine Bilirubin NEG Urine Urobilinogen LESS THAN 2.0 Urine Leukocyte Esterase SMALL Urine RBC 43 Urine WBC 16 Urine Squamous Epithelial Cells 1 Urine Bacteria RARE Urine Mucus FEW Microscopic Urinalysis Comment CATH-CULTURE IND Urine Eosinophils NONE SEEN Urine Random Creatinine 94.3 Urine Random Sodium 11 Date/Time Source Procedure Growth Status 01/06/17 21:26 Blood Peripheral Aerobic Blood Culture - Preliminary NO GROWTH IN 3 DAYS Resulted 01/06/17 21:26 Blood Peripheral Anaerobic Blood Culture - Preliminary NO GROWTH IN 3 DAYS Resulted 01/08/17 18:29 Sputum Endotracheal Gram Stain - Final Resulted 01/08/17 18:29 Sputum Endotracheal Sputum Culture Pending Resulted 01/09/17 11:45 Urine Catheterized Urine Urine Culture Pending Received 01/06/17 15:53 Wound Leg Gram Stain - Final Complete 01/06/17 15:53 Wound Culture - Final Staphylococcus Aureus Complete Result Diagram: 01/09/17 0400 01/09/17 0400 Imaging Last Impressions Renal Ultrasound 01/09/17 0000 Signed Impressions: Service Date/Time: December 09:36 - CONCLUSION: No evidence of hydronephrosis Jose Machado MD Lower Extremity Ultrasound 01/09/17 0000 Signed Impressions: Service Date/Time: December 09:46 - CONCLUSION: Normal examination. Jose Machado MD Chest X-Ray 01/09/17 0000 Signed Impressions: Service Date/Time: December 07:55 - CONCLUSION: Left lower lobe consolidation with cardiomegaly. Rosendo Connors Jr., MD Head CT 01/08/17 0400 Signed Impressions: Service Date/Time: Sunday, January 08, 2017 03:55 - CONCLUSION: 1. No intracranial abnormalities seen. 2. Sinus disease. Jose De Jesus MD Upper Extremity Ultrasound 01/08/17 0000 Signed Impressions: Service Date/Time: Sunday, January 08, 2017 12:14 - CONCLUSION: Normal examination. Rosendo Connors Jr., MD Liver Ultrasound 01/08/17 0000 Signed Impressions: Service Date/Time: Sunday, January 08, 2017 11:39 - CONCLUSION: Hepatosplenomegaly. Hepatic steatosis. Distended gallbladder with nonspecific wall thickening and gallbladder sludge. Minimal pericholecystic fluid Jose Machado MD CT Angiography 01/08/17 0000 Signed Impressions: Service Date/Time: Sunday, January 08, 2017 04:03 - CONCLUSION: 1. No pulmonary embolus. 2. Increased density at the posterior aspects of the lungs bilaterally likely related to atelectasis or consolidation. Jose De Jesus MD Abdomen/Pelvis CT 01/08/17 0000 Signed Impressions: Service Date/Time: Sunday, January 08, 2017 04:03 - CONCLUSION: 1. Hepatic steatosis with suspected portal hypertension and cirrhosis. There are prominent veins seen throughout the superficial anterior abdominal wall. 2. Splenomegaly. This may be secondary to portal hypertension. 3. Significant ascites is not seen. Jose De Jesus MD Assessment and Plan Problem List: (1) Acute renal failure ICD Codes: N17.9 - Acute kidney failure, unspecified Plan: Patient is in acute renal failure due to cardiogenic shock he did receive a CTA of the chest , exposed to dye Patient will require diuretics as well as massive edema Lasix 40 mg IV every 12 hourly will be started Potassium needs to be replaced and we'll continue to monitor Discussed with Dr. Rebolledo (2) Anasarca ICD Codes: R60.1 - Generalized edema Status: Acute Plan: Due to cirrhosis (3) Liver cirrhosis ICD Codes: K74.60 - Unspecified cirrhosis of liver Status: Acute Plan: Alcoholism (4) Ventricular fibrillation ICD Codes: I49.01 - Ventricular fibrillation Plan: Ventricular fibrillation has resuscitation Tonay Combs MD Jan 09, 2017 15:08
--- NOTE | 2017-01-09 16:07 | EKG ---
Date Performed: 01/08/2017 Time Performed: 13:27:06 PTAGE: 46 years EKG: Sinus rhythm INDETERMINATE AXIS MODERATE INTRAVENTRICULAR CONDUCTION DELAY NONSPECIFIC T-WAVE ABNORMALITY PROLONG ED QT INTERVAL ABNORMAL ECG Since PREVIOUS TRACING , no significant change noted PREVIOUS TRACIN01/08/2017 07.08 DOCTOR: Marlene Potter Interpretating Date/Time 01/09/2017 16:06:52
--- NOTE | 2017-01-09 16:08 | EKG ---
Date Performed: 01/09/2017 Time Performed: 01:48:28 PTAGE: 46 years EKG: Sinus rhythm Indeterminate axis Anteroseptal T wave changes are nonspecific Borderline ECG Since PREVIOUS TRACING , no significant change noted PREVIOUS TRACINGl: 01/08/2017 20.20.14 DOCTOR: Marlene Potter Interpretating Date/Time 01/09/2017 16:07:52
--- NOTE | 2017-01-09 16:08 | EKG ---
Date Performed: 01/08/2017 Time Performed: 20:20:14 PTAGE: 46 years EKG: SINUS BRADYCARDIA WITH FREQUENT VENTRICULAR PREMATURE COMPLEXES MODERATE INTRAVENTRICULAR C ONDUCTION DELAY MODERATE T-WAVE ABNORMALITY, CONSIDER LATERAL ISCHEMIA ABNORMAL ECG Since PREVIOUS TRACING , no significant change noted PREVIOUS TRACIN01/08/2017 13.27 DOCTOR: Marlene Potter Interpretating Date/Time 01/09/2017 16:07:07
--- NOTE | 2017-01-09 16:10 | EKG ---
Date Performed: 01/09/2017 Time Performed: 08:19:15 PTAGE: 46 years EKG: Sinus rhythm MODERATE INTRAVENTRICULAR CONDUCTION DELAY MODERATE T-WAVE ABNORMALITY, CONSIDER ANTEROLATERAL ISCHE PERI ABNORMAL ECG Since PREVIOUS TRACING , no significant change noted PREVIOUS TRACIN01/09/2017 01.48.28 DOCTOR: Marlene Potter Interpretating Date/Time 01/09/2017 16:09:10
[2017-01-09 16:48] LABS: BICARBONATE 28.5 MEQ/L (21.0-32.0); MAGNESIUM 2.8 MG/DL (1.5-2.5); POTASSIUM 4.6 MEQ/L (3.5-5.1)
[2017-01-09] MEDS: FUROSEMIDE 40 MG/4 ML VIAL IV PUSH SCH (17:11)
--- NOTE | 2017-01-09 17:57 | PD.CARD.PN ---
Subjective Subjective Remarks Intubated Objective Medications Current Medications Medications (Trade) Dose Ordered Sig/[facility] Route Start Time Stop Time Status Last Admin (KCl) 20 meq TID PO 01/06/17 18:00 01/07/17 18:22 (NS Flush) 2 ml UNSCH PRN IV FLUSH 01/06/17 16:45 01/09/17 06:14 (NS Flush) 2 ml BID IV FLUSH 01/06/17 21:00 01/09/17 09:08 (Zofran Inj) 4 mg Q6H PRN IVP 01/06/17 16:45 (Narcan Inj) 0.4 mg UNSCH PRN IV PUSH 01/06/17 16:45 (Milk Of Magnesia Liq) 30 ml Q12H PRN PO 01/06/17 16:45 (Senokot) 17.2 mg Q12H PRN PO 01/06/17 16:45 (Dulcolax Supp) 10 mg DAILY PRN RECTAL 01/06/17 16:45 (Lactulose Liq) 30 ml DAILY PRN PO 01/06/17 16:45 Multivitamins 10 ml/Folic Acid 1 mg/Sodium Chloride 510.2 ml @ 125 mls/hr Q24H IV 01/06/17 20:00 01/11/17 19:59 01/08/17 22:05 Thiamine HCl 100 mg/Sodium Chloride 101 ml @ 100 mls/hr Q24H IV 01/06/17 20:00 01/09/17 19:59 01/08/17 20:00 (Vitamin B1) 100 mg DAILY PO 01/10/17 09:00 (Romazicon Inj) 0.2 mg Q1M PRN IV PUSH 01/06/17 17:45 (Lovenox Inj) 40 mg Q24H SQ 01/06/17 18:00 Future Hold 01/07/17 18:22 Albumin Human 50 ml @ 60 mls/hr Q12H IV 01/06/17 18:00 01/10/17 06:00 01/09/17 17:11 (Lactulose Liq) 30 ml TID PO 01/07/17 09:00 01/09/17 17:11 (Xifaxan) 400 mg Q8HR PO 01/06/17 22:00 01/09/17 15:06 (Oscal) 1,000 mg BID PO 01/07/17 09:00 01/09/17 09:07 (D50w (Vial) Inj) 50 ml UNSCH PRN IV PUSH 01/07/17 08:15 (Glucagon Inj) 1 mg UNSCH PRN OTHER 01/07/17 08:15 (Betapace) 80 mg Q12HR PO 01/07/17 22:15 Future Hold 01/08/17 21:57 Amiodarone HCl 450 mg/Dextrose 250 ml @ 33.33 mls/ hr Q7H31M PRN IV 01/08/17 01:21 01/08/17 01:46 Propofol 100 ml @ 3.999 mls/ hr TITRATE PRN IV 01/08/17 05:00 01/09/17 15:06 (Duoneb Neb) 1 ampule Q6HR NEB NEB 01/08/17 10:00 01/09/17 16:01 (Albuterol Neb) 2.5 mg Q2HR NEB PRN NEB 01/08/17 08:30 (Tears Naturale Opth Soln) 1 drop Q8HR EACH EYE 01/08/17 14:00 01/09/17 15:06 (TRENtal SR) 400 mg Q8HR PO 01/08/17 14:00 Future Hold (NovoLOG SUPPLEMENTAL SCALE) 1 Q4HR SQ 01/08/17 12:00 (Peridex 0.12% Liq) 15 ml BID@08,20 MT 01/08/17 20:00 01/09/17 09:21 Midazolam HCl 100 ml @ 2 mls/hr TITRATE PRN IV 01/08/17 08:30 Fentanyl Citrate 250 ml @ 5 mls/hr TITRATE PRN IV 01/08/17 08:30 01/08/17 18:58 (Folate) 1 mg DAILY PO 01/09/17 09:00 Future hold (Protonix Inj) 40 mg Q12HR IV PUSH 01/08/17 09:30 01/09/17 09:07 (Colace Liq) 100 mg Q12HR PO 01/08/17 09:00 01/09/17 09:06 (Senna Liq) 8.8 mg BID NG 01/08/17 09:00 01/09/17 09:07 (SoluMEDROL INJ) 40 mg Q8HR IV PUSH 01/08/17 22:00 01/09/17 15:06 (Pulmicort Respule Neb) 0.5 mg Q12HR NEB NEB 01/08/17 20:00 01/09/17 09:18 Norepinephrine Bitartrate 4 mg/ Sodium Chloride 250 ml @ 7.5 mls/hr TITRATE PRN IV 01/08/17 18:00 Future Hold 01/09/17 09:50 (Brethine Inj) 1 mg UNSCH PRN SQ 01/08/17 18:00 Piperacillin Sod/ Tazobactam Sod 50 ml @ 100 mls/hr Q6H IV 01/09/17 10:00 01/09/17 15:06 (Heparin Inj) 5,000 units Q8HR SQ 01/09/17 14:00 01/09/17 15:06 (Beneprotein Powder) 1 pack TID G-TUBE 01/09/17 09:00 01/09/17 17:11 Epinephrine HCl 2 mg/Dextrose 252 ml @ 22.68 mls/ hr TITRATE PRN IV 01/09/17 10:45 01/09/17 17:14 (Lasix Inj) 40 mg BID@09,18 IV PUSH 01/09/17 18:00 01/09/17 17:11 Vital Signs / I&O Vital Signs Date Time Temp Pulse Resp B/P (MAP) Pulse Ox O2 Delivery O2 Flow Rate FiO2 01/09/17 17:14 57 119/79 01/09/17 16:01 97 65 01/09/17 12:14 97 75 01/09/17 12:00 90 01/09/17 12:00 98.6 65 16 97 117/83 (94) 01/09/17 11:02 57 104/73 01/09/17 09:50 64 104/71 01/09/17 09:18 98 85 01/09/17 08:00 90 01/09/17 08:00 97.8 64 38 95 106/76 (86) 01/09/17 07:00 60 01/09/17 04:20 93 100 01/09/17 04:00 90 01/09/17 04:00 98.5 54 16 91 85/59 (68) 01/09/17 00:20 93 100 01/09/17 00:09 60 01/09/17 00:00 80 01/09/17 00:00 98.8 60 19 91 91/70 (77) 01/08/17 23:00 53 01/08/17 20:00 98.3 56 16 97 105/67 (80) 01/08/17 20:00 80 01/08/17 19:57 100 75 01/08/17 19:00 55 99/57 I/O 01/08/17 01/08/17 01/08/17 01/09/17 01/09/17 01/09/17 07:00 15:00 23:00 07:00 15:00 23:00 Intake Total 1683 ml 750 ml 410 ml 100 ml Output Total 2550 ml 350 ml 375 ml Balance -867 ml 750 ml 60 ml -375 ml 100 ml Intake Oral 710 ml IV Total 973 ml 750 ml 410 ml 100 ml Output Urine Total 2550 ml 350 ml 350 ml Gastric Drainage Total 25 ml # Bowel Movements 2 0 1 Physical Exam GENERAL: Obese, sedated. HEENT: Jugular venous pressure is hard to asses CHEST: Lungs diminished at bases. Clear anteriorly CARDIAC: Regular rate and rhythm. Tele SR ABDOMEN: obese/ firm EXTREMITIES: 4+ edema. Anasarca Laboratory Laboratory Tests Test 01/08/17 18:46 01/08/17 20:43 01/09/17 03:30 01/09/17 04:00 Blood Gas Puncture Site ART LINE ART LINE Blood Gas Patient Temperature 98.6 98.6 Blood Gas HCO3 33 mmol/L 29 mmol/L Blood Gas Base Excess 8.3 mmol/L 4.6 mmol/L Blood Gas Oxygen Saturation 96 % 98 % Arterial Blood pH 7.44 7.42 Arterial Blood Partial Pressure CO2 49 mmHg 46 mmHg Arterial Blood Partial Pressure O2 96 mmHg 238 mmHg Arterial Blood Oxygen Content 17.1 Vol % 19.4 Vol % Arterial Blood Carboxyhemoglobin 1.3 % 1.2 % Arterial Blood Methemoglobin 0.9 % 0.7 % Blood Gas Hemoglobin 12.6 G/DL 13.8 G/DL Oxygen Delivery Device VENTILATOR VENTILATOR Blood Gas Ventilator Setting [facility]/16/600/1.3/+10 COMMENT Blood Gas Inspired Oxygen 80 % Blood Urea Nitrogen 25 MG/DL 31 MG/DL Creatinine 2.11 MG/DL 2.51 MG/DL Random Glucose 93 MG/DL 113 MG/DL Calcium Level 8.0 MG/DL 7.7 MG/DL Phosphorus Level 4.7 MG/DL Magnesium Level 2.7 MG/DL 2.8 MG/DL Sodium Level 141 MEQ/L 140 MEQ/L Potassium Level 3.7 MEQ/L 3.9 MEQ/L Chloride Level 98 MEQ/L 98 MEQ/L Carbon Dioxide Level 33.4 MEQ/L 31.6 MEQ/L Anion Gap 10 MEQ/L 10 MEQ/L Estimat Glomerular Filtration Rate 34 ML/MIN 28 ML/MIN White Blood Count 12.8 TH/MM3 Red Blood Count 3.97 MIL/MM3 Hemoglobin 13.0 GM/DL Hematocrit 39.0 % Mean Corpuscular Volume 98.2 FL Mean Corpuscular Hemoglobin 32.8 PG Mean Corpuscular Hemoglobin Concent 33.4 % Red Cell Distribution Width 15.3 % Platelet Count 125 TH/MM3 Mean Platelet Volume 8.1 FL Neutrophils (%) (Auto) 87.6 % Lymphocytes (%) (Auto) 5.1 % Monocytes (%) (Auto) 7.0 % Eosinophils (%) (Auto) 0.0 % Basophils (%) (Auto) 0.3 % Neutrophils # (Auto) 11.2 TH/MM3 Lymphocytes # (Auto) 0.7 TH/MM3 Monocytes # (Auto) 0.9 TH/MM3 Eosinophils # (Auto) 0.0 TH/MM3 Basophils # (Auto) 0.0 TH/MM3 CBC Comment DIFF FINAL Differential Comment Prothrombin Time 16.0 SEC Prothromb Time International Ratio 1.4 RATIO Activated Partial Thromboplast Time 29.4 SEC Fibrinogen 261 mg/dL Total Protein 7.9 GM/DL Albumin 2.8 GM/DL Alkaline Phosphatase 144 U/L Aspartate Amino Transf (AST/SGOT) 208 U/L Alanine Aminotransferase (ALT/SGPT) 88 U/L Total Bilirubin 3.2 MG/DL Direct Bilirubin 2.2 MG/DL Lactic Acid Level 1.8 mmol/L Indirect Bilirubin 1.0 MG/DL Ammonia 62 MCMOL/L Troponin I 0.11 NG/ML Amylase Level 58 U/L Lipase 305 U/L Test 01/09/17 11:45 01/09/17 11:56 01/09/17 15:00 Urine Color YELLOW Urine Turbidity HAZY Urine pH 5.5 Urine Specific [place] 1.030 Urine Protein 30 mg/dL Urine Glucose (UA) NEG mg/dL Urine Ketones NEG mg/dL Urine Occult Blood MOD Urine Nitrite NEG Urine Bilirubin NEG Urine Urobilinogen LESS THAN 2.0 MG/DL Urine Leukocyte Esterase SMALL Urine RBC 43 /hpf Urine WBC 16 /hpf Urine Squamous Epithelial Cells 1 /hpf Urine Bacteria RARE /hpf Urine Mucus FEW /lpf Microscopic Urinalysis Comment CATH-CULTURE IND Urine Eosinophils NONE SEEN /HPF Urine Random Creatinine 94.3 MG/DL Urine Random Sodium 11 MEQ/L Blood Urea Nitrogen 42 MG/DL Creatinine 3.11 MG/DL Random Glucose 142 MG/DL Calcium Level 8.0 MG/DL Magnesium Level 2.8 MG/DL Sodium Level 138 MEQ/L Potassium Level 4.6 MEQ/L Chloride Level 98 MEQ/L Carbon Dioxide Level 28.5 MEQ/L Anion Gap 12 MEQ/L Estimat Glomerular Filtration Rate 22 ML/MIN Imaging Last 24 hours Impressions Renal Ultrasound 01/09/17 0000 Signed Impressions: Service Date/Time: December 09:36 - CONCLUSION: No evidence of hydronephrosis Jose Machado MD Lower Extremity Ultrasound 01/09/17 0000 Signed Impressions: Service Date/Time: December 09:46 - CONCLUSION: Normal examination. Jose Machado MD Chest X-Ray 01/09/17 0000 Signed Impressions: Service Date/Time: December 07:55 - CONCLUSION: Left lower lobe consolidation with cardiomegaly. Rosendo Connors Jr., MD Assessment and Plan Problem List: (1) Elevated troponin ICD Codes: R74.8 - Abnormal levels of other serum enzymes (2) Anasarca ICD Codes: R60.1 - Generalized edema Status: Acute (3) Liver cirrhosis ICD Codes: K74.60 - Unspecified cirrhosis of liver Status: Acute (4) Hypokalemia ICD Codes: E87.6 - Hypokalemia (5) Ventricular fibrillation ICD Codes: I49.01 - Ventricular fibrillation Assessment and Plan Keep K+ level 4.5, Mg > 2.0. Add amio if arrests again (complicated by cirrhosis. Prognosis poor. Jose Mathur MD Jan 09, 2017 17:57
[2017-01-09] MEDS: MULTIVITAMIN INJ 10 ML, FOLIC ACID INJ 1 MG in SODIUM CHLORID 0.9% 500 ML INJ 500 ML IV SCH (22:49)
[2017-01-09] MEDS ORDERED: LIDOCAINE/D5W 2000 MG/500 ML 500 ML IV SCH (23:45)
[2017-01-10] VITALS (14 sets, daily range): BP systolic 104–134; BP diastolic 65–88; PULSE 60–67; RESP 16–31; TEMP 97.6–98.9; O2SAT 91–98
[2017-01-10] MEDS: EPINEPHrine (1:1000) INJ 4 MG in DEXTROSE 5% IN WATER INJ 246 ML IV PRN ×4 (00:07→12:42)
[2017-01-10] MEDS: PROPOFOL 1000 MG/100 ML IV PRN ×7 (00:07→22:43)
[2017-01-10] MEDS: RESP: ALBUTEROL 2.5 MG/IPRATROPIUM 0.5 MG NEB (SCH) NEB ×4 (03:34→19:48)
[2017-01-10] MEDS: INSULIN ASPART SUPPLEMENTAL SCALE SQ SCH ×6 (04:00→20:00)
[2017-01-10] MEDS: PIPERACIL-TAZO 3.375 GM PREMIX 50 ML IV SCH ×4 (04:26→22:06)
--- NOTE | 2017-01-10 04:49 | RADRPT ---
EXAM DATE/TIME: 01/10/2017 03:44 [place] COMPARISON: CHEST SINGLE AP, January 09, 2017, 7:55. INDICATIONS : Respiratory failure. MEDICAL HISTORY : Cardiovascular disease. Hepatitis C. Hypertension. Sleep apnea. Liver disease. Bipolar disorder. ETOH abuse.Substance abuse. SURGICAL HISTORY : Right femur fracture repair. ENCOUNTER: Subsequent ACUITY: 3 days PAIN SCORE: Non-responsive. LOCATION: Bilateral chest FINDINGS: Portable AP view of the chest demonstrates enlargement of the cardiac silhouette. ETT, nasogastric tu be, and left IJ line remain present. There is persistent bibasilar airspace opacity. No pleural effus ion or pneumothorax is identified. CONCLUSION: Stable chest x-ray with enlarged cardiac silhouette and mild bibasilar airspace opacity. Jose Cheek MD on January 10, 2017 at 4:47 Board Certified Radiologist. This report was verified electronically.
[2017-01-10 05:04] LABS: AUTOMATED NEUTROPHIL # 10.1 TH/MM3 (1.8-7.7); BASOPHIL % 0.2 % (0.0-2.0); HEMATOCRIT 39.9 % (39.0-51.0); HEMO FLAGS DIFF FINAL; LYMPH % 4.3 % (9.0-44.0); LYMPHOCYTE # 0.5 TH/MM3 (1.0-4.8); MEAN CELL VOLUME 98.8 FL (80.0-100.0); MEAN CORPUSCULAR HEMOGLOBIN 32.3 PG (27.0-34.0); MEAN CORPUSCULAR HGB CONC 32.7 % (32.0-36.0); MONO % 6.8 % (0.0-8.0); NEUT % 88.7 % (16.0-70.0); PLATELET COUNT 146 TH/MM3 (150-450); RED BLOOD COUNT 4.03 MIL/MM3 (4.50-5.90); RED CELL DISTRIBUTION WIDTH 15.3 % (11.6-17.2); WHITE BLOOD COUNT 11.4 TH/MM3 (4.0-11.0)
[2017-01-10 05:21] LABS: APTT (PATIENT) 29.6 SEC (24.3-30.1); INTERNATIONAL NORMALIZED RATIO 1.5 RATIO; PROTHROMBIN TIME - PATIENT 14.8 SEC (9.8-11.6)
[2017-01-10 05:42] LABS: BICARBONATE 28.3 MEQ/L (21.0-32.0); FREE T3 1.58 PG/ML (2.18-3.98); HDL CHOLESTEROL 34.7 MG/DL (40.0-60.0); MAGNESIUM 2.7 MG/DL (1.5-2.5); POTASSIUM 4.4 MEQ/L (3.5-5.1); TOTAL BILIRUBIN ADULT 3.3 MG/DL (0.2-1.0)
[2017-01-10] MEDS: ARTIFICIAL TEARS OPTH SOLN 15 ML BTL EACH EYE SCH ×3 (06:00→22:00)
[2017-01-10] MEDS: ALBUMIN 25% INJ 50 ML IV SCH (06:19)
[2017-01-10] MEDS: methylPREDNISolone SOD SUCC 40 MG/1 ML VIAL IV PUSH SCH ×3 (06:22→22:05)
[2017-01-10] MEDS: HEPARIN SODIUM - SQ 10,000 UNITS/ML VIAL SQ SCH ×3 (06:22→22:04)
[2017-01-10] MEDS: RIFAXIMIN 200 MG TAB PO SCH ×3 (06:27→22:03)
[2017-01-10] MEDS: RESP: BUDESONIDE 0.5 MG/2 ML NEB NEB SCH ×2 (08:29→19:48)
--- NOTE | 2017-01-10 08:53 | PD.CARD.PN ---
Subjective Subjective Remarks Intubated Objective Medications Current Medications Medications (Trade) Dose Ordered Sig/[facility] Route Start Time Stop Time Status Last Admin (KCl) 20 meq TID PO 01/06/17 18:00 01/07/17 18:22 (NS Flush) 2 ml UNSCH PRN IV FLUSH 01/06/17 16:45 01/09/17 06:14 (NS Flush) 2 ml BID IV FLUSH 01/06/17 21:00 01/09/17 22:49 (Zofran Inj) 4 mg Q6H PRN IVP 01/06/17 16:45 (Narcan Inj) 0.4 mg UNSCH PRN IV PUSH 01/06/17 16:45 (Milk Of Magnesia Liq) 30 ml Q12H PRN PO 01/06/17 16:45 (Senokot) 17.2 mg Q12H PRN PO 01/06/17 16:45 (Dulcolax Supp) 10 mg DAILY PRN RECTAL 01/06/17 16:45 (Lactulose Liq) 30 ml DAILY PRN PO 01/06/17 16:45 Multivitamins 10 ml/Folic Acid 1 mg/Sodium Chloride 510.2 ml @ 125 mls/hr Q24H IV 01/06/17 20:00 01/11/17 19:59 01/09/17 22:49 (Vitamin B1) 100 mg DAILY PO 01/10/17 09:00 (Romazicon Inj) 0.2 mg Q1M PRN IV PUSH 01/06/17 17:45 (Lovenox Inj) 40 mg Q24H SQ 01/06/17 18:00 Future Hold 01/07/17 18:22 (Lactulose Liq) 30 ml TID PO 01/07/17 09:00 01/09/17 17:11 (Xifaxan) 400 mg Q8HR PO 01/06/17 22:00 01/10/17 06:27 (Oscal) 1,000 mg BID PO 01/07/17 09:00 01/09/17 22:51 (D50w (Vial) Inj) 50 ml UNSCH PRN IV PUSH 01/07/17 08:15 (Glucagon Inj) 1 mg UNSCH PRN OTHER 01/07/17 08:15 (Betapace) 80 mg Q12HR PO 01/07/17 22:15 Future Hold 01/08/17 21:57 Amiodarone HCl 450 mg/Dextrose 250 ml @ 33.33 mls/ hr Q7H31M PRN IV 01/08/17 01:21 01/08/17 01:46 Propofol 100 ml @ 3.999 mls/ hr TITRATE PRN IV 01/08/17 05:00 01/10/17 04:41 (Duoneb Neb) 1 ampule Q6HR NEB NEB 01/08/17 10:00 01/10/17 08:29 (Albuterol Neb) 2.5 mg Q2HR NEB PRN NEB 01/08/17 08:30 (Tears Naturale Opth Soln) 1 drop Q8HR EACH EYE 01/08/17 14:00 01/09/17 22:00 (TRENtal SR) 400 mg Q8HR PO 01/08/17 14:00 Future Hold (NovoLOG SUPPLEMENTAL SCALE) 1 Q4HR SQ 01/08/17 12:00 (Peridex 0.12% Liq) 15 ml BID@08,20 MT 01/08/17 20:00 01/09/17 20:00 Midazolam HCl 100 ml @ 2 mls/hr TITRATE PRN IV 01/08/17 08:30 Fentanyl Citrate 250 ml @ 5 mls/hr TITRATE PRN IV 01/08/17 08:30 01/08/17 18:58 (Folate) 1 mg DAILY PO 01/09/17 09:00 Future hold (Protonix Inj) 40 mg Q12HR IV PUSH 01/08/17 09:30 01/09/17 22:50 (Colace Liq) 100 mg Q12HR PO 01/08/17 09:00 01/09/17 09:06 (Senna Liq) 8.8 mg BID NG 01/08/17 09:00 01/09/17 09:07 (SoluMEDROL INJ) 40 mg Q8HR IV PUSH 01/08/17 22:00 01/10/17 06:22 (Pulmicort Respule Neb) 0.5 mg Q12HR NEB NEB 01/08/17 20:00 01/10/17 08:29 Norepinephrine Bitartrate 4 mg/ Sodium Chloride 250 ml @ 7.5 mls/hr TITRATE PRN IV 01/08/17 18:00 Future Hold 01/09/17 09:50 (Brethine Inj) 1 mg UNSCH PRN SQ 01/08/17 18:00 Piperacillin Sod/ Tazobactam Sod 50 ml @ 100 mls/hr Q6H IV 01/09/17 10:00 01/10/17 04:26 (Heparin Inj) 5,000 units Q8HR SQ 01/09/17 14:00 01/10/17 06:22 (Beneprotein Powder) 1 pack TID G-TUBE 01/09/17 09:00 01/09/17 17:11 (Lasix Inj) 40 mg BID@09,18 IV PUSH 01/09/17 18:00 01/09/17 17:11 Epinephrine HCl 4 mg/Dextrose 250 ml @ 11.25 mls/ hr TITRATE PRN IV 01/09/17 21:00 01/10/17 00:07 (Effer-K Eff) 25 meq ONCE ONCE PO 01/10/17 09:00 01/10/17 09:01 UNV Vital Signs / I&O Vital Signs Date Time Temp Pulse Resp B/P (MAP) Pulse Ox O2 Delivery O2 Flow Rate FiO2 01/10/17 08:29 94 60 01/10/17 04:10 94 65 01/10/17 04:00 98.9 64 16 94 104/78 (87) 01/10/17 04:00 50 01/10/17 00:07 59 109/71 01/10/17 00:03 93 65 01/10/17 00:00 50 01/10/17 00:00 98.8 60 16 91 106/65 (79) 01/09/17 23:00 60 01/09/17 20:17 95 65 01/09/17 20:00 98.5 68 19 92 104/68 (80) 01/09/17 20:00 50 01/09/17 17:14 57 119/79 01/09/17 16:01 97 65 01/09/17 16:00 65 01/09/17 16:00 98.8 58 16 97 126/84 (98) 01/09/17 15:00 56 01/09/17 12:14 97 75 01/09/17 12:00 90 01/09/17 12:00 98.6 65 16 97 117/83 (94) 01/09/17 11:02 57 104/73 01/09/17 09:50 64 104/71 01/09/17 09:18 98 85 I/O 01/09/17 01/09/17 01/09/17 01/10/17 01/10/17 01/10/17 06:59 14:59 22:59 06:59 14:59 22:59 Intake Total 512.5 ml 574 ml 750 ml 1160.2 ml Output Total 375 ml 340 ml 550 ml Balance 137.5 ml 574 ml 410 ml 610.2 ml IV Total 512.5 ml 574 ml 550 ml 912.2 ml Tube Feeding 148 ml Other 200 ml 100 ml Output Urine Total 350 ml 310 ml 550 ml Gastric Drainage Total 25 ml 30 ml # Bowel Movements 1 0 1 Physical Exam GENERAL: Obese, sedated. HEENT: Jugular venous pressure is hard to asses CHEST: Lungs diminished at bases. Clear anteriorly CARDIAC: Regular rate and rhythm. Tele SR ABDOMEN: obese/ firm EXTREMITIES: 4+ edema. Anasarca IV epi drip, Diprivan, Fentanyl Laboratory Laboratory Tests Test 01/09/17 11:45 01/09/17 11:56 01/09/17 15:00 01/09/17 20:50 Urine Color YELLOW Urine Turbidity HAZY Urine pH 5.5 Urine Specific [place] 1.030 Urine Protein 30 mg/dL Urine Glucose (UA) NEG mg/dL Urine Ketones NEG mg/dL Urine Occult Blood MOD Urine Nitrite NEG Urine Bilirubin NEG Urine Urobilinogen LESS THAN 2.0 MG/DL Urine Leukocyte Esterase SMALL Urine RBC 43 /hpf Urine WBC 16 /hpf Urine Squamous Epithelial Cells 1 /hpf Urine Bacteria RARE /hpf Urine Mucus FEW /lpf Microscopic Urinalysis Comment CATH-CULTURE IND Urine Eosinophils NONE SEEN /HPF Urine Random Creatinine 94.3 MG/DL Urine Random Sodium 11 MEQ/L Blood Urea Nitrogen 42 MG/DL Creatinine 3.11 MG/DL Random Glucose 142 MG/DL Calcium Level 8.0 MG/DL Magnesium Level 2.8 MG/DL Sodium Level 138 MEQ/L Potassium Level 4.6 MEQ/L 4.5 MEQ/L Chloride Level 98 MEQ/L Carbon Dioxide Level 28.5 MEQ/L Anion Gap 12 MEQ/L Estimat Glomerular Filtration Rate 22 ML/MIN Test 01/10/17 04:45 White Blood Count 11.4 TH/MM3 Red Blood Count 4.03 MIL/MM3 Hemoglobin 13.0 GM/DL Hematocrit 39.9 % Mean Corpuscular Volume 98.8 FL Mean Corpuscular Hemoglobin 32.3 PG Mean Corpuscular Hemoglobin Concent 32.7 % Red Cell Distribution Width 15.3 % Platelet Count 146 TH/MM3 Mean Platelet Volume 8.0 FL Neutrophils (%) (Auto) 88.7 % Lymphocytes (%) (Auto) 4.3 % Monocytes (%) (Auto) 6.8 % Eosinophils (%) (Auto) 0.0 % Basophils (%) (Auto) 0.2 % Neutrophils # (Auto) 10.1 TH/MM3 Lymphocytes # (Auto) 0.5 TH/MM3 Monocytes # (Auto) 0.8 TH/MM3 Eosinophils # (Auto) 0.0 TH/MM3 Basophils # (Auto) 0.0 TH/MM3 CBC Comment DIFF FINAL Differential Comment Prothrombin Time 14.8 SEC Prothromb Time International Ratio 1.5 RATIO Activated Partial Thromboplast Time 29.6 SEC Fibrinogen 257 mg/dL Blood Urea Nitrogen 51 MG/DL Creatinine 3.71 MG/DL Random Glucose 125 MG/DL Total Protein 8.3 GM/DL Albumin 2.9 GM/DL Calcium Level 7.4 MG/DL Phosphorus Level 7.4 MG/DL Magnesium Level 2.7 MG/DL Alkaline Phosphatase 126 U/L Aspartate Amino Transf (AST/SGOT) 133 U/L Alanine Aminotransferase (ALT/SGPT) 71 U/L Total Bilirubin 3.3 MG/DL Sodium Level 139 MEQ/L Potassium Level 4.4 MEQ/L Chloride Level 97 MEQ/L Carbon Dioxide Level 28.3 MEQ/L Anion Gap 14 MEQ/L Estimat Glomerular Filtration Rate 18 ML/MIN Lactic Acid Level 1.7 mmol/L Protein Corrected Calcium MG/DL Ammonia 56 MCMOL/L Total Creatine Kinase 98 U/L Troponin I 0.04 NG/ML Triglycerides Level 95 MG/DL Cholesterol Level 142 MG/DL LDL Cholesterol 88 MG/DL HDL Cholesterol 34.7 MG/DL Cholesterol/HDL Ratio 4.09 RATIO Amylase Level 92 U/L Lipase 562 U/L Free Triiodothyronine (T3) pg/dL 1.58 PG/ML Imaging Last 24 hours Impressions Chest X-Ray 01/10/17 0600 Signed Impressions: Service Date/Time: Tuesday, January 10, 2017 03:44 - CONCLUSION: Stable chest x-ray with enlarged cardiac silhouette and mild bibasilar airspace opacity. Jose Cheek MD Assessment and Plan Problem List: (1) Elevated troponin ICD Codes: R74.8 - Abnormal levels of other serum enzymes (2) Anasarca ICD Codes: R60.1 - Generalized edema Status: Acute (3) Liver cirrhosis ICD Codes: K74.60 - Unspecified cirrhosis of liver Status: Acute (4) Hypokalemia ICD Codes: E87.6 - Hypokalemia (5) Ventricular fibrillation ICD Codes: I49.01 - Ventricular fibrillation Assessment and Plan Keep K+ level 4.5, Mg > 2.0. Add amio if arrests again (complicated by cirrhosis. K=4.4 so will give 25 mew PO. Prognosis poor with shock, liver and renal failue, VF arrests Jose Mathur MD Jan 10, 2017 08:53
[2017-01-10] MEDS: POTASSIUM CHLORIDE 20 MEQ CONTROLLED RELEASE TAB PO SCH ×2 (09:00→13:00)
[2017-01-10] MEDS ORDERED: POTASSIUM BICARBONATE 25 MEQ EFFERVESCENT TAB PO ONE (09:00)
[2017-01-10] MEDS: SODIUM CHLORIDE 0.9% FLUSH 10 ML FLUSH IV FLUSH SCH ×2 (09:00→21:00)
[2017-01-10] MEDS: LACTULOSE SYRUP 20 GM/30 ML CUP PO SCH ×3 (09:33→18:14)
[2017-01-10] MEDS: SENNOSIDES SYRUP 8.8 MG/5 ML CUP NG SCH ×2 (09:33→22:03)
[2017-01-10] MEDS: CALCIUM CARBONATE 1.25 GM (CA 500 MG) TAB PO SCH ×2 (09:34→22:03)
[2017-01-10] MEDS: PANTOPRAZOLE SODIUM 40 MG VIAL IV PUSH SCH ×2 (09:34→22:05)
[2017-01-10] MEDS: DOCUSATE SODIUM 100 MG/10 ML UDC PO SCH ×2 (09:34→22:03)
[2017-01-10] MEDS: FUROSEMIDE 40 MG/4 ML VIAL IV PUSH SCH ×2 (09:34→18:14)
[2017-01-10] MEDS: THIAMINE HCL 100 MG TAB PO SCH (09:35)
[2017-01-10] MEDS: CHLORHEXIDINE 0.12% (ORAL KIT) 15 ML CUP MT SCH ×2 (09:46→20:00)
[2017-01-10] MEDS: BENEPROTEIN POWDER 1 PACK G-TUBE SCH ×3 (09:48→18:00)
--- NOTE | 2017-01-10 15:30 | HHI.NPPN ---
Subjective History of Present Illness 46-year-old obese male with a history of alcohol abuse and cardiac arrest and acute renal failure Additional Remarks Patient is on the vent Objective Data Data 01/10/17 01/11/17 19:00 07:00 Intake Total 500 ml Balance 500 ml IV Total 500 ml Vital Signs Date Time Temp Pulse Resp B/P (MAP) Pulse Ox O2 Delivery O2 Flow Rate FiO2 01/10/17 12:42 62 129/85 01/10/17 12:00 98.1 64 16 98 128/84 (99) 01/10/17 12:00 65 01/10/17 11:59 92 65 01/10/17 08:29 94 60 01/10/17 08:00 97.6 60 31 94 126/86 (99) 01/10/17 08:00 65 01/10/17 07:00 62 01/10/17 04:10 94 65 01/10/17 04:00 98.9 64 16 94 104/78 (87) 01/10/17 04:00 50 01/10/17 00:07 59 109/71 01/10/17 00:03 93 65 01/10/17 00:00 50 01/10/17 00:00 98.8 60 16 91 106/65 (79) 01/09/17 23:00 60 01/09/17 20:17 95 65 01/09/17 20:00 98.5 68 19 92 104/68 (80) 01/09/17 20:00 50 01/09/17 17:14 57 119/79 01/09/17 16:01 97 65 01/09/17 16:00 65 01/09/17 16:00 98.8 58 16 97 126/84 (98) -: 01/10/175 01/10/175 Physical Exam General Appearance: Well Developed, Obese Neck Neck Exam: Neck Supple Pulmonary Resp Exam: Clear Bilaterally Cardiology CV Exam: Regular, Normal Sinus Rhythm Gastrointestinal/Abdomen GI Exam: Soft, Distended Extremeties Extremities Exam: Moderate Edema Assessment/Plan Problem List: (1) Acute renal failure ICD Codes: N17.9 - Acute kidney failure, unspecified Plan: Patient is in acute renal failure due to cardiogenic shock he did receive a CTA of the chest, exposed to dye Responding well to Lasix 40 mg IV every 12 hourly increasing urine output His creatinine did increase Plan to observe him closely Anasarca responding to Lasix Potassium is normal range (2) Anasarca ICD Codes: R60.1 - Generalized edema Status: Acute Plan: Due to cirrhosis (3) Liver cirrhosis ICD Codes: K74.60 - Unspecified cirrhosis of liver Status: Acute Plan: Alcoholism (4) Ventricular fibrillation ICD Codes: I49.01 - Ventricular fibrillation Plan: ventricular fibrillation has resuscitation Tonya Combs MD Jan 10, 2017 15:30
--- NOTE | 2017-01-10 16:35 | EKG ---
Date Performed: 01/09/2017 Time Performed: 13:25:24 PTAGE: 46 years EKG: SINUS BRADYCARDIA MODERATE INTRAVENTRICULAR CONDUCTION DELAY NONSPECIFIC T-WAVE ABNORMALITY PROLONGED QT INTERVAL Since previous tracing, no significant change noted ABNORMAL ECG PREVIOUS TRACING : 01/09/2017 08.19 DOCTOR: Keli Domínguez Interpretating Date/Time 01/10/2017 16:33:26
--- NOTE | 2017-01-10 16:35 | EKG ---
Date Performed: 01/09/2017 Time Performed: 19:42:12 PTAGE: 46 years EKG: Sinus rhythm MODERATE INTRAVENTRICULAR CONDUCTION DELAY NONSPECIFIC T-WAVE ABNORMALITY PROLONGED QT INTERVAL Sinc e previous tracing, no significant change noted ABNORMAL ECG PREVIOUS TRACING : 01/09/2017 13.25 DOCTOR: Keli Domínguez Interpretating Date/Time 01/10/2017 16:33:46
[2017-01-10] MEDS: POTASSIUM CHLORIDE 25 MEQ EFFERVESCENT TAB PO SCH (18:15)
[2017-01-10] MEDS: fentaNYL DRIP 250 ML IV PRN (18:23)
--- NOTE | 2017-01-10 18:48 | HHI.CCPN ---
Subjective Remarks/Hospital Course 46-year-old morbidly obese gentleman admitted for evaluation of Edema, Shortness of breath, Chest pain, who started with swelling in his lower extremities and testicles 2 weeks prior to admission, progressively worsening to the point where he cant ambulate or urinate without difficulty, pain is 10/ 10 in intensity, Chest pain started the day prior to admission as a substernal pain. Per chart review he has been drinking alcohol on a daily basis, at least a 1/5th of vodka daily. He was considered to be in withdrawal because he has been unable to go to the methadone clinic for 3 days because of all the swelling in his legs and testicles. He has also Hepatitis C. 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 tach on the shelter monitor and was transferred to ICU. Shortly after the transfer patient suffered from V. tach/ V. fib cardiac arrest, he was defibrillated 1 during the CPR and after 1 cycle of CPR and intubation he regained spontaneous circulation. Cardiology corsets salesperson was informed about the V. fib cardiac arrest with recommendation to correct underlying electrolyte dissonance. 01/08: Currently sedated on propofol drip at 30 micrograms per kilo per minute. Arousable. With hemoptysis per 7.5 ET tube. Will need bronchoscopy. Family attempted to notify per RN however currently unavailable/unreachable. No further runs of dysrhythmia noted. Subjective 01/09: At approximately 2345, another episode of V. fib/pulseless V. tach. Episode lasted approximately 5 minutes. Patient received 300 mg IV amiodarone and shocked with 200 J. Patient is arousable on the ventilator currently on propofol and fentanyl drips.. High ox requirements persist. Creatinine has increased to 2.5. 01/10: no v. fib events in last 24h. however, remains on epinephrine. Cr continues to worsen. this may be hepatorenal syndrome, or secondary to cardiogenic shock. LFTs worsening and coags worsening. following some commands. nephrology still pushing for forced diuresis, and on limited bedside critical care echo (poor windows due to body habitus) does appear to have global biventricular dysfunction and volume overload. no meaningful improvements in 24h. Objective Vital Signs Date Time Temp Pulse Resp B/P (MAP) Pulse Ox O2 Delivery O2 Flow Rate FiO2 01/10/17 16:00 75 01/10/17 16:00 98.1 62 17 91 126/84 (98) 01/07/17 22:47 Nasal Cannula 2.00 Intake and Output 01/10/17 01/10/17 01/11/17 08:00 16:00 00:00 Intake Total 600 ml 500 ml 50 ml Output Total 550 ml Balance 50 ml 500 ml 50 ml Result Diagram: 01/10/17 0445 01/10/17 0445 Other Results Microbiology Date/Time Source Procedure Growth Status 01/08/17 18:29 Sputum Endotracheal Gram Stain - Final Complete 01/08/17 18:29 Sputum Endotracheal Sputum Culture - Final LIGHT GROWTH NORMAL RESPIRATORY LETTY Complete Imaging Last Impressions Head CT 01/08/17 0400 Signed Impressions: Service Date/Time: Sunday, January 08, 2017 03:55 - CONCLUSION: 1. No intracranial abnormalities seen. 2. Sinus disease. Jose De Jesus MD Upper Extremity Ultrasound 01/08/17 0000 Signed Impressions: Service Date/Time: Sunday, January 08, 2017 12:14 - CONCLUSION: Normal examination. Rosendo Connors Jr., MD Liver Ultrasound 01/08/17 0000 Signed Impressions: Service Date/Time: Sunday, January 08, 2017 11:39 - CONCLUSION: Hepatosplenomegaly. Hepatic steatosis. Distended gallbladder with nonspecific wall thickening and gallbladder sludge. Minimal pericholecystic fluid Jose Machado MD Chest X-Ray 01/08/17 0000 Signed Impressions: Service Date/Time: Sunday, January 08, 2017 01:24 - CONCLUSION: 1. New left internal jugular central line in good position. No pneumothorax is seen. 2. Cardiomegaly. 3. Proximal hilar regions and interstitial markings likely from pulmonary venous hypertension or edema. If the hilar enlargement persists, it could be further evaluated with CT examination the chest with contrast. Jose De Jesus MD CT Angiography 01/08/17 0000 Signed Impressions: Service Date/Time: Sunday, January 08, 2017 04:03 - CONCLUSION: 1. No pulmonary embolus. 2. Increased density at the posterior aspects of the lungs bilaterally likely related to atelectasis or consolidation. Jose De Jesus MD Abdomen/Pelvis CT 01/08/17 0000 Signed Impressions: Service Date/Time: Sunday, January 08, 2017 04:03 - CONCLUSION: 1. Hepatic steatosis with suspected portal hypertension and cirrhosis. There are prominent veins seen throughout the superficial anterior abdominal wall. 2. Splenomegaly. This may be secondary to portal hypertension. 3. Significant ascites is not seen. Jose De Jesus MD Objective Remarks GENERAL: This is a 46-year-old male, critically ill currently orotracheally intubated SKIN: Warm and dry. Open wound left lower extremity/lateral currently covered with Kerlix HEAD: Normocephalic. EYES: + scleral icterus. No injection or drainage. NECK: Supple, trachea midline. JVD unable to be assessed due to body habitus. Left IJ is clean dry and intact CARDIOVASCULAR: Bradycardic, RR. remains on epinephrine infusion at 5.5 mcg/min. RESPIRATORY: distant breath sounds. equal chest rise. GASTROINTESTINAL: Abdomen is protuberant. Nontender. MUSCULOSKELETAL: 1+ peripheral edema. Bilateral upper and lower extremities. : Positive scrotal edema. Locke catheter in place. NEURO EXAM: Cranial nerves II through XII grossly intact. Moves all 4 extremities spontaneous. Withdraws to pain/noxious stimuli. intermittently weakly follows commands. Procedures none Date of Insertion: Jan 08, 2017 Line: Central Venous Catheter Side: Left Location: Internal, Jugular A/P Assessment and Plan Assessment: This is a 46-year-old male with cirrhosis who presents with multiple V. fib arrests and persistent cardiogenic shock and volume overload. Also multiorgan system failure. Unclear if all this is secondary to a cardiac etiology or secondary to acute liver dysfunction on chronic liver failure. Certainly's could be hepatorenal syndrome. Alternatively this could be cardiogenic shock. Either way, he clearly has ongoing intravascular hypervolemia and I agree with nephrology's goal in aggressive diuresis. At this point with multiple organs involved he certainly has a poor prognosis. Patient and family continue want aggressive care. Remains critically ill with no improvements in last 24 hours. If we withdraw support he will . Neuro/Psych: Adjustment disorder with depressed mood EtOH abuse Hepatic encephalopathy History of polysubstance abuse including intravenous, oral hydromorphone prop/fent for goal RASS Goal of RASS -2 Daily sedation vacation Currently on methadone 140 mg daily for history of narcotic abuse. This will be held in light of prolonged QT and recent V. fib/pulses V. tach 2 CT brain 01/08 revealed no acute intracranial findings. Sinus disease only Currently on thiamine 100 mg daily, folate 1 mg daily multivitamin 10cc injection daily Sertraline 25 mg discontinued. Currently on trazodone 100 mg at night. This will be discontinued in light of prolonged QT Evaluated by Dr. Mckay/psychiatry this hospitalization On as needed lorazepam at home 0.5 mg every 6 hours CIWA protocol discontinued while intubated CV: VFib/flutter cardiac arrest History of hypertension Cardiogenic Shock- persistent Shocked with unknown amount of joules via unknown defibrillator 12/30//01/08 1. Received 150 mg amiodarone bolus 1 01/07 and 3 mg and was initially placed on a lidocaine drip which is currently at 0.5 mg per minute Currently on sotalol 80 mg twice a day per Dr. Pena/cardiology as of 01/07 2-D echocardiogram 01/07 revealed EF 60%. Trace TR. Dr. Mathur/cardiology is following Follow-up postcode EKG continue forced diuresis continue epi drip given Cr, poor candidate for milrinone or digoxin therapy. could consider dobutamine, but epinephrine currently achieving goal of clearing lactate. Resp: Acute hypoxemic respiratory failure - persistent. Ongoing tobaccoism Ventilator bundle Albuterol/ipratropium aerosols every 4 hours with albuterol aerosols every 2 hours as needed for Dyspnea Budesonide 0.5/2 1 inhalation twice a day Methylprednisolone 40 mg IV twice a day Spontaneous breathing trials when clinically indicated CT pulmonary arteriogram 01/08 revealed no central pulmonary embolism. Bilateral lower lobe atelectasis versus infiltrate Tobacco sensation will be provided when appropriate no SBT until hemodynamics improve. wean fio2 for goal spo2 > 90% GI: Elevated transaminases Hepatic steatosis - possible alcoholic cirrhosis Elevated total bilirubin Splenomegaly History of hepatitis C antibody + 2016. Genotype not detectable. No viral load detected Elevated ammonia level Meld score 14 --> 28. rapid decline. CT abdomen/pelvis this admission revealed hepatic steatosis. Likely signs of portal hypertension Pantoprazole 40 mg IV twice a day for GI prophylaxis Nepro goal 50 cc an hour with beneprotein one packet 3 times a day Docusate sodium 100 mg liquid twice a day, senna 8.6 mg daily bowel regimen Patient is currently on Xifaxan 400 mg 3 times a day and lactulose 30 cc 3 times daily for elevated ammonia level. Resume pentoxifylline 400 mg 3 times a day scheduled albumin 25 g every 12 hours per fm. Discontinued in a.m 01/10 Negative extensive pedal workup in 2017 by GI. Negative AMA/ASMA, ceruloplasmin etc. : Locke catheter has been placed for accurate I's and O's in a critically ill patient with severe scrotal edema and urinary retention Endo: Diabetes mellitus Elevated TSH Holding insulin glargine in-home sliding-scale insulin Currently on Novulog /low regimen with Accu-Cheks every 4 hours to maintain euglycemia TSH on admission 6.4. T4 normal at 1.4. Check free T3 in a.m. Recommend recheck in 4-6 weeks Renal: Acute kidney injury - worsening. Current currently 2.1 Avoid nephrotoxic drugs Discontinue vancomycin Check urine eosinophils and electrolytes Check renal ultrasound: no hydronephrosis. Nephrology consult. Monitor urine output Accurate I's and O's Repeat BMP in a.m. Heme: Thrombocytopenia Elevated INR Monitor CBC daily. Follow trends ID: Staph aureus left lower leg infection Discontinue vancomycin again due to acute kidney injury. With dressing changes every 3 days. Currently dressed with Optifoam Continue piperacillin/tazobactam/likely significant aspiration during resuscitation Pertinent cultures 01/06 - left leg wound culture - staph aureus - MSSA 01/06 - blood cultures 2 - no growth FEN: Scheduled potassium placement with 20 mEq potassium 3 times a day Recheck electrolytes afternoon. Electrolyte protocol initiated MSK: Bilateral lower extremity open wounds Right lower extremity 10 x 7 x 0.1 cm. Left lower extremity wound 10 x 5 x 0.1 cm. Wound care evaluate and treat. Currently in IV antibiotics. Access - Left IJ CVL placed 01/08 Prophylaxis - GI - pantoprazole - DVT - SCD/heparin subcutaneous Critical Care: The total critical care time was 41 minutes. Time to perform other separately billable procedures was not included in the critical care time. Aaron Haynes MD Jan 10, 2017 18:48
[2017-01-10 22:02] LABS: BLOOD GAS BASE EXCESS 2.9 mmol/L (-2-2); BLOOD GAS CARBOXYHEMOGLOBIN 1.2 % (0-4); BLOOD GAS HCO3 28 mmol/L (22-26); BLOOD GAS O2 HGB SATURATION 94 % (90-100); BLOOD GAS OXYGEN CONTENT 18.4 Vol % (12.0-20.0); BLOOD GAS PCO2 47 mmHg (38-42); BLOOD GAS PO2 87 mmHg (61-120); BLOOD GAS TOTAL HGB 13.8 G/DL (12.0-16.0); CRITICAL VALUE NO; OXYGEN DEVICE VENTILATOR; TEMP CORR TO 98.6
[2017-01-10 22:03] LABS: DRAW SITE ART LINE; FIO2 100 %; STAT YES
[2017-01-10] MEDS: MULTIVITAMIN INJ 10 ML, FOLIC ACID INJ 1 MG in SODIUM CHLORID 0.9% 500 ML INJ 500 ML IV SCH (22:03)
[2017-01-11] VITALS (11 sets, daily range): BP systolic 106–140; BP diastolic 59–88; PULSE 66–73; RESP 14–21; TEMP 97.3–98.5; O2SAT 92–100
[2017-01-11] MEDS: PROPOFOL 1000 MG/100 ML IV PRN ×9 (01:48→23:48)
[2017-01-11] MEDS: RESP: ALBUTEROL 2.5 MG/IPRATROPIUM 0.5 MG NEB (SCH) NEB ×4 (02:57→21:19)
[2017-01-11] MEDS: INSULIN ASPART SUPPLEMENTAL SCALE SQ SCH ×6 (04:00→20:00)
[2017-01-11 04:57] LABS: HEMATOCRIT 39.7 % (39.0-51.0); MEAN CELL VOLUME 98.1 FL (80.0-100.0); MEAN CORPUSCULAR HEMOGLOBIN 33.4 PG (27.0-34.0); MEAN CORPUSCULAR HGB CONC 34.1 % (32.0-36.0); PLATELET COUNT 84 TH/MM3 (150-450); RED BLOOD COUNT 4.05 MIL/MM3 (4.50-5.90); RED CELL DISTRIBUTION WIDTH 15.1 % (11.6-17.2); WHITE BLOOD COUNT 8.5 TH/MM3 (4.0-11.0)
[2017-01-11 04:58] LABS: REVIEW FLAG FINAL
[2017-01-11 05:08] LABS: APTT (PATIENT) 28.4 SEC (24.3-30.1); INTERNATIONAL NORMALIZED RATIO 1.5 RATIO; PROTHROMBIN TIME - PATIENT 14.9 SEC (9.8-11.6)
[2017-01-11 05:20] LABS: BICARBONATE 27.5 MEQ/L (21.0-32.0); INDIRECT BILIRUBIN 0.7 MG/DL (0.0-0.8); POTASSIUM 3.7 MEQ/L (3.5-5.1); TOTAL BILIRUBIN ADULT 2.7 MG/DL (0.2-1.0)
[2017-01-11] MEDS: HEPARIN SODIUM - SQ 10,000 UNITS/ML VIAL SQ SCH ×3 (06:00→22:49)
[2017-01-11] MEDS: PIPERACIL-TAZO 3.375 GM PREMIX 50 ML IV SCH ×2 (06:25→09:02)
[2017-01-11] MEDS: RIFAXIMIN 200 MG TAB PO SCH ×3 (06:39→22:50)
[2017-01-11] MEDS: methylPREDNISolone SOD SUCC 40 MG/1 ML VIAL IV PUSH SCH ×3 (06:39→22:49)
[2017-01-11] MEDS: ARTIFICIAL TEARS OPTH SOLN 15 ML BTL EACH EYE SCH ×3 (06:40→23:17)
[2017-01-11] MEDS: RESP: BUDESONIDE 0.5 MG/2 ML NEB NEB SCH ×2 (08:00→21:19)
[2017-01-11] MEDS: FUROSEMIDE 40 MG/4 ML VIAL IV PUSH SCH (08:30)
[2017-01-11] MEDS: CALCIUM CARBONATE 1.25 GM (CA 500 MG) TAB PO SCH ×2 (08:30→21:42)
[2017-01-11] MEDS: DOCUSATE SODIUM 100 MG/10 ML UDC PO SCH ×2 (08:30→21:42)
[2017-01-11] MEDS: PANTOPRAZOLE SODIUM 40 MG VIAL IV PUSH SCH ×2 (08:30→21:42)
[2017-01-11] MEDS: SENNOSIDES SYRUP 8.8 MG/5 ML CUP NG SCH ×2 (08:30→21:42)
[2017-01-11] MEDS: SODIUM CHLORIDE 0.9% FLUSH 10 ML FLUSH IV FLUSH SCH ×2 (08:31→21:41)
[2017-01-11] MEDS: CHLORHEXIDINE 0.12% (ORAL KIT) 15 ML CUP MT SCH ×2 (08:31→21:41)
[2017-01-11] MEDS: BENEPROTEIN POWDER 1 PACK G-TUBE SCH ×3 (08:31→16:58)
[2017-01-11] MEDS: THIAMINE HCL 100 MG TAB PO SCH (08:32)
[2017-01-11] MEDS: LACTULOSE SYRUP 20 GM/30 ML CUP PO SCH ×3 (08:33→16:55)
[2017-01-11] MEDS: POTASSIUM CHLORIDE 25 MEQ EFFERVESCENT TAB PO SCH ×2 (08:39→16:58)
--- NOTE | 2017-01-11 11:35 | PD.CARD.PN ---
Subjective Subjective Remarks sedated, intubated Objective Medications Current Medications Medications (Trade) Dose Ordered Sig/[facility] Route Start Time Stop Time Status Last Admin (NS Flush) 2 ml UNSCH PRN IV FLUSH 01/06/17 16:45 01/09/17 06:14 (NS Flush) 2 ml BID IV FLUSH 01/06/17 21:00 01/11/17 08:31 (Zofran Inj) 4 mg Q6H PRN IVP 01/06/17 16:45 (Narcan Inj) 0.4 mg UNSCH PRN IV PUSH 01/06/17 16:45 (Milk Of Magnesia Liq) 30 ml Q12H PRN PO 01/06/17 16:45 (Senokot) 17.2 mg Q12H PRN PO 01/06/17 16:45 (Dulcolax Supp) 10 mg DAILY PRN RECTAL 01/06/17 16:45 (Lactulose Liq) 30 ml DAILY PRN PO 01/06/17 16:45 Multivitamins 10 ml/Folic Acid 1 mg/Sodium Chloride 510.2 ml @ 125 mls/hr Q24H IV 01/06/17 20:00 01/11/17 19:59 01/10/17 22:03 (Vitamin B1) 100 mg DAILY PO 01/10/17 09:00 01/11/17 08:32 (Romazicon Inj) 0.2 mg Q1M PRN IV PUSH 01/06/17 17:45 (Lovenox Inj) 40 mg Q24H SQ 01/06/17 18:00 Future Hold 01/07/17 18:22 (Lactulose Liq) 30 ml TID PO 01/07/17 09:00 01/11/17 08:33 (Xifaxan) 400 mg Q8HR PO 01/06/17 22:00 01/11/17 06:39 (Oscal) 1,000 mg BID PO 01/07/17 09:00 01/11/17 08:30 (D50w (Vial) Inj) 50 ml UNSCH PRN IV PUSH 01/07/17 08:15 (Glucagon Inj) 1 mg UNSCH PRN OTHER 01/07/17 08:15 (Betapace) 80 mg Q12HR PO 01/07/17 22:15 Future Hold 01/08/17 21:57 Amiodarone HCl 450 mg/Dextrose 250 ml @ 33.33 mls/ hr Q7H31M PRN IV 01/08/17 01:21 01/08/17 01:46 Propofol 100 ml @ 3.999 mls/ hr TITRATE PRN IV 01/08/17 05:00 01/11/17 11:12 (Duoneb Neb) 1 ampule Q6HR NEB NEB 01/08/17 10:00 01/11/17 07:34 (Albuterol Neb) 2.5 mg Q2HR NEB PRN NEB 01/08/17 08:30 (Tears Naturale Opth Soln) 1 drop Q8HR EACH EYE 01/08/17 14:00 01/11/17 06:40 (TRENtal SR) 400 mg Q8HR PO 01/08/17 14:00 Future Hold (NovoLOG SUPPLEMENTAL SCALE) 1 Q4HR SQ 01/08/17 12:00 (Peridex 0.12% Liq) 15 ml BID@08,20 MT 01/08/17 20:00 01/11/17 08:31 Midazolam HCl 100 ml @ 2 mls/hr TITRATE PRN IV 01/08/17 08:30 Fentanyl Citrate 250 ml @ 5 mls/hr TITRATE PRN IV 01/08/17 08:30 01/10/17 18:23 (Folate) 1 mg DAILY PO 01/09/17 09:00 Future hold (Protonix Inj) 40 mg Q12HR IV PUSH 01/08/17 09:30 01/11/17 08:30 (Colace Liq) 100 mg Q12HR PO 01/08/17 09:00 01/11/17 08:30 (Senna Liq) 8.8 mg BID NG 01/08/17 09:00 01/11/17 08:30 (SoluMEDROL INJ) 40 mg Q8HR IV PUSH 01/08/17 22:00 01/11/17 06:39 (Pulmicort Respule Neb) 0.5 mg Q12HR NEB NEB 01/08/17 20:00 01/11/17 08:00 Norepinephrine Bitartrate 4 mg/ Sodium Chloride 250 ml @ 7.5 mls/hr TITRATE PRN IV 01/08/17 18:00 Future Hold 01/09/17 09:50 (Brethine Inj) 1 mg UNSCH PRN SQ 01/08/17 18:00 Piperacillin Sod/ Tazobactam Sod 50 ml @ 100 mls/hr Q6H IV 01/09/17 10:00 01/11/17 09:02 (Heparin Inj) 5,000 units Q8HR SQ 01/09/17 14:00 01/10/17 22:04 (Beneprotein Powder) 1 pack TID G-TUBE 01/09/17 09:00 01/11/17 08:31 (Lasix Inj) 40 mg BID@09,18 IV PUSH 01/09/17 18:00 01/11/17 08:30 Epinephrine HCl 4 mg/Dextrose 250 ml @ 11.25 mls/ hr TITRATE PRN IV 01/09/17 21:00 01/10/17 12:42 (K-Lyte Cl Eff) 25 meq BID@0900,1800 PO 01/10/17 18:00 01/11/17 08:39 Vital Signs / I&O Vital Signs Date Time Temp Pulse Resp B/P (MAP) Pulse Ox O2 Delivery O2 Flow Rate FiO2 01/11/17 11:07 92 100 01/11/17 07:35 92 100 01/11/17 04:30 94 100 01/11/17 04:00 70 01/11/17 04:00 100 01/11/17 04:00 97.3 70 16 140/88 (105) 93 01/11/17 00:00 100 01/11/17 00:00 97.7 66 16 128/80 (96) 93 01/11/17 00:00 66 01/10/17 23:59 93 100 01/10/17 20:00 100 01/10/17 20:00 67 01/10/17 20:00 98.2 66 21 134/88 (103) 92 Arterial Line 01/10/17 19:48 92 100 01/10/17 16:00 75 01/10/17 16:00 98.1 62 17 91 126/84 (98) 01/10/17 15:00 60 01/10/17 12:42 62 129/85 01/10/17 12:00 98.1 64 16 98 128/84 (99) 01/10/17 12:00 65 01/10/17 11:59 92 65 I/O 01/10/17 01/10/17 01/10/17 01/11/17 01/11/17 01/11/17 07:00 15:00 23:00 07:00 15:00 23:00 Intake Total 1160.2 ml 500 ml 1260 ml 1516 ml Output Total 550 ml 1600 ml 2650 ml Balance 610.2 ml 500 ml -340 ml -1134 ml IV Total 912.2 ml 500 ml 705 ml 1041 ml Tube Feeding 148 ml 355 ml 475 ml Other 100 ml 200 ml Output Urine Total 550 ml 1600 ml 2650 ml Gastric Drainage Total 0 ml # Bowel Movements 1 0 1 Physical Exam GENERAL: Obese, sedated. HEENT: Jugular venous pressure is hard to asses CHEST: Lungs diminished at bases. Clear anteriorly CARDIAC: Regular rate and rhythm. Tele SR ABDOMEN: obese/ firm EXTREMITIES: 4+ edema. Anasarca Laboratory Laboratory Tests Test 01/10/17 21:48 01/11/17 04:30 Blood Gas Puncture Site ART LINE Blood Gas Patient Temperature 98.6 Blood Gas HCO3 28 mmol/L Blood Gas Base Excess 2.9 mmol/L Blood Gas Oxygen Saturation 94 % Arterial Blood pH 7.38 Arterial Blood Partial Pressure CO2 47 mmHg Arterial Blood Partial Pressure O2 87 mmHg Arterial Blood Oxygen Content 18.4 Vol % Arterial Blood Carboxyhemoglobin 1.2 % Arterial Blood Methemoglobin 1.0 % Blood Gas Hemoglobin 13.8 G/DL Oxygen Delivery Device VENTILATOR Blood Gas Ventilator Setting COMMENT Blood Gas Inspired Oxygen 100 % White Blood Count 8.5 TH/MM3 Red Blood Count 4.05 MIL/MM3 Hemoglobin 13.5 GM/DL Hematocrit 39.7 % Mean Corpuscular Volume 98.1 FL Mean Corpuscular Hemoglobin 33.4 PG Mean Corpuscular Hemoglobin Concent 34.1 % Red Cell Distribution Width 15.1 % Platelet Count 84 TH/MM3 Mean Platelet Volume 8.0 FL Prothrombin Time 14.9 SEC Prothromb Time International Ratio 1.5 RATIO Activated Partial Thromboplast Time 28.4 SEC Blood Urea Nitrogen 67 MG/DL Creatinine 4.22 MG/DL Random Glucose 128 MG/DL Total Protein 7.9 GM/DL Albumin 2.8 GM/DL Calcium Level 7.7 MG/DL Alkaline Phosphatase 130 U/L Aspartate Amino Transf (AST/SGOT) 86 U/L Alanine Aminotransferase (ALT/SGPT) 55 U/L Total Bilirubin 2.7 MG/DL Direct Bilirubin 2.0 MG/DL Sodium Level 139 MEQ/L Potassium Level 3.7 MEQ/L Chloride Level 98 MEQ/L Carbon Dioxide Level 27.5 MEQ/L Anion Gap 14 MEQ/L Estimat Glomerular Filtration Rate 15 ML/MIN Indirect Bilirubin 0.7 MG/DL Imaging Last Impressions Chest X-Ray 01/10/17 0600 Signed Impressions: Service Date/Time: Tuesday, January 10, 2017 03:44 - CONCLUSION: Stable chest x-ray with enlarged cardiac silhouette and mild bibasilar airspace opacity. Jose Cheek MD Renal Ultrasound 01/09/17 0000 Signed Impressions: Service Date/Time: December 09:36 - CONCLUSION: No evidence of hydronephrosis Jose Machado MD Lower Extremity Ultrasound 01/09/17 0000 Signed Impressions: Service Date/Time: December 09:46 - CONCLUSION: Normal examination. Jose Machado MD Head CT 01/08/17 0400 Signed Impressions: Service Date/Time: Sunday, January 08, 2017 03:55 - CONCLUSION: 1. No intracranial abnormalities seen. 2. Sinus disease. Jose De Jesus MD Upper Extremity Ultrasound 01/08/17 0000 Signed Impressions: Service Date/Time: Sunday, January 08, 2017 12:14 - CONCLUSION: Normal examination. Rosendo Connors Jr., MD Liver Ultrasound 01/08/17 0000 Signed Impressions: Service Date/Time: Sunday, January 08, 2017 11:39 - CONCLUSION: Hepatosplenomegaly. Hepatic steatosis. Distended gallbladder with nonspecific wall thickening and gallbladder sludge. Minimal pericholecystic fluid Jose Machado MD CT Angiography 01/08/17 0000 Signed Impressions: Service Date/Time: Sunday, January 08, 2017 04:03 - CONCLUSION: 1. No pulmonary embolus. 2. Increased density at the posterior aspects of the lungs bilaterally likely related to atelectasis or consolidation. Jose De Jesus MD Abdomen/Pelvis CT 01/08/17 0000 Signed Impressions: Service Date/Time: Sunday, January 08, 2017 04:03 - CONCLUSION: 1. Hepatic steatosis with suspected portal hypertension and cirrhosis. There are prominent veins seen throughout the superficial anterior abdominal wall. 2. Splenomegaly. This may be secondary to portal hypertension. 3. Significant ascites is not seen. Jose De Jesus MD Assessment and Plan Problem List: (1) Elevated troponin ICD Codes: R74.8 - Abnormal levels of other serum enzymes (2) Anasarca ICD Codes: R60.1 - Generalized edema Status: Acute (3) Liver cirrhosis ICD Codes: K74.60 - Unspecified cirrhosis of liver Status: Acute (4) Hypokalemia ICD Codes: E87.6 - Hypokalemia (5) Ventricular fibrillation ICD Codes: I49.01 - Ventricular fibrillation Plan: cont supportive management prognosis guarded will be available on a PRN basis for any questions or concerns Adam Garcia MD Jan 11, 2017 11:35
--- NOTE | 2017-01-11 14:00 | HHI.CCPN ---
Subjective Remarks/Hospital Course 46-year-old morbidly obese gentleman admitted for evaluation of Edema, Shortness of breath, Chest pain, who started with swelling in his lower extremities and testicles 2 weeks prior to admission, progressively worsening to the point where he cant ambulate or urinate without difficulty, pain is 10/ 10 in intensity, Chest pain started the day prior to admission as a substernal pain. Per chart review he has been drinking alcohol on a daily basis, at least a 1/5th of vodka daily. He was considered to be in withdrawal because he has been unable to go to the methadone clinic for 3 days because of all the swelling in his legs and testicles. He has also Hepatitis C. 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 Shortly after the transfer patient suffered from V. tach/ V. fib cardiac arrest, he was defibrillated 1 during the CPR and after 1 cycle of CPR and intubation he regained spontaneous circulation. Cardiology precision lens grinder was informed about the V. fib cardiac arrest with recommendation to correct underlying electrolyte dissonance. 01/08: Currently sedated on propofol drip at 30 micrograms per kilo per minute. Arousable. With hemoptysis per 7.5 ET tube. Will need bronchoscopy. Family attempted to notify per RN however currently unavailable/unreachable. No further runs of dysrhythmia noted. Subjective 01/09: At approximately 2345, another episode of V. fib/pulseless V. tach. Episode lasted approximately 5 minutes. Patient received 300 mg IV amiodarone and shocked with 200 J. Patient is arousable on the ventilator currently on propofol and fentanyl drips.. High ox requirements persist. Creatinine has increased to 2.5. 01/10: no v. fib events in last 24h. however, remains on epinephrine. Cr continues to worsen. this may be hepatorenal syndrome, or secondary to cardiogenic shock. LFTs worsening and coags worsening. following some commands. nephrology still pushing for forced diuresis, and on limited bedside critical care echo (poor windows due to body habitus) does appear to have global biventricular dysfunction and volume overload. no meaningful improvements in 24h. 01/11: still no improvements. remains on epi. Cr worse again today. still on 100 % fio2. repeat CXR unchanged. organ failure persists. Objective Vital Signs Date Time Temp Pulse Resp B/P (MAP) Pulse Ox O2 Delivery O2 Flow Rate FiO2 01/11/17 12:00 97.8 70 16 113/63 (80) 92 01/11/17 12:00 100 01/07/17 22:47 Nasal Cannula 2.00 Intake and Output 01/11/17 01/11/17 01/12/17 08:00 16:00 00:00 Intake Total 1516 ml Output Total 2650 ml Balance -1134 ml Result Diagram: 01/11/17 0430 01/11/17 0430 Other Results Microbiology Date/Time Source Procedure Growth Status 01/08/17 18:29 Sputum Endotracheal Gram Stain - Final Complete 01/08/17 18:29 Sputum Endotracheal Sputum Culture - Final LIGHT GROWTH NORMAL RESPIRATORY LETTY Complete 01/09/17 11:45 Urine Catheterized Urine Urine Culture - Final NO GROWTH IN 48 HOURS. Complete Laboratory Tests Test 01/10/17 21:48 Blood Gas Puncture Site ART LINE Blood Gas Patient Temperature 98.6 Blood Gas HCO3 28 mmol/L (22-26) Blood Gas Base Excess 2.9 mmol/L (-2-2) Blood Gas Oxygen Saturation 94 % (90-100) Arterial Blood pH 7.38 (7.380-7.420) Arterial Blood Partial Pressure CO2 47 mmHg (38-42) Arterial Blood Partial Pressure O2 87 mmHg (61-120) Arterial Blood Oxygen Content 18.4 Vol % (12.0-20.0) Arterial Blood Carboxyhemoglobin 1.2 % (0-4) Arterial Blood Methemoglobin 1.0 % (0-2) Blood Gas Hemoglobin 13.8 G/DL (12.0-16.0) Oxygen Delivery Device VENTILATOR Blood Gas Ventilator Setting COMMENT Blood Gas Inspired Oxygen 100 % Imaging Last Impressions Head CT 01/08/17 0400 Signed Impressions: Service Date/Time: Sunday, January 08, 2017 03:55 - CONCLUSION: 1. No intracranial abnormalities seen. 2. Sinus disease. Jose De Jesus MD Upper Extremity Ultrasound 01/08/17 0000 Signed Impressions: Service Date/Time: Sunday, January 08, 2017 12:14 - CONCLUSION: Normal examination. Rosendo Connors Jr., MD Liver Ultrasound 01/08/17 0000 Signed Impressions: Service Date/Time: Sunday, January 08, 2017 11:39 - CONCLUSION: Hepatosplenomegaly. Hepatic steatosis. Distended gallbladder with nonspecific wall thickening and gallbladder sludge. Minimal pericholecystic fluid Jose Machado MD Chest X-Ray 01/08/17 Signed Impressions: Service Date/Time: Sunday, January 08, 2017 01:24 - CONCLUSION: 1. New left internal jugular central line in good position. No pneumothorax is seen. 2. Cardiomegaly. 3. Proximal hilar regions and interstitial markings likely from pulmonary venous hypertension or edema. If the hilar enlargement persists, it could be further evaluated with CT examination the chest with contrast. Jose De Jesus MD CT Angiography 01/08/17 Signed Impressions: Service Date/Time: Sunday, January 08, 2017 04:03 - CONCLUSION: 1. No pulmonary embolus. 2. Increased density at the posterior aspects of the lungs bilaterally likely related to atelectasis or consolidation. Jose De Jesus MD Abdomen/Pelvis CT 01/08/17 Signed Impressions: Service Date/Time: Sunday, January 08, 2017 04:03 - CONCLUSION: 1. Hepatic steatosis with suspected portal hypertension and cirrhosis. There are prominent veins seen throughout the superficial anterior abdominal wall. 2. Splenomegaly. This may be secondary to portal hypertension. 3. Significant ascites is not seen. Jose De Jesus MD Objective Remarks GENERAL: This is a 46-year-old male, critically ill currently orotracheally intubated SKIN: Warm and dry. Open wound left lower extremity/lateral currently covered with Kerlix HEAD: Normocephalic. EYES: + scleral icterus. No injection or drainage. NECK: Supple, trachea midline. JVD unable to be assessed due to body habitus. Left IJ is clean dry and intact CARDIOVASCULAR: Bradycardic, RR. remains on epinephrine infusion at 5.5 mcg/min. RESPIRATORY: distant breath sounds. equal chest rise. GASTROINTESTINAL: Abdomen is protuberant. Nontender. MUSCULOSKELETAL: 1+ peripheral edema. Bilateral upper and lower extremities. : Positive scrotal edema. Locke catheter in place. NEURO EXAM: RASS -2/-3. Moves all 4 extremities spontaneous. Withdraws to pain /noxious stimuli. intermittently weakly follows commands. Procedures none Date of Insertion: Jan 08, 2017 Line: Central Venous Catheter Side: Left Location: Internal, Jugular A/P Assessment and Plan Assessment: This is a 46-year-old male with cirrhosis who presents with multiple V. fib arrests and persistent cardiogenic shock and volume overload. Also multiorgan system failure. Unclear if all this is secondary to a cardiac etiology or secondary to acute liver dysfunction on chronic liver failure. Certainly could be hepatorenal syndrome. Alternatively this could be cardiogenic shock. continue forced diuresis. hypoxia is concerning and could be hepato-pulmonary syndrome, or possible PFO. Will discuss with cardiology and may benefit from MADELINE (TTE very difficult to obtain given body habitus). may require dialysis in the near future as well. organs worse with no improvement and actual decline in multiple organs. critically ill. Neuro/Psych: Adjustment disorder with depressed mood EtOH abuse Hepatic encephalopathy History of polysubstance abuse including intravenous, oral hydromorphone prop/fent for goal RASS Goal of RASS -2 Daily sedation vacation was on methadone 140 mg daily for history of narcotic abuse. This will be held in light of prolonged QT and recent V. fib/pulses V. tach 2 CT brain 01/08 revealed no acute intracranial findings. Sinus disease only Currently on thiamine 100 mg daily, folate 1 mg daily multivitamin 10cc injection daily Sertraline 25 mg discontinued. trazodone discontinued. Evaluated by Dr. Mckay/psychiatry this hospitalization On as needed lorazepam at home 0.5 mg every 6 hours CIWA protocol discontinued while intubated CV: VFib/flutter cardiac arrest History of hypertension Cardiogenic Shock- persistent Shocked with unknown amount of joules via unknown defibrillator 12/30//01/08 1. Received 150 mg amiodarone bolus 1 01/07 and 3 mg and was initially placed on a lidocaine drip. Currently on sotalol 80 mg twice a day per Dr. Pena/cardiology as of 01/07 2-D echocardiogram 01/07 revealed EF 60%. Trace TR. Dr. Mathur/cardiology is following continue forced diuresis continue epi drip given Cr, poor candidate for milrinone or digoxin therapy. could consider dobutamine, but epinephrine currently achieving goal of clearing lactate. Resp: Acute hypoxemic respiratory failure - persistent. Ongoing tobaccoism Ventilator bundle Albuterol/ipratropium aerosols every 4 hours with albuterol aerosols every 2 hours as needed for Dyspnea Budesonide 0.5/2 1 inhalation twice a day Methylprednisolone 40 mg IV twice a day Spontaneous breathing trials when clinically indicated CT pulmonary arteriogram 01/08 revealed no central pulmonary embolism. Bilateral lower lobe atelectasis versus infiltrate Tobacco sensation will be provided when appropriate no SBT until hemodynamics improve. wean fio2 for goal spo2 > 90% still very hypoxic. repeat cxr today unchanged. consider cardiac causes of hypoxia: intracardiac shunt? GI: Elevated transaminases Hepatic steatosis - possible alcoholic cirrhosis Elevated total bilirubin Splenomegaly History of hepatitis C antibody + 2016. Genotype not detectable. No viral load detected Elevated ammonia level Meld score 14 --> 28. rapid decline. persistently [address] abdomen/pelvis this admission revealed hepatic steatosis. Likely signs of portal hypertension Pantoprazole 40 mg IV twice a day for GI prophylaxis Nepro goal 50 cc an hour with beneprotein one packet 3 times a day Docusate sodium 100 mg liquid twice a day, senna 8.6 mg daily bowel regimen Patient is currently on Xifaxan 400 mg 3 times a day and lactulose 30 cc 3 times daily for elevated ammonia level. Resume pentoxifylline 400 mg 3 times a day scheduled albumin 25 g every 12 hours per fm. Discontinued in a.m 01/10 Negative extensive pedal workup in 2017 by GI. Negative AMA/ASMA, ceruloplasmin etc. : Acute kidney injury Locke catheter has been placed for accurate I's and O's in a critically ill patient with severe scrotal edema and urinary retention Endo: Diabetes mellitus Elevated TSH Holding insulin glargine in-home sliding-scale insulin Currently on Novulog /low regimen with Accu-Cheks every 4 hours to maintain euglycemia TSH on admission 6.4. T4 normal at 1.4. Check free T3 in a.m. Recommend recheck in 4-6 weeks Renal: Acute kidney injury - worsening. Current currently 2.1 Avoid nephrotoxic drugs Discontinue vancomycin renal ultrasound: no hydronephrosis. Nephrology consult. Monitor urine output Accurate I's and O's Repeat BMP in a.m. Heme: Thrombocytopenia Elevated INR Monitor CBC daily. Follow trends ID: Staph aureus left lower leg infection Discontinued vancomycin due to acute kidney injury. With dressing changes every 3 days. Currently dressed with Optifoam Continue piperacillin/tazobactam/likely significant aspiration during resuscitation Pertinent cultures 01/06 - left leg wound culture - staph aureus - MSSA 01/06 - blood cultures 2 - no growth FEN: Scheduled potassium placement with 20 mEq potassium 3 times a day Recheck electrolytes afternoon. Electrolyte protocol initiated MSK: Bilateral lower extremity open wounds Right lower extremity 10 x 7 x 0.1 cm. Left lower extremity wound 10 x 5 x 0.1 cm. Wound care evaluate and treat. Currently in IV antibiotics. Access - Left IJ CVL placed 01/08 Prophylaxis - GI - pantoprazole - DVT - SCD/heparin subcutaneous Critical Care: The total critical care time was 55 minutes. Time to perform other separately billable procedures was not included in the critical care time. Aaron Haynes MD Jan 11, 2017 14:00
--- NOTE | 2017-01-11 14:20 | RADRPT ---
EXAM DATE/TIME: 01/11/2017 13:35 [facility] COMPARISON: CHEST SINGLE AP, January 10, 2017, 3:44. INDICATIONS : Shortness of breath. MEDICAL HISTORY : Cardiovascular disease. Hepatitis C. Hypertension. Sleep apnea. Liver disease. Bipolar disorder. ETOH abuse.Substance abuse. SURGICAL HISTORY : ENCOUNTER: Initial ACUITY: 1 day PAIN SCORE: Non-responsive. LOCATION: Bilateral chest FINDINGS: Stable ETT, left intrajugular central line and NGT coursing in the GE junction with tip over the anem ic. There is slight improved aeration in the left lower lobe with residual bibasilar airspace disease . Cardiac silhouette remains enlarged. Remainder the exam is unchanged. CONCLUSION: 1. Stable tubes and lines, as above. 2. Slight improved aeration in the left lower lung zone. 3. Continued bibasilar airspace disease, likely atelectasis. 4. Otherwise, no significant interval change. Jorge A Collazo MD on January 11, 2017 at 14:16 Board Certified Radiologist. This report was verified electronically.
--- NOTE | 2017-01-11 14:33 | HHI.NPPN ---
Subjective History of Present Illness 46-year-old obese male with a history of alcohol abuse and cardiac arrest and acute renal failure Additional Remarks Patient is on the vent., and sedated. Objective Data Data Vital Signs Date Time Temp Pulse Resp B/P (MAP) Pulse Ox O2 Delivery O2 Flow Rate FiO2 01/11/17 12:00 97.8 70 16 113/63 (80) 92 01/11/17 12:00 100 01/11/17 12:00 100 01/11/17 11:07 92 100 01/11/17 08:00 97.8 70 21 130/60 (83) 100 01/11/17 08:00 100 01/11/17 07:35 92 100 01/11/17 04:30 94 100 01/11/17 04:00 70 01/11/17 04:00 100 01/11/17 04:00 97.3 70 16 140/88 (105) 93 01/11/17 00:00 100 01/11/17 00:00 97.7 66 16 128/80 (96) 93 01/11/17 00:00 66 01/10/17 23:59 93 100 01/10/17 20:00 100 01/10/17 20:00 67 01/10/17 20:00 98.2 66 21 134/88 (103) 92 Arterial Line 01/10/17 19:48 92 100 01/10/17 16:00 75 01/10/17 16:00 98.1 62 17 91 126/84 (98) 01/10/17 15:00 60 -: 01/11/17 0430 01/11/17 0430 Physical Exam General Appearance: Well Developed, Comfortable, Obese Neck Neck Exam: Neck Supple Pulmonary Resp Exam: Clear Bilaterally Cardiology CV Exam: Regular, Normal Sinus Rhythm Gastrointestinal/Abdomen GI Exam: Soft, Bowel Sounds Present, Distended Extremeties Extremities Exam: Moderate Edema Neurologic Neuro Exam: Sedated Assessment/Plan Problem List: (1) Acute renal failure ICD Codes: N17.9 - Acute kidney failure, unspecified Plan: Patient is in acute renal failure due to cardiogenic shock he did receive a CTA of the chest, exposed to dye Responding well to Lasix 40 mg IV every 12 hourly increasing urine output His creatinine continue to increase. D/W Dr. Haynes, will decrease Lasix. Follow the urine out put and BMP. (2) Anasarca ICD Codes: R60.1 - Generalized edema Status: Acute Plan: Due to cirrhosis (3) Liver cirrhosis ICD Codes: K74.60 - Unspecified cirrhosis of liver Status: Acute Plan: Alcoholism (4) Ventricular fibrillation ICD Codes: I49.01 - Ventricular fibrillation Plan: ventricular fibrillation has resuscitation Scout Downey MD Jan 11, 2017 14:33
[2017-01-11] MEDS: PIPERACIL-TAZO 2.25 GM PREMIX 50 ML IV SCH ×2 (16:55→22:49)
[2017-01-11] MEDS: fentaNYL DRIP 250 ML IV PRN (17:00)
[2017-01-12] VITALS (14 sets, daily range): BP systolic 100–114; BP diastolic 51–63; PULSE 65–76; RESP 10–18; TEMP 97.7–98.9; O2SAT 90–93
[2017-01-12 01:00] LABS: BLOOD GAS BASE EXCESS 2.7 mmol/L (-2-2); BLOOD GAS CARBOXYHEMOGLOBIN 1.2 % (0-4); BLOOD GAS HCO3 27 mmol/L (22-26); BLOOD GAS METHEMOGLOBIN 0.9 % (0-2); BLOOD GAS O2 HGB SATURATION 94 % (90-100); BLOOD GAS OXYGEN CONTENT 16.3 Vol % (12.0-20.0); BLOOD GAS PCO2 47 mmHg (38-42); BLOOD GAS PO2 82 mmHg (61-120); BLOOD GAS TOTAL HGB 12.2 G/DL (12.0-16.0); CRITICAL VALUE NO; OXYGEN DEVICE VENTILATOR; TEMP CORR TO 98.6
[2017-01-12 01:01] LABS: DRAW SITE ART LINE; FIO2 100 %; STAT NO; VENT SETTINGS SEE COMMENTS
[2017-01-12] MEDS: PROPOFOL 1000 MG/100 ML IV PRN ×6 (02:15→21:45)
[2017-01-12] MEDS: INSULIN ASPART SUPPLEMENTAL SCALE SQ SCH ×7 (04:00→23:36)
[2017-01-12] MEDS: RESP: ALBUTEROL 2.5 MG/IPRATROPIUM 0.5 MG NEB (SCH) NEB ×4 (04:21→20:31)
[2017-01-12 05:11] LABS: HEMATOCRIT 39.2 % (39.0-51.0); MEAN CELL VOLUME 97.8 FL (80.0-100.0); MEAN CORPUSCULAR HEMOGLOBIN 32.7 PG (27.0-34.0); MEAN CORPUSCULAR HGB CONC 33.5 % (32.0-36.0); PLATELET COUNT 86 TH/MM3 (150-450); RED BLOOD COUNT 4.01 MIL/MM3 (4.50-5.90); RED CELL DISTRIBUTION WIDTH 15.1 % (11.6-17.2); WHITE BLOOD COUNT 8.4 TH/MM3 (4.0-11.0)
[2017-01-12 05:19] LABS: REVIEW FLAG FINAL
[2017-01-12 05:23] LABS: BICARBONATE 31.6 MEQ/L (21.0-32.0); POTASSIUM 4.3 MEQ/L (3.5-5.1)
[2017-01-12] MEDS: RIFAXIMIN 200 MG TAB PO SCH ×3 (05:30→20:35)
[2017-01-12] MEDS: methylPREDNISolone SOD SUCC 40 MG/1 ML VIAL IV PUSH SCH ×3 (05:30→20:36)
[2017-01-12] MEDS: HEPARIN SODIUM - SQ 10,000 UNITS/ML VIAL SQ SCH ×3 (05:30→20:36)
[2017-01-12 05:33] LABS: INDIRECT BILIRUBIN 0.5 MG/DL (0.0-0.8); TOTAL BILIRUBIN ADULT 1.9 MG/DL (0.2-1.0)
[2017-01-12 05:41] LABS: APTT (PATIENT) 27.8 SEC (24.3-30.1); INTERNATIONAL NORMALIZED RATIO 1.4 RATIO; PROTHROMBIN TIME - PATIENT 14.6 SEC (9.8-11.6)
[2017-01-12] MEDS: ARTIFICIAL TEARS OPTH SOLN 15 ML BTL EACH EYE SCH ×3 (06:21→20:37)
[2017-01-12] MEDS: PIPERACIL-TAZO 2.25 GM PREMIX 50 ML IV SCH ×3 (06:52→22:45)
[2017-01-12] MEDS: CHLORHEXIDINE 0.12% (ORAL KIT) 15 ML CUP MT SCH ×2 (08:00→20:32)
[2017-01-12] MEDS: SENNOSIDES SYRUP 8.8 MG/5 ML CUP NG SCH ×2 (08:13→20:37)
[2017-01-12] MEDS: LACTULOSE SYRUP 20 GM/30 ML CUP PO SCH ×3 (08:13→15:17)
[2017-01-12] MEDS: DOCUSATE SODIUM 100 MG/10 ML UDC PO SCH ×2 (08:13→20:37)
[2017-01-12] MEDS: RESP: BUDESONIDE 0.5 MG/2 ML NEB NEB SCH ×2 (08:13→20:31)
[2017-01-12] MEDS: SODIUM CHLORIDE 0.9% FLUSH 10 ML FLUSH IV FLUSH SCH ×2 (08:14→20:32)
[2017-01-12] MEDS: BENEPROTEIN POWDER 1 PACK G-TUBE SCH ×3 (08:14→15:17)
[2017-01-12] MEDS: PANTOPRAZOLE SODIUM 40 MG VIAL IV PUSH SCH ×2 (08:45→20:33)
[2017-01-12] MEDS: FUROSEMIDE 40 MG/4 ML VIAL IV PUSH SCH (08:46)
[2017-01-12] MEDS: CALCIUM CARBONATE 1.25 GM (CA 500 MG) TAB PO SCH ×2 (08:46→20:35)
[2017-01-12] MEDS: POTASSIUM CHLORIDE 25 MEQ EFFERVESCENT TAB PO SCH ×2 (08:46→17:48)
[2017-01-12] MEDS: THIAMINE HCL 100 MG TAB PO SCH (08:46)
[2017-01-12] MEDS: FOLIC ACID 1 MG TAB PO SCH (09:00)
[2017-01-12] MEDS ORDERED: MIDAZOLAM HCL 5 MG/ML VIAL (1 ML) ONE (11:17)
--- NOTE | 2017-01-12 12:19 | HHI.NPPN ---
Subjective History of Present Illness 46-year-old obese male with a history of alcohol abuse and cardiac arrest and acute renal failure Additional Remarks Patient is on the vent., remain sedated, still on 100% Fio2. Objective Data Data 01/12/17 01/13/17 19:00 07:00 Intake Total 142 ml Balance 142 ml IV Total 142 ml Vital Signs Date Time Temp Pulse Resp B/P (MAP) Pulse Ox O2 Delivery O2 Flow Rate FiO2 01/12/17 08:06 92 100 01/12/17 08:00 100 01/12/17 08:00 97.7 68 18 112/59 (76) 92 01/12/17 08:00 68 01/12/17 04:21 91 100 01/12/17 04:00 97.9 65 18 101/54 (70) 91 01/12/17 04:00 100 01/12/17 00:30 92 100 01/12/17 00:00 98.9 73 18 100/54 (69) 90 01/12/17 00:00 100 01/11/17 21:20 93 100 01/11/17 20:00 98.5 72 14 113/61 (78) 92 01/11/17 20:00 100 01/11/17 16:00 100 01/11/17 16:00 98.3 73 18 106/59 (75) 92 01/11/17 15:19 92 100 -: 01/12/17 0430 01/12/17 0430 Physical Exam General Appearance: Well Developed, Comfortable, Obese Neck Neck Exam: Neck Supple Pulmonary Resp Exam: Clear Bilaterally Cardiology CV Exam: Regular, Normal Sinus Rhythm Gastrointestinal/Abdomen GI Exam: Soft, Bowel Sounds Present, Distended Extremeties Extremities Exam: Moderate Edema Neurologic Neuro Exam: Sedated Assessment/Plan Problem List: (1) Acute renal failure ICD Codes: N17.9 - Acute kidney failure, unspecified Plan: Patient is in acute renal failure due to cardiogenic shock he did receive a CTA of the chest, exposed to dye Responding well to Lasix 40 mg IV every 12 hourly increasing urine output His creatinine continue to increase. D/W Dr. Haynes,he has done MADELINE. Follow the urine out put and BMP. Possibly will need Dialysis , if not better. Dr. Combs will follow in AM. (2) Anasarca ICD Codes: R60.1 - Generalized edema Status: Acute Plan: Due to cirrhosis (3) Liver cirrhosis ICD Codes: K74.60 - Unspecified cirrhosis of liver Status: Acute Plan: Alcoholism (4) Ventricular fibrillation ICD Codes: I49.01 - Ventricular fibrillation Plan: ventricular fibrillation has resuscitation Scout Downey MD Jan 12, 2017 12:19
--- NOTE | 2017-01-12 12:24 | ECHRPT ---
Indication: HEART FAILURE CONCLUSIONS Normal LV size dimensions No significant valvulopathies No intra-cardiac shunts Negative bubble study No pericardial effusion No vegetations or massess BP: / HR: Rhythm: MEASUREMENTS (Male / Female) Normal Values Technical Quality: 2D ECHO LVOT Diameter 2.2 cm DOPPLER LVOT Peak Velocity 68.4 cm/s Mitral E to A Ratio 1.4 LVOT Peak Gradient 1.9 mmHg LV E' Lateral Velocity 8.0 cm/s LVOT Velocity Time Integr 17.7 cm Mitral E to LV E' Lateral 9.3 Mitral E Point Velocity 74.6 cm/s TR Peak Velocity 211.5 cm/s Mitral A Point Velocity 52.2 cm/s TR Peak Gradient 17.9 mmHg Medications Complications Proc. Components Adam Garcia MD (Electronically Signed) Final Date:12 January 2017 12:23
[2017-01-12] MEDS: fentaNYL DRIP 250 ML IV PRN (12:38)
[2017-01-12] MEDS ORDERED: MIDAZOLAM HCL 5 MG/ML VIAL (1 ML) IV PUSH ONE (13:00)
[2017-01-12] MEDS: EPOPROSTENOL NEB SOLUTION 50 NG/KG/MIN 100 ML NEB SCH ×4 (13:53→22:45)
[2017-01-12] MEDS ORDERED: MILRINONE INJ 20 MG in SODIUM CHLORIDE 0.9% INJ 80 ML IV SCH (14:00)
--- NOTE | 2017-01-12 14:27 | PD.PROCEDR ---
Procedure Note Procedure Procedure: Transesophageal Echocardiography Diagnosis: Acute hypoxemia Indications: Patient with severe acute hypoxemia which is refractory to increases in FiO2. Additionally poor quality transthoracic echocardiogram views in a patient with V. fib arrest 2. Need for high quality cardiac echo images to make clinical decisions regarding care. In addition need to rule out intracardiac shunt as a cause of refractory hypoxemia Consent: Written consent was obtained from the father Anesthesia: Propofol IV, Versed IV Description of the Procedure: The patient was sedated and mechanically ventilated. The patient was placed on 100% FIO2. The echo probe was inserted easily and without resistance. At the conclusion of the procedure, the echo probe was removed. Please see detailed echocardiogram report for formal findings. Preliminary Findings (not confirmed): 1. grossly Normal LV size and function 2. normal RV size and function 3. no intra-cardiac shunt by color flow Doppler 4. negative bubble study for intracardiac or intra-pulmonary shunt. no evidence of delayed bubble crossing to suggest hepatopulmonary syndrome 5. no pericardial effusion 6. no valvular lesions. The patient tolerated the procedure well with no hemodynamic instability or hypoxia. There were no immediate complications noted. At the conclusion of the procedure, the patient was placed back on their pre-procedure ventilatory settings. There was minimal EBL. I personally performed the procedure. Aaron Haynes MD Jan 12, 2017 14:27
--- NOTE | 2017-01-12 14:45 | HHI.CCPN ---
Subjective Remarks/Hospital Course 46-year-old morbidly obese gentleman admitted for evaluation of Edema, Shortness of breath, Chest pain, who started with swelling in his lower extremities and testicles 2 weeks prior to admission, progressively worsening to the point where he cant ambulate or urinate without difficulty, pain is 10/ 10 in intensity, Chest pain started the day prior to admission as a substernal pain. Per chart review he has been drinking alcohol on a daily basis, at least a 1/5th of vodka daily. He was considered to be in withdrawal because he has been unable to go to the methadone clinic for 3 days because of all the swelling in his legs and testicles. He has also Hepatitis C. 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 tach on the hse specialist and was transferred to ICU. Shortly after the transfer patient suffered from V. tach/ V. fib cardiac arrest, he was defibrillated 1 during the CPR and after 1 cycle of CPR and intubation he regained spontaneous circulation. Cardiology community relations specialist was informed about the V. fib cardiac arrest with recommendation to correct underlying electrolyte dissonance. 01/08: Currently sedated on propofol drip at 30 micrograms per kilo per minute. Arousable. With hemoptysis per 7.5 ET tube. Will need bronchoscopy. Family attempted to notify per RN however currently unavailable/unreachable. No further runs of dysrhythmia noted. Subjective 01/09: At approximately 2345, another episode of V. fib/pulseless V. tach. Episode lasted approximately 5 minutes. Patient received 300 mg IV amiodarone and shocked with 200 J. Patient is arousable on the ventilator currently on propofol and fentanyl drips.. High ox requirements persist. Creatinine has increased to 2.5. 01/10: no v. fib events in last 24h. however, remains on epinephrine. Cr continues to worsen. this may be hepatorenal syndrome, or secondary to cardiogenic shock. LFTs worsening and coags worsening. following some commands. nephrology still pushing for forced diuresis, and on limited bedside critical care echo (poor windows due to body habitus) does appear to have global biventricular dysfunction and volume overload. no meaningful improvements in 24h. 01/11: still no improvements. remains on epi. Cr worse again today. still on 100 % fio2. repeat CXR unchanged. organ failure persists. 01/12: hypoxia persists. still on 100% fio2. echo with ?spontaneous echo contrast in RA, but no other clinically significant findings. no valvular lesions. no intra-cardiac shunt. Cr continues to rise. uop adequate. off epinephrine. long talk with family where I expressed my concern that this likely has a grim prognosis given no improvements over last 7 days. they are aware. considering DNR status. Objective Vital Signs Date Time Temp Pulse Resp B/P (MAP) Pulse Ox O2 Delivery O2 Flow Rate FiO2 01/12/17 13:04 67 100/55 01/12/17 12:30 60 01/12/17 12:00 98.4 18 90 Intake and Output 01/12/17 01/12/17 01/13/17 08:00 16:00 00:00 Intake Total 906 ml Output Total 975 ml Balance -69 ml Result Diagram: 01/12/17 0430 01/12/17 0430 Other Results Laboratory Tests Test 01/12/17 00:48 Blood Gas Puncture Site ART LINE Blood Gas Patient Temperature 98.6 Blood Gas HCO3 27 mmol/L (22-26) Blood Gas Base Excess 2.7 mmol/L (-2-2) Blood Gas Oxygen Saturation 94 % (90-100) Arterial Blood pH 7.38 (7.380-7.420) Arterial Blood Partial Pressure CO2 47 mmHg (38-42) Arterial Blood Partial Pressure O2 82 mmHg (61-120) Arterial Blood Oxygen Content 16.3 Vol % (12.0-20.0) Arterial Blood Carboxyhemoglobin 1.2 % (0-4) Arterial Blood Methemoglobin 0.9 % (0-2) Blood Gas Hemoglobin 12.2 G/DL (12.0-16.0) Oxygen Delivery Device VENTILATOR Blood Gas Ventilator Setting SEE COMMENTS Blood Gas Inspired Oxygen 100 % Imaging Last Impressions Head CT 01/08/17 0400 Signed Impressions: Service Date/Time: Sunday, January 08, 2017 03:55 - CONCLUSION: 1. No intracranial abnormalities seen. 2. Sinus disease. Jose De Jesus MD Upper Extremity Ultrasound 01/08/17 0000 Signed Impressions: Service Date/Time: Sunday, January 08, 2017 12:14 - CONCLUSION: Normal examination. Rosendo Connors Jr., MD Liver Ultrasound 01/08/17 0000 Signed Impressions: Service Date/Time: Sunday, January 08, 2017 11:39 - CONCLUSION: Hepatosplenomegaly. Hepatic steatosis. Distended gallbladder with nonspecific wall thickening and gallbladder sludge. Minimal pericholecystic fluid Jose Machado MD Chest X-Ray 01/08/17 0000 Signed Impressions: Service Date/Time: Sunday, January 08, 2017 01:24 - CONCLUSION: 1. New left internal jugular central line in good position. No pneumothorax is seen. 2. Cardiomegaly. 3. Proximal hilar regions and interstitial markings likely from pulmonary venous hypertension or edema. If the hilar enlargement persists, it could be further evaluated with CT examination the chest with contrast. Jose De Jesus MD CT Angiography 01/08/17 0000 Signed Impressions: Service Date/Time: Sunday, January 08, 2017 04:03 - CONCLUSION: 1. No pulmonary embolus. 2. Increased density at the posterior aspects of the lungs bilaterally likely related to atelectasis or consolidation. Jose De Jesus MD Abdomen/Pelvis CT 01/08/17 0000 Signed Impressions: Service Date/Time: Sunday, January 08, 2017 04:03 - CONCLUSION: 1. Hepatic steatosis with suspected portal hypertension and cirrhosis. There are prominent veins seen throughout the superficial anterior abdominal wall. 2. Splenomegaly. This may be secondary to portal hypertension. 3. Significant ascites is not seen. Jose De Jesus MD Objective Remarks GENERAL: This is a 46-year-old male, critically ill currently orotracheally intubated SKIN: Warm and dry. Open wound left lower extremity/lateral currently covered with Kerlix HEAD: Normocephalic. EYES: + scleral icterus. No injection or drainage. NECK: trachea midline. JVD unable to be assessed due to body habitus. Left IJ is clean dry and intact CARDIOVASCULAR: Bradycardic, RR. RESPIRATORY: distant breath sounds. equal chest rise. GASTROINTESTINAL: Abdomen is protuberant. Nontender. MUSCULOSKELETAL: 1+ peripheral edema. Bilateral upper and lower extremities. : Positive scrotal edema. Locke catheter in place. NEURO EXAM: RASS -2/-3. Moves all 4 extremities spontaneous. Withdraws to pain /noxious stimuli. intermittently weakly follows commands. Procedures none Date of Insertion: Jan 08, 2017 Line: Central Venous Catheter Side: Left Location: Internal, Jugular A/P Assessment and Plan Assessment: This is a 46-year-old male with cirrhosis who presents with multiple V. fib arrests and acute hypoxemia. multiple organs are still dysfunctional and all appear worse. 100% fio2 without improvements. CXR without cause of significant hypoxemia, no evidence of hepatopulmonary syndrome, no PFO. Long talk with family: they will start addressing goals of care. will add flolan and milrinone to help support RV function in case there is component of pulmonary hypertension which is contributing to hypoxia. Remains very critically ill and on maximal vent settings. likely guarded prognosis. Neuro/Psych: Adjustment disorder with depressed mood EtOH abuse Hepatic encephalopathy History of polysubstance abuse including intravenous, oral hydromorphone prop/fent for goal RASS Goal of RASS -2 Daily sedation vacation was on methadone 140 mg daily for history of narcotic abuse. This will be held in light of prolonged QT and recent V. fib/pulses V. tach 2 CT brain 01/08 revealed no acute intracranial findings. Sinus disease only Currently on thiamine 100 mg daily, folate 1 mg daily multivitamin 10cc injection daily Sertraline 25 mg discontinued. trazodone discontinued. Evaluated by Dr. Mckay/psychiatry this hospitalization On as needed lorazepam at home 0.5 mg every 6 hours CIWA protocol discontinued while intubated CV: VFib/flutter cardiac arrest History of hypertension Cardiogenic Shock- resolving Shocked with unknown amount of joules via unknown defibrillator 12/30//01/08 1. Received 150 mg amiodarone bolus 1 01/07 and 3 mg and was initially placed on a lidocaine drip. Currently on sotalol 80 mg twice a day per Dr. Pena/cardiology as of 01/07 2-D echocardiogram 01/07 revealed EF 60%. Trace TR. Dr. Mathur/cardiology is following continue forced diuresis MADELINE 01/12: normal biventricular function, no PFO, no valvular lesions. add milrinone at 0.25 mcg/kg/min. Resp: Acute hypoxemic respiratory failure - persistent and worsening. Ongoing tobaccoism Ventilator bundle Albuterol/ipratropium aerosols every 4 hours with albuterol aerosols every 2 hours as needed for Dyspnea Budesonide 0.5/2 1 inhalation twice a day Methylprednisolone 40 mg IV twice a day Spontaneous breathing trials when clinically indicated CT pulmonary arteriogram 01/08 revealed no central pulmonary embolism. Bilateral lower lobe atelectasis versus infiltrate Tobacco sensation will be provided when appropriate no SBT until hemodynamics improve. wean fio2 for goal spo2 > 90% add flolan inhaled at 50 ng/kg/min change to APRV 34/0, 5/ (I:E 5:1), 100% fio2. GI: Elevated transaminases Hepatic steatosis - possible alcoholic cirrhosis Elevated total bilirubin Splenomegaly History of hepatitis C antibody + 2017. Genotype not detectable. No viral load detected Elevated ammonia level Meld score 14 --> 28 --> 28 --> [address] abdomen/pelvis this admission revealed hepatic steatosis. Likely signs of portal hypertension Pantoprazole 40 mg IV twice a day for GI prophylaxis Nepro goal 50 cc an hour with beneprotein one packet 3 times a day Docusate sodium 100 mg liquid twice a day, senna 8.6 mg daily bowel regimen Patient is currently on Xifaxan 400 mg 3 times a day and lactulose 30 cc 3 times daily for elevated ammonia level. Resume pentoxifylline 400 mg 3 times a day scheduled albumin 25 g every 12 hours per fm. Discontinued in a.m 01/10 Negative extensive pedal workup in 2017 by GI. Negative AMA/ASMA, ceruloplasmin etc. : Acute kidney injury - worsening. Locke catheter has been placed for accurate I's and O's in a critically ill patient with severe scrotal edema and urinary retention Endo: Diabetes mellitus Elevated TSH Holding insulin glargine in-home sliding-scale insulin Currently on Novulog /low regimen with Accu-Cheks every 4 hours to maintain euglycemia TSH on admission 6.4. T4 normal at 1.4. Check free T3 in a.m. Recommend recheck in 4-6 weeks Renal: Acute kidney injury - worsening. Current currently 2.1 Avoid nephrotoxic drugs Discontinue vancomycin renal ultrasound: no hydronephrosis. Nephrology consult. Monitor urine output Accurate I's and O's Repeat BMP in a.m. Heme: Thrombocytopenia Elevated INR Monitor CBC daily. Follow trends ID: Staph aureus left lower leg infection Discontinued vancomycin due to acute kidney injury. With dressing changes every 3 days. Currently dressed with Optifoam today is 7 days of zosyn therapy. given maximal fio2 requirements, will keep zosyn as risk of early discontinuation could mean respiratory arrest. however, likely completed full course of abx therapy. Pertinent cultures 01/06 - left leg wound culture - staph aureus - MSSA 01/06 - blood cultures 2 - no growth FEN: Scheduled potassium placement with 20 mEq potassium 3 times a day Recheck electrolytes afternoon. Electrolyte protocol initiated MSK: Bilateral lower extremity open wounds Right lower extremity 10 x 7 x 0.1 cm. Left lower extremity wound 10 x 5 x 0.1 cm. Wound care evaluate and treat. Currently on IV antibiotics. Access - Left IJ CVL placed 01/08 Prophylaxis - GI - pantoprazole - DVT - SCD/heparin subcutaneous Critical Care: The total critical care time was 49 minutes. Time to perform other separately billable procedures was not included in the critical care time. Aaron Haynes MD Jan 12, 2017 14:45
--- NOTE | 2017-01-12 16:01 | PD.CARD.PN ---
Subjective Subjective Remarks sedated, intubated Objective Medications Current Medications Medications (Trade) Dose Ordered Sig/[facility] Route Start Time Stop Time Status Last Admin (NS Flush) 2 ml UNSCH PRN IV FLUSH 01/06/17 16:45 01/09/17 06:14 (NS Flush) 2 ml BID IV FLUSH 01/06/17 21:00 01/12/17 08:14 (Zofran Inj) 4 mg Q6H PRN IVP 01/06/17 16:45 (Narcan Inj) 0.4 mg UNSCH PRN IV PUSH 01/06/17 16:45 (Milk Of Magnesia Liq) 30 ml Q12H PRN PO 01/06/17 16:45 (Senokot) 17.2 mg Q12H PRN PO 01/06/17 16:45 (Dulcolax Supp) 10 mg DAILY PRN RECTAL 01/06/17 16:45 (Lactulose Liq) 30 ml DAILY PRN PO 01/06/17 16:45 (Vitamin B1) 100 mg DAILY PO 01/10/17 09:00 01/12/17 08:46 (Romazicon Inj) 0.2 mg Q1M PRN IV PUSH 01/06/17 17:45 (Lovenox Inj) 40 mg Q24H SQ 01/06/17 18:00 Future Hold 01/07/17 18:22 (Lactulose Liq) 30 ml TID PO 01/07/17 09:00 01/11/17 16:55 (Xifaxan) 400 mg Q8HR PO 01/06/17 22:00 01/12/17 14:51 (Oscal) 1,000 mg BID PO 01/07/17 09:00 01/12/17 08:46 (D50w (Vial) Inj) 50 ml UNSCH PRN IV PUSH 01/07/17 08:15 (Glucagon Inj) 1 mg UNSCH PRN OTHER 01/07/17 08:15 (Betapace) 80 mg Q12HR PO 01/07/17 22:15 Future Hold 01/08/17 21:57 Amiodarone HCl 450 mg/Dextrose 250 ml @ 33.33 mls/ hr Q7H31M PRN IV 01/08/17 01:21 01/08/17 01:46 Propofol 100 ml @ 3.999 mls/ hr TITRATE PRN IV 01/08/17 05:00 01/12/17 12:37 (Albuterol Neb) 2.5 mg Q2HR NEB PRN NEB 01/08/17 08:30 (Tears Naturale Opth Soln) 1 drop Q8HR EACH EYE 01/08/17 14:00 01/12/17 13:04 (TRENtal SR) 400 mg Q8HR PO 01/08/17 14:00 Future Hold (NovoLOG SUPPLEMENTAL SCALE) 1 Q4HR SQ 01/08/17 12:00 (Peridex 0.12% Liq) 15 ml BID@08,20 MT 01/08/17 20:00 01/12/17 08:00 Midazolam HCl 100 ml @ 2 mls/hr TITRATE PRN IV 01/08/17 08:30 Fentanyl Citrate 250 ml @ 5 mls/hr TITRATE PRN IV 01/08/17 08:30 01/12/17 12:38 (Folate) 1 mg DAILY PO 01/09/17 09:00 Future hold 01/12/17 09:00 (Protonix Inj) 40 mg Q12HR IV PUSH 01/08/17 09:30 01/12/17 08:45 (Colace Liq) 100 mg Q12HR PO 01/08/17 09:00 01/11/17 21:42 (Senna Liq) 8.8 mg BID NG 01/08/17 09:00 01/11/17 21:42 (SoluMEDROL INJ) 40 mg Q8HR IV PUSH 01/08/17 22:00 01/12/17 14:51 (Pulmicort Respule Neb) 0.5 mg Q12HR NEB NEB 01/08/17 20:00 01/12/17 08:13 Norepinephrine Bitartrate 4 mg/ Sodium Chloride 250 ml @ 7.5 mls/hr TITRATE PRN IV 01/08/17 18:00 Future Hold 01/09/17 09:50 (Brethine Inj) 1 mg UNSCH PRN SQ 01/08/17 18:00 (Heparin Inj) 5,000 units Q8HR SQ 01/09/17 14:00 01/12/17 14:51 (Beneprotein Powder) 1 pack TID G-TUBE 01/09/17 09:00 01/12/17 08:14 Epinephrine HCl 4 mg/Dextrose 250 ml @ 11.25 mls/ hr TITRATE PRN IV 01/09/17 21:00 01/10/17 12:42 (K-Lyte Cl Eff) 25 meq BID@0900,1800 PO 01/10/17 18:00 01/12/17 08:46 (Duoneb Neb) 1 ampule Q6HR NEB NEB 01/11/17 16:00 01/12/17 08:13 Piperacillin Sod/ Tazobactam Sod 50 ml @ 100 mls/hr Q8H IV 01/11/17 15:00 01/15/17 14:59 01/12/17 14:51 (Lasix Inj) 40 mg DAILY IV PUSH 01/12/17 09:00 01/12/17 08:46 Milrinone Lactate 20 mg/Sodium Chloride 100 ml @ 9.63 mls/hr [id number] IV 01/12/17 14:00 01/12/17 13:04 Epoprostenol Sodium 87.5 ml/ Sodium Chloride 100 ml @ 8 mls/hr Q8H NEB 01/12/17 14:00 01/12/17 13:53 Vital Signs / I&O Vital Signs Date Time Temp Pulse Resp B/P (MAP) Pulse Ox O2 Delivery O2 Flow Rate FiO2 01/12/17 15:14 93 60 01/12/17 13:04 67 100/55 01/12/17 12:50 90 60 01/12/17 12:30 60 01/12/17 12:00 69 01/12/17 12:00 100 01/12/17 12:00 98.4 69 18 104/56 (72) 90 01/12/17 08:06 92 100 01/12/17 08:00 100 01/12/17 08:00 97.7 68 18 112/59 (76) 92 01/12/17 08:00 68 01/12/17 04:21 91 100 01/12/17 04:00 97.9 65 18 101/54 (70) 91 01/12/17 04:00 100 01/12/17 00:30 92 100 01/12/17 00:00 98.9 73 18 100/54 (69) 90 01/12/17 00:00 100 01/11/17 21:20 93 100 01/11/17 20:00 98.5 72 14 113/61 (78) 92 01/11/17 20:00 100 I/O 01/11/17 01/11/17 01/11/17 01/12/17 01/12/17 01/12/17 06:59 14:59 22:59 06:59 14:59 22:59 Intake Total 1516 ml 50 ml 1419 ml 904 ml 142 ml Output Total 2650 ml 5000 ml 975 ml Balance -1134 ml 50 ml -3581 ml -71 ml 142 ml IV Total 1041 ml 50 ml 95 ml 558 ml 142 ml Tube Feeding 475 ml 1104 ml 256 ml Tube Irrigant 120 ml Other 100 ml 90 ml Output Urine Total 2650 ml 5000 ml 975 ml # Bowel Movements 1 0 1 Physical Exam GENERAL: Obese, sedated. HEENT: Jugular venous pressure is hard to asses CHEST: Lungs diminished at bases. Clear anteriorly CARDIAC: Regular rate and rhythm. Tele SR ABDOMEN: obese/ firm EXTREMITIES: 4+ edema. Anasarca Laboratory Laboratory Tests Test 01/12/17 00:48 01/12/17 04:30 Blood Gas Puncture Site ART LINE Blood Gas Patient Temperature 98.6 Blood Gas HCO3 27 mmol/L Blood Gas Base Excess 2.7 mmol/L Blood Gas Oxygen Saturation 94 % Arterial Blood pH 7.38 Arterial Blood Partial Pressure CO2 47 mmHg Arterial Blood Partial Pressure O2 82 mmHg Arterial Blood Oxygen Content 16.3 Vol % Arterial Blood Carboxyhemoglobin 1.2 % Arterial Blood Methemoglobin 0.9 % Blood Gas Hemoglobin 12.2 G/DL Oxygen Delivery Device VENTILATOR Blood Gas Ventilator Setting SEE COMMENTS Blood Gas Inspired Oxygen 100 % White Blood Count 8.4 TH/MM3 Red Blood Count 4.01 MIL/MM3 Hemoglobin 13.1 GM/DL Hematocrit 39.2 % Mean Corpuscular Volume 97.8 FL Mean Corpuscular Hemoglobin 32.7 PG Mean Corpuscular Hemoglobin Concent 33.5 % Red Cell Distribution Width 15.1 % Platelet Count 86 TH/MM3 Mean Platelet Volume 8.3 FL Prothrombin Time 14.6 SEC Prothromb Time International Ratio 1.4 RATIO Activated Partial Thromboplast Time 27.8 SEC Blood Urea Nitrogen 87 MG/DL Creatinine 4.76 MG/DL Random Glucose 93 MG/DL Total Protein 7.3 GM/DL Albumin 2.6 GM/DL Calcium Level 7.9 MG/DL Alkaline Phosphatase 123 U/L Aspartate Amino Transf (AST/SGOT) 59 U/L Alanine Aminotransferase (ALT/SGPT) 45 U/L Total Bilirubin 1.9 MG/DL Direct Bilirubin 1.4 MG/DL Sodium Level 142 MEQ/L Potassium Level 4.3 MEQ/L Chloride Level 99 MEQ/L Carbon Dioxide Level 31.6 MEQ/L Anion Gap 11 MEQ/L Estimat Glomerular Filtration Rate 13 ML/MIN Indirect Bilirubin 0.5 MG/DL Assessment and Plan Problem List: (1) Elevated troponin ICD Codes: R74.8 - Abnormal levels of other serum enzymes Plan: MADELINE unremarkable cont supportive management prognosis guarded will be available on a PRN basis for any questions or concerns Dr. Mathur to f/u in AM (2) Anasarca ICD Codes: R60.1 - Generalized edema Status: Acute (3) Liver cirrhosis ICD Codes: K74.60 - Unspecified cirrhosis of liver Status: Acute (4) Hypokalemia ICD Codes: E87.6 - Hypokalemia (5) Ventricular fibrillation ICD Codes: I49.01 - Ventricular fibrillation Adam Garcia MD Jan 12, 2017 16:01
--- NOTE | 2017-01-12 20:25 | HHI.CCPN ---
History - Height: 172.72 cm Weight: 128.4 kg Allergies: Coded Allergies: risperidone (Unverified Allergy, Severe, Anaphylaxis, 09/24/16) ziprasidone (Unverified Allergy, Severe, Anaphylaxis, 09/24/16) Exam Patient Data - Vital Signs Date Time Temp Pulse Resp B/P (MAP) Pulse Ox O2 Delivery O2 Flow Rate FiO2 01/12/17 16:00 97.8 76 18 106/51 (69) 90 01/12/17 16:00 60 01/12/17 16:00 76 01/12/17 15:14 93 60 01/12/17 13:04 67 100/55 01/12/17 12:50 90 60 01/12/17 12:30 60 01/12/17 12:00 69 01/12/17 12:00 100 01/12/17 12:00 98.4 69 18 104/56 (72) 90 01/12/17 08:06 92 100 01/12/17 08:00 100 01/12/17 08:00 97.7 68 18 112/59 (76) 92 01/12/17 08:00 68 01/12/17 04:21 91 100 01/12/17 04:00 97.9 65 18 101/54 (70) 91 01/12/17 04:00 100 01/12/17 00:30 92 100 01/12/17 00:00 98.9 73 18 100/54 (69) 90 01/12/17 00:00 100 01/11/17 21:20 93 100 Intake & Output 01/12/17 01/12/17 01/13/17 15:00 23:00 07:00 Intake Total 484 ml 257 ml Output Total 2000 ml Balance 484 ml -1743 ml IV Total 484 ml 157 ml Tube Feeding 0 ml Other 100 ml Output Urine Total 2000 ml # Bowel Movements 1 Results CBC/BMP: 01/12/17 0430 01/12/17 0430 Micro/ID Microbiology Date/Time Source Procedure Growth Status 01/06/17 21:26 Blood Peripheral Aerobic Blood Culture - Final NO GROWTH IN 5 DAYS Complete 01/06/17 21:26 Blood Peripheral Anaerobic Blood Culture - Final NO GROWTH IN 5 DAYS Complete 01/08/17 18:29 Sputum Endotracheal Gram Stain - Final Complete 01/08/17 18:29 Sputum Endotracheal Sputum Culture - Final LIGHT GROWTH NORMAL RESPIRATORY LETTY Complete 01/09/17 11:45 Urine Catheterized Urine Urine Culture - Final NO GROWTH IN 48 HOURS. Complete 01/06/17 15:53 Wound Leg Gram Stain - Final Complete 01/06/17 15:53 Wound Culture - Final Staphylococcus Aureus Complete Assessment/Plan Assessment/Plan - Called to patients bedside by HEMANTH Cronin because patients father, Jose Hoang, is at bedside and desires change of code status. Mr. Hoang states he conversed with Dr. Haynes earlier today. He agrees to continue life support but if patient has recurrent pulseless arrest he wants medical personnel to withhold CPR, shocks, ACLS drugs and "allow him to pass". Changing code status to alternate code, intubation only. Justine Cazares MD Jan 12, 2017 20:25
[2017-01-13] VITALS (13 sets, daily range): BP systolic 118–129; BP diastolic 63–76; PULSE 72–82; RESP 10; TEMP 97.7–98.8; O2SAT 92–100
[2017-01-13] MEDS: PROPOFOL 1000 MG/100 ML IV PRN ×8 (01:00→23:40)
[2017-01-13] MEDS: RESP: ALBUTEROL 2.5 MG/IPRATROPIUM 0.5 MG NEB (SCH) NEB ×4 (03:37→21:32)
[2017-01-13] MEDS: INSULIN ASPART SUPPLEMENTAL SCALE SQ SCH ×5 (04:00→20:00)
[2017-01-13 04:40] LABS: HEMATOCRIT 40.8 % (39.0-51.0); MEAN CELL VOLUME 96.4 FL (80.0-100.0); MEAN CORPUSCULAR HEMOGLOBIN 32.7 PG (27.0-34.0); MEAN CORPUSCULAR HGB CONC 33.9 % (32.0-36.0); PLATELET COUNT 96 TH/MM3 (150-450); RED BLOOD COUNT 4.24 MIL/MM3 (4.50-5.90); RED CELL DISTRIBUTION WIDTH 14.8 % (11.6-17.2); REVIEW FLAG FINAL; WHITE BLOOD COUNT 12.1 TH/MM3 (4.0-11.0)
[2017-01-13 05:15] LABS: BICARBONATE 26.5 MEQ/L (21.0-32.0); INDIRECT BILIRUBIN 0.6 MG/DL (0.0-0.8); POTASSIUM 4.1 MEQ/L (3.5-5.1); TOTAL BILIRUBIN ADULT 2.1 MG/DL (0.2-1.0)
[2017-01-13 05:35] LABS: APTT (PATIENT) 26.9 SEC (24.3-30.1); INTERNATIONAL NORMALIZED RATIO 1.4 RATIO
[2017-01-13] MEDS: RIFAXIMIN 200 MG TAB PO SCH ×3 (05:36→22:25)
[2017-01-13] MEDS: methylPREDNISolone SOD SUCC 40 MG/1 ML VIAL IV PUSH SCH ×3 (05:36→22:18)
[2017-01-13] MEDS: HEPARIN SODIUM - SQ 10,000 UNITS/ML VIAL SQ SCH ×3 (05:37→22:24)
[2017-01-13] MEDS: ARTIFICIAL TEARS OPTH SOLN 15 ML BTL EACH EYE SCH ×3 (06:00→22:26)
[2017-01-13] MEDS: PIPERACIL-TAZO 2.25 GM PREMIX 50 ML IV SCH ×3 (06:22→22:24)
[2017-01-13] MEDS: RESP: BUDESONIDE 0.5 MG/2 ML NEB NEB SCH ×2 (07:58→21:33)
[2017-01-13] MEDS: CHLORHEXIDINE 0.12% (ORAL KIT) 15 ML CUP MT SCH ×2 (08:00→20:59)
[2017-01-13] MEDS: DOCUSATE SODIUM 100 MG/10 ML UDC PO SCH ×2 (08:33→21:10)
[2017-01-13] MEDS: LACTULOSE SYRUP 20 GM/30 ML CUP PO SCH ×3 (08:33→18:58)
[2017-01-13] MEDS: THIAMINE HCL 100 MG TAB PO SCH (08:34)
[2017-01-13] MEDS: PANTOPRAZOLE SODIUM 40 MG VIAL IV PUSH SCH ×2 (08:34→21:01)
[2017-01-13] MEDS: CALCIUM CARBONATE 1.25 GM (CA 500 MG) TAB PO SCH ×2 (08:34→21:05)
[2017-01-13] MEDS: SENNOSIDES SYRUP 8.8 MG/5 ML CUP NG SCH ×2 (08:34→21:10)
[2017-01-13] MEDS: FUROSEMIDE 40 MG/4 ML VIAL IV PUSH SCH (08:34)
[2017-01-13] MEDS: BENEPROTEIN POWDER 1 PACK G-TUBE SCH ×3 (09:00→18:00)
[2017-01-13] MEDS: FOLIC ACID 1 MG TAB PO SCH (09:00)
--- NOTE | 2017-01-13 09:10 | PD.CARD.PN ---
Subjective Subjective Remarks Intubated Objective Medications Current Medications Medications (Trade) Dose Ordered Sig/[facility] Route Start Time Stop Time Status Last Admin (NS Flush) 2 ml UNSCH PRN IV FLUSH 01/06/17 16:45 01/09/17 06:14 (NS Flush) 2 ml BID IV FLUSH 01/06/17 21:00 01/12/17 20:32 (Zofran Inj) 4 mg Q6H PRN IVP 01/06/17 16:45 (Narcan Inj) 0.4 mg UNSCH PRN IV PUSH 01/06/17 16:45 (Milk Of Magnesia Liq) 30 ml Q12H PRN PO 01/06/17 16:45 (Senokot) 17.2 mg Q12H PRN PO 01/06/17 16:45 (Dulcolax Supp) 10 mg DAILY PRN RECTAL 01/06/17 16:45 (Lactulose Liq) 30 ml DAILY PRN PO 01/06/17 16:45 (Vitamin B1) 100 mg DAILY PO 01/10/17 09:00 01/13/17 08:34 (Romazicon Inj) 0.2 mg Q1M PRN IV PUSH 01/06/17 17:45 (Lovenox Inj) 40 mg Q24H SQ 01/06/17 18:00 Future Hold 01/07/17 18:22 (Lactulose Liq) 30 ml TID PO 01/07/17 09:00 01/13/17 08:33 (Xifaxan) 400 mg Q8HR PO 01/06/17 22:00 01/13/17 05:36 (Oscal) 1,000 mg BID PO 01/07/17 09:00 01/13/17 08:34 (D50w (Vial) Inj) 50 ml UNSCH PRN IV PUSH 01/07/17 08:15 (Glucagon Inj) 1 mg UNSCH PRN OTHER 01/07/17 08:15 (Betapace) 80 mg Q12HR PO 01/07/17 22:15 Future Hold 01/08/17 21:57 Amiodarone HCl 450 mg/Dextrose 250 ml @ 33.33 mls/ hr Q7H31M PRN IV 01/08/17 01:21 01/08/17 01:46 Propofol 100 ml @ 3.999 mls/ hr TITRATE PRN IV 01/08/17 05:00 01/13/17 06:56 (Albuterol Neb) 2.5 mg Q2HR NEB PRN NEB 01/08/17 08:30 (Tears Naturale Opth Soln) 1 drop Q8HR EACH EYE 01/08/17 14:00 01/13/17 06:00 (TRENtal SR) 400 mg Q8HR PO 01/08/17 14:00 Future Hold (NovoLOG SUPPLEMENTAL SCALE) 1 Q4HR SQ 01/08/17 12:00 (Peridex 0.12% Liq) 15 ml BID@08,20 MT 01/08/17 20:00 01/12/17 20:32 Midazolam HCl 100 ml @ 2 mls/hr TITRATE PRN IV 01/08/17 08:30 Fentanyl Citrate 250 ml @ 5 mls/hr TITRATE PRN IV 01/08/17 08:30 01/12/17 12:38 (Folate) 1 mg DAILY PO 01/09/17 09:00 Future hold 01/12/17 09:00 (Protonix Inj) 40 mg Q12HR IV PUSH 01/08/17 09:30 01/13/17 08:34 (Colace Liq) 100 mg Q12HR PO 01/08/17 09:00 01/13/17 08:33 (Senna Liq) 8.8 mg BID NG 01/08/17 09:00 01/13/17 08:34 (SoluMEDROL INJ) 40 mg Q8HR IV PUSH 01/08/17 22:00 01/13/17 05:36 (Pulmicort Respule Neb) 0.5 mg Q12HR NEB NEB 01/08/17 20:00 01/13/17 07:58 Norepinephrine Bitartrate 4 mg/ Sodium Chloride 250 ml @ 7.5 mls/hr TITRATE PRN IV 01/08/17 18:00 Future Hold 01/09/17 09:50 (Brethine Inj) 1 mg UNSCH PRN SQ 01/08/17 18:00 (Heparin Inj) 5,000 units Q8HR SQ 01/09/17 14:00 01/13/17 05:37 (Beneprotein Powder) 1 pack TID G-TUBE 01/09/17 09:00 01/12/17 08:14 Epinephrine HCl 4 mg/Dextrose 250 ml @ 11.25 mls/ hr TITRATE PRN IV 01/09/17 21:00 01/10/17 12:42 (K-Lyte Cl Eff) 25 meq BID@0900,1800 PO 01/10/17 18:00 01/12/17 17:48 (Duoneb Neb) 1 ampule Q6HR NEB NEB 01/11/17 16:00 01/13/17 07:58 Piperacillin Sod/ Tazobactam Sod 50 ml @ 100 mls/hr Q8H IV 01/11/17 15:00 01/15/17 14:59 01/13/17 06:22 (Lasix Inj) 40 mg DAILY IV PUSH 01/12/17 09:00 01/13/17 08:34 Epoprostenol Sodium 87.5 ml/ Sodium Chloride 100 ml @ 8 mls/hr Q8H NEB 01/12/17 14:00 01/12/17 22:45 Vital Signs / I&O Vital Signs Date Time Temp Pulse Resp B/P (MAP) Pulse Ox O2 Delivery O2 Flow Rate FiO2 01/13/17 07:58 93 45 01/13/17 05:15 95 50 01/13/17 04:00 74 01/13/17 04:00 97.7 74 10 118/65 (82) 97 123/63 (83) 01/13/17 04:00 60 01/13/17 03:37 96 50 01/13/17 02:00 72 01/13/17 00:00 98.4 72 10 129/76 (93) 93 129/65 (86) 01/13/17 00:00 72 01/13/17 00:00 60 01/12/17 23:46 93 60 01/12/17 22:00 60 01/12/17 22:00 75 01/12/17 20:32 92 60 01/12/17 20:00 74 01/12/17 20:00 60 01/12/17 20:00 98.4 74 10 114/63 (80) 91 112/58 (76) 01/12/17 16:00 97.8 76 18 106/51 (69) 90 01/12/17 16:00 60 01/12/17 16:00 76 01/12/17 15:14 93 60 01/12/17 13:04 67 100/55 01/12/17 12:50 90 60 01/12/17 12:30 60 01/12/17 12:00 69 01/12/17 12:00 100 01/12/17 12:00 98.4 69 18 104/56 (72) 90 I/O 01/12/17 01/12/17 01/12/17 01/13/17 01/13/17 01/13/17 07:00 15:00 23:00 07:00 15:00 23:00 Intake Total 904 ml 484 ml 457 ml 675 ml Output Total 975 ml 2000 ml 1150 ml Balance -71 ml 484 ml -1543 ml -475 ml IV Total 558 ml 484 ml 357 ml 400 ml Tube Feeding 256 ml 0 ml 215 ml Other 90 ml 100 ml 60 ml Output Urine Total 975 ml 2000 ml 1150 ml # Bowel Movements 1 1 2 Physical Exam GENERAL: Obese, sedated. HEENT: Jugular venous pressure is hard to asses CHEST: Lungs diminished at bases. Clear anteriorly CARDIAC: Regular rate and rhythm. Tele SR ABDOMEN: obese/ firm EXTREMITIES: 4+ edema. Anasarca IV epi drip, Diprivan, Fentanyl Laboratory Laboratory Tests Test 01/13/17 04:20 White Blood Count 12.1 TH/MM3 Red Blood Count 4.24 MIL/MM3 Hemoglobin 13.9 GM/DL Hematocrit 40.8 % Mean Corpuscular Volume 96.4 FL Mean Corpuscular Hemoglobin 32.7 PG Mean Corpuscular Hemoglobin Concent 33.9 % Red Cell Distribution Width 14.8 % Platelet Count 96 TH/MM3 Mean Platelet Volume 8.6 FL Prothrombin Time 14.0 SEC Prothromb Time International Ratio 1.4 RATIO Activated Partial Thromboplast Time 26.9 SEC Blood Urea Nitrogen 104 MG/DL Creatinine 4.95 MG/DL Random Glucose 116 MG/DL Total Protein 7.7 GM/DL Albumin 2.7 GM/DL Calcium Level 7.8 MG/DL Alkaline Phosphatase 100 U/L Aspartate Amino Transf (AST/SGOT) 64 U/L Alanine Aminotransferase (ALT/SGPT) 40 U/L Total Bilirubin 2.1 MG/DL Direct Bilirubin 1.5 MG/DL Sodium Level 141 MEQ/L Potassium Level 4.1 MEQ/L Chloride Level 99 MEQ/L Carbon Dioxide Level 26.5 MEQ/L Anion Gap 16 MEQ/L Estimat Glomerular Filtration Rate 13 ML/MIN Indirect Bilirubin 0.6 MG/DL Assessment and Plan Problem List: (1) Elevated troponin ICD Codes: R74.8 - Abnormal levels of other serum enzymes (2) Anasarca ICD Codes: R60.1 - Generalized edema Status: Acute (3) Liver cirrhosis ICD Codes: K74.60 - Unspecified cirrhosis of liver Status: Acute (4) Hypokalemia ICD Codes: E87.6 - Hypokalemia (5) Ventricular fibrillation ICD Codes: I49.01 - Ventricular fibrillation Assessment and Plan Prognosis poor. Jose Mathur MD Jan 13, 2017 09:10
[2017-01-13] MEDS: EPOPROSTENOL NEB SOLUTION 50 NG/KG/MIN 100 ML NEB SCH ×4 (12:00→18:58)
[2017-01-13] MEDS: POTASSIUM CHLORIDE 25 MEQ EFFERVESCENT TAB PO SCH ×2 (13:05→18:00)
[2017-01-13] MEDS: fentaNYL DRIP 250 ML IV PRN (13:08)
--- NOTE | 2017-01-13 13:50 | HHI.NPPN ---
Subjective History of Present Illness 46-year-old obese male with a history of alcohol abuse and cardiac arrest and acute renal failure Additional Remarks Patient is on the vent., remain sedated, Objective Data Data Vital Signs Date Time Temp Pulse Resp B/P (MAP) Pulse Ox O2 Delivery O2 Flow Rate FiO2 01/13/17 12:15 98 40 01/13/17 12:00 80 01/13/17 12:00 45 01/13/17 08:00 45 01/13/17 08:00 79 01/13/17 07:58 93 45 01/13/17 05:15 95 50 01/13/17 04:00 74 01/13/17 04:00 97.7 74 10 118/65 (82) 97 123/63 (83) 01/13/17 04:00 60 01/13/17 03:37 96 50 01/13/17 02:00 72 01/13/17 00:00 98.4 72 10 129/76 (93) 93 129/65 (86) 01/13/17 00:00 72 01/13/17 00:00 60 01/12/17 23:46 93 60 01/12/17 22:00 60 01/12/17 22:00 75 01/12/17 20:32 92 60 01/12/17 20:00 74 01/12/17 20:00 60 01/12/17 20:00 98.4 74 10 114/63 (80) 91 112/58 (76) 01/12/17 16:00 97.8 76 18 106/51 (69) 90 01/12/17 16:00 60 01/12/17 16:00 76 01/12/17 15:14 93 60 -: 01/13/17 0420 01/13/17 0420 Physical Exam General Appearance: Well Developed, Comfortable, Obese Neck Neck Exam: Neck Supple Pulmonary Resp Exam: Clear Bilaterally Cardiology CV Exam: Regular, Normal Sinus Rhythm Gastrointestinal/Abdomen GI Exam: Soft, Bowel Sounds Present, Distended Extremeties Extremities Exam: Moderate Edema Neurologic Neuro Exam: Sedated Assessment/Plan Problem List: (1) Acute renal failure ICD Codes: N17.9 - Acute kidney failure, unspecified Plan: Patient is in acute renal failure due to cardiogenic shock he did receive a CTA of the chest, exposed to dye his cr is worse non oliguric off Lasix His prognosis is very poor due to cardiac arrest alternate code dialysis to be discussed (2) Anasarca ICD Codes: R60.1 - Generalized edema Status: Acute Plan: Due to cirrhosis (3) Liver cirrhosis ICD Codes: K74.60 - Unspecified cirrhosis of liver Status: Acute Plan: Alcoholism (4) Ventricular fibrillation ICD Codes: I49.01 - Ventricular fibrillation Plan: ventricular fibrillation has resuscitation Tonya Combs MD Jan 13, 2017 13:50
--- NOTE | 2017-01-13 15:13 | RADRPT ---
EXAM DATE/TIME: 01/13/2017 14:40 [facility] COMPARISON: ABDOMEN KUB ONLY, September 04, 2016, 17:16. INDICATIONS : Evaluate for distention. MEDICAL HISTORY : Cardiovascular disease. Hepatitis C. Hypertension. Sleep apnea. Liver disease. Bipolar disorder. ETOH abuse.Substance abuse SURGICAL HISTORY : None. ENCOUNTER: Initial ACUITY: 3 days PAIN SCORE: Non-responsive. LOCATION: Bilateral Abdomen FINDINGS: 2 supine frontal views of the abdomen demonstrate nasogastric tube within the stomach. There is mildl y dilated right colon. Descending and sigmoid colon are mildly distended. There are some small bowel segments within the pelvis which could represent mildly dilated small bowel or sigmoid colon. No orga nomegaly or concerning calcifications are seen. The lung bases demonstrate no concerning abnormality. Right proximal femur hardware is present. CONCLUSION: Mildly dilated colon with questionable mild distention of some of the distal small bowel. Findings ar e not in a pattern to suggest obstruction. Ileus could potentially have this appearance. Consider fol lowup imaging to confirm resolution. Jose Cheek MD on January 13, 2017 at 15:09 Board Certified Radiologist. This report was verified electronically.
--- NOTE | 2017-01-13 15:56 | PD.CONS ---
Consult Service Palliative Care Consult Requested By Dr. Haynes. Primary Care Physician No Primary Care Physician Reason for Consultation a. To assist with evaluation and management of symptoms including: depression, dyspnea b. To assist medical decision maker(s) with: better understanding of current medical conditions; weighing benefits/burdens of medical treatment options; making medical treatment decisions. HPI History of Present Illness this 46-year-old male presented to the ED on 01/06/17 with complaints of shortness of breath, chest pain and edema to lower extremities and testicles onset 2 weeks prior. Reported progressive worsening to the point where he could no longer ambulate or urinating without difficulty. Reporting pain 10 out of 10 chest pain started the day of presentation. Denied radiation. Patient reported drinking alcohol on a daily basis drinking one fifth of vodka daily. Patient father present during ED evaluation indicated he was out of town and when he returned there were numerous empty liquor bottles around the home. Patient also reporting he felt like he might be in withdrawal because he had been able to get to the methadone clinic for 3 days due to edema. He denied nausea vomiting fever or chills. He denied any other drug use endorse smoking of cigarettes. Reports on methadone due to prior opiate addiction. Patient also stating that he is depressed and feels suicidal. * EKG in the ER notes sinus tachycardia rate 105. CBC unremarkable. Troponin 0.27, ordered for nitroglycerine. Hyperkalemia potassium 7.1, LFTs elevated. BNP 181. Lasix given. CXR notes cardiomegaly with pulmonary vascular engorgement no infiltrate or effusion. Psychiatry consulted. He was admitted for further evaluation and management * Started on vancomycin, Zosyn for right leg cellulitis. Blood cultures pending , wound care consult pending, cardiology consult pending. * Cardiology consult: Cardiology notes anasarca probably secondary to liver cirrhosis/ cannot rule out CHF in view of cardiomegaly on last CXR. 2-D echo pending. Additional diuretics, potassium repletion ordered, will follow. 2-D echo= normal left ventricular size and wall thickness, left ventricular systolic function normal EF 60%. No wall motion abnormalities. Trace tricuspid valve regurg. * Psychiatry consult: At time of psychiatry evaluation patient denies hopelessness, suicidal ideations indicates that he feels much better. When he came to the hospital he indicated he was in a lot of pain felt like he was dying and was desperate. Psychiatry further notes patient is oriented 3, insight and judgment appear adequate, with no aggressive behaviors. On trazodone 100 mg at bedtime to help with sleep and depressive symptoms. During psychiatry evaluation no symptomology of alcohol withdrawal. Recommends continue with CIWA protocol and methadone. [place] act was lifted. * Wound care consulted--noted to have significant ulcerations to right lower leg approximately 10 cm x 7 cm along posterior medial calf. Patient also with 10 x 5 cm wound to left lower leg wound care recommendations made, wounds appear like venous stasis ulcers. Preliminary wound culture with heavy growth Staphylococcus aureus. Recommend continue outpatient treatment at wound care center. * CT abdomen: hepatic steatosis. Likely signs of portal hypertension// critical care notes patient with extensive workup in 2017 per GI negative AMA/ ASMA, ceruloplasmin etc. 01/06 - left leg wound culture - staph aureus - MSSA - blood cultures 2 - no growth * On 01/08 early in the morning had a few runs of V. tach per telemetry was transferred to ICU. Shortly after transfer had V. tach/V. fib CARDIAC ARREST; underwent defibrillation 1, after 1 cycle of CPR and intubation ROSC obtained. Following patient sedated on mechanical vent with propofol, arousable. Also noted with some hemoptysis per ET tube land for bronchoscopy. RN unable to reach family. Cardiology notes potassium low prior to rest, patient with massive fluid overload. * 01/09 around 11:45 PM patient with another episode of V. fib/pulseless V. tach lasting approximately 5 minutes this was treated with 300 mg amiodarone and 200 J shock. Patient noted to be arousable on ventilator on propofol and fentanyl drip. High O2 requirements noted. Patient was started on epinephrine drip. Condition was discussed with cardiology, patient father per critical care. Nephrology consulted due to decreasing urine output and increasing creatinine/acute renal failure. Patient acute renal failure felt to be secondary to cardiogenic shock, though notable she did receive CT of chest with contrast. * 01/10 cardiology notes "prognosis poor was shock, liver, renal failure, VF arrests" * 01/11 remains on epinephrine. Creatinine worsening. Requiring 100% FiO2 on vent. Critically ill, Persistent multiorgan failure. Critical care: Not clear if this is secondary to cardiac etiology or acute liver dysfunction.? Could be hepatorenal syndrome versus cardiogenic shock. Could consider MADELINE though this might be difficult to obtain, possible patient may require hemodialysis. * 01/12 MADELINE --- notes normal LV size dimension no significant valvulopathy's, no intracardiac shunts, no pericardial effusion, no vegetations or masses/ critical care notes lengthy discussion with family regarding poor prognosis as no improvement 7 days. They were considering DNR status. Still requiring maximum ventilator settings. Patient family later requested critical care change CODE STATUS to intubation only. * 01/13 patient with no improvement continues to have multiorgan failure. Nephrology notes prognosis poor secondary to cardiac arrest, though will discuss dialysis. Cardiology also notes prognosis poor. Palliative care consulted to assist with clarification of goals of treatment.\\ Pt seen in room until visit with Dr. Wilfredo Negrete. No family present. RN and RT present for part of exam. Patient is on some sedation Diprivan, fentanyl however also somewhat alert and arousable to exam. He does nod to simple yes and no questions however frequently has facial grimace and is tearful. He nods NO to pain when questioned multiple times however he remains tearful. whenever asked if he is feeling emotional or sad he seems to nod yes. 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 Briefly explain hospitalization, current date and acute critical illness to him. He remains with a grimace and tearful at times. He again nods no to pain. Following exam call to patient father Jose who is listed as primary contact for patient. He has already left the hospital for the day and plans to return tomorrow, set up to meet with him tomorrow at 11 AM to further discuss conditions, goals etc. Will further explore additional family and legal decision makers at that time. Function/Cognitive Trajectory per most recent hospital admission here 08/2016 patient lived at home with his father, not working. He was discharged home to follow-up with community clinic , with the walker. Past Family Social History Coded Allergies: risperidone (Unverified Allergy, Severe, Anaphylaxis, 09/24/16) ziprasidone (Unverified Allergy, Severe, Anaphylaxis, 09/24/16) Past Medical History Bipolar disorder Anxiety Disorder Hypertension Cirrhosis ? Hepatitis C . Past Surgical History Right femur IM eusebia 1991 Reported Medications Zoloft (Sertraline HCl) 50 Mg Tab 25 Mg PO DAILY Potassium Chloride Microencaps 20 Meq Tab 20 Meq PO DAILY Furosemide 20 Mg Tab 20 Mg PO BID Aldactone (Spironolactone) 50 Mg Tab 50 Mg PO DAILY Gnp Vitamin B-1 (Thiamine HCl) 100 Mg Tab 100 Mg PO DAILY Folic Acid 1 Mg Tablet 1 Mg PO DAILY Walker with Front Wheels (Device) 1 Mis Mis 1 Ea .ROUTE DIRECTED Lorazepam 0.5 Mg Tab 0.5 Mg PO Q8H PRN Senna Plus 8.6-50 mg (Sennosides-Docusate Sodium) 1 Tab Tab 1 Tab PO BID Xifaxan (Rifaximin) 200 Mg Tab 400 Mg PO Q8HR Pentoxifylline ER (Pentoxifylline) 400 Mg Tab 400 Mg PO Q8HR Methadone Intensol Liq (Methadone HCl) 10 Mg/Ml Conc 140 Mg PO DAILY . Current Medications Medications (Trade) Dose Ordered Sig/Mercy Route Start Time Stop Time Status Last Admin (NS Flush) 2 ml UNSCH PRN IV FLUSH 01/06/17 16:45 01/09/17 06:14 (NS Flush) 2 ml BID IV FLUSH 01/06/17 21:00 01/12/17 20:32 (Zofran Inj) 4 mg Q6H PRN IVP 01/06/17 16:45 (Narcan Inj) 0.4 mg UNSCH PRN IV PUSH 01/06/17 16:45 (Milk Of Magnesia Liq) 30 ml Q12H PRN PO 01/06/17 16:45 (Senokot) 17.2 mg Q12H PRN PO 01/06/17 16:45 (Dulcolax Supp) 10 mg DAILY PRN RECTAL 01/06/17 16:45 (Lactulose Liq) 30 ml DAILY PRN PO 01/06/17 16:45 (Vitamin B1) 100 mg DAILY PO 01/10/17 09:00 01/13/17 08:34 (Romazicon Inj) 0.2 mg Q1M PRN IV PUSH 01/06/17 17:45 (Lactulose Liq) 30 ml TID PO 01/07/17 09:00 01/13/17 08:33 (Xifaxan) 400 mg Q8HR PO 01/06/17 22:00 01/13/17 13:06 (Oscal) 1,000 mg BID PO 01/07/17 09:00 01/13/17 08:34 (D50w (Vial) Inj) 50 ml UNSCH PRN IV PUSH 01/07/17 08:15 (Glucagon Inj) 1 mg UNSCH PRN OTHER 01/07/17 08:15 Amiodarone HCl 450 mg/Dextrose 250 ml @ 33.33 mls/ hr Q7H31M PRN IV 01/08/17 01:21 01/08/17 01:46 Propofol 100 ml @ 3.999 mls/ hr TITRATE PRN IV 01/08/17 05:00 01/13/17 13:57 (Albuterol Neb) 2.5 mg Q2HR NEB PRN NEB 01/08/17 08:30 (Tears Naturale Opth Soln) 1 drop Q8HR EACH EYE 01/08/17 14:00 01/13/17 14:00 (NovoLOG SUPPLEMENTAL SCALE) 1 Q4HR SQ 01/08/17 12:00 (Peridex 0.12% Liq) 15 ml BID@08,20 MT 01/08/17 20:00 01/13/17 08:00 Midazolam HCl 100 ml @ 2 mls/hr TITRATE PRN IV 01/08/17 08:30 Fentanyl Citrate 250 ml @ 5 mls/hr TITRATE PRN IV 01/08/17 08:30 01/13/17 13:08 (Folate) 1 mg DAILY PO 01/09/17 09:00 Future hold 01/13/17 09:00 (Protonix Inj) 40 mg Q12HR IV PUSH 01/08/17 09:30 01/13/17 08:34 (Colace Liq) 100 mg Q12HR PO 01/08/17 09:00 01/13/17 08:33 (Senna Liq) 8.8 mg BID NG 01/08/17 09:00 01/13/17 08:34 (SoluMEDROL INJ) 40 mg Q8HR IV PUSH 01/08/17 22:00 01/13/17 13:05 (Pulmicort Respule Neb) 0.5 mg Q12HR NEB NEB 01/08/17 20:00 01/13/17 07:58 (Heparin Inj) 5,000 units Q8HR SQ 01/09/17 14:00 01/13/17 13:06 (Beneprotein Powder) 1 pack TID G-TUBE 01/09/17 09:00 01/13/17 13:00 (K-Lyte Cl Eff) 25 meq BID@0900,1800 PO 01/10/17 18:00 01/13/17 13:05 (Duoneb Neb) 1 ampule Q6HR [facility] 01/11/17 16:00 01/13/17 07:58 Piperacillin Sod/ Tazobactam Sod 50 ml @ 100 mls/hr Q8H IV 01/11/17 15:00 01/15/17 14:59 01/13/17 13:06 Epoprostenol Sodium 87.5 ml/ Sodium Chloride 100 ml @ 8 mls/hr Q8H NEB 01/12/17 14:00 01/13/17 12:00 Family History Adopted-does not know biological family history . Substance Use Tobacco: Smokes 1 PPD Alcohol: Alcohol abuse about 1 L a day, vodka Prescription med abuse: Reported history of IV/PO Dilaudid use/abuse Illicits:Reported history of IV/PO Dilaudid use/abuse . Psychosocial History Patient born in [place], has reported to be adopted. Resides locally with his father. Not currently working. Has completed high school and a couple of years of college. Per prior psychiatry evaluation he may have a daughter from a girlfriend which he was not to, and that she is in the [employer], at that time was 22 years old (10/2014). He has never been --during that psychiatry evaluation he reported girlfriend in a car accident, patient was having more depression and drinking. He has been in treatment programs for substance abuse in the past. Spiritual/Cultural Factors No spiritual preference per demographics Living Will: Never completed Health Care Surrogate: Never completed Durable Power of School Nurse: Never completed Ethical and Legal Issues Patient is currently unable to participate due to sedation, mechanical vent. Not clear if or when he will regain ability to participate. His father is listed as contact and next of kin. There is record during prior psychiatric evaluation that the patient may have a daughter who was serving in the [employer] at that time age 23 (2014), this evaluation further notes the patient has never been . Per [place] statutes this daughter may be the appropriate legal decision maker if she can be located. Will attempt to further explore with patient father during planned meeting. Physical Exam Vital Signs Date Time Temp Pulse Resp B/P (MAP) Pulse Ox O2 Delivery O2 Flow Rate FiO2 01/13/17 12:15 98 40 01/13/17 12:00 80 01/13/17 12:00 45 01/13/17 08:00 45 01/13/17 08:00 79 01/13/17 07:58 93 45 01/13/17 05:15 95 50 01/13/17 04:00 74 01/13/17 04:00 97.7 74 10 118/65 (82) 97 123/63 (83) 01/13/17 04:00 60 01/13/17 03:37 96 50 01/13/17 02:00 72 01/13/17 00:00 98.4 72 10 129/76 (93) 93 129/65 (86) 01/13/17 00:00 72 01/13/17 00:00 60 01/12/17 23:46 93 60 01/12/17 22:00 60 01/12/17 22:00 75 01/12/17 20:32 92 60 01/12/17 20:00 74 01/12/17 20:00 60 01/12/17 20:00 98.4 74 10 114/63 (80) 91 112/58 (76) 01/12/17 16:00 97.8 76 18 106/51 (69) 90 01/12/17 16:00 60 01/12/17 16:00 76 01/12/17 15:14 93 60 01/13/17 01/14/17 19:00 07:00 Intake Total 485 ml Balance 485 ml IV Total 485 ml Exam CONSTITUTIONAL/GENERAL: This is a obese, ill-appearing patient, tearful at times TUBES/LINES/DRAINS: Left IJ central line, ET tube, OG tube, Locke catheter, soft wrist restraints, SCDs SKIN: No jaundice, rashes, or lesions. Multiple areas of ecchymosis to bilateral upper extremities. Reported to have extensive vascular wounds to bilateral lower legs are not visualized at this time. Chronic thickening and scaling noted to bilateral lower extremities, feet. Skin is warm and dry. N HEAD: Atraumatic. Normocephalic. EYES: Pupils equal and round and reactive. Extraocular motions intact. No scleral icterus. No injection or drainage. Fundi not examined. ENT: Nose without bleeding or purulent drainage. Unable to visualize oropharynx due to ET tube, OG tube. Copious clear oral secretions coming out of mouth. NECK: Trachea midline. Supple, nontender. No palpable thyroid enlargement or nodularity. CARDIOVASCULAR: Regular rate and rhythm without murmurs. Peripheral pulses symmetric, pedal pulses faint. Significant generalized edema/anasarca. RESPIRATORY/CHEST: Symmetric, unlabored respirations via bilevel mechanical vent. Scattered rhonchi throughout lungs. Breath sounds equal bilaterally. GASTROINTESTINAL: Abdomen obese, round, distended, firm. Limited palpation though no readily palpable masses. Bowel sounds normoactive. Tube feeding in infusing via OG tube. GENITOURINARY: Without palpable bladder distension. Lcoke catheter in place clear dark yellow urine. MUSCULOSKELETAL: Extremities without clubbing, cyanosis, or edema. No joint tenderness or effusion noted. No mottling or clubbing. Significant edema to extremities. LYMPHATICS: No palpable cervical or supraclavicular adenopathy. NEUROLOGICAL: Awake and alert. On mechanical vent/ nonverbal. Unable to assess orientation. Tearful at times. Does nod to some simple yes/no questions. Follows simple commands, moves all 4 extremities with generalized weakness. PSYCHIATRIC: Tearful, grimacing at times. Diagnostic Tests Laboratory Laboratory Tests Test 01/10/17 21:48 01/11/17 04:30 01/12/17 00:48 01/12/17 04:30 Blood Gas Puncture Site ART LINE ART LINE Blood Gas Patient Temperature 98.6 98.6 Blood Gas HCO3 28 mmol/L (22-26) 27 mmol/L (22-26) Blood Gas Base Excess 2.9 mmol/L (-2-2) 2.7 mmol/L (-2-2) Blood Gas Oxygen Saturation 94 % (90-100) 94 % (90-100) Arterial Blood pH 7.38 (7.380-7.420) 7.38 (7.380-7.420) Arterial Blood Partial Pressure CO2 47 mmHg (38-42) 47 mmHg (38-42) Arterial Blood Partial Pressure O2 87 mmHg (61-120) 82 mmHg (61-120) Arterial Blood Oxygen Content 18.4 Vol % (12.0-20.0) 16.3 Vol % (12.0-20.0) Arterial Blood Carboxyhemoglobin 1.2 % (0-4) 1.2 % (0-4) Arterial Blood Methemoglobin 1.0 % (0-2) 0.9 % (0-2) Blood Gas Hemoglobin 13.8 G/DL (12.0-16.0) 12.2 G/DL (12.0-16.0) Oxygen Delivery Device VENTILATOR VENTILATOR Blood Gas Ventilator Setting COMMENT SEE COMMENTS Blood Gas Inspired Oxygen 100 % 100 % White Blood Count 8.5 TH/MM3 (4.0-11.0) 8.4 TH/MM3 (4.0-11.0) Red Blood Count 4.05 MIL/MM3 (4.50-5.90) 4.01 MIL/MM3 (4.50-5.90) Hemoglobin 13.5 GM/DL (13.0-17.0) 13.1 GM/DL (13.0-17.0) Hematocrit 39.7 % (39.0-51.0) 39.2 % (39.0-51.0) Mean Corpuscular Volume 98.1 FL (80.0-100.0) 97.8 FL (80.0-100.0) Mean Corpuscular Hemoglobin 33.4 PG (27.0-34.0) 32.7 PG (27.0-34.0) Mean Corpuscular Hemoglobin Concent 34.1 % (32.0-36.0) 33.5 % (32.0-36.0) Red Cell Distribution Width 15.1 % (11.6-17.2) 15.1 % (11.6-17.2) Platelet Count 84 TH/MM3 (150-450) 86 TH/MM3 (150-450) Mean Platelet Volume 8.0 FL (7.0-11.0) 8.3 FL (7.0-11.0) Prothrombin Time 14.9 SEC (9.8-11.6) 14.6 SEC (9.8-11.6) Prothromb Time International Ratio 1.5 RATIO 1.4 RATIO Activated Partial Thromboplast Time 28.4 SEC (24.3-30.1) 27.8 SEC (24.3-30.1) Blood Urea Nitrogen 67 MG/DL (7-18) 87 MG/DL (7-18) Creatinine 4.22 MG/DL (0.60-1.30) 4.76 MG/DL (0.60-1.30) Random Glucose 128 MG/DL (74-106) 93 MG/DL (74-106) Total Protein 7.9 GM/DL (6.4-8.2) 7.3 GM/DL (6.4-8.2) Albumin 2.8 GM/DL (3.4-5.0) 2.6 GM/DL (3.4-5.0) Calcium Level 7.7 MG/DL (8.5-10.1) 7.9 MG/DL (8.5-10.1) Alkaline Phosphatase 130 U/L (45-117) 123 U/L (45-117) Aspartate Amino Transf (AST/SGOT) 86 U/L (15-37) 59 U/L (15-37) Alanine Aminotransferase (ALT/SGPT) 55 U/L (12-78) 45 U/L (12-78) Total Bilirubin 2.7 MG/DL (0.2-1.0) 1.9 MG/DL (0.2-1.0) Direct Bilirubin 2.0 MG/DL (0.0-0.2) 1.4 MG/DL (0.0-0.2) Sodium Level 139 MEQ/L (136-145) 142 MEQ/L (136-145) Potassium Level 3.7 MEQ/L (3.5-5.1) 4.3 MEQ/L (3.5-5.1) Chloride Level 98 MEQ/L (98-107) 99 MEQ/L (98-107) Carbon Dioxide Level 27.5 MEQ/L (21.0-32.0) 31.6 MEQ/L (21.0-32.0) Anion Gap 14 MEQ/L (5-15) 11 MEQ/L (5-15) Estimat Glomerular Filtration Rate 15 ML/MIN (>89) 13 ML/MIN (>89) Indirect Bilirubin 0.7 MG/DL (0.0-0.8) 0.5 MG/DL (0.0-0.8) Test 01/13/17 04:20 White Blood Count 12.1 TH/MM3 (4.0-11.0) Red Blood Count 4.24 MIL/MM3 (4.50-5.90) Hemoglobin 13.9 GM/DL (13.0-17.0) Hematocrit 40.8 % (39.0-51.0) Mean Corpuscular Volume 96.4 FL (80.0-100.0) Mean Corpuscular Hemoglobin 32.7 PG (27.0-34.0) Mean Corpuscular Hemoglobin Concent 33.9 % (32.0-36.0) Red Cell Distribution Width 14.8 % (11.6-17.2) Platelet Count 96 TH/MM3 (150-450) Mean Platelet Volume 8.6 FL (7.0-11.0) Prothrombin Time 14.0 SEC (9.8-11.6) Prothromb Time International Ratio 1.4 RATIO Activated Partial Thromboplast Time 26.9 SEC (24.3-30.1) Blood Urea Nitrogen 104 MG/DL (7-18) Creatinine 4.95 MG/DL (0.60-1.30) Random Glucose 116 MG/DL (74-106) Total Protein 7.7 GM/DL (6.4-8.2) Albumin 2.7 GM/DL (3.4-5.0) Calcium Level 7.8 MG/DL (8.5-10.1) Alkaline Phosphatase 100 U/L (45-117) Aspartate Amino Transf (AST/SGOT) 64 U/L (15-37) Alanine Aminotransferase (ALT/SGPT) 40 U/L (12-78) Total Bilirubin 2.1 MG/DL (0.2-1.0) Direct Bilirubin 1.5 MG/DL (0.0-0.2) Sodium Level 141 MEQ/L (136-145) Potassium Level 4.1 MEQ/L (3.5-5.1) Chloride Level 99 MEQ/L (98-107) Carbon Dioxide Level 26.5 MEQ/L (21.0-32.0) Anion Gap 16 MEQ/L (5-15) Estimat Glomerular Filtration Rate 13 ML/MIN (>89) Indirect Bilirubin 0.6 MG/DL (0.0-0.8) Result Diagram: 01/13/1741901/13/17419 Microbiology Microbiology Date/Time Source Procedure Growth Status 01/06/17 21:26 Blood Peripheral Aerobic Blood Culture - Final NO GROWTH IN 5 DAYS Complete 01/06/17 21:26 Blood Peripheral Anaerobic Blood Culture - Final NO GROWTH IN 5 DAYS Complete 01/08/17 18:29 Sputum Endotracheal Gram Stain - Final Complete 01/08/17 18:29 Sputum Endotracheal Sputum Culture - Final LIGHT GROWTH NORMAL RESPIRATORY LETTY Complete 01/09/17 11:45 Urine Catheterized Urine Urine Culture - Final NO GROWTH IN 48 HOURS. Complete 01/06/17 15:53 Wound Leg Gram Stain - Final Complete 01/06/17 15:53 Wound Culture - Final Staphylococcus Aureus Complete Imaging Last Impressions Chest X-Ray 01/11/17 0000 Signed Impressions: Service Date/Time: Wednesday, January 11, 2017 13:35 - CONCLUSION: 1. Stable tubes and lines, as above. 2. Slight improved aeration in the left lower lung zone. 3. Continued bibasilar airspace disease, likely atelectasis. 4. Otherwise, no significant interval change. Jorge A Collazo MD Renal Ultrasound 01/09/17 0000 Signed Impressions: Service Date/Time: December 09:36 - CONCLUSION: No evidence of hydronephrosis Jose Machado MD Lower Extremity Ultrasound 01/09/17 0000 Signed Impressions: Service Date/Time: December 09:46 - CONCLUSION: Normal examination. Jose Machado MD Head CT 01/08/17 0400 Signed Impressions: Service Date/Time: Sunday, January 08, 2017 03:55 - CONCLUSION: 1. No intracranial abnormalities seen. 2. Sinus disease. Jose De Jesus MD Upper Extremity Ultrasound 01/08/17 0000 Signed Impressions: Service Date/Time: Sunday, January 08, 2017 12:14 - CONCLUSION: Normal examination. Rosendo Connors Jr., MD Liver Ultrasound 01/08/17 0000 Signed Impressions: Service Date/Time: Sunday, January 08, 2017 11:39 - CONCLUSION: Hepatosplenomegaly. Hepatic steatosis. Distended gallbladder with nonspecific wall thickening and gallbladder sludge. Minimal pericholecystic fluid Jose Machado MD CT Angiography 01/08/17 0000 Signed Impressions: Service Date/Time: Sunday, January 08, 2017 04:03 - CONCLUSION: 1. No pulmonary embolus. 2. Increased density at the posterior aspects of the lungs bilaterally likely related to atelectasis or consolidation. Jose De Jesus MD Abdomen/Pelvis CT 01/08/17 0000 Signed Impressions: Service Date/Time: Sunday, January 08, 2017 04:03 - CONCLUSION: 1. Hepatic steatosis with suspected portal hypertension and cirrhosis. There are prominent veins seen throughout the superficial anterior abdominal wall. 2. Splenomegaly. This may be secondary to portal hypertension. 3. Significant ascites is not seen. Jose De Jesus MD Patient/Family Conference Issues Discussed: Palliative care meeting with patient father Jose Hoang planned for 11 AM 01/14. Assessment and Plan Disease Oriented Problem List: (1) Cardiogenic shock (2) Ventricular fibrillation (3) Hyperammonemia (4) Elevated troponin (5) Acute renal failure (6) Acute respiratory failure with hypoxia and hypercarbia (7) Thrombocytopenia (8) Hepatic steatosis (9) Hepatitis C (10) Elevated TSH (11) Transaminitis (12) Liver cirrhosis (13) Adjustment disorder with depressed mood (14) Staph aureus infection (15) Adjustment disorder with mixed anxiety and depressed mood Symptom Scale: Pertinent Non-Medical Issues Psychosocial:Patient born in [place], has reported to be adopted. Resides locally with his father. Not currently working. Has completed high school and a couple of years of college. Per prior psychiatry evaluation he may have a daughter from a girlfriend which he was not to, and that she is in the [employer], at that time was 22 years old (10/2014). He has never been -- during that psychiatry evaluation he reported girlfriend in a car accident , patient was having more depression and drinking. He has been in treatment programs for substance abuse in the past. Spiritual: No spiritual or druze preference per demographics information. Legal:Patient is currently unable to participate due to sedation, mechanical vent. Not clear if or when he will regain ability to participate. His father is listed as contact and next of kin. There is record during prior psychiatric evaluation that the patient may have a daughter who was serving in the [employer] at that time age 23 (2014), this evaluation further notes the patient has never been . Per [place] statutes this daughter may be the appropriate legal decision maker if she can be located. Will attempt to further explore with patient father during planned meeting. Ethical issues impacting care: No ethical issues identified at this time. Important Contacts Jose Hoang (father) [phone] Montserrat Mehta (friend) [phone]. . Prognosis This man who presented for edema and difficulty walking, and chest pain has suffered multiple V. fib arrest during this admission. He remains critically ill with persistent cardiogenic shock and volume overload. He is experiencing multiorgan failure. Overall prognosis for survival and recovery to prior level of function is poor. . Code Status: Alternative Code (intubation only) Plan * Legal decision maker:Patient is currently unable to participate due to sedation, mechanical vent. Not clear if or when he will regain ability to participate. His father is listed as contact and next of kin. There is record during prior psychiatric evaluation that the patient may have a daughter who was serving in the [employer] at that time age 23 (2014), this evaluation further notes the patient has never been . Per [place] statutes this daughter may be the appropriate legal decision maker if she can be located. Will attempt to further explore with patient father during planned meeting. * Goals: VINOD, spoke briefly with father today via phone.He has already left the hospital for the day and plans to return tomorrow, set up to meet with him tomorrow 01/14/17 at 11 AM to further discuss conditions, goals, legal decision makers etc. Will further explore additional family and legal decision makers at that time. * CODE STATUS: Alternative code, intubation only * SYMPTOMS: --Dyspnea-emergently intubated 2/2 vfib arrest, remains on mech vent w high O2/support requirements, unable to wean due to fluid overload, multiorgan failure --Depression-patient admitted with reported suicidal ideations. Of note per review of records in EMR he's had long history of depression and polysubstance abuse, as well as traumatic loss of a girlfriend in the past. During exam today he is tearful and indicates it is not physical pain, he does appear to nod yes to feeling sad. He has been on sertraline outpatient, as well as other medications in the past per review of records. Psychiatry evaluated this admission and did note adjustment disorder with mixed mood anxiety and depression, though at the time patient feeling optimistic and no suicidal ideation. Started him on trazodone. At this time he is likely suffering from situational depression and anxiety on top of his underlying conditions. He is currently on fentanyl and Diprivan for sedation though at time of my exam is fairly alert. If his conditions stabilized he would benefit from psychotherapy , substance abuse rehabilitation in addition to pharmacological tx. * Palliative care will continue to follow during hospital course as condition evolves, to assist patient/decision-maker with understanding of medical conditions, weighing benefits/burdens of treatment options, for clarification of goals of treatment. Additionally will assist with any symptoms of palliative concern Time Spent Total Floor Time (mins): 45 (Chart review, PE, discussion with nurse, brief discussion with family on phone) Thank you for the opportunity to participate in the care of Mr. Hoang. Attestation To help prompt me to consider important information that might be impacting today's encounter and assessment, information from prior notes written by myself or my colleagues may have been "brought forward" into today's note. My signature on this note, however, is an attestation that I personally performed the exam, history, and/or decision-making noted today, and, unless otherwise indicated, the interactions with patient, family, and staff as well as the review of records all occurred today. I also attest that the listed assessment and stated plan reflect my best clinical judgment today based on the combination of historical information, prior notes, and today's exam/ interactions. When time spent is documented, it refers only to time spent today by the signer, or if indicated, combined time spent today by collaborating physician/nurse practitioner. Shanita Dunn Jan 13, 2017 15:56
--- NOTE | 2017-01-13 16:29 | HHI.CCPN ---
Subjective Remarks/Hospital Course 46-year-old morbidly obese gentleman admitted for evaluation of Edema, Shortness of breath, Chest pain, who started with swelling in his lower extremities and testicles 2 weeks prior to admission, progressively worsening to the point where he cant ambulate or urinate without difficulty, pain is 10/ 10 in intensity, Chest pain started the day prior to admission as a substernal pain. Per chart review he has been drinking alcohol on a daily basis, at least a 1/5th of vodka daily. He was considered to be in withdrawal because he has been unable to go to the methadone clinic for 3 days because of all the swelling in his legs and testicles. He has also Hepatitis C. 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 tach on the property assessment monitor and was transferred to ICU. Shortly after the transfer patient suffered from V. tach/ V. fib cardiac arrest, he was defibrillated 1 during the CPR and after 1 cycle of CPR and intubation he regained spontaneous circulation. Cardiology content manager was informed about the V. fib cardiac arrest with recommendation to correct underlying electrolyte dissonance. 01/08: Currently sedated on propofol drip at 30 micrograms per kilo per minute. Arousable. With hemoptysis per 7.5 ET tube. Will need bronchoscopy. Family attempted to notify per RN however currently unavailable/unreachable. No further runs of dysrhythmia noted. Subjective 01/09: At approximately 2345, another episode of V. fib/pulseless V. tach. Episode lasted approximately 5 minutes. Patient received 300 mg IV amiodarone and shocked with 200 J. Patient is arousable on the ventilator currently on propofol and fentanyl drips.. High ox requirements persist. Creatinine has increased to 2.5. 01/10: no v. fib events in last 24h. however, remains on epinephrine. Cr continues to worsen. this may be hepatorenal syndrome, or secondary to cardiogenic shock. LFTs worsening and coags worsening. following some commands. nephrology still pushing for forced diuresis, and on limited bedside critical care echo (poor windows due to body habitus) does appear to have global biventricular dysfunction and volume overload. no meaningful improvements in 24h. 01/11: still no improvements. remains on epi. Cr worse again today. still on 100 % fio2. repeat CXR unchanged. organ failure persists. 01/12: hypoxia persists. still on 100% fio2. echo with ?spontaneous echo contrast in RA, but no other clinically significant findings. no valvular lesions. no intra-cardiac shunt. Cr continues to rise. uop adequate. off epinephrine. long talk with family where I expressed my concern that this likely has a grim prognosis given no improvements over last 7 days. they are aware. considering DNR status. 01/13: hypoxia somewhat improved. remains on APRV and high support settings, but fio2 45% and spo2 94%. Cr continues to worsen, though. overall not much clinical improvement. Objective Vital Signs Date Time Temp Pulse Resp B/P (MAP) Pulse Ox O2 Delivery O2 Flow Rate FiO2 01/13/17 16:14 100 40 01/13/17 12:00 80 01/13/17 04:00 97.7 10 118/65 (82) 123/63 (83) Intake and Output 01/13/17 01/13/17 01/14/17 08:00 16:00 00:00 Intake Total 625 ml 485 ml Output Total 1150 ml Balance -525 ml 485 ml Result Diagram: 01/13/17 0420 01/13/17 0420 Imaging Last Impressions Head CT 01/08/17 0400 Signed Impressions: Service Date/Time: Sunday, January 08, 2017 03:55 - CONCLUSION: 1. No intracranial abnormalities seen. 2. Sinus disease. Jose De Jesus MD Upper Extremity Ultrasound 01/08/17 0000 Signed Impressions: Service Date/Time: Sunday, January 08, 2017 12:14 - CONCLUSION: Normal examination. Rosendo Connors Jr., MD Liver Ultrasound 01/08/17 0000 Signed Impressions: Service Date/Time: Sunday, January 08, 2017 11:39 - CONCLUSION: Hepatosplenomegaly. Hepatic steatosis. Distended gallbladder with nonspecific wall thickening and gallbladder sludge. Minimal pericholecystic fluid Jose Machado MD Chest X-Ray 01/08/17 0000 Signed Impressions: Service Date/Time: Sunday, January 08, 2017 01:24 - CONCLUSION: 1. New left internal jugular central line in good position. No pneumothorax is seen. 2. Cardiomegaly. 3. Proximal hilar regions and interstitial markings likely from pulmonary venous hypertension or edema. If the hilar enlargement persists, it could be further evaluated with CT examination the chest with contrast. Jose De Jesus MD CT Angiography 01/08/17 0000 Signed Impressions: Service Date/Time: Sunday, January 08, 2017 04:03 - CONCLUSION: 1. No pulmonary embolus. 2. Increased density at the posterior aspects of the lungs bilaterally likely related to atelectasis or consolidation. Jose De Jesus MD Abdomen/Pelvis CT 01/08/17 0000 Signed Impressions: Service Date/Time: Sunday, January 08, 2017 04:03 - CONCLUSION: 1. Hepatic steatosis with suspected portal hypertension and cirrhosis. There are prominent veins seen throughout the superficial anterior abdominal wall. 2. Splenomegaly. This may be secondary to portal hypertension. 3. Significant ascites is not seen. Jose De Jesus MD Objective Remarks GENERAL: This is a 46-year-old male, critically ill currently orotracheally intubated SKIN: Warm and dry. Open wound left lower extremity/lateral currently covered with Kerlix HEAD: Normocephalic. EYES: + scleral icterus. No injection or drainage. NECK: trachea midline. JVD unable to be assessed due to body habitus. Left IJ is clean dry and intact CARDIOVASCULAR: normal rate, RR. RESPIRATORY: distant breath sounds. equal chest rise. GASTROINTESTINAL: Abdomen is protuberant. Nontender. MUSCULOSKELETAL: 1+ peripheral edema. Bilateral upper and lower extremities. : Positive scrotal edema. Locke catheter in place. NEURO EXAM: RASS -2/-3. Moves all 4 extremities spontaneous. Withdraws to pain /noxious stimuli. intermittently weakly follows commands. Procedures none Date of Insertion: Jan 08, 2017 Line: Central Venous Catheter Side: Left Location: Internal, Jugular A/P Assessment and Plan Assessment: This is a 46-year-old male with cirrhosis who presents with multiple V. fib arrests and acute hypoxemia. multiple organs are still dysfunctional and all appear worse. fio2 improved, but on maximal vent settings and inhaled flolan. agree with goals of care discussion. will continue to support organs in attempt to make any improvements in function. Remains very critically ill and on maximal vent settings. likely guarded prognosis. Neuro/Psych: Adjustment disorder with depressed mood EtOH abuse Hepatic encephalopathy History of polysubstance abuse including intravenous, oral hydromorphone prop/fent for goal RASS Goal of RASS -2 Daily sedation vacation was on methadone 140 mg daily for history of narcotic abuse. This will be held in light of prolonged QT and recent V. fib/pulses V. tach 2 CT brain 01/08 revealed no acute intracranial findings. Sinus disease only Currently on thiamine 100 mg daily, folate 1 mg daily multivitamin 10cc injection daily Sertraline 25 mg discontinued. trazodone discontinued. Evaluated by Dr. Mckay/psychiatry this hospitalization On as needed lorazepam at home 0.5 mg every 6 hours CIWA protocol discontinued while intubated CV: VFib cardiac arrest History of hypertension Cardiogenic Shock- resolved Shocked with unknown amount of joules via unknown defibrillator 12/30//01/08 1. Received 150 mg amiodarone bolus 1 01/07 and 3 mg and was initially placed on a lidocaine drip. Currently on sotalol 80 mg twice a day per Dr. Pena/cardiology as of 01/07 2-D echocardiogram 01/07 revealed EF 60%. Trace TR. Dr. Mathur/cardiology is following continue forced diuresis MADELINE 01/12: normal biventricular function, no PFO, no valvular lesions. 01/12 trial of milrinone therapy lead to acute drop in SVR and hypotension, and uncoupling of the hypoxic pulmonary vasoconstriction leading to acute hypoxemia. discontinued on 01/12. Resp: Acute hypoxemic respiratory failure - persistent and severe. Ongoing tobaccoism Ventilator bundle Albuterol/ipratropium aerosols every 4 hours with albuterol aerosols every 2 hours as needed for Dyspnea Budesonide 0.5/2 1 inhalation twice a day Methylprednisolone 40 mg IV twice a day CT pulmonary arteriogram 01/08 revealed no central pulmonary embolism. Bilateral lower lobe atelectasis versus infiltrate Tobacco sensation will be provided when appropriate no SBT until hemodynamics improve. wean fio2 for goal spo2 > 90% continue flolan inhaled at 50 ng/kg/min continue APRV 34/0, 5/1 (I:E 5:1), 45% fio2. GI: Elevated transaminases Hepatic steatosis - possible alcoholic cirrhosis Elevated total bilirubin Splenomegaly History of hepatitis C antibody + 2016. Genotype not detectable. No viral load detected Elevated ammonia level Meld score 14 --> 28 --> 28 --> 26 --> [address] abdomen/pelvis this admission revealed hepatic steatosis. Likely signs of portal hypertension Pantoprazole 40 mg IV twice a day for GI prophylaxis Nepro goal 50 cc an hour with beneprotein one packet 3 times a day Docusate sodium 100 mg liquid twice a day, senna 8.6 mg daily bowel regimen Patient is currently on Xifaxan 400 mg 3 times a day and lactulose 30 cc 3 times daily for elevated ammonia level. Resume pentoxifylline 400 mg 3 times a day scheduled albumin 25 g every 12 hours per fm. Discontinued in a.m 01/10 Negative extensive pedal workup in 2016 by GI. Negative AMA/ASMA, ceruloplasmin etc. KUB for worsening abdominal distension today. : Acute kidney injury - worsening. Locke catheter has been placed for accurate I's and O's in a critically ill patient with severe scrotal edema and urinary retention Endo: Diabetes mellitus Elevated TSH Holding insulin glargine in-home sliding-scale insulin Currently on Novulog /low regimen with Accu-Cheks every 4 hours to maintain euglycemia TSH on admission 6.4. T4 normal at 1.4. Renal: Acute kidney injury - worsening. Avoid nephrotoxic drugs Discontinue vancomycin renal ultrasound: no hydronephrosis. Nephrology consult. Monitor urine output Accurate I's and O's Repeat BMP in a.m. Heme: Thrombocytopenia Elevated INR Monitor CBC daily. Follow trends ID: Staph aureus left lower leg infection Discontinued vancomycin due to acute kidney injury. With dressing changes every 3 days. Currently dressed with Optifoam today is 8 days of zosyn therapy. given maximal fio2 requirements, will keep zosyn as risk of early discontinuation could mean respiratory arrest. however, likely completed full course of abx therapy. Pertinent cultures 01/06 - left leg wound culture - staph aureus - MSSA 01/06 - blood cultures 2 - no growth FEN: Scheduled potassium placement with 20 mEq potassium 3 times a day Recheck electrolytes afternoon. Electrolyte protocol initiated MSK: Bilateral lower extremity open wounds Right lower extremity 10 x 7 x 0.1 cm. Left lower extremity wound 10 x 5 x 0.1 cm. Wound care evaluate and treat. Currently on IV antibiotics. Access - Left IJ CVL placed 01/08 Prophylaxis - GI - pantoprazole - DVT - SCD/heparin subcutaneous Critical Care: The total critical care time was 51 minutes. Time to perform other separately billable procedures was not included in the critical care time. Aaron Haynes MD Jan 13, 2017 16:29
[2017-01-13] MEDS: SODIUM CHLORIDE 0.9% FLUSH 10 ML FLUSH IV FLUSH SCH (21:07)
[2017-01-14] VITALS (14 sets, daily range): BP systolic 120–136; BP diastolic 63–97; PULSE 80–90; RESP 10–18; TEMP 98.4–98.9; O2SAT 90–93
[2017-01-14] MEDS: RESP: ALBUTEROL 2.5 MG/IPRATROPIUM 0.5 MG NEB (SCH) NEB ×4 (03:55→22:06)
[2017-01-14] MEDS: INSULIN ASPART SUPPLEMENTAL SCALE SQ SCH ×6 (04:00→20:00)
[2017-01-14] MEDS: EPOPROSTENOL NEB SOLUTION 50 NG/KG/MIN 100 ML NEB SCH ×6 (04:11→23:40)
[2017-01-14 04:14] LABS: HEMATOCRIT 42.5 % (39.0-51.0); MEAN CELL VOLUME 96.9 FL (80.0-100.0); MEAN CORPUSCULAR HEMOGLOBIN 32.2 PG (27.0-34.0); MEAN CORPUSCULAR HGB CONC 33.2 % (32.0-36.0); PLATELET COUNT 95 TH/MM3 (150-450); RED BLOOD COUNT 4.38 MIL/MM3 (4.50-5.90); WHITE BLOOD COUNT 17.6 TH/MM3 (4.0-11.0)
[2017-01-14 04:19] LABS: APTT (PATIENT) 28.7 SEC (24.3-30.1); INTERNATIONAL NORMALIZED RATIO 1.3 RATIO; PROTHROMBIN TIME - PATIENT 13.4 SEC (9.8-11.6)
[2017-01-14 04:23] LABS: BICARBONATE 28.8 MEQ/L (21.0-32.0); INDIRECT BILIRUBIN 0.5 MG/DL (0.0-0.8); POTASSIUM 4.1 MEQ/L (3.5-5.1); TOTAL BILIRUBIN ADULT 2.2 MG/DL (0.2-1.0)
[2017-01-14] MEDS: PROPOFOL 1000 MG/100 ML IV PRN ×7 (04:25→23:00)
[2017-01-14 05:19] LABS: REVIEW FLAG FINAL
[2017-01-14] MEDS: ARTIFICIAL TEARS OPTH SOLN 15 ML BTL EACH EYE SCH ×3 (05:48→22:34)
[2017-01-14] MEDS: methylPREDNISolone SOD SUCC 40 MG/1 ML VIAL IV PUSH SCH ×3 (05:48→22:32)
[2017-01-14] MEDS: HEPARIN SODIUM - SQ 10,000 UNITS/ML VIAL SQ SCH ×3 (05:50→22:32)
[2017-01-14] MEDS: RIFAXIMIN 200 MG TAB PO SCH ×3 (05:50→22:32)
[2017-01-14] MEDS: PIPERACIL-TAZO 2.25 GM PREMIX 50 ML IV SCH ×3 (06:50→22:32)
[2017-01-14] MEDS: RESP: BUDESONIDE 0.5 MG/2 ML NEB NEB SCH ×2 (08:17→22:06)
[2017-01-14] MEDS: DOCUSATE SODIUM 100 MG/10 ML UDC PO SCH ×2 (09:00→20:39)
[2017-01-14] MEDS: BENEPROTEIN POWDER 1 PACK G-TUBE SCH ×3 (09:00→17:59)
[2017-01-14] MEDS: LACTULOSE SYRUP 20 GM/30 ML CUP PO SCH ×3 (09:00→17:41)
[2017-01-14] MEDS: SENNOSIDES SYRUP 8.8 MG/5 ML CUP NG SCH ×2 (09:00→20:38)
[2017-01-14] MEDS: PANTOPRAZOLE SODIUM 40 MG VIAL IV PUSH SCH ×2 (09:38→20:37)
[2017-01-14] MEDS: SODIUM CHLORIDE 0.9% FLUSH 10 ML FLUSH IV FLUSH SCH ×2 (09:38→20:35)
[2017-01-14] MEDS: THIAMINE HCL 100 MG TAB PO SCH (09:38)
[2017-01-14] MEDS: CALCIUM CARBONATE 1.25 GM (CA 500 MG) TAB PO SCH ×2 (09:38→20:39)
[2017-01-14] MEDS: CHLORHEXIDINE 0.12% (ORAL KIT) 15 ML CUP MT SCH ×2 (09:47→20:34)
[2017-01-14] MEDS: POTASSIUM CHLORIDE 25 MEQ EFFERVESCENT TAB PO SCH ×2 (09:53→19:00)
[2017-01-14] MEDS: FOLIC ACID 1 MG TAB PO SCH (09:53)
--- NOTE | 2017-01-14 11:02 | HHI.HCPN ---
Reason for visit a. To assist with evaluation and management of symptoms including: depression, dyspnea b. To assist medical decision maker(s) with: better understanding of current medical conditions; weighing benefits/burdens of medical treatment options; making medical treatment decisions. Subjective/Interval History Pt seen today for planned meeting with father regarding goals of treatment. Hemodynamically stable overnight. Not requiring pressors. + still on flolan. + diprivan, fentanyl for sedation. FIo2 weaned down, however still requiring bilevel support, with O2 sats low to mid 90s. renal function cont to worsen-- may require dialysis for continued treatment. hepatic function worsening, MELD 26. Dual visit with Chelsi Connors FILES SUPERVISOR palliative social work supervisor. Patient father Mr. Wheeler arrives as I'm completing exam. To my Exam patient sedated, minimally responsive to exam on Diprivan 40 mics, fentanyl 100 mics. Localizes, slight withdrawal to pain stimuli to extremities. No eye opening. Pupils are equal and reactive. Following exam met with patient father, sister Velma, cousin Ms. Hughes at length. . Family/friend interactions Met with patient father, sister, cousin, approx 40 minutes, discussion included the following: * Palliative care role, team members, reason for consult * Additional medical/social/spiritual history--family informs patient never . He had a step daughter from a prior significant other relationship whom is not his biological child, he has not had any contact with recently. * Legal decision makers; review of [place] statutes, patient has not completed advance directive or HCS that family is aware of * Patient cognitive and functional status prior to this admission * family understanding of current medical conditions, prognosis, treatment options * Overall condition, prognosis- possible t trajectories going forward including with continued aggressive care which might include interventions such as dialysis, tracheostomy, feeding tube, prolonged hospitalization, possible SNF placement etc VS de-escalation of treatment in transition to comfort focused interventions only and withdrawal of artificial life support. * CODE STATUS- patient father affirms patient to remain intubation only; no further cardiac resuscitation * Palliative care contact information provided Family details that patient has struggled with substance abuse and bipolar/ depression since high school/early adulthood. He has been in and out of many different rehabilitation treatment programs, and had periods where he has not used substances and then has relapsed and abused various substances. He has lived with his father on and off for the past years, he had not been able to work regularly in the past year or so. Upon review of prognosis and treatment options going forward family has additional questions about transition to comfort focus: anticipatory guidance provided. At this time they are still processing information and no decisions are made. however, they seem to be thinking that the patient probably would NOT want tracheostomy etc. or other artificial measures for a prolonged time without a good chance of meaningful recovery. Advance Directives Living Will: Never completed Health Care Surrogate: Never completed Durable Power of Warehouse Delivery Manager: Never completed Objective Vital Signs Date Time Temp Pulse Resp B/P (MAP) Pulse Ox O2 Delivery O2 Flow Rate FiO2 01/14/17 08:18 90 45 01/14/17 04:00 98.8 83 10 134/63 (86) 93 134/63 (86) 01/14/17 04:00 45 01/14/17 04:00 83 01/14/17 03:54 93 40 01/14/17 00:32 93 40 01/14/17 00:00 98.7 81 10 135/65 (88) 93 135/69 (91) 01/14/17 00:00 81 01/14/17 00:00 45 01/13/17 21:34 92 40 01/13/17 20:00 82 01/13/17 20:00 45 01/13/17 20:00 98.8 82 10 127/66 (86) 95 127/66 (86) 01/13/17 16:14 100 40 01/13/17 16:00 78 01/13/17 16:00 40 01/13/17 12:15 98 40 01/13/17 12:00 80 01/13/17 12:00 45 Intake & Output 01/14/17 01/14/17 07:00 19:00 Intake Total 1924.4 ml Output Total 1500 ml Balance 424.4 ml IV Total 1045.4 ml Tube Feeding 519 ml Other 360 ml Output Urine Total 1500 ml Tube Feeding Residual Discard 0 ml # Bowel Movements 1 Physical Exam CONSTITUTIONAL/GENERAL: This is a obese, ill-appearing patient, sedated/ lethargic TUBES/LINES/DRAINS: Left IJ central line, ET tube, OG tube, Locke catheter, soft wrist restraints, SCDs SKIN: No jaundice, rashes, or lesions. Multiple areas of ecchymosis to bilateral upper extremities. Reported to have extensive vascular wounds to bilateral lower legs are not visualized at this time. Chronic thickening and scaling noted to bilateral lower extremities, feet. Skin is warm and dry. CARDIOVASCULAR: Regular rate and rhythm without murmurs. Peripheral pulses symmetric, pedal pulses faint. Significant generalized edema/anasarca. RESPIRATORY/CHEST: Symmetric, unlabored respirations via bilevel mechanical vent. Scattered rhonchi throughout lungs. Breath sounds equal bilaterally. GASTROINTESTINAL: Abdomen obese, round, distended, firm. Limited palpation though no readily palpable masses. Bowel sounds hypoactive. Tube feeding in infusing via OG tube. GENITOURINARY: Without palpable bladder distension. Locke catheter in place clear dark yellow urine. MUSCULOSKELETAL: Extremities without clubbing, cyanosis. Significant edema to extremities. NEUROLOGICAL: Sedated, lethargic. On mechanical vent. Unable to assess orientation. minimally responsive today. No eye opening to pain stimuli. Does localize/withdrawal to pain stimuli on all 4 extremities. PSYCHIATRIC: No obvious anxiety, limited assessment due to clinical condition/ sedation Diagnostic Tests Laboratory Laboratory Tests Test 01/12/17 00:48 01/12/17 04:30 01/13/17 04:20 01/14/17 03:46 Blood Gas Puncture Site ART LINE Blood Gas Patient Temperature 98.6 Blood Gas HCO3 27 mmol/L (22-26) Blood Gas Base Excess 2.7 mmol/L (-2-2) Blood Gas Oxygen Saturation 94 % (90-100) Arterial Blood pH 7.38 (7.380-7.420) Arterial Blood Partial Pressure CO2 47 mmHg (38-42) Arterial Blood Partial Pressure O2 82 mmHg (61-120) Arterial Blood Oxygen Content 16.3 Vol % (12.0-20.0) Arterial Blood Carboxyhemoglobin 1.2 % (0-4) Arterial Blood Methemoglobin 0.9 % (0-2) Blood Gas Hemoglobin 12.2 G/DL (12.0-16.0) Oxygen Delivery Device VENTILATOR Blood Gas Ventilator Setting SEE COMMENTS Blood Gas Inspired Oxygen 100 % White Blood Count 8.4 TH/MM3 (4.0-11.0) 12.1 TH/MM3 (4.0-11.0) 17.6 TH/MM3 (4.0-11.0) Red Blood Count 4.01 MIL/MM3 (4.50-5.90) 4.24 MIL/MM3 (4.50-5.90) 4.38 MIL/MM3 (4.50-5.90) Hemoglobin 13.1 GM/DL (13.0-17.0) 13.9 GM/DL (13.0-17.0) 14.1 GM/DL (13.0-17.0) Hematocrit 39.2 % (39.0-51.0) 40.8 % (39.0-51.0) 42.5 % (39.0-51.0) Mean Corpuscular Volume 97.8 FL (80.0-100.0) 96.4 FL (80.0-100.0) 96.9 FL (80.0-100.0) Mean Corpuscular Hemoglobin 32.7 PG (27.0-34.0) 32.7 PG (27.0-34.0) 32.2 PG (27.0-34.0) Mean Corpuscular Hemoglobin Concent 33.5 % (32.0-36.0) 33.9 % (32.0-36.0) 33.2 % (32.0-36.0) Red Cell Distribution Width 15.1 % (11.6-17.2) 14.8 % (11.6-17.2) 15.0 % (11.6-17.2) Platelet Count 86 TH/MM3 (150-450) 96 TH/MM3 (150-450) 95 TH/MM3 (150-450) Mean Platelet Volume 8.3 FL (7.0-11.0) 8.6 FL (7.0-11.0) 8.9 FL (7.0-11.0) Prothrombin Time 14.6 SEC (9.8-11.6) 14.0 SEC (9.8-11.6) 13.4 SEC (9.8-11.6) Prothromb Time International Ratio 1.4 RATIO 1.4 RATIO 1.3 RATIO Activated Partial Thromboplast Time 27.8 SEC (24.3-30.1) 26.9 SEC (24.3-30.1) 28.7 SEC (24.3-30.1) Blood Urea Nitrogen 87 MG/DL (7-18) 104 MG/DL (7-18) 117 MG/DL (7-18) Creatinine 4.76 MG/DL (0.60-1.30) 4.95 MG/DL (0.60-1.30) 4.86 MG/DL (0.60-1.30) Random Glucose 93 MG/DL (74-106) 116 MG/DL (74-106) 115 MG/DL (74-106) Total Protein 7.3 GM/DL (6.4-8.2) 7.7 GM/DL (6.4-8.2) 8.0 GM/DL (6.4-8.2) Albumin 2.6 GM/DL (3.4-5.0) 2.7 GM/DL (3.4-5.0) 2.6 GM/DL (3.4-5.0) Calcium Level 7.9 MG/DL (8.5-10.1) 7.8 MG/DL (8.5-10.1) 8.5 MG/DL (8.5-10.1) Alkaline Phosphatase 123 U/L (45-117) 100 U/L (45-117) 113 U/L (45-117) Aspartate Amino Transf (AST/SGOT) 59 U/L (15-37) 64 U/L (15-37) 47 U/L (15-37) Alanine Aminotransferase (ALT/SGPT) 45 U/L (12-78) 40 U/L (12-78) 38 U/L (12-78) Total Bilirubin 1.9 MG/DL (0.2-1.0) 2.1 MG/DL (0.2-1.0) 2.2 MG/DL (0.2-1.0) Direct Bilirubin 1.4 MG/DL (0.0-0.2) 1.5 MG/DL (0.0-0.2) 1.7 MG/DL (0.0-0.2) Sodium Level 142 MEQ/L (136-145) 141 MEQ/L (136-145) 143 MEQ/L (136-145) Potassium Level 4.3 MEQ/L (3.5-5.1) 4.1 MEQ/L (3.5-5.1) 4.1 MEQ/L (3.5-5.1) Chloride Level 99 MEQ/L (98-107) 99 MEQ/L (98-107) 103 MEQ/L (98-107) Carbon Dioxide Level 31.6 MEQ/L (21.0-32.0) 26.5 MEQ/L (21.0-32.0) 28.8 MEQ/L (21.0-32.0) Anion Gap 11 MEQ/L (5-15) 16 MEQ/L (5-15) 11 MEQ/L (5-15) Estimat Glomerular Filtration Rate 13 ML/MIN (>89) 13 ML/MIN (>89) 13 ML/MIN (>89) Indirect Bilirubin 0.5 MG/DL (0.0-0.8) 0.6 MG/DL (0.0-0.8) 0.5 MG/DL (0.0-0.8) Result Diagram: 01/14/176 01/14/17 0346 Microbiology Last Impressions Abdomen X-Ray 01/13/17 Signed Impressions: Service Date/Time: Friday, January 13, 2017 14:40 - CONCLUSION: Mildly dilated colon with questionable mild distention of some of the distal small bowel. Findings are not in a pattern to suggest obstruction. Ileus could potentially have this appearance. Consider followup imaging to confirm resolution. Jose Cheek MD Chest X-Ray 01/11/17 0000 Signed Impressions: Service Date/Time: Wednesday, January 11, 2017 13:35 - CONCLUSION: 1. Stable tubes and lines, as above. 2. Slight improved aeration in the left lower lung zone. 3. Continued bibasilar airspace disease, likely atelectasis. 4. Otherwise, no significant interval change. Jorge A Collazo MD Renal Ultrasound 01/09/17 0000 Signed Impressions: Service Date/Time: December 09:36 - CONCLUSION: No evidence of hydronephrosis Jose Machado MD Lower Extremity Ultrasound 01/09/17 0000 Signed Impressions: Service Date/Time: December 09:46 - CONCLUSION: Normal examination. Jose Machado MD Head CT 01/08/17 0400 Signed Impressions: Service Date/Time: Sunday, January 08, 2017 03:55 - CONCLUSION: 1. No intracranial abnormalities seen. 2. Sinus disease. Jose De Jesus MD Upper Extremity Ultrasound 01/08/17 0000 Signed Impressions: Service Date/Time: Sunday, January 08, 2017 12:14 - CONCLUSION: Normal examination. Rosendo Connors Jr., MD Liver Ultrasound 01/08/17 Signed Impressions: Service Date/Time: Sunday, January 08, 2017 11:39 - CONCLUSION: Hepatosplenomegaly. Hepatic steatosis. Distended gallbladder with nonspecific wall thickening and gallbladder sludge. Minimal pericholecystic fluid Jose Machado MD CT Angiography 01/08/17 Signed Impressions: Service Date/Time: Sunday, January 08, 2017 04:03 - CONCLUSION: 1. No pulmonary embolus. 2. Increased density at the posterior aspects of the lungs bilaterally likely related to atelectasis or consolidation. Jose De Jesus MD Abdomen/Pelvis CT 01/08/17 Signed Impressions: Service Date/Time: Sunday, January 08, 2017 04:03 - CONCLUSION: 1. Hepatic steatosis with suspected portal hypertension and cirrhosis. There are prominent veins seen throughout the superficial anterior abdominal wall. 2. Splenomegaly. This may be secondary to portal hypertension. 3. Significant ascites is not seen. Jose De Jesus MD Imaging Last Impressions Abdomen X-Ray 01/13/17 Signed Impressions: Service Date/Time: Friday, January 13, 2017 14:40 - CONCLUSION: Mildly dilated colon with questionable mild distention of some of the distal small bowel. Findings are not in a pattern to suggest obstruction. Ileus could potentially have this appearance. Consider followup imaging to confirm resolution. Jose Cheek MD Chest X-Ray 01/11/17 Signed Impressions: Service Date/Time: Wednesday, January 11, 2017 13:35 - CONCLUSION: 1. Stable tubes and lines, as above. 2. Slight improved aeration in the left lower lung zone. 3. Continued bibasilar airspace disease, likely atelectasis. 4. Otherwise, no significant interval change. Jorge A Collazo MD Renal Ultrasound 01/09/17 0000 Signed Impressions: Service Date/Time: December 09:36 - CONCLUSION: No evidence of hydronephrosis Jose Machado MD Lower Extremity Ultrasound 01/09/17 Signed Impressions: Service Date/Time: December 09:46 - CONCLUSION: Normal examination. Jose Machado MD Head CT 01/08/17 0400 Signed Impressions: Service Date/Time: Sunday, January 08, 2017 03:55 - CONCLUSION: 1. No intracranial abnormalities seen. 2. Sinus disease. Jose De Jesus MD Upper Extremity Ultrasound 01/08/17 0000 Signed Impressions: Service Date/Time: Sunday, January 08, 2017 12:14 - CONCLUSION: Normal examination. Rosendo Connors Jr., MD Liver Ultrasound 01/08/17 Signed Impressions: Service Date/Time: Sunday, January 08, 2017 11:39 - CONCLUSION: Hepatosplenomegaly. Hepatic steatosis. Distended gallbladder with nonspecific wall thickening and gallbladder sludge. Minimal pericholecystic fluid Jose Machado MD CT Angiography 01/08/17 Signed Impressions: Service Date/Time: Sunday, January 08, 2017 04:03 - CONCLUSION: 1. No pulmonary embolus. 2. Increased density at the posterior aspects of the lungs bilaterally likely related to atelectasis or consolidation. Jose De Jesus MD Abdomen/Pelvis CT 01/08/17 Signed Impressions: Service Date/Time: Sunday, January 08, 2017 04:03 - CONCLUSION: 1. Hepatic steatosis with suspected portal hypertension and cirrhosis. There are prominent veins seen throughout the superficial anterior abdominal wall. 2. Splenomegaly. This may be secondary to portal hypertension. 3. Significant ascites is not seen. Jose De Jesus MD Assessment and Plan Disease Oriented Problem List: (1) Cardiogenic shock (2) Ventricular fibrillation (3) Hyperammonemia (4) Elevated troponin (5) Acute renal failure (6) Acute respiratory failure with hypoxia and hypercarbia (7) Thrombocytopenia (8) Hepatic steatosis (9) Hepatitis C (10) Elevated TSH (11) Transaminitis (12) Liver cirrhosis (13) Adjustment disorder with depressed mood (14) Staph aureus infection (15) Adjustment disorder with mixed anxiety and depressed mood Symptom Scale: Pertinent Non-Medical Issues Psychosocial:Patient born in [place], has reported to be adopted. Resides locally with his father. Not currently working. Has completed high school and a couple of years of college. Per prior psychiatry evaluation he may have a daughter from a girlfriend which he was not to, and that she is in the [employer], at that time was 23 years old (10/2014). He has never been -- during that psychiatry evaluation he reported girlfriend in a car accident , patient was having more depression and drinking. He has been in treatment programs for substance abuse in the past. Spiritual: No spiritual or latter-day preference per demographics information. Legal:Patient is currently unable to participate due to sedation, mechanical vent. Not clear if or when he will regain ability to participate. His father is listed as contact and next of kin. There is record during prior psychiatric evaluation that the patient may have a daughter who was serving in the [employer] at that time age 23 (2014), this evaluation further notes the patient has never been . Per [place] statutes this daughter may be the appropriate legal decision maker if she can be located. Will attempt to further explore with patient father during planned meeting.01/14 explored family dynamics further during family meeting patient father indicates mother is , and the daughter was stepdaughter from prior significant other relationship, patient with no children. Per [place] statutes father would be appropriate legal proxy. Ethical issues impacting care: No ethical issues identified at this time. Important Contacts Jose Wheeler (father) [phone] Montserrat Mehta (friend) [phone]. . Prognosis This man who presented for edema and difficulty walking, and chest pain has suffered multiple V. fib arrest during this admission. He remains critically ill with persistent cardiogenic shock and volume overload. He is experiencing multiorgan failure. Overall prognosis for survival and recovery to prior level of function is poor. . Code Status: Alternative Code (intubation only) Plan * Legal decision maker:Patient is currently unable to participate due to sedation, mechanical vent. Not clear if or when he will regain ability to participate. His father is listed as contact and next of kin. There is record during prior psychiatric evaluation that the patient may have a daughter who was serving in the [employer] at that time age 23 (2014), this evaluation further notes the patient has never been . Per [place] statutes this daughter may be the appropriate legal decision maker if she can be located. 01/14 explored family dynamics further during family meeting patient father indicates mother is , and the daughter was stepdaughter from prior significant other relationship, patient with no children. Per [place] statutes father would be appropriate legal proxy. * Goals: Met with family at length today.Upon review of prognosis and treatment options going forward family has additional questions about transition to comfort focus: anticipatory guidance provided.At this time they are still processing information and no decisions are made. however, they seem to be thinking that the patient probably would NOT want tracheostomy etc. or other artificial measures for a prolonged time without a good chance of meaningful recovery. * CODE STATUS: Alternative code, intubation only * SYMPTOMS: --Dyspnea-emergently intubated 2/2 vfib arrest, remains on mech vent w high O2/support requirements, unable to wean due to fluid overload, multiorgan failure --Depression-patient admitted with reported suicidal ideations. Of note per review of records in EMR he's had long history of depression and polysubstance abuse, as well as traumatic loss of a girlfriend in the past. During exam today he is tearful and indicates it is not physical pain, he does appear to nod yes to feeling sad. He has been on sertraline outpatient, as well as other medications in the past per review of records. Psychiatry evaluated this admission and did note adjustment disorder with mixed mood anxiety and depression, though at the time patient feeling optimistic and no suicidal ideation. Started him on trazodone. At this time he is likely suffering from situational depression and anxiety on top of his underlying conditions. He is currently on fentanyl and Diprivan for sedation though at time of my exam is fairly alert. If his conditions stabilized he would benefit from psychotherapy , substance abuse rehabilitation in addition to pharmacological tx. family details patient has struggled with bipolar/depression since high school years. * Palliative care will continue to follow during hospital course as condition evolves, to assist patient/decision-maker with understanding of medical conditions, weighing benefits/burdens of treatment options, for clarification of goals of treatment. Additionally will assist with any symptoms of palliative concern Time Spent Total Floor Time (mins): 45 (Chart review, PE, family meeting, discussion with nurses, discussion with critical care) Attestation To help prompt me to consider important information that might be impacting today's encounter and assessment, information from prior notes written by myself or my colleagues may have been "brought forward" into today's note. My signature on this note, however, is an attestation that I personally performed the exam, history, and/or decision-making noted today, and, unless otherwise indicated, the interactions with patient, family, and staff as well as the review of records all occurred today. I also attest that the listed assessment and stated plan reflect my best clinical judgment today based on the combination of historical information, prior notes, and today's exam/ interactions. When time spent is documented, it refers only to time spent today by the signer, or if indicated, combined time spent today by collaborating physician/nurse practitioner. Shanita Dunn Jan 14, 2017 11:02
[2017-01-14] MEDS: fentaNYL DRIP 250 ML IV PRN (13:18)
--- NOTE | 2017-01-14 13:49 | HHI.NPPN ---
Subjective History of Present Illness 46-year-old obese male with a history of alcohol abuse and cardiac arrest and acute renal failure Additional Remarks Patient is on the vent., remain sedated, Objective Data Data 01/14/17 01/15/17 19:00 07:00 Intake Total 200 ml Balance 200 ml Other 200 ml # Bowel Movements 1 Vital Signs Date Time Temp Pulse Resp B/P (MAP) Pulse Ox O2 Delivery O2 Flow Rate FiO2 01/14/17 11:30 93 45 01/14/17 10:00 90 01/14/17 08:18 90 45 01/14/17 08:00 86 01/14/17 08:00 98.4 86 10 136/72 (93) 90 01/14/17 08:00 45 01/14/17 04:00 98.8 83 10 134/63 (86) 93 134/63 (86) 01/14/17 04:00 45 01/14/17 04:00 83 01/14/17 03:54 93 40 01/14/17 00:32 93 40 01/14/17 00:00 98.7 81 10 135/65 (88) 93 135/69 (91) 01/14/17 00:00 81 01/14/17 00:00 45 01/13/17 21:34 92 40 01/13/17 20:00 82 01/13/17 20:00 45 01/13/17 20:00 98.8 82 10 127/66 (86) 95 127/66 (86) 01/13/17 16:14 100 40 01/13/17 16:00 78 01/13/17 16:00 40 -: 01/14/17 0346 01/14/17 0346 Physical Exam General Appearance: Well Developed, Comfortable, Obese Neck Neck Exam: Neck Supple Pulmonary Resp Exam: Clear Bilaterally Cardiology CV Exam: Regular, Normal Sinus Rhythm Gastrointestinal/Abdomen GI Exam: Soft, Bowel Sounds Present, Distended Extremeties Extremities Exam: Moderate Edema Neurologic Neuro Exam: Sedated Assessment/Plan Problem List: (1) Acute renal failure ICD Codes: N17.9 - Acute kidney failure, unspecified Plan: Patient is in acute renal failure due to cardiogenic shock he did receive a CTA of the chest, exposed to dye Creatinine is slightly better non oliguric off Lasix Continue with current treatment plan Remains nonoliguric 3.7 L (2) Anasarca ICD Codes: R60.1 - Generalized edema Status: Acute Plan: Due to cirrhosis (3) Liver cirrhosis ICD Codes: K74.60 - Unspecified cirrhosis of liver Status: Acute Plan: Alcoholism (4) Ventricular fibrillation ICD Codes: I49.01 - Ventricular fibrillation Plan: ventricular fibrillation has resuscitation Tonya Combs MD Jan 14, 2017 13:49
--- NOTE | 2017-01-14 15:59 | HHI.CCPN ---
Subjective Remarks/Hospital Course 46-year-old morbidly obese gentleman admitted for evaluation of Edema, Shortness of breath, Chest pain, who started with swelling in his lower extremities and testicles 2 weeks prior to admission, progressively worsening to the point where he cant ambulate or urinate without difficulty, pain is 10/ 10 in intensity, Chest pain started the day prior to admission as a substernal pain. Per chart review he has been drinking alcohol on a daily basis, at least a 1/5th of vodka daily. He was considered to be in withdrawal because he has been unable to go to the methadone clinic for 3 days because of all the swelling in his legs and testicles. He has also Hepatitis C. January [address] he had a few runs of V. tach on the teletypesetter monitor and was transferred to ICU. Shortly after the transfer patient suffered from V. tach/ V. fib cardiac arrest, he was defibrillated 1 during the CPR and after 1 cycle of CPR and intubation he regained spontaneous circulation. 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 fib cardiac arrest with recommendation to correct underlying electrolyte dissonance. 01/08: Currently sedated on propofol drip at 30 micrograms per kilo per minute. Arousable. With hemoptysis per 7.5 ET tube. Will need bronchoscopy. Family attempted to notify per RN however currently unavailable/unreachable. No further runs of dysrhythmia noted. Subjective 01/09: At approximately 2345, another episode of V. fib/pulseless V. tach. Episode lasted approximately 5 minutes. Patient received 300 mg IV amiodarone and shocked with 200 J. Patient is arousable on the ventilator currently on propofol and fentanyl drips.. High ox requirements persist. Creatinine has increased to 2.5. 01/10: no v. fib events in last 24h. however, remains on epinephrine. Cr continues to worsen. this may be hepatorenal syndrome, or secondary to cardiogenic shock. LFTs worsening and coags worsening. following some commands. nephrology still pushing for forced diuresis, and on limited bedside critical care echo (poor windows due to body habitus) does appear to have global biventricular dysfunction and volume overload. no meaningful improvements in 24h. 01/11: still no improvements. remains on epi. Cr worse again today. still on 100 % fio2. repeat CXR unchanged. organ failure persists. 01/12: hypoxia persists. still on 100% fio2. echo with ?spontaneous echo contrast in RA, but no other clinically significant findings. no valvular lesions. no intra-cardiac shunt. Cr continues to rise. uop adequate. off epinephrine. long talk with family where I expressed my concern that this likely has a grim prognosis given no improvements over last 7 days. they are aware. considering DNR status. 01/13: hypoxia somewhat improved. remains on APRV and high support settings, but fio2 45% and spo2 94%. Cr continues to worsen, though. overall not much clinical improvement. 01/14: no improvements. family met today adn wants DNR status and considering withdraw of care. organ dysfunction persists. Objective Vital Signs Date Time Temp Pulse Resp B/P (MAP) Pulse Ox O2 Delivery O2 Flow Rate FiO2 01/14/17 14:00 89 01/14/17 12:00 98.8 18 127/69 (88) 90 01/14/17 12:00 45 Intake and Output 01/14/17 01/14/17 01/15/17 08:00 16:00 00:00 Intake Total 1749.4 ml 200 ml Output Total 1500 ml Balance 249.4 ml 200 ml Result Diagram: 01/14/17 0346 01/14/17 0346 Imaging Last Impressions Head CT 01/08/17 0400 Signed Impressions: Service Date/Time: Sunday, January 08, 2017 03:55 - CONCLUSION: 1. No intracranial abnormalities seen. 2. Sinus disease. Jose De Jesus MD Upper Extremity Ultrasound 01/08/17 0000 Signed Impressions: Service Date/Time: Sunday, January 08, 2017 12:14 - CONCLUSION: Normal examination. Rosendo Connors Jr., MD Liver Ultrasound 01/08/17 0000 Signed Impressions: Service Date/Time: Sunday, January 08, 2017 11:39 - CONCLUSION: Hepatosplenomegaly. Hepatic steatosis. Distended gallbladder with nonspecific wall thickening and gallbladder sludge. Minimal pericholecystic fluid Jose Machado MD Chest X-Ray 01/08/17 0000 Signed Impressions: Service Date/Time: Sunday, January 08, 2017 01:24 - CONCLUSION: 1. New left internal jugular central line in good position. No pneumothorax is seen. 2. Cardiomegaly. 3. Proximal hilar regions and interstitial markings likely from pulmonary venous hypertension or edema. If the hilar enlargement persists, it could be further evaluated with CT examination the chest with contrast. Jose De Jesus MD CT Angiography 01/08/17 0000 Signed Impressions: Service Date/Time: Sunday, January 08, 2017 04:03 - CONCLUSION: 1. No pulmonary embolus. 2. Increased density at the posterior aspects of the lungs bilaterally likely related to atelectasis or consolidation. Jose De Jesus MD Abdomen/Pelvis CT 01/08/17 0000 Signed Impressions: Service Date/Time: Sunday, January 08, 2017 04:03 - CONCLUSION: 1. Hepatic steatosis with suspected portal hypertension and cirrhosis. There are prominent veins seen throughout the superficial anterior abdominal wall. 2. Splenomegaly. This may be secondary to portal hypertension. 3. Significant ascites is not seen. Jose De Jesus MD Objective Remarks GENERAL: This is a 46-year-old male, critically ill currently orotracheally intubated SKIN: Warm and dry. Open wound left lower extremity/lateral currently covered with Kerlix HEAD: Normocephalic. EYES: + scleral icterus. No injection or drainage. NECK: trachea midline. JVD unable to be assessed due to body habitus. Left IJ is clean dry and intact CARDIOVASCULAR: normal rate, RR. RESPIRATORY: distant breath sounds. equal chest rise. GASTROINTESTINAL: Abdomen is protuberant. Nontender. MUSCULOSKELETAL: 1+ peripheral edema. Bilateral upper and lower extremities. : Positive scrotal edema. Locke catheter in place. NEURO EXAM: RASS -2/-3. Moves all 4 extremities spontaneous. Withdraws to pain /noxious stimuli. intermittently weakly follows commands. Procedures none Date of Insertion: Jan 08, 2017 Line: Central Venous Catheter Side: Left Location: Internal, Jugular A/P Assessment and Plan Assessment: This is a 46-year-old male with cirrhosis who presents with multiple V. fib arrests and acute hypoxemia. multiple organs are still dysfunctional. agree with ongoing goals of care discussion. will continue to support organs in attempt to make any improvements in function. Remains very critically ill and on maximal vent settings. poor prognosis at this point. Neuro/Psych: Adjustment disorder with depressed mood EtOH abuse Hepatic encephalopathy History of polysubstance abuse including intravenous, oral hydromorphone prop/fent for goal RASS Goal of RASS -2 Daily sedation vacation was on methadone 140 mg daily for history of narcotic abuse. This will be held in light of prolonged QT and recent V. fib/pulses V. tach [address] brain 01/08 revealed no acute intracranial findings. Sinus disease only Currently on thiamine 100 mg daily, folate 1 mg daily multivitamin 10cc injection daily Sertraline 25 mg discontinued. trazodone discontinued. Evaluated by Dr. Mkcay/psychiatry this hospitalization On as needed lorazepam at home 0.5 mg every 6 hours CIWA protocol discontinued while intubated CV: VFib cardiac arrest History of hypertension Cardiogenic Shock- resolved Shocked with unknown amount of joules via unknown defibrillator 12/30//01/08 1. Received 150 mg amiodarone bolus 1 01/07 and 3 mg and was initially placed on a lidocaine drip. Currently on sotalol 80 mg twice a day per Dr. Pena/cardiology as of 01/07 2-D echocardiogram 01/07 revealed EF 60%. Trace TR. Dr. Mathur/cardiology is following continue forced diuresis MADELINE 01/12: normal biventricular function, no PFO, no valvular lesions. 01/12 trial of milrinone therapy led to acute drop in SVR and hypotension, and uncoupling of the hypoxic pulmonary vasoconstriction leading to acute hypoxemia. discontinued on 01/12. Resp: Acute hypoxemic respiratory failure - persistent and severe. Ongoing tobaccoism Ventilator bundle Albuterol/ipratropium aerosols every 4 hours with albuterol aerosols every 2 hours as needed for Dyspnea Budesonide 0.5/2 1 inhalation twice a day Methylprednisolone 40 mg IV twice a day CT pulmonary arteriogram 01/08 revealed no central pulmonary embolism. Bilateral lower lobe atelectasis versus infiltrate Tobacco sensation will be provided when appropriate no SBT until hemodynamics improve. wean fio2 for goal spo2 > 90% continue flolan inhaled at 50 ng/kg/min continue APRV 34/0, 5/1 (I:E 5:1), 45% fio2. GI: Elevated transaminases Hepatic steatosis - possible alcoholic cirrhosis Elevated total bilirubin Splenomegaly History of hepatitis C antibody + 2016. Genotype not detectable. No viral load detected Elevated ammonia level Meld score 14 --> 28 --> 28 --> 26 --> 26 --> [address] abdomen/pelvis this admission revealed hepatic steatosis. Likely signs of portal hypertension Pantoprazole 40 mg IV twice a day for GI prophylaxis Nepro goal 50 cc an hour with beneprotein one packet 3 times a day Docusate sodium 100 mg liquid twice a day, senna 8.6 mg daily bowel regimen Patient is currently on Xifaxan 400 mg 3 times a day and lactulose 30 cc 3 times daily for elevated ammonia level. Resume pentoxifylline 400 mg 3 times a day scheduled albumin 25 g every 12 hours per fm. Discontinued in a.m 01/10 Negative extensive pedal workup in 2016 by GI. Negative AMA/ASMA, ceruloplasmin etc. : Acute kidney injury - stable Locke catheter has been placed for accurate I's and O's in a critically ill patient with severe scrotal edema and urinary retention Endo: Diabetes mellitus Elevated TSH Holding insulin glargine in-home sliding-scale insulin Currently on Novulog /low regimen with Accu-Cheks every 4 hours to maintain euglycemia TSH on admission 6.4. T4 normal at 1.4. Renal: Acute kidney injury - persistent Avoid nephrotoxic drugs Discontinue vancomycin renal ultrasound: no hydronephrosis. Nephrology consult. Monitor urine output Accurate I's and O's Repeat BMP in a.m. Heme: Thrombocytopenia Elevated INR Monitor CBC daily. Follow trends ID: Staph aureus left lower leg infection Discontinued vancomycin due to acute kidney injury. With dressing changes every 3 days. Currently dressed with Optifoam today is 8 days of zosyn therapy. given maximal fio2 requirements, will keep zosyn as risk of early discontinuation could mean respiratory arrest. however, likely completed full course of abx therapy. Pertinent cultures 01/06 - left leg wound culture - staph aureus - MSSA 01/06 - blood cultures 2 - no growth FEN: Scheduled potassium placement with 20 mEq potassium 3 times a day Recheck electrolytes afternoon. Electrolyte protocol initiated MSK: Bilateral lower extremity open wounds Right lower extremity 10 x 7 x 0.1 cm. Left lower extremity wound 10 x 5 x 0.1 cm. Wound care evaluate and treat. Currently on IV antibiotics. Access - Left IJ CVL placed 01/08 Prophylaxis - GI - pantoprazole - DVT - SCD/heparin subcutaneous Aaron Haynes MD Jan 14, 2017 15:59
[2017-01-15] VITALS (14 sets, daily range): BP systolic 127–141; BP diastolic 74–96; PULSE 76–83; RESP 10–13; TEMP 98.2–98.9; O2SAT 89–99
[2017-01-15] MEDS: RESP: ALBUTEROL 2.5 MG/IPRATROPIUM 0.5 MG NEB (SCH) NEB ×5 (03:52→19:49)
[2017-01-15] MEDS: INSULIN ASPART SUPPLEMENTAL SCALE SQ SCH ×6 (04:00→20:00)
[2017-01-15 04:40] LABS: HEMATOCRIT 42.5 % (39.0-51.0); MEAN CELL VOLUME 96.9 FL (80.0-100.0); MEAN CORPUSCULAR HEMOGLOBIN 32.2 PG (27.0-34.0); MEAN CORPUSCULAR HGB CONC 33.2 % (32.0-36.0); PLATELET COUNT 106 TH/MM3 (150-450); RED BLOOD COUNT 4.39 MIL/MM3 (4.50-5.90); REVIEW FLAG FINAL; WHITE BLOOD COUNT 11.5 TH/MM3 (4.0-11.0)
[2017-01-15 04:54] LABS: INTERNATIONAL NORMALIZED RATIO 1.3 RATIO; PROTHROMBIN TIME - PATIENT 13.5 SEC (9.8-11.6)
[2017-01-15 05:16] LABS: BICARBONATE 26.7 MEQ/L (21.0-32.0); POTASSIUM 4.3 MEQ/L (3.5-5.1)
[2017-01-15 05:18] LABS: INDIRECT BILIRUBIN 0.6 MG/DL (0.0-0.8); TOTAL BILIRUBIN ADULT 2.2 MG/DL (0.2-1.0)
[2017-01-15] MEDS: PIPERACIL-TAZO 2.25 GM PREMIX 50 ML IV SCH (07:00)
[2017-01-15] MEDS: RIFAXIMIN 200 MG TAB PO SCH ×3 (07:01→20:49)
[2017-01-15] MEDS: methylPREDNISolone SOD SUCC 40 MG/1 ML VIAL IV PUSH SCH ×3 (07:01→20:49)
[2017-01-15] MEDS: ARTIFICIAL TEARS OPTH SOLN 15 ML BTL EACH EYE SCH ×2 (07:02→21:00)
[2017-01-15] MEDS: HEPARIN SODIUM - SQ 10,000 UNITS/ML VIAL SQ SCH ×3 (07:02→20:48)
[2017-01-15] MEDS: EPOPROSTENOL NEB SOLUTION 50 NG/KG/MIN 100 ML NEB SCH ×4 (07:03→13:40)
[2017-01-15] MEDS: CHLORHEXIDINE 0.12% (ORAL KIT) 15 ML CUP MT SCH ×2 (08:00→20:00)
[2017-01-15] MEDS: DOCUSATE SODIUM 100 MG/10 ML UDC PO SCH ×2 (09:00→21:00)
[2017-01-15] MEDS: SENNOSIDES SYRUP 8.8 MG/5 ML CUP NG SCH ×2 (09:00→21:00)
[2017-01-15] MEDS: POTASSIUM CHLORIDE 25 MEQ EFFERVESCENT TAB PO SCH ×2 (09:00→17:00)
[2017-01-15] MEDS: SODIUM CHLORIDE 0.9% FLUSH 10 ML FLUSH IV FLUSH SCH ×2 (09:00→21:00)
[2017-01-15] MEDS: PANTOPRAZOLE SODIUM 40 MG VIAL IV PUSH SCH ×2 (09:11→20:48)
[2017-01-15] MEDS: FOLIC ACID 1 MG TAB PO SCH (09:11)
[2017-01-15] MEDS: THIAMINE HCL 100 MG TAB PO SCH (09:12)
[2017-01-15] MEDS: CALCIUM CARBONATE 1.25 GM (CA 500 MG) TAB PO SCH ×2 (09:17→20:49)
[2017-01-15] MEDS: BENEPROTEIN POWDER 1 PACK G-TUBE SCH ×3 (09:17→17:00)
[2017-01-15] MEDS: RESP: BUDESONIDE 0.5 MG/2 ML NEB NEB SCH ×2 (09:36→19:50)
--- NOTE | 2017-01-15 10:01 | HHI.CCPN ---
Subjective Remarks/Hospital Course 46-year-old morbidly obese gentleman admitted for evaluation of Edema, Shortness of breath, Chest pain, who started with swelling in his lower extremities and testicles 2 weeks prior to admission, progressively worsening to the point where he cant ambulate or urinate without difficulty, pain is 10/ 10 in intensity, Chest pain started the day prior to admission as a substernal pain. Per chart review he has been drinking alcohol on a daily basis, at least a 1/5th of vodka daily. He was considered to be in withdrawal because he has been unable to go to the methadone clinic for 3 days because of all the swelling in his legs and testicles. He has also Hepatitis C. 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 Shortly after the transfer patient suffered from V. tach/ V. fib cardiac arrest, he was defibrillated 1 during the CPR and after 1 cycle of CPR and intubation he regained spontaneous circulation. Cardiology rehabilitation attendant was informed about the V. fib cardiac arrest with recommendation to correct underlying electrolyte dissonance. 01/08: Currently sedated on propofol drip at 30 micrograms per kilo per minute. Arousable. With hemoptysis per 7.5 ET tube. Will need bronchoscopy. Family attempted to notify per RN however currently unavailable/unreachable. No further runs of dysrhythmia noted. Subjective 01/09: At approximately 2345, another episode of V. fib/pulseless V. tach. Episode lasted approximately 5 minutes. Patient received 300 mg IV amiodarone and shocked with 200 J. Patient is arousable on the ventilator currently on propofol and fentanyl drips.. High ox requirements persist. Creatinine has increased to 2.5. 01/10: no v. fib events in last 24h. however, remains on epinephrine. Cr continues to worsen. this may be hepatorenal syndrome, or secondary to cardiogenic shock. LFTs worsening and coags worsening. following some commands. nephrology still pushing for forced diuresis, and on limited bedside critical care echo (poor windows due to body habitus) does appear to have global biventricular dysfunction and volume overload. no meaningful improvements in 24h. 01/11: still no improvements. remains on epi. Cr worse again today. still on 100 % fio2. repeat CXR unchanged. organ failure persists. 01/12: hypoxia persists. still on 100% fio2. echo with ?spontaneous echo contrast in RA, but no other clinically significant findings. no valvular lesions. no intra-cardiac shunt. Cr continues to rise. uop adequate. off epinephrine. long talk with family where I expressed my concern that this likely has a grim prognosis given no improvements over last 7 days. they are aware. considering DNR status. 01/13: hypoxia somewhat improved. remains on APRV and high support settings, but fio2 45% and spo2 94%. Cr continues to worsen, though. overall not much clinical improvement. 01/14: no improvements. family met today adn wants DNR status and considering withdraw of care. organ dysfunction persists. 01/15: Cr slightly improved. nauseated today. still overall poor prognosis. still on APRV. family meeting again today. will continue supportive care. Objective Vital Signs Date Time Temp Pulse Resp B/P (MAP) Pulse Ox O2 Delivery O2 Flow Rate FiO2 01/15/17 08:39 95 45 01/15/17 04:00 81 01/15/17 04:00 98.8 10 138/96 (110) Intake and Output 01/15/17 01/15/17 01/16/17 08:00 16:00 00:00 Intake Total 621.5 ml Output Total 1500 ml Balance -878.5 ml Result Diagram: 01/15/17 0415 01/15/17 0415 Imaging Last Impressions Head CT 01/08/17399 Signed Impressions: Service Date/Time: Sunday, January 08, 2017 03:55 - CONCLUSION: 1. No intracranial abnormalities seen. 2. Sinus disease. Jose De Jesus MD Upper Extremity Ultrasound 01/08/17 0000 Signed Impressions: Service Date/Time: Sunday, January 08, 2017 12:14 - CONCLUSION: Normal examination. Rosendo Connors Jr., MD Liver Ultrasound 01/08/17 0000 Signed Impressions: Service Date/Time: Sunday, January 08, 2017 11:39 - CONCLUSION: Hepatosplenomegaly. Hepatic steatosis. Distended gallbladder with nonspecific wall thickening and gallbladder sludge. Minimal pericholecystic fluid Jose Machado MD Chest X-Ray 01/08/17 0000 Signed Impressions: Service Date/Time: Sunday, January 08, 2017 01:24 - CONCLUSION: 1. New left internal jugular central line in good position. No pneumothorax is seen. 2. Cardiomegaly. 3. Proximal hilar regions and interstitial markings likely from pulmonary venous hypertension or edema. If the hilar enlargement persists, it could be further evaluated with CT examination the chest with contrast. Jose De Jesus MD CT Angiography 01/08/17 0000 Signed Impressions: Service Date/Time: Sunday, January 08, 2017 04:03 - CONCLUSION: 1. No pulmonary embolus. 2. Increased density at the posterior aspects of the lungs bilaterally likely related to atelectasis or consolidation. Jose De Jesus MD Abdomen/Pelvis CT 01/08/17 0000 Signed Impressions: Service Date/Time: Sunday, January 08, 2017 04:03 - CONCLUSION: 1. Hepatic steatosis with suspected portal hypertension and cirrhosis. There are prominent veins seen throughout the superficial anterior abdominal wall. 2. Splenomegaly. This may be secondary to portal hypertension. 3. Significant ascites is not seen. Jose De Jesus MD Objective Remarks GENERAL: This is a 46-year-old male, critically ill currently orotracheally intubated SKIN: Warm and dry. Open wound left lower extremity/lateral currently covered with Kerlix HEAD: Normocephalic. EYES: + scleral icterus. No injection or drainage. NECK: trachea midline. JVD unable to be assessed due to body habitus. Left IJ is clean dry and intact CARDIOVASCULAR: normal rate, RR. RESPIRATORY: distant breath sounds. equal chest rise. GASTROINTESTINAL: Abdomen is protuberant. Nontender. MUSCULOSKELETAL: 1+ peripheral edema. Bilateral upper and lower extremities. : Positive scrotal edema. Locke catheter in place. NEURO EXAM: RASS -2/-3. Moves all 4 extremities spontaneous. Withdraws to pain /noxious stimuli. intermittently weakly follows commands. Procedures none Date of Insertion: Jan 08, 2017 Line: Central Venous Catheter Side: Left Location: Internal, Jugular A/P Assessment and Plan Assessment: This is a 46-year-old male with cirrhosis who presents with multiple V. fib arrests and acute hypoxemia. multiple organs are still dysfunctional. agree with ongoing goals of care discussion. will continue to support organs in attempt to make any improvements in function. Remains very critically ill and on maximal vent settings. poor prognosis at this point. Neuro/Psych: Adjustment disorder with depressed mood EtOH abuse Hepatic encephalopathy History of polysubstance abuse including intravenous, oral hydromorphone prop/fent for goal RASS Goal of RASS -2 Daily sedation vacation was on methadone 140 mg daily for history of narcotic abuse. This will be held in light of prolonged QT and recent V. fib/pulses V. tach [address] brain 01/08 revealed no acute intracranial findings. Sinus disease only Currently on thiamine 100 mg daily, folate 1 mg daily multivitamin 10cc injection daily Sertraline 25 mg discontinued. trazodone discontinued. Evaluated by Dr. Mckay/psychiatry this hospitalization On as needed lorazepam at home 0.5 mg every 6 hours CIWA protocol discontinued while intubated CV: VFib cardiac arrest History of hypertension Cardiogenic Shock- resolved Shocked with unknown amount of joules via unknown defibrillator 12/30//01/08 1. Received 150 mg amiodarone bolus 1 01/07 and 3 mg and was initially placed on a lidocaine drip. Currently on sotalol 80 mg twice a day per Dr. Pena/cardiology as of 01/07 2-D echocardiogram 01/07 revealed EF 60%. Trace TR. Dr. Mathur/cardiology is following continue forced diuresis MADELINE 01/12: normal biventricular function, no PFO, no valvular lesions. 01/12 trial of milrinone therapy led to acute drop in SVR and hypotension, and uncoupling of the hypoxic pulmonary vasoconstriction leading to acute hypoxemia. discontinued on 01/12. Resp: Acute hypoxemic respiratory failure - persistent and severe. Ongoing tobaccoism Ventilator bundle Albuterol/ipratropium aerosols every 4 hours with albuterol aerosols every 2 hours as needed for Dyspnea Budesonide 0.5/2 1 inhalation twice a day Methylprednisolone 40 mg IV twice a day CT pulmonary arteriogram 01/08 revealed no central pulmonary embolism. Bilateral lower lobe atelectasis versus infiltrate Tobacco sensation will be provided when appropriate no SBT until hemodynamics improve. wean fio2 for goal spo2 > 90% continue flolan inhaled at 50 ng/kg/min continue APRV 34/0, 5/1 (I:E 5:1), 45% fio2. GI: Elevated transaminases Hepatic steatosis - possible alcoholic cirrhosis Elevated total bilirubin Splenomegaly History of hepatitis C antibody + 2016. Genotype not detectable. No viral load detected Elevated ammonia level Acute liver dysfunction Meld score 14 --> 28 --> 28 --> 26 --> 26 --> 26 --> [address] abdomen/pelvis this admission revealed hepatic steatosis. Likely signs of portal hypertension Pantoprazole 40 mg IV twice a day for GI prophylaxis Nepro goal 50 cc an hour with beneprotein one packet 3 times a day Docusate sodium 100 mg liquid twice a day, senna 8.6 mg daily bowel regimen Patient is currently on Xifaxan 400 mg 3 times a day and lactulose 30 cc 3 times daily for elevated ammonia level. Resume pentoxifylline 400 mg 3 times a day Negative extensive pedal workup in 2017 by GI. Negative AMA/ASMA, ceruloplasmin etc. : Acute kidney injury - slightly improved, but persistent. Locke catheter has been placed for accurate I's and O's in a critically ill patient with severe scrotal edema and urinary retention Endo: Diabetes mellitus Elevated TSH Holding insulin glargine in-home sliding-scale insulin Currently on Novulog /low regimen with Accu-Cheks every 4 hours to maintain euglycemia TSH on admission 6.4. T4 normal at 1.4. Renal: Acute kidney injury - persistent Avoid nephrotoxic drugs Discontinue vancomycin renal ultrasound: no hydronephrosis. Nephrology consult. Monitor urine output Accurate I's and O's Repeat BMP in a.m. Heme: Thrombocytopenia Elevated INR Monitor CBC daily. Follow trends ID: Staph aureus left lower leg infection Discontinued vancomycin due to acute kidney injury. With dressing changes every 3 days. Currently dressed with Optifoam d/c zosyn therapy today, completed full course. Pertinent cultures 01/06 - left leg wound culture - staph aureus - MSSA 01/06 - blood cultures 2 - no growth FEN: Scheduled potassium placement with 20 mEq potassium 3 times a day Recheck electrolytes afternoon. Electrolyte protocol initiated MSK: Bilateral lower extremity open wounds Right lower extremity 10 x 7 x 0.1 cm. Left lower extremity wound 10 x 5 x 0.1 cm. Wound care evaluate and treat. Currently on IV antibiotics. Access - Left IJ CVL placed 01/08 Prophylaxis - GI - pantoprazole - DVT - SCD/heparin subcutaneous Aaron Haynes MD Jan 15, 2017 10:01
--- NOTE | 2017-01-15 11:19 | HHI.HCPN ---
Reason for visit a. To assist with evaluation and management of symptoms including: depression, dyspnea b. To assist medical decision maker(s) with: better understanding of current medical conditions; weighing benefits/burdens of medical treatment options; making medical treatment decisions. Subjective/Interval History Pt seen to follow up on comfort, goals. D/w critical care, plan to cont try to wean vent settings as pt condition tolerates. Pt Creatine w slight improvement today: BUN 119/creatinine 4.28. Fio2 45% on mech vent,PRVC/AC. Still sedated w diprivan 30mcgs, propofol. No new imaging. TF held this am due to vomiting overnight. Abdomen distended, BS hypoactive. Abdominal imaging from 01/13 w possible ileus, no SBO noted. To my exam he is sedated/though arouses to verbal & touch stimuli. Follows commands, very weak hand grasp, weak Bilateral foot movement. Weak nod to question RE pain, seems to nod No. No family present. Following exam, call to pt father, no VM set up - unable to leave message. Will attempt to reach later, have prev. provided w my contact information, also left again at bedside. . Family/friend interactions 1400 UPDATE Received a call back from patient father Mr. Wheeler--updated him on current condition, recent diagnostics including slight improvement in renal function, and continued ventilator weaning attempts, review of overall conditions, prognosis and possible trajectory, if patient continued to improve may still require tracheostomy and PEG, and still would likely require prolonged hospital course followed by rehabilitation, potentially SNF, and not clear how much functional independence he would regain. Patient father indicates family has been discussing, and that overall they do not see the patient improving and do not feel the patient would want to continue on prolonged life support or other artificial measures without significant hope for meaningful recovery. He will discuss again with his family this afternoon but as of right now he is leaning towards making possible decisions by or Friday at the latest, for possible withdrawal of artificial measures and transition to comfort focus only. He may call me back again later this afternoon if he has additional questions. 1630 UPDATE called by pt father to meet again-- met w father, cousin, sister again. Review conditions, tx in place, possible trajectories going forward, prognosis. Pt father, supported by other family, wishes to proceed w withdrawal of artificial life support, and transition to comfort treatment only, some time tomorrow . Pt father expresses pt would not want to continue given little improvement thus far, and overall poor health status prior to this admission. Anticipatory guidance provided, all questions answered. They will call palliative SW tomorrow when they have decided on time for withdrawal. Exhibits placed in chart , d/w critical care Dr Haynes & nurse . Advance Directives Living Will: Never completed Health Care Surrogate: Never completed Durable Power of Feed Mill Supervisor: Never completed Objective Vital Signs Date Time Temp Pulse Resp B/P (MAP) Pulse Ox O2 Delivery O2 Flow Rate FiO2 01/15/17 08:39 95 45 01/15/17 08:00 80 01/15/17 08:00 98.9 80 10 141/78 (99) 97 01/15/17 08:00 45 01/15/17 04:00 81 01/15/17 04:00 98.8 81 10 138/96 (110) 97 01/15/17 04:00 45 01/15/17 03:50 96 45 01/15/17 00:01 94 45 01/15/17 00:00 45 01/15/17 00:00 78 01/15/17 00:00 98.8 78 10 127/74 (91) 94 01/14/17 20:19 92 45 01/14/17 20:00 80 01/14/17 20:00 98.6 80 10 131/73 (92) 91 01/14/17 20:00 45 01/14/17 16:00 83 01/14/17 16:00 45 01/14/17 16:00 98.9 83 10 120/97 (105) 91 01/14/17 15:51 91 45 01/14/17 14:00 89 01/14/17 12:00 89 01/14/17 12:00 98.8 89 18 127/69 (88) 90 01/14/17 12:00 45 01/14/17 11:30 93 45 Intake & Output 01/15/17 01/15/17 07:00 19:00 Intake Total 874.6 ml Output Total 1500 ml Balance -625.4 ml IV Total 414.6 ml Other 460 ml Output Urine Total 1500 ml # Bowel Movements 3 Physical Exam CONSTITUTIONAL/GENERAL: This is a obese, ill-appearing patient, sedated/ lethargic, no apparent distress TUBES/LINES/DRAINS: Left IJ central line, ET tube, OG tube, Locke catheter, soft wrist restraints, SCDs SKIN: No jaundice, rashes, or lesions. Multiple areas of ecchymosis to bilateral upper extremities. Reported to have extensive vascular wounds to bilateral lower legs are not visualized at this time. Chronic thickening and scaling noted to bilateral lower extremities, feet. Skin is warm and dry. CARDIOVASCULAR: Regular rate and rhythm without murmurs. Peripheral pulses symmetric, pedal pulses faint. Significant generalized edema/anasarca. RESPIRATORY/CHEST: Symmetric, unlabored respirations via mechanical vent. Scattered rhonchi . Breath sounds equal bilaterally. GASTROINTESTINAL: Abdomen obese, round, distended, firm. Limited palpation though no readily palpable masses. Bowel sounds hypoactive. Tube feeding on hold GENITOURINARY: Without palpable bladder distension. Locke catheter in place clear dark yellow urine. MUSCULOSKELETAL: Extremities without clubbing, cyanosis. Significant edema to extremities. NEUROLOGICAL: Sedated, lethargic. On mechanical vent. Unable to assess orientation. arouses slightly to touch/verbal. nods slightly. Weakly follows commands to grasp, move feet. slight eye opening . PSYCHIATRIC: No obvious anxiety, limited assessment due to clinical condition/ sedation Diagnostic Tests Laboratory Laboratory Tests Test 01/13/17 04:20 01/14/17 03:46 01/15/17 04:15 White Blood Count 12.1 TH/MM3 (4.0-11.0) 17.6 TH/MM3 (4.0-11.0) 11.5 TH/MM3 (4.0-11.0) Red Blood Count 4.24 MIL/MM3 (4.50-5.90) 4.38 MIL/MM3 (4.50-5.90) 4.39 MIL/MM3 (4.50-5.90) Hemoglobin 13.9 GM/DL (13.0-17.0) 14.1 GM/DL (13.0-17.0) 14.1 GM/DL (13.0-17.0) Hematocrit 40.8 % (39.0-51.0) 42.5 % (39.0-51.0) 42.5 % (39.0-51.0) Mean Corpuscular Volume 96.4 FL (80.0-100.0) 96.9 FL (80.0-100.0) 96.9 FL (80.0-100.0) Mean Corpuscular Hemoglobin 32.7 PG (27.0-34.0) 32.2 PG (27.0-34.0) 32.2 PG (27.0-34.0) Mean Corpuscular Hemoglobin Concent 33.9 % (32.0-36.0) 33.2 % (32.0-36.0) 33.2 % (32.0-36.0) Red Cell Distribution Width 14.8 % (11.6-17.2) 15.0 % (11.6-17.2) 15.0 % (11.6-17.2) Platelet Count 96 TH/MM3 (150-450) 95 TH/MM3 (150-450) 106 TH/MM3 (150-450) Mean Platelet Volume 8.6 FL (7.0-11.0) 8.9 FL (7.0-11.0) 9.4 FL (7.0-11.0) Prothrombin Time 14.0 SEC (9.8-11.6) 13.4 SEC (9.8-11.6) 13.5 SEC (9.8-11.6) Prothromb Time International Ratio 1.4 RATIO 1.3 RATIO 1.3 RATIO Activated Partial Thromboplast Time 26.9 SEC (24.3-30.1) 28.7 SEC (24.3-30.1) 29.0 SEC (24.3-30.1) Blood Urea Nitrogen 104 MG/DL (7-18) 117 MG/DL (7-18) 119 MG/DL (7-18) Creatinine 4.95 MG/DL (0.60-1.30) 4.86 MG/DL (0.60-1.30) 4.28 MG/DL (0.60-1.30) Random Glucose 116 MG/DL (74-106) 115 MG/DL (74-106) 112 MG/DL (74-106) Total Protein 7.7 GM/DL (6.4-8.2) 8.0 GM/DL (6.4-8.2) 8.4 GM/DL (6.4-8.2) Albumin 2.7 GM/DL (3.4-5.0) 2.6 GM/DL (3.4-5.0) 2.6 GM/DL (3.4-5.0) Calcium Level 7.8 MG/DL (8.5-10.1) 8.5 MG/DL (8.5-10.1) 8.9 MG/DL (8.5-10.1) Alkaline Phosphatase 100 U/L (45-117) 113 U/L (45-117) 103 U/L (45-117) Aspartate Amino Transf (AST/SGOT) 64 U/L (15-37) 47 U/L (15-37) 42 U/L (15-37) Alanine Aminotransferase (ALT/SGPT) 40 U/L (12-78) 38 U/L (12-78) 39 U/L (12-78) Total Bilirubin 2.1 MG/DL (0.2-1.0) 2.2 MG/DL (0.2-1.0) 2.2 MG/DL (0.2-1.0) Direct Bilirubin 1.5 MG/DL (0.0-0.2) 1.7 MG/DL (0.0-0.2) 1.6 MG/DL (0.0-0.2) Sodium Level 141 MEQ/L (136-145) 143 MEQ/L (136-145) 146 MEQ/L (136-145) Potassium Level 4.1 MEQ/L (3.5-5.1) 4.1 MEQ/L (3.5-5.1) 4.3 MEQ/L (3.5-5.1) Chloride Level 99 MEQ/L (98-107) 103 MEQ/L (98-107) 107 MEQ/L (98-107) Carbon Dioxide Level 26.5 MEQ/L (21.0-32.0) 28.8 MEQ/L (21.0-32.0) 26.7 MEQ/L (21.0-32.0) Anion Gap 16 MEQ/L (5-15) 11 MEQ/L (5-15) 12 MEQ/L (5-15) Estimat Glomerular Filtration Rate 13 ML/MIN (>89) 13 ML/MIN (>89) 15 ML/MIN (>89) Indirect Bilirubin 0.6 MG/DL (0.0-0.8) 0.5 MG/DL (0.0-0.8) 0.6 MG/DL (0.0-0.8) Result Diagram: 01/15/17 0415 01/15/17 0415 Microbiology Microbiology Date/Time Source Procedure Growth Status 01/06/17 21:26 Blood Peripheral Aerobic Blood Culture - Final NO GROWTH IN 5 DAYS Complete 01/06/17 21:26 Blood Peripheral Anaerobic Blood Culture - Final NO GROWTH IN 5 DAYS Complete 01/08/17 18:29 Sputum Endotracheal Gram Stain - Final Complete 01/08/17 18:29 Sputum Endotracheal Sputum Culture - Final LIGHT GROWTH NORMAL RESPIRATORY LETTY Complete 01/09/17 11:45 Urine Catheterized Urine Urine Culture - Final NO GROWTH IN 48 HOURS. Complete 01/06/17 15:53 Wound Leg Gram Stain - Final Complete 01/06/17 15:53 Wound Culture - Final Staphylococcus Aureus Complete Imaging Last Impressions Abdomen X-Ray 01/13/17 0000 Signed Impressions: Service Date/Time: Friday, January 13, 2017 14:40 - CONCLUSION: Mildly dilated colon with questionable mild distention of some of the distal small bowel. Findings are not in a pattern to suggest obstruction. Ileus could potentially have this appearance. Consider followup imaging to confirm resolution. Jose Cheek MD Chest X-Ray 01/11/17 0000 Signed Impressions: Service Date/Time: Wednesday, January 11, 2017 13:35 - CONCLUSION: 1. Stable tubes and lines, as above. 2. Slight improved aeration in the left lower lung zone. 3. Continued bibasilar airspace disease, likely atelectasis. 4. Otherwise, no significant interval change. Jorge A Collazo MD Renal Ultrasound 01/09/17 0000 Signed Impressions: Service Date/Time: December 09:36 - CONCLUSION: No evidence of hydronephrosis Jose Machado MD Lower Extremity Ultrasound 01/09/17 0000 Signed Impressions: Service Date/Time: December 09:46 - CONCLUSION: Normal examination. Jose Machado MD Head CT 01/08/17 0400 Signed Impressions: Service Date/Time: Sunday, January 08, 2017 03:55 - CONCLUSION: 1. No intracranial abnormalities seen. 2. Sinus disease. Joes De Jesus MD Upper Extremity Ultrasound 01/08/17 Signed Impressions: Service Date/Time: Sunday, January 08, 2017 12:14 - CONCLUSION: Normal examination. Rosendo Connors Jr., MD Liver Ultrasound 01/08/17 Signed Impressions: Service Date/Time: Sunday, January 08, 2017 11:39 - CONCLUSION: Hepatosplenomegaly. Hepatic steatosis. Distended gallbladder with nonspecific wall thickening and gallbladder sludge. Minimal pericholecystic fluid Jose Machado MD CT Angiography 01/08/17 Signed Impressions: Service Date/Time: Sunday, January 08, 2017 04:03 - CONCLUSION: 1. No pulmonary embolus. 2. Increased density at the posterior aspects of the lungs bilaterally likely related to atelectasis or consolidation. Jose De Jesus MD Abdomen/Pelvis CT 01/08/17 Signed Impressions: Service Date/Time: Sunday, January 08, 2017 04:03 - CONCLUSION: 1. Hepatic steatosis with suspected portal hypertension and cirrhosis. There are prominent veins seen throughout the superficial anterior abdominal wall. 2. Splenomegaly. This may be secondary to portal hypertension. 3. Significant ascites is not seen. Jose De Jesus MD Assessment and Plan Disease Oriented Problem List: (1) Cardiogenic shock (2) Ventricular fibrillation (3) Hyperammonemia (4) Elevated troponin (5) Acute renal failure (6) Acute respiratory failure with hypoxia and hypercarbia (7) Thrombocytopenia (8) Hepatic steatosis (9) Hepatitis C (10) Elevated TSH (11) Transaminitis (12) Liver cirrhosis (13) Adjustment disorder with depressed mood (14) Staph aureus infection (15) Adjustment disorder with mixed anxiety and depressed mood Symptom Scale: Pertinent Non-Medical Issues Psychosocial:Patient born in [place], has reported to be adopted. Resides locally with his father. Not currently working. Has completed high school and a couple of years of college. Per prior psychiatry evaluation he may have a daughter from a girlfriend which he was not to, and that she is in the [employer], at that time was 23 years old (10/2014). He has never been -- during that psychiatry evaluation he reported girlfriend in a car accident , patient was having more depression and drinking. He has been in treatment programs for substance abuse in the past. Spiritual: No spiritual or temple preference per demographics information. Legal:Patient is currently unable to participate due to sedation, mechanical vent. Not clear if or when he will regain ability to participate. His father is listed as contact and next of kin. There is record during prior psychiatric evaluation that the patient may have a daughter who was serving in the [employer] at that time age 23 (2014), this evaluation further notes the patient has never been . Per [place] statutes this daughter may be the appropriate legal decision maker if she can be located. Will attempt to further explore with patient father during planned meeting.01/14 explored family dynamics further during family meeting patient father indicates mother is , and the daughter was stepdaughter from prior significant other relationship, patient with no children. Per [place] statutes father would be appropriate legal proxy. Ethical issues impacting care: No ethical issues identified at this time. Important Contacts Jose Wheeler (father) [phone] Montserrat Mehta (friend) [phone]. . Prognosis This man who presented for edema and difficulty walking, and chest pain has suffered multiple V. fib arrest during this admission. He remains critically ill with persistent cardiogenic shock and volume overload. He is experiencing multiorgan failure. Overall prognosis for survival and recovery to prior level of function is poor. . Code Status: Alternative Code (intubation only) Plan * Legal decision maker:Patient is currently unable to participate due to sedation, mechanical vent. Not clear if or when he will regain ability to participate. His father is listed as contact and next of kin. There is record during prior psychiatric evaluation that the patient may have a daughter who was serving in the [employer] at that time age 22 (2015), this evaluation further notes the patient has never been . Per [place] statutes this daughter may be the appropriate legal decision maker if she can be located. 01/14 explored family dynamics further during family meeting patient father indicates mother is , and the daughter was stepdaughter from prior significant other relationship, patient with no children. Per [place] statutes father would be appropriate legal proxy. * Goals: Met with family at [email or web address].Upon review of prognosis and treatment options going forward family has additional questions about transition to comfort focus: anticipatory guidance provided.At this time they are still processing information and no decisions are made. however, they seem to be thinking that the patient probably would NOT want tracheostomy etc. or other artificial measures for a prolonged time without a good chance of meaningful recovery. * 1400 01/15/17 spoke with patient father today regarding conditions, treatments , prognosis. He will discuss again with his family this afternoon, but as of right now he is leaning towards making possible decisions by or Friday at the latest, for possible withdrawal of artificial measures and transition to comfort focus only, unless they were to see dramatic improvement in the next day. Discussed with critical care. * 1630 UPDATE called by pt father to meet again-- met w father, cousin, sister again. Review conditions, tx in place, possible trajectories going forward, prognosis. Pt father, supported by other family, wishes to proceed w withdrawal of artificial life support, and transition to comfort treatment only, some time tomorrow Friday01/16/17. Pt father expresses pt would not want to continue given little improvement thus far, and overall poor health status prior to this admission. Until then they request no further escalation of treatment. Anticipatory guidance provided, all questions answered. They will call palliative SW tomorrow when they have decided on time for withdrawal. Exhibits placed in chart, d/w critical care Dr Haynes & nurse * CODE STATUS: Alternative code, intubation only * SYMPTOMS: --Dyspnea-emergently intubated 2/2 vfib arrest, remains on mech vent w high O2/support requirements, unable to wean due to fluid overload, multiorgan failure --Depression-patient admitted with reported suicidal ideations. Of note per review of records in EMR he's had long history of depression and polysubstance abuse, as well as traumatic loss of a girlfriend in the past. During exam today he is tearful and indicates it is not physical pain, he does appear to nod yes to feeling sad. He has been on sertraline outpatient, as well as other medications in the past per review of records. Psychiatry evaluated this admission and did note adjustment disorder with mixed mood anxiety and depression, though at the time patient feeling optimistic and no suicidal ideation. Started him on trazodone. At this time he is likely suffering from situational depression and anxiety on top of his underlying conditions. He is currently on fentanyl and Diprivan for sedation though at time of my exam is fairly alert. If his conditions stabilized he would benefit from psychotherapy , substance abuse rehabilitation in addition to pharmacological tx. family details patient has struggled with bipolar/depression since high school years. * Palliative care will continue to follow during hospital course as condition evolves, to assist patient/decision-maker with understanding of medical conditions, weighing benefits/burdens of treatment options, for clarification of goals of treatment. Additionally will assist with any symptoms of palliative concern Time Spent Total Floor Time (mins): 40 (chart review, d/w RN, critical care, PE, multiple conversations with family RE goals) Attestation To help prompt me to consider important information that might be impacting today's encounter and assessment, information from prior notes written by myself or my colleagues may have been "brought forward" into today's note. My signature on this note, however, is an attestation that I personally performed the exam, history, and/or decision-making noted today, and, unless otherwise indicated, the interactions with patient, family, and staff as well as the review of records all occurred today. I also attest that the listed assessment and stated plan reflect my best clinical judgment today based on the combination of historical information, prior notes, and today's exam/ interactions. When time spent is documented, it refers only to time spent today by the signer, or if indicated, combined time spent today by collaborating physician/nurse practitioner. Shanita Dunn Jan 15, 2017 11:19
--- NOTE | 2017-01-15 11:30 | HHI.NPPN ---
Subjective History of Present Illness 46-year-old obese male with a history of alcohol abuse and cardiac arrest and acute renal failure Additional Remarks Patient is on the vent., remain sedated, Objective Data Data Vital Signs Date Time Temp Pulse Resp B/P (MAP) Pulse Ox O2 Delivery O2 Flow Rate FiO2 01/15/17 08:39 95 45 01/15/17 08:00 80 01/15/17 08:00 98.9 80 10 141/78 (99) 97 01/15/17 08:00 45 01/15/17 04:00 81 01/15/17 04:00 98.8 81 10 138/96 (110) 97 01/15/17 04:00 45 01/15/17 03:50 96 45 01/15/17 00:01 94 45 01/15/17 00:00 45 01/15/17 00:00 78 01/15/17 00:00 98.8 78 10 127/74 (91) 94 01/14/17 20:19 92 45 01/14/17 20:00 80 01/14/17 20:00 98.6 80 10 131/73 (92) 91 01/14/17 20:00 45 01/14/17 16:00 83 01/14/17 16:00 45 01/14/17 16:00 98.9 83 10 120/97 (105) 91 01/14/17 15:51 91 45 01/14/17 14:00 89 01/14/17 12:00 89 01/14/17 12:00 98.8 89 18 127/69 (88) 90 01/14/17 12:00 45 01/14/17 11:30 93 45 -: 01/15/17 0415 01/15/17 0415 Physical Exam General Appearance: Well Developed, Comfortable, Obese Neck Neck Exam: Neck Supple Pulmonary Resp Exam: Clear Bilaterally Cardiology CV Exam: Regular, Normal Sinus Rhythm Gastrointestinal/Abdomen GI Exam: Soft, Bowel Sounds Present, Distended Extremeties Extremities Exam: Moderate Edema Neurologic Neuro Exam: Sedated Assessment/Plan Problem List: (1) Acute renal failure ICD Codes: N17.9 - Acute kidney failure, unspecified Plan: Patient is in acute renal failure due to cardiogenic shock he did receive a CTA of the chest, exposed to dye Creatinine is slightly better non oliguric off Lasix Continue with current treatment plan Remains nonoliguric Urine output 3.3 L Creatinine is declining (2) Anasarca ICD Codes: R60.1 - Generalized edema Status: Acute Plan: Due to cirrhosis (3) Liver cirrhosis ICD Codes: K74.60 - Unspecified cirrhosis of liver Status: Acute Plan: Alcoholism (4) Ventricular fibrillation ICD Codes: I49.01 - Ventricular fibrillation Plan: ventricular fibrillation has resuscitation Tonya Combs MD Jan 15, 2017 11:30
[2017-01-15] MEDS: PROPOFOL 1000 MG/100 ML IV PRN ×4 (11:33→21:41)
[2017-01-15] MEDS: LACTULOSE SYRUP 20 GM/30 ML CUP PO SCH ×3 (13:00→17:00)
[2017-01-16] VITALS (7 sets, daily range): BP systolic 113–139; BP diastolic 64–81; PULSE 82–94; RESP 10–13; TEMP 97.9–98.9; O2SAT 87–93
[2017-01-16] MEDS: RESP: ALBUTEROL 2.5 MG/IPRATROPIUM 0.5 MG NEB (SCH) NEB ×2 (03:27→07:30)
[2017-01-16] MEDS: PROPOFOL 1000 MG/100 ML IV PRN ×3 (03:31→10:33)
[2017-01-16] MEDS: ARTIFICIAL TEARS OPTH SOLN 15 ML BTL EACH EYE SCH ×2 (03:33→05:57)
[2017-01-16] MEDS: EPOPROSTENOL NEB SOLUTION 50 NG/KG/MIN 100 ML NEB SCH ×2 (03:33)
[2017-01-16] MEDS: INSULIN ASPART SUPPLEMENTAL SCALE SQ SCH ×2 (04:00)
[2017-01-16] MEDS: fentaNYL DRIP 250 ML IV PRN (04:46)
[2017-01-16] MEDS: HEPARIN SODIUM - SQ 10,000 UNITS/ML VIAL SQ SCH (05:07)
[2017-01-16] MEDS: RIFAXIMIN 200 MG TAB PO SCH (05:07)
[2017-01-16] MEDS: methylPREDNISolone SOD SUCC 40 MG/1 ML VIAL IV PUSH SCH (05:07)
[2017-01-16] MEDS: RESP: BUDESONIDE 0.5 MG/2 ML NEB NEB SCH (07:30)
[2017-01-16] MEDS: PANTOPRAZOLE SODIUM 40 MG VIAL IV PUSH SCH (08:00)
[2017-01-16] MEDS: CHLORHEXIDINE 0.12% (ORAL KIT) 15 ML CUP MT SCH (08:00)
[2017-01-16] MEDS: CALCIUM CARBONATE 1.25 GM (CA 500 MG) TAB PO SCH (08:01)
[2017-01-16] MEDS: FOLIC ACID 1 MG TAB PO SCH (08:01)
[2017-01-16] MEDS: POTASSIUM CHLORIDE 25 MEQ EFFERVESCENT TAB PO SCH (08:01)
[2017-01-16] MEDS: THIAMINE HCL 100 MG TAB PO SCH (08:01)
[2017-01-16] MEDS: SODIUM CHLORIDE 0.9% FLUSH 10 ML FLUSH IV FLUSH SCH (08:02)
[2017-01-16] MEDS: BENEPROTEIN POWDER 1 PACK G-TUBE SCH (08:02)
[2017-01-16] MEDS: LACTULOSE SYRUP 20 GM/30 ML CUP PO SCH (08:02)
[2017-01-16] MEDS: SENNOSIDES SYRUP 8.8 MG/5 ML CUP NG SCH (08:02)
[2017-01-16] MEDS: DOCUSATE SODIUM 100 MG/10 ML UDC PO SCH (08:02)
--- NOTE | 2017-01-16 08:29 | HHI.CCPN ---
Subjective Remarks/Hospital Course 46-year-old morbidly obese gentleman admitted for evaluation of Edema, Shortness of breath, Chest pain, who started with swelling in his lower extremities and testicles 2 weeks prior to admission, progressively worsening to the point where he cant ambulate or urinate without difficulty, pain is 10/ 10 in intensity, Chest pain started the day prior to admission as a substernal pain. Per chart review he has been drinking alcohol on a daily basis, at least a 1/5th of vodka daily. He was considered to be in withdrawal because he has been unable to go to the methadone clinic for 3 days because of all the swelling in his legs and testicles. He has also Hepatitis C. 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 Shortly after the transfer patient suffered from V. tach/ V. fib cardiac arrest, he was defibrillated 1 during the CPR and after 1 cycle of CPR and intubation he regained spontaneous circulation. Cardiology control systems drafting officer was informed about the V. fib cardiac arrest with recommendation to correct underlying electrolyte dissonance. 01/08: Currently sedated on propofol drip at 30 micrograms per kilo per minute. Arousable. With hemoptysis per 7.5 ET tube. Will need bronchoscopy. Family attempted to notify per RN however currently unavailable/unreachable. No further runs of dysrhythmia noted. Subjective 01/09: At approximately 2345, another episode of V. fib/pulseless V. tach. Episode lasted approximately 5 minutes. Patient received 300 mg IV amiodarone and shocked with 200 J. Patient is arousable on the ventilator currently on propofol and fentanyl drips.. High ox requirements persist. Creatinine has increased to 2.5. 01/10: no v. fib events in last 24h. however, remains on epinephrine. Cr continues to worsen. this may be hepatorenal syndrome, or secondary to cardiogenic shock. LFTs worsening and coags worsening. following some commands. nephrology still pushing for forced diuresis, and on limited bedside critical care echo (poor windows due to body habitus) does appear to have global biventricular dysfunction and volume overload. no meaningful improvements in 24h. 01/11: still no improvements. remains on epi. Cr worse again today. still on 100 % fio2. repeat CXR unchanged. organ failure persists. 01/12: hypoxia persists. still on 100% fio2. echo with ?spontaneous echo contrast in RA, but no other clinically significant findings. no valvular lesions. no intra-cardiac shunt. Cr continues to rise. uop adequate. off epinephrine. long talk with family where I expressed my concern that this likely has a grim prognosis given no improvements over last 7 days. they are aware. considering DNR status. 01/13: hypoxia somewhat improved. remains on APRV and high support settings, but fio2 45% and spo2 94%. Cr continues to worsen, though. overall not much clinical improvement. 01/14: no improvements. family met today adn wants DNR status and considering withdraw of care. organ dysfunction persists. 01/15: Cr slightly improved. nauseated today. still overall poor prognosis. still on APRV. family meeting again today. will continue supportive care. 01/16: No significant change in physiological status. Long-term prognosis is very poor. Objective Vital Signs Date Time Temp Pulse Resp B/P (MAP) Pulse Ox O2 Delivery O2 Flow Rate FiO2 01/16/17 07:31 88 90 01/16/17 04:00 87 01/16/17 04:00 98.1 11 139/77 (97) Intake and Output 01/16/17 01/16/17 01/17/17 08:00 16:00 00:00 Intake Total 589 ml Output Total 1300 ml Balance -711 ml Result Diagram: 01/15/17 0415 01/15/17 0415 Imaging Last Impressions Head CT 01/08/17 0400 Signed Impressions: Service Date/Time: Sunday, January 08, 2017 03:55 - CONCLUSION: 1. No intracranial abnormalities seen. 2. Sinus disease. Jose De Jesus MD Upper Extremity Ultrasound 01/08/17 0000 Signed Impressions: Service Date/Time: Sunday, January 08, 2017 12:14 - CONCLUSION: Normal examination. Rosendo Connors Jr., MD Liver Ultrasound 01/08/17 0000 Signed Impressions: Service Date/Time: Sunday, January 08, 2017 11:39 - CONCLUSION: Hepatosplenomegaly. Hepatic steatosis. Distended gallbladder with nonspecific wall thickening and gallbladder sludge. Minimal pericholecystic fluid Jose Machado MD Chest X-Ray 01/08/17 0000 Signed Impressions: Service Date/Time: Sunday, January 08, 2017 01:24 - CONCLUSION: 1. New left internal jugular central line in good position. No pneumothorax is seen. 2. Cardiomegaly. 3. Proximal hilar regions and interstitial markings likely from pulmonary venous hypertension or edema. If the hilar enlargement persists, it could be further evaluated with CT examination the chest with contrast. Jose De Jesus MD CT Angiography 01/08/17 0000 Signed Impressions: Service Date/Time: Sunday, January 08, 2017 04:03 - CONCLUSION: 1. No pulmonary embolus. 2. Increased density at the posterior aspects of the lungs bilaterally likely related to atelectasis or consolidation. Jose De Jesus MD Abdomen/Pelvis CT 01/08/17 0000 Signed Impressions: Service Date/Time: Sunday, January 08, 2017 04:03 - CONCLUSION: 1. Hepatic steatosis with suspected portal hypertension and cirrhosis. There are prominent veins seen throughout the superficial anterior abdominal wall. 2. Splenomegaly. This may be secondary to portal hypertension. 3. Significant ascites is not seen. Jose De Jesus MD Objective Remarks GENERAL: This is a 46-year-old male, critically ill currently orotracheally intubated SKIN: Warm and dry. Open wound left lower extremity/lateral currently covered with Kerlix HEAD: Normocephalic. EYES: + scleral icterus. No injection or drainage. NECK: trachea midline. Left IJ is clean dry and intact. Orally intubated. CARDIOVASCULAR: normal rate, RR. RESPIRATORY: distant breath sounds. equal chest rise. mobile secretions few. GASTROINTESTINAL: Abdomen is protuberant. Nontender. No guarding. MUSCULOSKELETAL: 1+ peripheral edema. Bilateral upper and lower extremities. : Positive scrotal edema. Locke catheter in place. NEURO EXAM: RASS -2/-3. Moves all 4 extremities spontaneous. Withdraws to pain /noxious stimuli. intermittently weakly follows commands. Procedures none Date of Insertion: Jan 08, 2017 Line: Central Venous Catheter Side: Left Location: Internal, Jugular A/P Assessment and Plan Assessment: This is a 46-year-old male with cirrhosis who presents with multiple V. fib arrests and acute hypoxemia. multiple organs are still dysfunctional. agree with ongoing goals of care discussion. will continue to support organs in attempt to make any improvements in function. Remains very critically ill and on maximal vent settings. poor prognosis at this point. Neuro/Psych: Adjustment disorder with depressed mood EtOH abuse Hepatic encephalopathy History of polysubstance abuse including intravenous, oral hydromorphone prop/fent for goal RASS Goal of RASS -2 Daily sedation vacation was on methadone 140 mg daily for history of narcotic abuse. This will be held in light of prolonged QT and recent V. fib/pulses V. tach [address] brain 01/08 revealed no acute intracranial findings. Sinus disease only Currently on thiamine 100 mg daily, folate 1 mg daily multivitamin 10cc injection daily Sertraline 25 mg discontinued. trazodone discontinued. Evaluated by Dr. Mckay/psychiatry this hospitalization On as needed lorazepam at home 0.5 mg every 6 hours CIWA protocol discontinued while intubated CV: VFib cardiac arrest History of hypertension Cardiogenic Shock- resolved Shocked with unknown amount of joules via unknown defibrillator 12/30//01/08 1. Received 150 mg amiodarone bolus 1 01/07 and 3 mg and was initially placed on a lidocaine drip. Currently on sotalol 80 mg twice a day per Dr. Pena/cardiology as of 01/07 2-D echocardiogram 01/07 revealed EF 60%. Trace TR. Dr. Mathur/cardiology is following continue forced diuresis MADELINE 01/12: normal biventricular function, no PFO, no valvular lesions. 01/12 trial of milrinone therapy led to acute drop in SVR and hypotension, and uncoupling of the hypoxic pulmonary vasoconstriction leading to acute hypoxemia. discontinued on 01/12. Resp: Acute hypoxemic respiratory failure - persistent and severe. Ongoing tobaccoism Ventilator bundle Albuterol/ipratropium aerosols every 4 hours with albuterol aerosols every 2 hours as needed for Dyspnea Budesonide 0.5/2 1 inhalation twice a day Methylprednisolone 40 mg IV twice a day CT pulmonary arteriogram 01/08 revealed no central pulmonary embolism. Bilateral lower lobe atelectasis versus infiltrate Tobacco sensation will be provided when appropriate no SBT until hemodynamics improve. wean fio2 for goal spo2 > 90% continue flolan inhaled at 50 ng/kg/min continue APRV 34/0, 5/1 (I:E 5:1), 45% fio2. GI: Elevated transaminases Hepatic steatosis - possible alcoholic cirrhosis Elevated total bilirubin Splenomegaly History of hepatitis C antibody + 2016. Genotype not detectable. No viral load detected Elevated ammonia level Acute liver dysfunction Meld score 14 --> 28 --> 28 --> 26 --> 26 --> 26 --> [address] abdomen/pelvis this admission revealed hepatic steatosis. Likely signs of portal hypertension Pantoprazole 40 mg IV twice a day for GI prophylaxis Nepro goal 50 cc an hour with beneprotein one packet 3 times a day Docusate sodium 100 mg liquid twice a day, senna 8.6 mg daily bowel regimen Patient is currently on Xifaxan 400 mg 3 times a day and lactulose 30 cc 3 times daily for elevated ammonia level. Resume pentoxifylline 400 mg 3 times a day Negative extensive pedal workup in 2017 by GI. Negative AMA/ASMA, ceruloplasmin etc. : Acute kidney injury - slightly improved, but persistent. Locke catheter has been placed for accurate I's and O's in a critically ill patient with severe scrotal edema and urinary retention Endo: Diabetes mellitus Elevated TSH Holding insulin glargine in-home sliding-scale insulin Currently on Novulog /low regimen with Accu-Cheks every 4 hours to maintain euglycemia TSH on admission 6.4. T4 normal at 1.4. Renal: Acute kidney injury - persistent Avoid nephrotoxic drugs Discontinue vancomycin renal ultrasound: no hydronephrosis. Nephrology consult. Monitor urine output Accurate I's and O's Repeat BMP in a.m. Heme: Thrombocytopenia Elevated INR Monitor CBC daily. Follow trends ID: Staph aureus left lower leg infection Discontinued vancomycin due to acute kidney injury. With dressing changes every 3 days. Currently dressed with Optifoam d/c zosyn therapy today, completed full course. Pertinent cultures 01/06 - left leg wound culture - staph aureus - MSSA 01/06 - blood cultures 2 - no growth FEN: Scheduled potassium placement with 20 mEq potassium 3 times a day Recheck electrolytes afternoon. Electrolyte protocol initiated MSK: Bilateral lower extremity open wounds Right lower extremity 10 x 7 x 0.1 cm. Left lower extremity wound 10 x 5 x 0.1 cm. Wound care evaluate and treat. Currently on IV antibiotics. Access - Left IJ CVL placed 01/08 Prophylaxis - GI - pantoprazole - DVT - SCD/heparin subcutaneous Overall impression: Persistent debilitated status without improvement. Poor prognosis. Gibson Solorzano MD Jan 16, 2017 08:29
[2017-01-16] MEDS ORDERED: fentaNYL DRIP 250 ML IV PRN (10:30)
[2017-01-16] MEDS ORDERED: HYDROmorphone HCL PF 2 MG/ML VIAL IV PUSH ONE ×2 (10:30→10:45)
[2017-01-16] MEDS ORDERED: HYOSCYAMINE 0.5 MG/ML AMP IV PUSH ONE (10:30)
[2017-01-16] MEDS ORDERED: LORazepam 2 MG/ML VIAL IV PUSH ONE ×2 (10:30→10:45)
[2017-01-16] MEDS ORDERED: FUROSEMIDE 20 MG/2 ML VIAL IV PUSH PRN (11:00)
[2017-01-16] MEDS ORDERED: BISACODYL 10 MG SUPP RECTAL PRN (11:00)
[2017-01-16] MEDS ORDERED: HYDROmorphone HCL PF 2 MG/ML VIAL IV PUSH PRN ×2 (11:00)
[2017-01-16] MEDS ORDERED: LORazepam 2 MG/ML VIAL IV PUSH PRN ×3 (11:00)
[2017-01-16] MEDS ORDERED: HYOSCYAMINE 0.5 MG/ML AMP IV PUSH PRN (11:00)
[2017-01-16] MEDS ORDERED: ACETAMINOPHEN 650 MG SUPP RECTAL PRN (11:00)
--- NOTE | 2017-01-16 11:17 | HHI.HCPN ---
Reason for visit a. To assist with evaluation and management of symptoms including: depression, dyspnea b. To assist medical decision maker(s) with: better understanding of current medical conditions; weighing benefits/burdens of medical treatment options; making medical treatment decisions. . Subjective/Interval History Pt remains sedated, minimally responsive, intubated, mechanically ventilated in SICU. No significant change overnight. Prognosis remains bleak. Case discussed on floor with psychiatric rn. . . . Family/friend interactions Met with patient's father, sister, and cousin for 30 minutes. Entire family remains certain that patient would want no further aggressive care and would want withdrawal of life support and transition to "comfort measures only" under the circumstances. Provided anticipatory guidance on the procedure/logistics for withdrawal of life support and post withdrawal comfort care. Answered questions. . Advance Directives Living Will: Never completed Health Care Surrogate: Never completed Durable Power of Vp Ad Products And Planning: Never completed Objective Vital Signs Date Time Temp Pulse Resp B/P (MAP) Pulse Ox O2 Delivery O2 Flow Rate FiO2 01/16/17 08:00 94 01/16/17 08:00 98.9 94 10 113/64 (80) 87 01/16/17 08:00 90 01/16/17 07:31 88 90 01/16/17 04:38 88 90 01/16/17 04:00 87 01/16/17 04:00 80 01/16/17 04:00 98.1 87 11 139/77 (97) 88 01/16/17 01:35 88 100 01/16/17 00:00 89 01/16/17 00:00 97.9 82 13 139/81 (100) 93 01/16/17 00:00 60 01/15/17 23:03 89 100 01/15/17 22:25 96 45 01/15/17 20:00 45 01/15/17 20:00 76 01/15/17 20:00 98.2 76 13 134/76 (95) 99 01/15/17 19:49 98 45 01/15/17 16:00 45 01/15/17 16:00 83 01/15/17 16:00 98.7 82 10 129/76 (93) 96 01/15/17 14:46 95 45 01/15/17 12:06 93 45 01/15/17 12:00 98.5 78 10 139/77 (97) 93 01/15/17 12:00 80 01/15/17 12:00 45 Intake & Output 01/16/17 01/16/17 06:59 18:59 Intake Total 689 ml Output Total 1300 ml Balance -611 ml IV Total 200 ml Tube Feeding 369 ml Other 120 ml Output Urine Total 1300 ml # Bowel Movements 2 . Physical Exam CONSTITUTIONAL/GENERAL: This is a obese, ill-appearing patient, sedated/ lethargic TUBES/LINES/DRAINS: Left IJ central line, ET tube, OG tube, Locke catheter, soft wrist restraints, SCDs SKIN: No jaundice, rashes, or lesions. Multiple areas of ecchymosis to bilateral upper extremities. Reported to have extensive vascular wounds to bilateral lower legs are not visualized at this time. Chronic thickening and scaling noted to bilateral lower extremities, feet. Skin is warm and dry. CARDIOVASCULAR: Regular rate and rhythm without murmurs. Significant generalized edema/anasarca. RESPIRATORY/CHEST: Symmetric, unlabored respirations via mechanical vent. Breath sounds equal bilaterally but distant and diminished. GASTROINTESTINAL: Abdomen obese, round, distended, firm. Limited palpation though no readily palpable masses. Bowel sounds hypoactive. Tube feeding in infusing via OG tube. GENITOURINARY: Without palpable bladder distension. Locke catheter in place . MUSCULOSKELETAL: Extremities without clubbing, cyanosis. Significant edema to extremities. NEUROLOGICAL: Sedated, lethargic. Withdraws to noxious stimuli. Does not awaken to voice/exam. Unable to follow commands. PSYCHIATRIC: Unable to assess due to level of responsiveness. . Diagnostic Tests Laboratory Laboratory Tests Test 01/14/17 03:46 01/15/17 04:15 White Blood Count 17.6 TH/MM3 (4.0-11.0) 11.5 TH/MM3 (4.0-11.0) Red Blood Count 4.38 MIL/MM3 (4.50-5.90) 4.39 MIL/MM3 (4.50-5.90) Hemoglobin 14.1 GM/DL (13.0-17.0) 14.1 GM/DL (13.0-17.0) Hematocrit 42.5 % (39.0-51.0) 42.5 % (39.0-51.0) Mean Corpuscular Volume 96.9 FL (80.0-100.0) 96.9 FL (80.0-100.0) Mean Corpuscular Hemoglobin 32.2 PG (27.0-34.0) 32.2 PG (27.0-34.0) Mean Corpuscular Hemoglobin Concent 33.2 % (32.0-36.0) 33.2 % (32.0-36.0) Red Cell Distribution Width 15.0 % (11.6-17.2) 15.0 % (11.6-17.2) Platelet Count 95 TH/MM3 (150-450) 106 TH/MM3 (150-450) Mean Platelet Volume 8.9 FL (7.0-11.0) 9.4 FL (7.0-11.0) Prothrombin Time 13.4 SEC (9.8-11.6) 13.5 SEC (9.8-11.6) Prothromb Time International Ratio 1.3 RATIO 1.3 RATIO Activated Partial Thromboplast Time 28.7 SEC (24.3-30.1) 29.0 SEC (24.3-30.1) Blood Urea Nitrogen 117 MG/DL (7-18) 119 MG/DL (7-18) Creatinine 4.86 MG/DL (0.60-1.30) 4.28 MG/DL (0.60-1.30) Random Glucose 115 MG/DL (74-106) 112 MG/DL (74-106) Total Protein 8.0 GM/DL (6.4-8.2) 8.4 GM/DL (6.4-8.2) Albumin 2.6 GM/DL (3.4-5.0) 2.6 GM/DL (3.4-5.0) Calcium Level 8.5 MG/DL (8.5-10.1) 8.9 MG/DL (8.5-10.1) Alkaline Phosphatase 113 U/L (45-117) 103 U/L (45-117) Aspartate Amino Transf (AST/SGOT) 47 U/L (15-37) 42 U/L (15-37) Alanine Aminotransferase (ALT/SGPT) 38 U/L (12-78) 39 U/L (12-78) Total Bilirubin 2.2 MG/DL (0.2-1.0) 2.2 MG/DL (0.2-1.0) Direct Bilirubin 1.7 MG/DL (0.0-0.2) 1.6 MG/DL (0.0-0.2) Sodium Level 143 MEQ/L (136-145) 146 MEQ/L (136-145) Potassium Level 4.1 MEQ/L (3.5-5.1) 4.3 MEQ/L (3.5-5.1) Chloride Level 103 MEQ/L (98-107) 107 MEQ/L (98-107) Carbon Dioxide Level 28.8 MEQ/L (21.0-32.0) 26.7 MEQ/L (21.0-32.0) Anion Gap 11 MEQ/L (5-15) 12 MEQ/L (5-15) Estimat Glomerular Filtration Rate 13 ML/MIN (>89) 15 ML/MIN (>89) Indirect Bilirubin 0.5 MG/DL (0.0-0.8) 0.6 MG/DL (0.0-0.8) . Result Diagram: 01/15/17 0415 01/15/17 0415 Microbiology Microbiology Date/Time Source Procedure Growth Status 01/06/17 21:26 Blood Peripheral Aerobic Blood Culture - Final NO GROWTH IN 5 DAYS Complete 01/06/17 21:26 Blood Peripheral Anaerobic Blood Culture - Final NO GROWTH IN 5 DAYS Complete 01/08/17 18:29 Sputum Endotracheal Gram Stain - Final Complete 01/08/17 18:29 Sputum Endotracheal Sputum Culture - Final LIGHT GROWTH NORMAL RESPIRATORY LETTY Complete 01/09/17 11:45 Urine Catheterized Urine Urine Culture - Final NO GROWTH IN 48 HOURS. Complete 01/06/17 15:53 Wound Leg Gram Stain - Final Complete 01/06/17 15:53 Wound Culture - Final Staphylococcus Aureus Complete . Imaging Last Impressions Abdomen X-Ray 01/13/17 0000 Signed Impressions: Service Date/Time: Friday, January 13, 2017 14:40 - CONCLUSION: Mildly dilated colon with questionable mild distention of some of the distal small bowel. Findings are not in a pattern to suggest obstruction. Ileus could potentially have this appearance. Consider followup imaging to confirm resolution. Jose Cheek MD Chest X-Ray 01/11/17 0000 Signed Impressions: Service Date/Time: Wednesday, January 11, 2017 13:35 - CONCLUSION: 1. Stable tubes and lines, as above. 2. Slight improved aeration in the left lower lung zone. 3. Continued bibasilar airspace disease, likely atelectasis. 4. Otherwise, no significant interval change. Jorge A Collazo MD Renal Ultrasound 01/09/17 0000 Signed Impressions: Service Date/Time: December 09:36 - CONCLUSION: No evidence of hydronephrosis Jose Machado MD Lower Extremity Ultrasound 01/09/17 0000 Signed Impressions: Service Date/Time: December 09:46 - CONCLUSION: Normal examination. Jose Machado MD Head CT 01/08/17 0400 Signed Impressions: Service Date/Time: Sunday, January 08, 2017 03:55 - CONCLUSION: 1. No intracranial abnormalities seen. 2. Sinus disease. Jose De Jesus MD Upper Extremity Ultrasound 01/08/17 0000 Signed Impressions: Service Date/Time: Sunday, January 08, 2017 12:14 - CONCLUSION: Normal examination. Rosendo Connors Jr., MD Liver Ultrasound 01/08/17 0000 Signed Impressions: Service Date/Time: Sunday, January 08, 2017 11:39 - CONCLUSION: Hepatosplenomegaly. Hepatic steatosis. Distended gallbladder with nonspecific wall thickening and gallbladder sludge. Minimal pericholecystic fluid Jose Machado MD CT Angiography 01/08/17 0000 Signed Impressions: Service Date/Time: Sunday, January 08, 2017 04:03 - CONCLUSION: 1. No pulmonary embolus. 2. Increased density at the posterior aspects of the lungs bilaterally likely related to atelectasis or consolidation. Jose De Jesus MD Abdomen/Pelvis CT 01/08/17 0000 Signed Impressions: Service Date/Time: Sunday, January 08, 2017 04:03 - CONCLUSION: 1. Hepatic steatosis with suspected portal hypertension and cirrhosis. There are prominent veins seen throughout the superficial anterior abdominal wall. 2. Splenomegaly. This may be secondary to portal hypertension. 3. Significant ascites is not seen. Jose De Jesus MD . Assessment and Plan Disease Oriented Problem List: (1) Cardiogenic shock (2) Ventricular fibrillation (3) Hyperammonemia (4) Elevated troponin (5) Acute renal failure (6) Acute respiratory failure with hypoxia and hypercarbia (7) Thrombocytopenia (8) Hepatic steatosis (9) Hepatitis C (10) Elevated TSH (11) Transaminitis (12) Liver cirrhosis (13) Adjustment disorder with depressed mood (14) Staph aureus infection (15) Adjustment disorder with mixed anxiety and depressed mood Symptom Scale: Pertinent Non-Medical Issues Psychosocial:Patient born in [place], has reported to be adopted. Resides locally with his father. Not currently working. Has completed high school and a couple of years of college. Per prior psychiatry evaluation he may have a daughter from a girlfriend which he was not to, and that she is in the [employer], at that time was 23 years old (10/2014). He has never been -- during that psychiatry evaluation he reported girlfriend in a car accident , patient was having more depression and drinking. He has been in treatment programs for substance abuse in the past. Spiritual: No spiritual or restoration preference per demographics information. Legal:Patient is currently unable to participate due to sedation, mechanical vent. Not clear if or when he will regain ability to participate. His father is listed as contact and next of kin. There is record during prior psychiatric evaluation that the patient may have a daughter who was serving in the [employer] at that time age 23 (2014), this evaluation further notes the patient has never been . Per [place] statutes this daughter may be the appropriate legal decision maker if she can be located. Will attempt to further explore with patient father during planned meeting.01/14 explored family dynamics further during family meeting patient father indicates mother is , and the daughter was stepdaughter from prior significant other relationship, patient with no children. Per [place] statutes father would be appropriate legal proxy. Ethical issues impacting care: No ethical issues identified at this time. Important Contacts Jose Wheeler (father) [phone] Montserrat Tyson (friend) [phone]. . Prognosis This man who presented for edema and difficulty walking, and chest pain has suffered multiple V. fib arrest during this admission. He remains critically ill with persistent cardiogenic shock and volume overload. He is experiencing multiorgan failure. Overall prognosis for survival and recovery to prior level of function is poor. . Code Status: No Code (Code status changed to NO CODE on 01/16/17 as he is to be withdrwan from life support.) Plan * Legal decision maker: Patient is incapacitated to make his own health care decisions and will not regain capacity to do so. His father is his health care proxy. * Goals: Proxy and other involved family members feel strongly that patient, given the current medical status and prognosis, would want withdrawal of life support with transition to "comfort measures only." * CODE STATUS: Code status changed to NO CODE in preparation for withdrawal of life support. * SYMPTOMS: --Dyspnea-emergently intubated 2/2 vfib arrest, remains on mech vent w high O2/support requirements, unable to wean due to fluid overload, multiorgan failure. Dyspnea managed with vent and with fentanyl drip. Given patient's history of opiate abuse (was using 130 mg of methadone per day prior to hospitalization) he will likely require high doses of opiates post extubation to prevent dyspnea. --Depression-Long history of depression and substance abuse. -- Pain: Current possible sources of pain include prolonged bedbound status ; venous access catheters; urinary cather; OT and OG tubes; SCDs. Pain currently managed with propofol and fentanyl drips. Will need to stop propofol prior to withdrawal of life support. Given patient's long history of opiate abuse, anticipate need for higher than usual opiate doses to prevent unnecessary suffering post extubation. * Family provided with anticipatory guidance reqarding withdrawal of life support and all questions answered. * Appropriate exhibits signed and witnessed. * Withdrawal plans discussed with primary nurse. * Withdrawal orders written. * Should patient survive ovenight and appear stable for transport will discuss hospice enrollment and transfer to a hospice care center. . . Time Spent Total Floor Time (mins): 55 (Total time included chart review; patient exam; above referenced family conference; case discussion with psychiatric rn; collaboration with primary nurse; writing orders for withdrawal; getting documents signed for withdrawal of life support; documentation. ) Face to Face Time (mins): 10 >50% Counseling/Coord of Care: Yes Attestation To help prompt me to consider important information that might be impacting today's encounter and assessment, information from prior notes written by myself or my colleagues may have been "brought forward" into today's note. My signature on this note, however, is an attestation that I personally performed the exam, history, and/or decision-making noted today, and, unless otherwise indicated, the interactions with patient, family, and staff as well as the review of records all occurred today. I also attest that the listed assessment and stated plan reflect my best clinical judgment today based on the combination of historical information, prior notes, and today's exam/ interactions. When time spent is documented, it refers only to time spent today by the signer, or if indicated, combined time spent today by collaborating physician/nurse practitioner. . Ezequiel Andrew MD Jan 16, 2017 11:17
[2017-01-16] MEDS ORDERED: LORazepam 2 MG/ML VIAL IV PUSH SCH (12:00)
--- NOTE | 2017-01-16 13:30 | HHI.NPPN ---
Subjective History of Present Illness 46-year-old obese male with a history of alcohol abuse and cardiac arrest and acute renal failure Additional Remarks Patient extubated agonal breathing Objective Data Data Vital Signs Date Time Temp Pulse Resp B/P (MAP) Pulse Ox O2 Delivery O2 Flow Rate FiO2 01/16/17 11:35 88 Room Air 21 01/16/17 11:35 88 21 01/16/17 08:00 94 01/16/17 08:00 98.9 94 10 113/64 (80) 87 01/16/17 08:00 90 01/16/17 07:31 88 90 01/16/17 04:38 88 90 01/16/17 04:00 87 01/16/17 04:00 80 01/16/17 04:00 98.1 87 11 139/77 (97) 88 01/16/17 01:35 88 100 01/16/17 00:00 89 01/16/17 00:00 97.9 82 13 139/81 (100) 93 01/16/17 00:00 60 01/15/17 23:03 89 100 01/15/17 22:25 96 45 01/15/17 20:00 45 01/15/17 20:00 76 01/15/17 20:00 98.2 76 13 134/76 (95) 99 01/15/17 19:49 98 45 01/15/17 16:00 45 01/15/17 16:00 83 01/15/17 16:00 98.7 82 10 129/76 (93) 96 01/15/17 14:46 95 45 -: 01/15/17 0415 01/15/17 0415 Physical Exam General Appearance: Well Developed, Comfortable, Obese Neck Neck Exam: Neck Supple Pulmonary Resp Exam: Rhonchi, Decreased Bases Cardiology CV Exam: Regular, Normal Sinus Rhythm Gastrointestinal/Abdomen GI Exam: Soft, Bowel Sounds Present, Distended Extremeties Extremities Exam: Moderate Edema Neurologic Neuro Exam: Sedated Assessment/Plan Problem List: (1) Acute renal failure ICD Codes: N17.9 - Acute kidney failure, unspecified Plan: Patient is in acute renal failure due to cardiogenic shock he did receive a CTA of the chest, exposed to dye now extubated doing poorly Remains nonoliguric comfort care poor prognosis I will sign off (2) Anasarca ICD Codes: R60.1 - Generalized edema Status: Acute Plan: Due to cirrhosis (3) Liver cirrhosis ICD Codes: K74.60 - Unspecified cirrhosis of liver Status: Acute Plan: Alcoholism (4) Ventricular fibrillation ICD Codes: I49.01 - Ventricular fibrillation Plan: ventricular fibrillation has resuscitation Tonya Combs MD Jan 16, 2017 13:30
== END 2017-01-16 16:54 | disposition expired | DRG 432 ==
LOC: NEPE 14:11 → NEDA 15:50 → N04A 17:29 → N03A 01-07 23:23
PROVIDERS: ADMIT Internal Medicine Critical Care Medicine; ATTEND Internal Medicine Critical Care Medicine
PROC: 0T9B70Z Drainage of Bladder with Drainage Device, Via Natural or Artificial Opening (ICD-10-PCS; 2017-01-06)
PROC: 05HY33Z Insertion of Infusion Device into Upper Vein, Percutaneous Approach (ICD-10-PCS; principal; 2017-01-08)
PROC: 03HY32Z Insertion of Monitoring Device into Upper Artery, Percutaneous Approach (ICD-10-PCS; 2017-01-08)
PROC: 4A133B1 Monitoring of Arterial Pressure, Peripheral, Percutaneous Approach (ICD-10-PCS; 2017-01-08)
PROC: 4A133J1 Monitoring of Arterial Pulse, Peripheral, Percutaneous Approach (ICD-10-PCS; 2017-01-08)
PROC: 5A1955Z Respiratory Ventilation, Greater than 96 Consecutive Hours (ICD-10-PCS; 2017-01-08)
PROC: 0BH17EZ Insertion of Endotracheal Airway into Trachea, Via Natural or Artificial Opening (ICD-10-PCS; 2017-01-08)
PROC: 0D9670Z Drainage of Stomach with Drainage Device, Via Natural or Artificial Opening (ICD-10-PCS; 2017-01-09)
PROC: B246ZZ4 Ultrasonography of Right and Left Heart, Transesophageal (ICD-10-PCS; 2017-01-12)
DX: K70.10 Alcoholic hepatitis without ascites (principal); K72.00 Acute and subacute hepatic failure without coma; I49.01 Ventricular fibrillation; J96.01 Acute respiratory failure with hypoxia; R57.0 Cardiogenic shock; J96.02 Acute respiratory failure with hypercapnia; N17.9 Acute kidney failure, unspecified; D69.6 Thrombocytopenia, unspecified; K76.6 Portal hypertension; R45.851 Suicidal ideations; L03.115 Cellulitis of right lower limb; I47.2 Ventricular tachycardia; F11.23 Opioid dependence with withdrawal; L97.819 Non-pressure chronic ulcer of other part of right lower leg with unspecified severity; L97.829 Non-pressure chronic ulcer of other part of left lower leg with unspecified severity; R04.2 Hemoptysis; B19.20 Unspecified viral hepatitis C without hepatic coma; K74.60 Unspecified cirrhosis of liver; I83.018 Varicose veins of right lower extremity with ulcer other part of lower leg; I83.028 Varicose veins of left lower extremity with ulcer other part of lower leg; E83.42 Hypomagnesemia; E83.51 Hypocalcemia; R07.89 Other chest pain; I10 Essential (primary) hypertension; F31.9 Bipolar disorder, unspecified; F17.210 Nicotine dependence, cigarettes, uncomplicated; F10.20 Alcohol dependence, uncomplicated; E66.01 Morbid (severe) obesity due to excess calories; N50.89 Other specified disorders of the male genital organs; E87.6 Hypokalemia; B95.61 Methicillin susceptible Staphylococcus aureus infection as the cause of diseases classified elsewhere; Z51.5 Encounter for palliative care; F43.23 Adjustment disorder with mixed anxiety and depressed mood; E87.70 Fluid overload, unspecified; K72.90 Hepatic failure, unspecified without coma; R33.9 Retention of urine, unspecified; E11.9 Type 2 diabetes mellitus without complications; R11.10 Vomiting, unspecified
CPT/HCPCS: 31500; 36556; 70450; 71010; 71020; 71275; 74000; 74177; 76775; 76937; 80048; 80053; 80061; 80074; 80076; 80307; 81001; 82140; 82150; 82248; 82550; 82552; 82570; 82805; 82948; 83036; 83605; 83690; 83735; 83880; 84100; 84132; 84300; 84439; 84443; 84481; 84484; 85025; 85027; 85384; 85610; 85730; 86403; 87040; 87070; 87086; 87186; 87205; 87641; 92950; 93005; 93308; 93312; 93320; 93325; 93970; 93975; 94002; 94003; 94640; 94664; 94770; 94799; A7521; C9113; J0171; J0282; J0330; J0610; J1170; J1325; J1644; J1650; J1940; J1980; J2001; J2060; J2250; J2260; J2543; J2920; J2930; J3010; J3370; J3411; J3475; J3480; J7030; J7040; J7050; J7060; J7626; P9047; Q9967